=== PATIENT | female | born 1950 | race Caucasian/White ===

== ENCOUNTER 2018-12-08 15:55 | Outpatient (REF) | payer MEDICARE, BC, SELFPAY ==
[2018-12-08 21:43] LABS: ALT 35 U/L (12-78); AST 24 U/L (15-37); Calculated LDL 119; Cholesterol 250 mg/dL (50-200); HDL Cholesterol 111 mg/dL (40-60); Triglyceride 101 mg/dL (30-150); Vitamin B12 281 pg/mL (193-986)
== END 2018-12-08 16:15 ==
LOC: NCHCN 15:55
PROVIDERS: PCP Nurse Practitioner Family; Visit Provider Nurse Practitioner Family
DX: R53.83 Other fatigue (principal); E78.89 Other lipoprotein metabolism disorders
CPT/HCPCS: 80061; 83721; 82607; 84443; 84450; 84460

== ENCOUNTER 2018-12-15 01:17 | Outpatient (CLI) | payer MEDICARE, BC, SELFPAY ==
--- NOTE | 2018-12-15 09:16 | DI.MAMMO_ITS ---
SYMPTOM/DIAGNOSIS: SCREENING, Z12.31 BILATERAL SCREENING MAMMOGRAM: Mammograms were interpreted according to the usual protocol including computer analysis with CAD system, tomosynthesis and C view imaging. Comparison is made with exams from 2011 through 2017. The breasts are composed of heterogeneously dense fibroglandular tissue, breast density category C. No suspicious masses or suspicious microcalcifications are seen. There has been no significant change. IMPRESSION: Category 1, negative mammogram. Yearly screening mammography is recommended. Breast density category C. MQSA ASSESSMENT OF FINDINGS: Negative. Category 1. Patient will receive a letter notifying them of these results. Bi-RADS category C. The breasts are heterogeneously dense, which may obscure small masses.
== END 2018-12-15 01:37 ==
PROVIDERS: PCP Nurse Practitioner Family; Visit Provider Nurse Practitioner Family
DX: Z12.31 Encounter for screening mammogram for malignant neoplasm of breast (principal)
CPT/HCPCS: 77063; 77067

== ENCOUNTER 2019-02-06 01:38 | Outpatient (CLI) | payer MEDICARE, BC, SELFPAY ==
--- NOTE | 2019-02-06 12:50 | DI.DEXA_ITS ---
SYMPTOMS/DIAGNOSIS: OSTEOPENIA, M85.88 DEXA SCAN: DEXA scan was performed according to the usual protocol. The findings for left hip scanning are T score -2.6 with left femoral neck T score -2.7. Previous examination of August 2009 showed left hip T score -1.1. The findings for lumbar spine scanning are T score -2.2, previous examination of 2009 showed lumbar T score -1.2. Left forearm scanning shows T score -3.1, previous examination of August 2009 showed right forearm T score -1.4. CONCLUSION: Findings consistent with osteoporosis according to the WHO criteria. Please note that the lateral vertebral scanogram shows no evidence of a vertebral compression fracture.
== END 2019-02-06 01:58 ==
PROVIDERS: PCP Nurse Practitioner Family; Visit Provider Nurse Practitioner Family
DX: M81.8 Other osteoporosis without current pathological fracture (principal)
CPT/HCPCS: 77080

== ENCOUNTER 2019-10-18 19:33 | Outpatient (REF) | payer MEDICARE, BC, SELFPAY ==
[2019-10-18 19:58] LABS: Bilirubin Moderate (Negative); Blood Large (Negative); Clarity Cloudy (Clear); Glucose Negative (Negative); Ketones 15 mg/dL (Negative); Leukocyte Esterase Large (Negative); Nitrite Positive (Negative); Specific Gravity 1.015 (1.005-1.025); pH 5.5 (5-8)
[2019-10-18 20:12] LABS: Bacteria Many HPF (Negative); C & S Indicated? Yes; Casts Negative LPF (Negative); Crystals Negative HPF (Negative); Epithelial Cells Negative HPF (Negative); Mucus Negative (Negative); Other Cells Negative (Negative); RBC >50 HPF (0-2); WBC >50 HPF (0-5)
== END 2019-10-18 19:53 ==
LOC: NCHCN 19:33
PROVIDERS: PCP Nurse Practitioner Family; Visit Provider Nurse Practitioner Family
DX: R31.9 Hematuria, unspecified (principal)
CPT/HCPCS: 87077; 81003; 81015; 87086; 87186

== ENCOUNTER 2020-03-27 11:17 | Outpatient (REF) | payer MEDICARE, BC, SELFPAY ==
[2020-03-27 21:00] LABS: Bacteria Few HPF (Negative); C & S Indicated? Yes; Casts Negative LPF (Negative); Crystals Negative HPF (Negative); Epithelial Cells Few HPF (Negative); Mucus Negative (Negative); RBC 0-2 HPF (0-2)
[2020-03-27 21:15] LABS: Calcium 9.1 mg/dL (8.5-10.1); PHOSPHORUS 3.9 mg/dL (2.6-4.7); TSH (W/Ref FT4) 2.23 uIU/mL (0.36-3.74)
== END 2020-03-27 11:37 ==
LOC: NCHCN 11:17
PROVIDERS: PCP Nurse Practitioner Family; Visit Provider Nurse Practitioner Family
DX: R94.6 Abnormal results of thyroid function studies (principal); M81.0 Age-related osteoporosis without current pathological fracture; R31.9 Hematuria, unspecified
CPT/HCPCS: 82306; 81015; 82310; 84100; 84443; 87086

== ENCOUNTER 2020-04-09 01:38 | Outpatient (CLI) | payer MEDICARE, BC, SELFPAY ==
--- NOTE | 2020-04-09 09:20 | DI.US_ITS ---
APPROVED REPORT EXAM: Comprehensive 2D, Doppler, and color-flow Echocardiogram Patient Location: Out-Patient Financial Services Manager: Jazz Hernandez RDCS (AE) Indications: Murmur Other Information Study Quality: Adequate Conclusion Left Ventricle : The left ventricle is normal size. The left ventricular systolic function is normal. The left ventricular ejection fraction is within the normal range. There is normal left ventricular wall thickness. There is normal LV segmental wall motion. The left ventricular diastolic function is normal. LVEF is 55-60%. Right Ventricle : The right ventricle is normal size. The right ventricular systolic function is norm al. The RVSP is 19.1 mmHg. Atria : The left atrium size is normal. The right atrium size is normal. Valves: There are no hemodynamically significant valvular lesions. Great Vessels : The aortic root is normal in size. The ascending aorta is normal in size. Aortic arch is normal in caliber. IVC is normal in size and collapses >50% with inspiration. Please see remainder of study for further details. Wall motion Left Ventricle The left ventricle is normal size. The left ventricular systolic function is normal. The left ventric ular ejection fraction is within the normal range. There is normal left ventricular wall thickness. T here is normal LV segmental wall motion. The left ventricular diastolic function is normal. There is no ventricular septal defect visualized. LVEF is 55-60%. Right Ventricle The right ventricle is normal size. The right ventricular systolic function is normal. The RVSP is 19 .1 mmHg. Atria The left atrium size is normal. The right atrium size is normal. The interatrial septum is intact wit h no evidence for an atrial septal defect. Aortic Valve The aortic valve is normal in structure. Aortic valve is trileaflet. There is no aortic valvular sten osis. No aortic regurgitation is present. Mitral Valve The mitral valve is normal in structure. No evidence of mitral valve stenosis. Trace mitral regurgita tion. Tricuspid Valve The tricuspid valve is normal in structure. There is no tricuspid valve stenosis. Trace tricuspid reg urgitation. Pulmonic Valve The pulmonary valve is normal in structure. There is no pulmonic valvular stenosis. Trace pulmonic re gurgitation. Great Vessels The aortic root is normal in size. The ascending aorta is normal in size. Aortic arch is normal in ca liber. IVC is normal in size and collapses >50% with inspiration. Pericardium There is no pericardial effusion. 2D Dimensions IVSD d PLAX 0.73 cm F: 0.6-1.0 LV Vol A2C d MOD 48.2 mL LVPW d PLAX 0.76 cm F: 0.6 - 1.0 LV Vol A4C d MOD 60.9 mL LVID d PLAX 4.02 cm F: 3.8 - 5.2 LA vol/ BSA A2C s A-L 18.4 mL/m2 LVDs 2.65 cm F: 2.2 - 3.5 LA vol/ BSA A4C s A-L 19.9 mL/m2 Ao Root d 3.00 cm F: 2.7 - 3.3 LA Vol/ BSA Biplane s A-L 19.3 mL/m2 RA Area A4C 12.26 cm2 LA Area A4C s MOD 13.69 cm2 RA Vol/ BSA A4C s A-L 16.5 mL/m2 LA Area A2C s MOD 13.05 cm2 Ao Asc Diam d 2.85 cm F: 2.3 - 3.1 LV EF A4C MOD 56.7 % LV EF Teichholz 62.9 % LV EF A2C MOD 59.5 % LVEF (Baum's) 57.76 % F: 54 - 74 LV EF Biplane MOD 57.8 % LV Volume 44.67 mL F: 46 - 106 SV 32.04 mL LV Volume Index 27.40 mL/m2 F: 29 - 61 SV Index 19.56 mL/m2 LV Vol Biplane MOD 55.5 mL FS 33.55 % M-Mode TAPSE 3.22 cm (M/F) >1.7 LV Diastology MV E' medial 0.166 (>0.07 m/s) E/A Ratio 1.3 LV E/e MED 5.80 (<14) MV E Vmax 0.97 (0.4-1.3 m/s) MV E' lateral 0.153 (>0.1 m/s) MV A Vmax 0.75 (0.4-1.3 m/s) LV E/e LAT 6.30 (<14) MV E/A Ratio 1.23 MV E/E' medial 5.81 MV E/E' lateral 6.31 Aortic Valve LVOT Area 3.00 cm2 AoV Area Vmax 2.19 cm2 LVOT Vmax 1.14 m/s AoV Area/ BSA (Vmax) 1.34 cm2/m2 LVOT Mean Mitul. 0.77 m/s TORRIE Mean Mitul. 1.93 cm2 LVOT Peak Grad 5.2 mmHg TORRIE Mean Mitul. Index 1.18 cm2/m2 LVOT Mean Grad 2.7 mmHg LVOT VTI 0.262 m LVOT Diam s 1.95 cm AoV Vmax 1.55 m/s Velocity Ratio 0.73 AoV Mean Mitul. 1.19 m/s AoV Peak Grad 9.7 mmHg LVOT SV 78.70 mL AoV Mean Grad 6.3 mmHg AoV VTI 0.361 m AoV Area VTI 2.18 cm2 AoV Area/ BSA (VTI) 1.33 cm/m2 Mitral Valve MV DT 199 (160-240 msec) MV PHT 58 msec MV Area PHT 3.81 cm2 Pulmonary Valve PV Vmax 1.10 (0.5-1.5 m/s) RVOT Peak Gr. 2.25 mmHg PV Peak Grad 4.8 mmHg RVOT Mean Gr. 1.35 mmHg PV Mean Grad 2.6 mmHg RVOT VTI 0.188 m PV VTI 0.236 m RVOT Vmax 0.75 m/s Tricuspid Valve TR Peak Grad 16.0 mmHg TR Vmax 2.00 m/s RA Pressure 3.00 mmHg RVSP (TR) 19.1 mmHg
== END 2020-04-09 01:58 ==
PROVIDERS: PCP Nurse Practitioner Family; Visit Provider Nurse Practitioner Family
DX: R01.1 Cardiac murmur, unspecified (principal)
CPT/HCPCS: 93306

== ENCOUNTER 2021-03-31 16:46 | Outpatient (REF) | payer MEDICARE, BC, SELFPAY ==
[2021-03-31 14:28] LABS: HCT 36.9 % (36.0-46.0); HGB 12.1 g/dL (11.2-15.7); MCH 30.6 pg (27.0-33.0); MCHC 32.8 % (32.0-36.0); MCV 93.2 fL (80-95); MPV 10.4 fL (8.0-11.0); Platelet Count 275 10^3/uL (130-400); RBC 3.96 10^6/uL (3.93-5.22); RDW 12.4 % (11.7-14.6); RDW-SD 42.8 fL; WBC 4.33 10^3/uL (4.4-10.8)
[2021-03-31 14:50] LABS: Anion Gap 5.6 mmol/L (3-11); BUN 6 mg/dL (7-18); CO2 31.4 mmol/L (21.0-32.0); CREATININE 0.7 mg/dL (0.55-1.02); Calcium 9.5 mg/dL (8.5-10.1); Chloride 101 mmol/L (98-107); Glucose 76 mg/dL (74-106); Potassium 4.4 mmol/L (3.5-5.1); Sodium 138 mmol/L (136-145); TSH (W/Ref FT4) 2.82 uIU/mL (0.36-3.74)
== END 2021-03-31 16:47 | disposition home or self-care (01) ==
LOC: NCHCN 16:46
PROVIDERS: PCP Nurse Practitioner Family; Visit Provider Nurse Practitioner Family
DX: R94.6 Abnormal results of thyroid function studies (principal); Z00.00 Encounter for general adult medical examination without abnormal findings
CPT/HCPCS: 80048; 85027; 84443

== ENCOUNTER → 2021-04-30 11:28 | Outpatient (BNVA) | payer MEDICARE, BC, SELFPAY | PROVIDERS: PCP Nurse Practitioner Family; Referring Provider Nurse Practitioner Family; Visit Provider Physical Therapy Assistant | DX: K21.9 Gastro-esophageal reflux disease without esophagitis (principal); K22.70 Barrett's esophagus without dysplasia | CPT/HCPCS: 99203 ==

== ENCOUNTER 2021-05-01 03:21 | Outpatient (CLI) | payer MEDICARE, BC, SELFPAY ==
[2021-05-01 12:33] LABS: Source Nasal/Nares
[2021-05-01 20:16] LABS: COVID-19 PCR Negative (Negative)
== END 2021-05-01 03:22 | disposition home or self-care (01) ==
LOC: LBO 03:21
PROVIDERS: PCP Nurse Practitioner Family; Visit Provider Surgery
DX: Z20.822 Contact with and (suspected) exposure to COVID-19 (principal); Z01.818 Encounter for other preprocedural examination
CPT/HCPCS: 87635

== ENCOUNTER 2021-05-04 09:16 | Day surgery (SDC) | payer MEDICARE, BC, SELFPAY ==
--- NOTE | 2021-05-04 06:38 | ENDO_ITS ---
Date of service: 05/04/21 Time of Service: 10:30 Endoscopy Report DATE OF PROCEDURE: 05/04/21 PRE-OP DIAGNOSIS: Hx of Pizarro's, cough, GERD POST-OP DIAGNOSIS: same PROCEDURE: EGD with biopsies SURGEON: Cindy Mayo ANESTHESIA TYPE: General:No Airway (Monica Nayak CRNA) ESTIMATED BLOOD LOSS: 2 PATHOLOGY: other (Antrum bx, GE junction bx) COMPLICATIONS: None DISPOSITION: same day INDICATIONS: Provided both the patient and her information regarding the pathology from the EGD performed in 2011 which was remarkable for Barretts esophagus and (+) for H. Pylori. Patient was a poor historian and her expressed that he would like to ensure that he is included in any further communications secondary to misunderstandings/confusion and challenges with Ani relaying information. Discussed the options of restarting Protonix (which she was previously on) to help control her GERD symptoms, which would hopefully improve her cough sxs as it had in the past. Both Ani and her were in agreement to this. Patient has persistent cough, which is most likely related to her persistent reflux. -Discussed Upper endoscopy procedure and the need to be NPO after midnight the night prior. Discussed possible complications of the procedure to include bleeding, pain, perforation, missed small lesion/polyp/ulcers, sore throat, aspiration and adverse reaction to the medications or sedation. Questions were answered to patient?s satisfaction. No guarantees were implied or given. FINDINGS: mild gastritis and esophagitis PROCEDURE DESCRIPTION: After informed consent was obtained the patient was take to the procedure room and placed in a supine position. Monitors were applied and a time out was done. The patients name, date of , procedure type, allergies to medications and metal in their body was reviewed. A bite block was placed and the patient was sedated. Once sedated and comfortable the gastroscope was advanced through the oropharynx which was grossly normal into the esophagus. The proximal and mid- esophagus were normal. In the distal esophagus there was mild inflammation noted. The scope was advanced into the stomach and through the pylorus into the 3rd portion of the duodenum. The duodenum was noted to be normal. The scope was retracted back into the stomach. There was mild inflammation noted. Biopsies were done to rule out H. pylori. There were no ulcers. The scope was retroflexed. The cardia and fundus were noted to be normal. There was no hiatal hernia noted. The scope was retracted back into the esophagus and biopsies were done of the GE junction to rule out Pizarro's. The Z line was regular. The GE junction was at 35 cm. The scope was removed and the patient was woken up and taken back to [facility] in stable condition. Follow up: Will depend on final pathology results.
--- NOTE | 2021-05-04 06:39 | W.PM.DSUDISC ---
Discharge Plan Disposition Patient Disposition: HOME Condition: Good Discharge Details Reason For Visit: EGD Attending Provider: Cindy Mayo Primary Care Provider: Blanquita Pagan Home Meds and New Rx's Prescriptions: Continued pantoprazole 40 mg tablet,delayed release (DR/EC) 40 mg PO DAILY Qty: 60 RF: 2 levothyroxine 50 mcg capsule 50 mcg PO DAILY RF: 0 calcium carbonate 500 mg calcium (1,250 mg) tablet 500 mg PO BID RF: 0 alendronate 10 mg tablet 10 mg PO DAILY RF: 0 cholecalciferol (vitamin D3) 10 mcg (400 unit) capsule 20 mcg PO DAILY RF: 0 Discharge Instructions Instructions: Gastritis (DC) Additional Instructions: Findings: Inflammation of the stomach Follow up: I will send you a letter in the mail Please stay on Pantoprazole (protonix) indefinitely to control your reflux Please call if you develop: fevers >101.5 Nausea or Vomiting Abdominal pain that is not transient Rectal bleeding that is more then a tbsp A hard abdomen and inability to pass gas DAY SURGERY UNIT POST ENDOSCOPY INSTRUCTIONS Instructions for everyone who is given Anesthesia: For your safety, please do the following for the next 24 Hours: a. Do not drive or operate dangerous equipment b. Do not drink alcohol beverages or use any recreational drugs for the first 24 hours or while taking pain medications. The medications in your body may have a reaction that can be dangerous. c. Do not make any important decisions or sign any important papers 1. Generally there are no restrictions on your activity after a day or so has gone by, but you may feel a bit fatigued for a few days. 2. After you arrive home you may have a light meal and return to a normal diet as you can tolerate it without feeling sick to your stomach. 3. After surgery, you may feel pain or discomfort. This should be only transient, but if it persists please contact your doctor. 4. If there are any questions regarding the findings of your procedure, please feel free to contact your doctor. 6. If you are unable to contact your doctor with a problem, contact the hospital at [phone]. 7. Continue all your regular medications unless directed otherwise. I understand the above instructions and have no questions. Signature of Patient or Responsible Adult Escort Date/Time Name of Responsible Adult Escort Signature of Nurse Date/Time Activity:: Activity as Tolerated Diet:: As Tolerated Discharge Orders Discharge Orders: Discharge Order (Routine); Ordered 05/04/21 Ordered By: Cindy Mayo
[2021-05-04 09:29] VITALS: BP 145/81; PULSE 75; RESP 16; TEMP 36.3; O2SAT 100
[2021-05-04] MEDS: Lactated Ringers 1,000 ML 80 ML IV (09:51)
--- NOTE | 2021-05-04 10:08 | ANES.PREOP_ITS ---
General Info Date of Service Date Performed: 05/04/21 Height: 5 ft 6 in Weight: 54.6 kg Body Mass Index (BMI): 19.4 Surgical Procedure: Operation Date: 05/04/21 10:20 Proposed Procedures Side Surgeon p Gastroscopy Cindy Mayo MD Meds Allergies and Home Medications Allergies Allergy/AdvReac Type Severity Reaction Status Date / Time No Known Allergies Allergy Unverified 05/04/21 09:33 Home Medication Medication Instructions Recorded alendronate 10 mg tablet 10 mg PO DAILY 04/01/21 calcium carbonate 500 mg calcium 500 mg PO BID 04/01/21 (1,250 mg) tablet cholecalciferol (vitamin D3) 10 20 mcg PO DAILY cap 04/01/21 mcg (400 unit) capsule levothyroxine 50 mcg capsule 50 mcg PO DAILY 04/01/21 pantoprazole 40 mg tablet,delayed 40 mg PO DAILY #60 tab 04/30/21 release Current Visit Medications: Current Medications Generic Name Dose Route Start Last Admin Trade Name Freq PRN Reason Stop Dose Admin Hyoscyamine Sulfate 0.125 mg 05/04/21 06:39 Hyoscyamine 0.125 Mg Sl/Oral/Chew SL DIRECTED PRN Ringer's Solution 1,000 mls @ 80 mls/hr 05/04/21 06:00 05/04/21 09:51 IV 05/31/21 23:59 80 mls/hr INFUSION ANY Administration IV Miscellaneous Supplies 1 each 05/04/21 06:00 Iv Access IV 05/31/21 23:59 DIRECTED ANY Ondansetron HCl 4 mg 05/04/21 06:39 Ondansetron 4 Mg/2 Ml Vial IVP Q4H PRN PRN Nausea / Vomiting Sodium Chloride 0 ml 05/04/21 06:00 Normal Saline Flush 10 Ml Syr IV 05/31/21 23:59 PRN PRN Sodium Chloride 0 ml 05/04/21 06:00 Normal Saline 10 Ml Vial IJ 05/31/21 23:59 DIRECTED PRN Sterile Water 0 ml 05/04/21 06:00 Water,Injection,Sterile 10 Ml Vial IJ 05/31/21 23:59 DIRECTED PRN PFSH Active Problems Active Problems: Problem Status Onset Code Dysphagia R13.10 Heart murmur R01.1 GERD (gastroesophageal reflux disease) K21.9 Barretts esophagus K22.70 Medical History Medical History Barretts esophagus Elevated TSH Foreign body granuloma of soft tissue of foot GERD (gastroesophageal reflux disease) Heart murmur Pt. states she was told it was benign and not an issue Hematuria Memory loss Osteoporosis Polyneuropathy Toe anomaly Surgical History Surgical History History of tonsillectomy Tobacco Smoking/Tobacco Use Status: Never Alcohol Alcohol Intake: current Alcohol intake frequency: a few times a week Alcohol type: beer and hard liquor Substance Use Substance use type: does not use Vital Signs and Lab Results Vital Signs Most Recent Vital Signs in EMR: Most Recent Vital Signs Temp Pulse Resp BP Pulse Ox 36.3 C L 75 16 145/81 H 100 05/04/21 09:29 05/04/21 09:29 05/04/21 09:29 05/04/21 09:29 05/04/21 09:29 Lab Results Blood Type / Crossmatch: No Data to Display Complete Blood Count: No Data to Display Complete Metabolic Panel: No Data to Display Liver Function Panel: No Data to Display Coagulation Panel: No Data to Display Cardiac Panel: No Data to Display Arterial Blood Gas: No Data to Display Venous Blood Gas: No Data to Display Pancreas Panel: No Data to Display Thyroid Panel: No Data to Display Infectious Disease: Coronavirus (COVID-19)(PCR) Negative (Negative) 05/01/21 10:10 05/01/21 Coronavirus 2019 Source Nasal/Nares 05/01/21 10:10 05/01/21 Blood Cultures: No Data to Display Toxicology Panel: No Data to Display Imaging and Studies Imaging and Studies Echocardiogram Summary: Conclusion Left Ventricle : The left ventricle is normal size. The left ventricular systolic function is normal. The left ventricular ejection fraction is within the normal range. There is normal left ventricular wall thickness. There is normal LV segmental wall motion. The left ventricular diastolic function is normal. LVEF is 55-60%. Right Ventricle : The right ventricle is normal size. The right ventricular systolic function is normal. The RVSP is 19.1 mmHg. Atria : The left atrium size is normal. The right atrium size is normal. Valves: There are no hemodynamically significant valvular lesions. Great Vessels : The aortic root is normal in size. The ascending aorta is normal in size. Aortic arch is normal in caliber. IVC is normal in size and collapses >50% with inspiration.04/09/20 Anesthesia Assessment and Plan Anesthesia History Personal History: No History of Anesthesia Complications Family History: No Family History of Anesthesia Complications Exercise Tolerance Exercise Tolerance: Metabolic Equivalents>4 Pertinent Negatives Pertinent Negatives: No Symptoms of GERD (Controlled with med), No Major Cardi ovascular Symptoms or Complaints, No Major Pulmonary Symptoms or Complaints and No History of CVA/TIA Cardiac & Pulmonary Exam Cardiac Exam: Normal S1/S2 Heart Sounds Pulmonary Exam: Clear Bilateral Breath Sounds Implantable Cardiac Device Does patient have a Pacemaker or an ICD?: No Airway Exam Known Difficult Airway: No Mallampati Class: 2 Mouth Opening: Normal (> 3cm) Thyromental Distance: Greater than 3 cm Neck Range of Motion: Full ROM Neck Circumference: Normal Teeth Condition: Normal Dentition ASA Classification ASA Score: ASA 2 Emergency Case?: No NPO Status NPO Status: NPO Clears >2 hours, Solids >8 hours Anesthesia Plan Resuscitation Status: Full Code Anesthesia Technique: General Anesthesia Airway Planned: Natural Airway Monitors Used: Standard Monitors
[2021-05-04 10:13] VITALS: BMI 19.4
--- NOTE | 2021-05-04 10:20 | STOM_PTH ---
PATIENT: Ani Ridley LOC: [facility] U#:[id number] AGE/SX: 71/F ROOM: RE05/04/[address]: Cindy Mayo MD : 1950 BED: DIS: 05/04/2021 SPEC #: [id number] RECD: 05/04/21 12:33 STATUS: GARETH REQ #: [id number] LEXX: 05/04/21 10:[address]: Cindy Mayo DEPT: Surgical Specimen RECD BY: Theresa Robles ENTERED: 05/04/21 12:34 SP TYPE: STOMACH OTHR DR: Blanquita Pagan Tissues: 1 - STOMACH BIOPSY 2 - ESOPHAGUS BIOPSY Procedures: GROSS AND MICRO LEVEL 4 Comments: [id number]
[2021-05-04 10:40] VITALS: BP 117/67; PULSE 71; RESP 18; TEMP 36.5; O2SAT 96
[2021-05-04 10:58] VITALS: BP 129/79; PULSE 68; RESP 16; TEMP 36.1; O2SAT 100
--- NOTE | 2021-05-04 11:06 | W.ANESPOSTOP ---
Postoperative Evaluation Date, Time and Location Date Performed: 05/04/21 Time Performed: 10:58 Patient Location: Day Surgery Unit Vital Signs Most Recent Imported Vital Signs: Most Recent Vital Signs Temp Pulse Resp BP Pulse Ox 36.1 C L 68 16 129/79 100 05/04/21 10:58 05/04/21 10:58 05/04/21 10:58 05/04/21 10:58 05/04/21 10:58 Pain Score Most Recent Pain Score: Most Recent Pain Score Pain Level 0 05/04/21 10:58 Assessment Mental Status: Awake (Alert & Oriented to Patient Baseline) Airway and Respiratory Function: Patent airway with normal (patient baseline) respiratory exam Cardiovascular Function: Hemodynamically Stable Hydration Status: Adequately Hydrated Nausea & Vomiting: No Nausea or Vomiting Pain: Pt. Denies Any Pain Peripheral Nerve Block: Patient did not receive a nerve block
== END 2021-05-04 11:31 | disposition home or self-care (01) ==
LOC: SUR 09:16
PROVIDERS: PCP Nurse Practitioner Family; Visit Provider Surgery
PROC: 0DJ68ZZ Inspection of Stomach, Via Natural or Artificial Opening Endoscopic (ICD-10-PCS; CPT 43235; principal; 2021-05-04 10:15)
DX: K21.9 Gastro-esophageal reflux disease without esophagitis (principal); K22.70 Barrett's esophagus without dysplasia
CPT/HCPCS: 43239; 88305; J2001; J2704

== ENCOUNTER 2021-06-18 02:29 | Outpatient (CLI) | payer MEDICARE, BC, SELFPAY ==
--- NOTE | 2021-06-18 | DI.DEXA_ITS ---
Exam(s) XR DEXA BONE DENSITY W/WO ALIRIO EXAM: XR DEXA BONE DENSITY W/WO ALIRIO CLINICAL HISTORY: POST MENOPAUSAL STATE Z78.0 SCREENING FOR OSTEOPOROSIS TECHNIQUE: Overwatch C densitometer COMPARISON: 2009 and 2018 FINDINGS: Lateral view of the thoracic and lumbar spine shows no evidence of compression fractures. Bone mineral density measurements of the lumbar spine correspond to a total T-score of -2.0, in the osteopenic range. This represents a 3.4 percent increase from 2019 and 9.0 percent decrease compared with 2009. Bone mineral density measurements of the left hip correspond to a total T-score of -2.4. The femora l neck T-score is -3.0, in the osteoporotic range. 3.8 percent increase from 2019. 20.6 percent dec rease from 15/04.. The left forearm bone mineral density measurements correspond to a T-score of the distal 3rd of -3.0 , in the osteoporotic range. No significant change from 2019. 15.8 percent decrease compared with 010.. IMPRESSION: Osteoporosis of the left forearm and left hip. Osteopenia of the lumbar spine.
--- NOTE | 2021-06-18 13:15 | DI.MAMMO_ITS ---
Exam(s) MAMMO SCREENING EXAM: MAMMO SCREENING CLINICAL HISTORY: SCREENING MAMMOGRAM Z12.31 TECHNIQUE: Mammograms were interpreted according to the usual protocol including computer analysis w [place] CAD system, tomosynthesis and C-view imaging. COMPARISON: 2012 through 2018 FINDINGS: The breasts are composed of heterogeneously dense fibroglandular densities, Breast Density category C . No suspicious masses or suspicious microcalcifications are seen. Vascular calcifications are inciden tally noted. No skin thickening or abnormal axillary lymph nodes are seen. There has been no significant change from prior exams. IMPRESSION: BI-RADS Category 1, Negative mammogram. Yearly screening mammography is recommended. Breast Density Category C, heterogeneously Dense. The mammogram demonstrates the patient's breast tissue is dense. Dense breast tissue is very common a nd is not abnormal but dense breast tissue can make it harder to find cancer on a mammogram. Also, de nse breast tissue may increase breast cancer risk. This information about the result of the mammogram report was provided to the patient to raise their awareness. Use this report when you speak with the patient about their risks for breast cancer, which includes their family history. At that time, you may recommend additional screening tests (Ultrasound or MRI) as they might be useful based on their r isk. A negative radiographic report should not delay biopsy if a dominant or clinically suspicious mass is present. Up to ten percent of cancers are not identified on mammography. A negative report may reinforce clinical impression. Adenosis and dense breasts may obscure an underlying neoplasm. False positive reports average 6 to 10%.
== END 2021-06-18 02:49 ==
PROVIDERS: PCP Nurse Practitioner Family; Visit Provider Nurse Practitioner Family
DX: Z12.31 Encounter for screening mammogram for malignant neoplasm of breast (principal); M81.0 Age-related osteoporosis without current pathological fracture; M85.88 Other specified disorders of bone density and structure, other site; Z78.0 Asymptomatic menopausal state
CPT/HCPCS: 77063; 77067; 77080

== ENCOUNTER 2022-07-23 12:11 | Outpatient (REF) | payer MEDICARE, BC, SELFPAY ==
[2022-07-23 16:23] LABS: ALT 17 U/L (14-59); AST 23 U/L (15-37); Alkaline Phosphatase 84 U/L (46-116); Anion Gap 3.4 mmol/L (3-11); BUN 9 mg/dL (7-18); Bilirubin, Total 0.4 mg/dL (0.2-1.0); CO2 32.6 mmol/L (21.0-32.0); CREATININE 0.6 mg/dL (0.55-1.02); Calcium 9.8 mg/dL (8.5-10.1); Calculated LDL 151 mg/dL (<100); Chloride 99 mmol/L (98-107); Cholesterol 263 mg/dL (<200); Estimated GFR 94.72 (mL/min/1.73m2); Glucose 86 mg/dL (74-106); HDL Cholesterol 101 mg/dL (40-60); Potassium 5.4 mmol/L (3.5-5.1); Sodium 135 mmol/L (136-145); TSH 3.01 uIU/mL (0.36-3.74); Total Protein 7.1 g/dL (6.4-8.2); Triglyceride 56 mg/dL (<150)
[2022-07-23 16:37] LABS: Vitamin D 25 Total 40.5 ng/mL (30-100)
== END 2022-07-23 12:12 | disposition home or self-care (01) ==
LOC: NCHCN 12:11
PROVIDERS: PCP Nurse Practitioner Family; Visit Provider Family Medicine
DX: R41.3 Other amnesia (principal); G62.9 Polyneuropathy, unspecified; R94.6 Abnormal results of thyroid function studies; E78.5 Hyperlipidemia, unspecified; I10 Essential (primary) hypertension; M85.88 Other specified disorders of bone density and structure, other site
CPT/HCPCS: 80053; 80061; 82306; 84443

== ENCOUNTER 2022-07-27 15:24 | Outpatient (REF) | payer MEDICARE, BC, SELFPAY ==
[2022-07-27 15:41] LABS: Bilirubin Negative (Negative); Blood Trace-intact (Negative); Clarity Clear (Clear); Glucose Negative (Negative); Ketones Negative (Negative); Leukocyte Esterase Trace (Negative); Nitrite Negative (Negative); Specific Gravity <= 1.005 (1.005-1.025); Urobilinogen 0.2 EU/dL (Up TO 0.2); pH 5.5 (5-8)
== END 2022-07-27 15:25 | disposition home or self-care (01) ==
LOC: NCHCN 15:24
PROVIDERS: PCP Nurse Practitioner Family; Visit Provider Nurse Practitioner Family
DX: R31.9 Hematuria, unspecified (principal)
CPT/HCPCS: 81003; 81015; 87086

== ENCOUNTER 2022-07-29 01:57 | Outpatient (CLI) | payer MEDICARE, BC, SELFPAY ==
--- NOTE | 2022-07-29 | DI.MAMMO_ITS ---
Exam(s) MAMMO SCREENING EXAM: MAMMO SCREENING CLINICAL HISTORY: SCREENING MAMMO Z12.39 TECHNIQUE: Mammograms were interpreted according to the usual protocol including computer analysis w [employer] CAD system, tomosynthesis and C-view imaging. COMPARISON: 2012 through 2020 FINDINGS: The breasts are composed of heterogeneously dense fibroglandular densities, Breast Density category C . No suspicious masses or suspicious microcalcifications are seen. No skin thickening or abnormal axillary lymph nodes are seen. There has been no significant change from prior exams. IMPRESSION: BI-RADS Category 1, Negative mammogram. Yearly screening mammography is recommended. Breast Density Category C, heterogeneously Dense. The mammogram demonstrates the patient's breast tissue is dense. Dense breast tissue is very common a nd is not abnormal but dense breast tissue can make it harder to find cancer on a mammogram. Also, de nse breast tissue may increase breast cancer risk. This information about the result of the mammogram report was provided to the patient to raise their awareness. Use this report when you speak with the patient about their risks for breast cancer, which includes their family history. At that time, you may recommend additional screening tests (Ultrasound or MRI) as they might be useful based on their r isk. A negative radiographic report should not delay biopsy if a dominant or clinically suspicious mass is present. Up to ten percent of cancers are not identified on mammography. A negative report may reinforce clinical impression. Adenosis and dense breasts may obscure an underlying neoplasm. False positive reports average 6 to 10%.
== END 2022-07-29 02:17 ==
LOC: DI 01:58
PROVIDERS: PCP Nurse Practitioner Family; Visit Provider Nurse Practitioner Family
DX: Z12.31 Encounter for screening mammogram for malignant neoplasm of breast (principal); R92.8 Other abnormal and inconclusive findings on diagnostic imaging of breast
CPT/HCPCS: 77063; 77067

== ENCOUNTER 2022-09-15 01:28 | Outpatient (CLI) | payer MEDICARE, BC, SELFPAY ==
--- NOTE | 2022-09-15 10:15 | DI.US_ITS ---
APPROVED REPORT EXAM: Comprehensive 2D, Doppler, and color-flow Echocardiogram Patient Location: Out-Patient [facility] [place]: Jazz Hernandez RDCS (AE) Indications: Heart murmur Other Information Study Quality: Adequate Conclusion Normal left ventricular wall thickness and chamber size. Estimated ejection fraction is 60 to 65%. Wall motion is normal Normal right ventricular size and systolic function Both atria are normal in size Aortic valve is calcified without stenosis or regurgitation Mildly thickened mitral leaflets. Mild mitral annular calcification. Trace to mild mitral regurgita tion Normal tricuspid valve with trace to mild regurgitation. Estimated right ventricular systolic pressu re is 20 mmHg Wall motion Left Ventricle The left ventricle is normal size. The left ventricular systolic function is normal. The left ventric ular ejection fraction is within the normal range. There is normal left ventricular wall thickness. T here is normal LV segmental wall motion. There is no ventricular septal defect visualized. LVEF is 60 -65%. Right Ventricle The right ventricle is normal size. The right ventricular systolic function is normal. The RVSP is 20 .3_ mmHg. Atria The left atrium size is normal. The right atrium size is normal. The interatrial septum is intact wit h no evidence for an atrial septal defect. Aortic Valve Aortic valve is calcified. No hemodynamically significant valvular aortic stenosis. No aortic regurgi tation is present. Mitral Valve Mildly thickened mitral leaflets Mild mitral annular calcification No evidence of mitral valve stenos is. Trace to mild mitral regurgitation. Tricuspid Valve The tricuspid valve is normal in structure. There is no tricuspid valve stenosis. Trace to mild tricu spid regurgitation. Pulmonic Valve The pulmonary valve is normal in structure. There is no pulmonic valvular stenosis. There is no pulmo earle valvular regurgitation. Great Vessels The aortic root is normal in size. The ascending aorta is normal in size. Aortic arch is normal in ca liber. IVC is normal in size and collapses >50% with inspiration. Pericardium There is no pericardial effusion. 2D Dimensions IVSD d PLAX 0.67 cm F: 0.6-1.0 LV Vol A2C d MOD 71.4 mL LVPW d PLAX 0.68 cm F: 0.6 - 1.0 LV Vol A4C d MOD 60.1 mL LVID d PLAX 4.00 cm F: 3.8 - 5.2 LA vol/ BSA A2C s A-L 31.3 mL/m2 LVDs 2.75 cm F: 2.2 - 3.5 LA Area A2C s MOD 18.17 cm2 Ao Root d 3.07 cm F: 2.7 - 3.3 LV EF A4C MOD 60.3 % Ao Asc Diam d 2.76 cm F: 2.3 - 3.1 LV EF A2C MOD 65.5 % LV EF Teichholz 59.4 % LV EF Biplane MOD 63.2 % LVEF (Baum's) 63.16 % F: 54 - 74 SV 43.17 mL LV Volume 55.56 mL F: 46 - 106 SV Index 27.01 mL/m2 LV Volume Index 34.72 mL/m2 F: 29 - 61 LV Vol Biplane MOD 68.3 mL FS 31.10 % M-Mode TAPSE 3.03 cm (M/F) >1.7 LV Diastology MV E' medial 0.132 (>0.07 m/s) E/A Ratio 1.2 LV E/e MED 5.70 (<14) MV E Vmax 0.76 (0.4-1.3 m/s) MV E' lateral 0.095 (>0.1 m/s) MV A Vmax 0.65 (0.4-1.3 m/s) LV E/e LAT 8.00 (<14) MV E/A Ratio 1.09 MV E/E' medial 5.75 MV E/E' lateral 8.03 Aortic Valve LVOT Area 3.13 cm2 AoV Area Vmax 1.10 cm2 LVOT Vmax 0.85 m/s AoV Area/ BSA (Vmax) 0.69 cm2/m2 LVOT Mean Mitul. 0.59 m/s TORRIE Mean Mitul. 1.08 cm2 LVOT Peak Grad 2.9 mmHg TORRIE Mean Mitul. Index 0.68 cm2/m2 LVOT Mean Grad 1.6 mmHg LVOT VTI 0.212 m LVOT Diam s 1.95 cm AoV Vmax 2.43 m/s Velocity Ratio 0.35 AoV Mean Mitul. 1.70 m/s AoV Peak Grad 23.5 mmHg LVOT SV 66.35 mL AoV Mean Grad 13.1 mmHg AoV VTI 0.556 m AoV Area VTI 1.19 cm2 AoV Area/ BSA (VTI) 0.75 cm/m2 Mitral Valve MV DT 181 (160-240 msec) MV PHT 52 msec MV Area PHT 4.19 cm2 MV VTI 0.337 m MV Area VTI 1.97 (4.0-6.0 cm2) Pulmonary Valve PV Vmax 0.94 (0.5-1.5 m/s) RVOT Peak Gr. 1.48 mmHg PV Peak Grad 3.5 mmHg RVOT Mean Gr. 0.80 mmHg PV Mean Grad 2.0 mmHg RVOT VTI 0.135 m PV VTI 0.183 m RVOT Vmax 0.61 m/s Tricuspid Valve TR Peak Grad 17.3 mmHg TR Vmax 2.08 m/s RA Pressure 3.00 mmHg RVSP (TR) 20.3 mmHg
== END 2022-09-15 01:48 ==
LOC: DI 01:28
PROVIDERS: PCP Nurse Practitioner Family; Visit Provider Nurse Practitioner Family
DX: R01.1 Cardiac murmur, unspecified (principal)
CPT/HCPCS: 93306

== ENCOUNTER 2022-12-15 16:30 | Outpatient (REF) | payer MEDICARE, BC, SELFPAY ==
[2022-12-15 20:47] LABS: Abs Immature Grans 0.02 10^3/uL (0.0-0.06); Absolute Basophil Count 0.06 10^3/uL (0.0-0.2); Absolute Eosinophil Count 0.05 10^3/uL (0.0-0.7); Absolute Lymphocyte Count 0.49 10^3/uL (1.2-3.4); Absolute Monocyte Count 0.59 10^3/uL (0.1-0.8); Basophils % 0.9; Eosinophils % 0.8; HCT 32.9 % (36.0-46.0); HGB 10.9 g/dL (11.2-15.7); Immature Grans % 0.3; Lymphocytes % 7.5; MCH 28.9 pg (27.0-33.0); MCHC 33.1 % (32.0-36.0); MCV 87 fL (80-95); MPV 9.2 fL (8.0-11.0); Monocytes % 9.1; Neutrophils % 81.4; Platelet Count 380 10^3/uL (130-400); RBC 3.77 10^6/uL (3.93-5.22); RDW 13.5 % (11.7-14.6); RDW-SD 43.3 fL; WBC 6.51 10^3/uL (4.4-10.8)
[2022-12-15 20:49] LABS: ESR 26 mm/hr (0-30)
[2022-12-15 21:02] LABS: ALT 20 U/L (14-59); AST 33 U/L (15-37); Albumin 3.5 g/dL (3.4-5.0); Alkaline Phosphatase 83 U/L (46-116); Anion Gap 7.9 mmol/L (3-11); BUN 11 mg/dL (7-18); Bilirubin, Total 0.2 mg/dL (0.2-1.0); CO2 29.1 mmol/L (21.0-32.0); CREATININE 0.6 mg/dL (0.55-1.02); Calcium 9.3 mg/dL (8.5-10.1); Chloride 97 mmol/L (98-107); Estimated GFR 94.72 (mL/min/1.73m2); Glucose 82 mg/dL (74-106); Potassium 4.4 mmol/L (3.5-5.1); Sodium 134 mmol/L (136-145); Total Protein 7.2 g/dL (6.4-8.2)
== END 2022-12-15 16:31 | disposition home or self-care (01) ==
LOC: NCHCN 16:30
PROVIDERS: PCP Nurse Practitioner Family; Visit Provider Family Medicine
DX: R59.1 Generalized enlarged lymph nodes (principal)
CPT/HCPCS: 80053; 85652; 85025

== ENCOUNTER 2023-01-06 01:55 | Outpatient (CLI) | payer MEDICARE, BC, SELFPAY ==
[2023-01-06] MEDS: Barium Sulfate 2% W/V-Berry Smoothie 450 ML BTL PO ×2 (07:25)
[2023-01-06] MEDS: Normal Saline Flush 10 ML SYR IJ (09:15)
[2023-01-06] MEDS: Normal Saline - Diluent 50 ML VIAL IJ (09:16)
[2023-01-06] MEDS: Omnipaque 350 MG/ML 500 ML BTL-Imaging package 100 ML IJ (09:17)
--- NOTE | 2023-01-06 09:19 | DI.CT_ITS ---
Exam(s) CT CHEST/ABD/PEL W EXAM: CT CHEST/ABD/PEL W CLINICAL HISTORY: LYMPHADENOPATHY,R59.1. TECHNIQUE: Imaging Protocol: Axial computed tomography images with coronal and sagittal reformatted images were created and reviewed CONTRAST MATERIAL: Intravenous: Omnipaque 350 Contrast volume:100 ml Oral: Yes. Oral contrast was also administered for bowel opacification. COMPARISON: No exams were available for comparison FINDINGS: CHEST: LUNGS: There is a prominent medial left supraclavicular mass which abuts the lateral aspect of the le ft thyroid lobe and extends laterally for a distance of 4.5 cm. AP measurement of this solid mass is 3 cm and craniocaudal measurement of this neoplastic appearing mass is 4.4 cm. Immediately subjacen t to this mass is an isodense mass in the medial left lung apex adjacent to the T1 and T2 vertebral b odies which measures 6 cm AP by 1.8 cm wide by 4.5 cm craniocaudal measurement.. The mass in the lef t supraclavicular region elevates the ipsilateral sternocleidomastoid muscle and complete presses the left thyroid lobe but there does not appear to be tracheal deviation towards the opposite-right side nor encasement of the adjacent ipsilateral common carotid artery. The mass skirts but does not trul y encase the ipsilateral left subclavian artery.. There is abnormal sclerotic density in the left side of the adjacent T 2 vertebral body and left 2nd rib, suspicious for blastic metastatic disease contiguous to the above described soft tissue mass. T here is no height loss of this vertebra but the abnormal density does extend into the left pedicle of T2. Lower down in the left lung there is a nodular infiltrate in left lower lobe measuring approximately 10 x 9 mm. No other left lung nodules nor pleural effusions. There are no significant focal nodular findings in the opposite-right lung. However, there does appear to be some scarring or mild infiltr ate in the medial limb right lung base posterior basal segment. No findings in the trachea and rylee tem bronchi. No bronchiectasis. MEDIASTINUM: No hilar adenopathy. No subcarinal adenopathy. No adenopathy in the anterior mediastin al fat. No adenopathy in the aortopulmonic window. CARDIAC: Heart size is normal. There is no pericardial effusion.Caliber of the thoracic aorta is wit hin normal limits. OSSEOUS: As described above there is evidence of osseous blastic disease in the left side of T2 verte bral body and pedicle as well as in the left 2nd rib. Also within the left 3rd rib. Also within the lateral aspect of the left 7th rib. Also abnormal sclerotic density noted in the lateral aspect of the right 9th rib.. ABDOMEN: There is no ascites. LIVER: Subcapsular hypodensity anterior aspect of the right hepatic lobe noted which is probably a he mangioma. GALLBLADDER/BILIARY: No obvious gallbladder pathology. CBD is not dilated. PANCREAS: No evidence of pancreatic mass nor dilatation of the pancreatic duct. SPLEEN: Spleen is not enlarged. There are no intrasplenic lesions. Splenic and portal veins are miller nt. ADRENALS: There are no significant adrenal masses. KIDNEYS: There is a prominent cyst in the anterior cortex of the left kidney which measures 5 by 4.5 cm. There are few other smaller benign cortical cysts measuring less than 1 cm in the left kidney. The right renal pelvis is extrarenal. No solid masses in the right kidney. No calculi. No true hyd ronephrosis.. ABDOMINAL AORTA: Abdominal aorta is not enlarged. LYMPH NODES: There is abundant para-aortic adenopathy. This extends distal to the aortic bifurcation . The largest para-aortic lymph node is on the left side immediately subjacent to the left renal vei n and this measures 3 x 1.3 cm. This elevates the left renal vein (which is not thrombosed). ABDOMINAL WALL: No evidence of significant anterior abdominal wall nor inguinal hernia. GI: There is no evidence of bowel obstruction. PELVIS: LYMPH NODES: The para-aortic adenopathy does extend distal to the aortic bifurcation along common juve ac arteries, more so on the right side. There is also bilateral inguinal adenopathy. GI: No evidence of appendicitis.No evidence of sigmoid diverticulitis. URINARY BLADDER: No calculi nor masses evident REPRODUCTIVE: Uterus size is age-appropriate. There is a prominent cyst in the left adnexa measuring 6 by 5.5 by 6 cm, most problem. This appears unilocular with no obvious solid components nor obviou s septae day. No surrounding fluid. There are 3 smaller cysts evident in the opposite-right ovary, these measuring up to 1.7 x 1.6 cm. Subtle sclerotic density noted in left side of the pelvis. OSSEOUS: No significant osseous lesions. IMPRESSION: 1. Multilevel ominous findings including contiguous neoplastic appearing masses in the left subclavic ular region and left apical medial pleura, most probably of similar pathology. In addition, there is a 1 cm nodule in the left lower lobe, possibly metastatic. 2. In addition, there is prominent para-aortic adenopathy in the abdomen pelvis which extends distal to the aortic bifurcation. There is also significant bilateral inguinal adenopathy. 3. Sclerotic metastatic appearing bone disease is evident in left side of T2 vertebral body and left 2nd and 3rd ribs, this immediately adjacent to the above described masses. In addition, there is als o sclerotic density consistent with probable blastic metastatic disease in other ribs, including the left 7th rib and right 9th rib. 4. There are no mesenteric masses nor ascites. No splenomegaly. No bowel obstruction. No hydroneph rosis. 5. Large unilocular appearing cyst in the left adnexa which is probably ovarian and although this ap pears simple, it is abnormal in this age group. Smaller but also slightly prominent cysts are noted in the opposite-right ovary averaging 1.7 x 1.6 cm size. No obvious solid ovarian masses nor extraov manny adnexal masses and there is no free fluid in the pelvis. Most probable diagnosis here would be lymphoma, despite absence of splenomegaly, versus metastatic ly mphadenopathy. RADIATION DOSE DELIVERED: 1,003.93mGy.cm Total DLP DATA REPOSITORY: All CT scans at this facility are submitted to the National Radiology Data Registry (NRDR) Dose Index Registry (DIR) with the [employer] (A[employer]). RADIATION OPTIMIZATION: All CT scans at this facility use at least one of these dose optimization te chniques: automated exposure control; mA and/or kV adjustment per patient size (includes targeted exa ms where dose is matched to clinical indication); or iterative reconstruction.
== END 2023-01-06 02:15 ==
LOC: DI 01:55
PROVIDERS: PCP Nurse Practitioner Family; Visit Provider Family Medicine
DX: R59.1 Generalized enlarged lymph nodes (principal); R91.8 Other nonspecific abnormal finding of lung field; N83.292 Other ovarian cyst, left side; N83.291 Other ovarian cyst, right side; D48.0 Neoplasm of uncertain behavior of bone and articular cartilage; D38.2 Neoplasm of uncertain behavior of pleura
CPT/HCPCS: 74177; 71260

== ENCOUNTER 2023-01-07 15:35 | Outpatient (REF) | payer MEDICARE, BC, SELFPAY | END 2023-01-07 15:36 | disposition home or self-care (01) | LOC: NCHCN 15:35 | PROVIDERS: PCP Nurse Practitioner Family; Visit Provider Nurse Practitioner Family | DX: R31.9 Hematuria, unspecified (principal); D72.810 Lymphocytopenia | CPT/HCPCS: 87086 ==

== ENCOUNTER 2023-03-21 04:40 | Emergency (ER) | payer MEDICARE, BC, SELFPAY ==
[2023-03-21] VITALS (30 sets, daily range): BP systolic 112–177; BP diastolic 49–89; PULSE 76–97; RESP 9–28; TEMP 36.3; O2SAT 91–100
--- NOTE | 2023-03-21 04:53 | W.ED.GENAD ---
Discharge Plan Discharge Details Chief Complaint: GenMedical Clinical Impression: Bilateral foot pain Primary Care Provider: Blanquita Pagan ED Provider: Jimmie Dumont Home Meds and New Rx's Prescriptions: No Action levothyroxine 50 mcg capsule 50 mcg PO DAILY calcium carbonate 500 mg calcium (1,250 mg) tablet 500 mg PO BID alendronate 10 mg tablet 10 mg PO DAILY cholecalciferol (vitamin D3) 10 mcg (400 unit) capsule 20 mcg PO DAILY pantoprazole 40 mg tablet,delayed release (DR/EC) See Rx Instructions .ROUTE .COMPLEX Qty: 60 2RF Dose Instruction: TAKE ONE TABLET BY MOUTH EVERY DAY FOR GERD Rx Instructions: TAKE ONE TABLET BY MOUTH EVERY DAY FOR GERD glucosamine HCl PO Medical Decision Making This is a 72-year-old female with a past medical history of GERD, Pizarro's esophagus, lymphoma, iron deficiency anemia, who is currently receiving chemotherapy for her lymphoma at [facility], who presents today for evaluation of foot pain. is at bedside. He states that bone marrow biopsy was about a week and a half ago, last chemotherapy was also about a week and 1/2 to 2 weeks ago. Patient had been doing fine, however this morning she woke up and had been notably weak, and had pain in her feet bilaterally. No trauma. No injury. No history of pain like this before. She does have history of peripheral neuropathy, but states that it usually does not feel like this. She denies any chest pain, fever, chills, headache, abdominal pain, vomiting or diarrhea. She denies any proximal leg pain. Pain seems to be localized in the calves, ankles and feet. No other complaints at this time. No other modifying factors. Exam demonstrates well-appearing female, mild generalized weakness but no focal deficits. Generalized tenderness throughout the lower extremities from the calves down, but no physical exam findings that are atypical. She is afebrile, vital signs stable. Uncertain as to what is the cause of her current pain. Differential does include neuropathic pain, less likely blood clots. No evidence of trauma. No indication for x-ray based on exam. Will gently rehydrate, check electrolytes for abnormalities that could results in pain or spasms, treat the patient's pain with morphine and Tylenol, monitor closely and reassess. 6:21 AM Laboratory work-up is returned, patient does have an elevated white count at 39, however 5 days ago at [facility] she was 70, so this is a drowned downtrend. Hemoglobin stable. Left shift with absolute neutrophils of 37, 2 bands. D-dimer elevated at 1600. Electrolytes stable. I did contact [facility] and spoke with Dr. Chaudhry of oncology. She reviewed the patient's chemotherapy agents, and feels that a vaso-occlusive episode is very unlikely. We have rehydrated the patient with a liter of normal saline and currently she is getting 125 normal saline an hour. Pain is notably improved with fluids and morphine. We are still pending ultrasound which will be done later. Dr. Chaudhry has no other additional recommendations at this time. No other concerns based on labs. We will continue to monitor the patient. I will sign the patient out to my colleague for follow-up on ultrasound. HPI General Date/Time Provider Initiated Documentation: 03/21/23 04:42. HPI Narrative: This is a 72-year-old female with a past medical history of GERD, Pizarro's esophagus, lymphoma, iron deficiency anemia, who is currently receiving chemotherapy for her lymphoma at [facility], who presents today for evaluation of foot pain. is at bedside. He states that bone marrow biopsy was about a week and a half ago, last chemotherapy was also about a week and 1/2 to 2 weeks ago. Patient had been doing fine, however this morning she woke up and had been notably weak, and had pain in her feet bilaterally. No trauma. No injury. No history of pain like this before. She does have history of peripheral neuropathy, but states that it usually does not feel like this. She denies any chest pain, fever, chills, headache, abdominal pain, vomiting or diarrhea. She denies any proximal leg pain. Pain seems to be localized in the calves, ankles and feet. No other complaints at this time. No other modifying factors. Related Data Home Medications Medication Instructions Recorded Confirmed alendronate 10 mg tablet 10 mg PO DAILY 04/01/21 09/09/22 calcium carbonate 500 mg calcium 500 mg PO BID 04/01/21 09/09/22 (1,250 mg) tablet cholecalciferol (vitamin D3) 10 20 mcg PO DAILY 04/01/21 09/09/22 mcg (400 unit) capsule levothyroxine 50 mcg capsule 50 mcg PO DAILY 04/01/21 09/09/22 pantoprazole 40 mg tablet,delayed See Rx Instructions .Route 04/21/22 09/09/22 release .COMPLEX #60 tabs glucosamine HCl PO 07/30/22 09/09/22 Previous Rx's Medication Instructions Recorded pantoprazole 40 mg tablet,delayed See Rx Instructions .Route 04/21/22 release .COMPLEX #60 tabs Allergies Allergy/AdvReac Type Severity Reaction Status Date / Time No Known Allergies Allergy Unverified 09/09/22 13:13 General Stated Complaint: GenMedical GARETH: 2 Review of Systems All systems reviewed & are unremarkable except as noted in HPI and below PFSH All Active Problems (Updated 03/21/23 @ 06:23 by Jimmie Dumont DO) Bilateral foot pain (Acute) Sensorineural hearing loss (SNHL) of both ears (Acute) Impacted cerumen, right ear (Acute) Dysphagia (Acute ~04/2021) GERD (gastroesophageal reflux disease) (Acute ~04/2021) Barretts esophagus (Acute ~04/2021) Medical History Elevated TSH Foreign body granuloma of soft tissue of foot Hearing deficit Heart murmur Pt. states she was told it was benign and not an issue Hematuria Hyperlipidemia Hypertension Memory loss Osteoporosis Polyneuropathy Screening for breast cancer Toe anomaly Surgical History History of esophagogastroduodenoscopy (EGD) (~04/2021) 04/2021 - Barretts History of tonsillectomy Social History Smoking/Tobacco Use Status: Never Smoking risk assessment performed?: Yes Alcohol Intake: current Alcohol Intake frequency: a few times a week Alcohol type: beer and hard liquor Substance use type: does not use Do you feel safe at home: Yes Do you feel safe in your relationship?: Yes Exam Narrative Exam Narrative: 1.Const: Well-nourished, Well-developed, appearing stated age 2.Eyes: PERRL, no conjunctival injection, and symmetrical lids. 3.ENT: Atraumatic external nose and ears. Moist MM. Neck: Symmetric, trachea midline, No thyromegaly. 4.CVS: +S1/S2, No murmurs or gallops. Peripheral pulses 2+ and equal in all extremities. Brisk capillary refill in all extremities. 5.RESP: Unlabored respiratory effort. Clear to auscultation bilaterally. No wheezes rales or rhonchi 6.GI: Soft, Nontender/Nondistended, No hepatosplenomegaly. No guarding or rebound. 7.MSK: Normocephalic/Atraumatic, Extremities w/o deformity or ttp No cyanosis or clubbing, Normal movement of all extremities. Brisk capillary refill for all toes. Normal dorsalis pedis and posterior tibial pulse. Generalized tenderness for the toes feet ankles and calves. No redness, edema, warmth, or other abnormality otherwise. 8.Skin: Warm, Dry. No rashes or lesions. 9.Neuro: administrative resources associate II-XII grossly intact. Sensation grossly intact, no focal neurologic deficits. 10.Psych: (AAO) x3. Appropriate mood and affect Course Vital Signs Vital signs: Vital Signs Temperature 36.3 C L 03/21/23 04:45 Pulse 83 03/21/23 04:45 Respiratory Rate 28 H 03/21/23 04:45 Blood Pressure 112/89 03/21/23 04:45 Pulse Oximetry 95 03/21/23 04:45 Temperature 36.3 C L 03/21/23 04:45 Temperature Source Temporal Artery Scan 03/21/23 04:45 Pulse 83 03/21/23 04:45 Respiratory Rate 28 H 03/21/23 04:45 Respiratory Effort Normal 03/21/23 04:45 Blood Pressure 112/89 03/21/23 04:45 Blood Pressure Position Supine 03/21/23 04:45 Pulse Oximetry 95 03/21/23 04:45 Oxygen Delivery Method Room Air 03/21/23 04:45 Oxygen Flow Rate 0 03/21/23 04:45
[2023-03-21 05:15] LABS: ALT 19 U/L (14-59); AST 19 U/L (15-37); Albumin 3.3 g/dL (3.4-5.0); Alkaline Phosphatase 189 U/L (46-116); Anion Gap 11.4 mmol/L (3-11); BUN 12 mg/dL (7-18); Bilirubin, Total 0.4 mg/dL (0.2-1.0); CO2 28.6 mmol/L (21.0-32.0); CREATININE 0.7 mg/dL (0.55-1.02); Calcium 9.7 mg/dL (8.5-10.1); Chloride 92 mmol/L (98-107); Estimated GFR 91.26 (mL/min/1.73m2); Glucose 108 mg/dL (74-106); Potassium 3.6 mmol/L (3.5-5.1); Sodium 132 mmol/L (136-145)
[2023-03-21] MEDS: Normal Saline 500 ML IV ×2 (05:15→06:11)
[2023-03-21] MEDS: MORPHine 4 MG/ML SYR IVP ×2 (05:15→06:11)
[2023-03-21 05:21] LABS: Abs Immature Grans 1.61 10^3/uL (0.0-0.06); HCT 31.1 % (36.0-46.0); HGB 10.5 g/dL (11.2-15.7); MCH 27.3 pg (27.0-33.0); MCHC 33.8 % (32.0-36.0); MCV 81 fL (80-95); MPV 8.4 fL (8.0-11.0); Platelet Count 361 10^3/uL (130-400); RBC 3.84 10^6/uL (3.93-5.22); RDW 15.9 % (11.7-14.6); RDW-SD 44.8 fL
[2023-03-21 05:29] LABS: WBC 39.19 10^3/uL (4.4-10.8)
[2023-03-21 05:34] LABS: D-Dimer 1642 ng/mlFEU (<500)
[2023-03-21 05:52] LABS: Absolute Lymphocyte Count 0.39 10^3/uL (1.2-3.4); Absolute Monocyte Count 1.18 10^3/uL (0.1-0.8); Absolute Neutrophil Count 37.62 10^3/uL (1.2-6.7); Bands % 2
[2023-03-21 05:53] LABS: Diff Comment Manual Differential; RBC Morphology Normal
--- NOTE | 2023-03-21 06:02 | DI.US_ITS ---
Exam(s) US EXTREMITY VENOUS BI EXAM: US EXTREMITY VENOUS BI CLINICAL HISTORY: r/o dvt TECHNIQUE: Grayscale, color, and doppler imaging of the deep venous system of both lower extremities was performed. COMPARISON: None. FINDINGS: There is no evidence of intraluminal thrombus and there is normal compression and augmentation demons trated within the common femoral veins, femoral veins, and popliteal veins of both lower extremities. In the calves the interrogated veins also exhibit normal compression/ augmentation properties. The greater saphenous veins also appear patent as do the saphenofemoral junctions bilaterally.. Incidentally noted is a Sanderson cyst in the left popliteal fossa measuring 3 x 2 cm IMPRESSION: 1. No ultrasound evidence of DVT in either lower extremity. 2. Sanderson cyst noted in the left popliteal fossa measuring 3 x 2 cm. DATA REPOSITORY:
--- NOTE | 2023-03-21 06:36 | NUR.NOTE ---
Pt assisted to bedside commode (contact guard only). Tolerated well. Urine collected and sent to lab per MD order.
[2023-03-21] MEDS: Normal Saline 1,000 ML 150 ML IV (07:19)
--- NOTE | 2023-03-21 08:13 | ED.PROG_ITS ---
Date of service: 03/21/23 Time of Service: 08:13 Medical Decision Making I received signout on this 72-year-old female with a history of lymphoma on chemotherapy now with calf and foot pain. [facility] has been consulted. Patient had an elevated D-dimer and feels improved following fluids and morphine. She is pending a bilateral lower extremity duplex study. If her ultrasound is reassuring against DVT she is appropriate for discharge with outpatient follow- up. 8:44 AM Patient had no evidence of DVT on bilateral lower extremity duplex. She did have a left Sanderson's cyst about which I told her. I advised elevation and acetaminophen. I advised primary care follow-up. She had no pain out of proportion to suggest necrotizing soft tissue infection. No obvious lacerations nor ecchymoses and no recent trauma. I advised PCP follow-up to discuss the possibility of gabapentin. Sign Out Sign Out Data: Sign Out Comment: Foot pain. Follow-up on ultrasound. If ultrasound negative expected discharge Last updated by Jimmie Dumont DO at 03/21/23 07:35 Discharge Plan Disposition Patient Disposition: Home Discharge Details Clinical Impression: Bilateral foot pain, Synovial cyst of popliteal space [Sanderson], left knee Primary Care Provider: Blanquita Pagan ED Provider: Ishaan Chacko Home Meds and New Rx's Prescriptions: Continued levothyroxine 50 mcg capsule 50 mcg PO DAILY calcium carbonate 500 mg calcium (1,250 mg) tablet 500 mg PO BID alendronate 10 mg tablet 10 mg PO DAILY cholecalciferol (vitamin D3) 10 mcg (400 unit) capsule 20 mcg PO DAILY pantoprazole 40 mg tablet,delayed release (DR/EC) See Rx Instructions .ROUTE .COMPLEX Qty: 60 2RF Dose Instruction: TAKE ONE TABLET BY MOUTH EVERY DAY FOR GERD Rx Instructions: TAKE ONE TABLET BY MOUTH EVERY DAY FOR GERD glucosamine HCl PO Discharge Instructions Additional Instructions: You are seen in the emergency department for your foot pain. Your ultrasound sh owed no sign of any DVTs. Please return to emergency department if you develop any color changes in your foot or lose sensation in your foot.
== END 2023-03-21 09:33 | disposition home or self-care (01) ==
PROVIDERS: Student in an Organized Health Care Education/Training Program; Emergency Provider Emergency Medicine; PCP Nurse Practitioner Family
DX: M79.672 Pain in left foot; M79.671 Pain in right foot; C85.90 Non-Hodgkin lymphoma, unspecified, unspecified site; R79.89 Other specified abnormal findings of blood chemistry; M71.22 Synovial cyst of popliteal space [Baker], left knee
CPT/HCPCS: 36415; 80053; 96361; 96374; 96376; 99285; 85025; 85379; 93970; J2270

== ENCOUNTER 2023-04-07 00:58 | Outpatient (RCR) | payer MEDICARE, BC, SELFPAY ==
[2023-04-07] MEDS: Normal Saline Flush 10 ML SYR IVP (08:32)
[2023-04-07 08:33] LABS: Abs Immature Grans 0.01 10^3/uL (0.0-0.06); Absolute Basophil Count 0.16 10^3/uL (0.0-0.2); Absolute Eosinophil Count 0.12 10^3/uL (0.0-0.7); Absolute Lymphocyte Count 0.31 10^3/uL (1.2-3.4); Absolute Monocyte Count 0.65 10^3/uL (0.1-0.8); Absolute Neutrophil Count 4.01 10^3/uL (1.2-6.7); Eosinophils % 2.3; HCT 32.2 % (36.0-46.0); HGB 10.6 g/dL (11.2-15.7); Immature Grans % 0.2; Lymphocytes % 5.9; MCH 28.3 pg (27.0-33.0); MCHC 32.9 % (32.0-36.0); MCV 86 fL (80-95); MPV 9.2 fL (8.0-11.0); Monocytes % 12.4; Neutrophils % 76.2; Platelet Count 294 10^3/uL (130-400); RBC 3.75 10^6/uL (3.93-5.22); RDW 19.6 % (11.7-14.6); RDW-SD 60.4 fL; WBC 5.26 10^3/uL (4.4-10.8)
[2023-04-07 08:48] LABS: ALT 25 U/L (14-59); AST 19 U/L (15-37); Albumin 3.6 g/dL (3.4-5.0); Alkaline Phosphatase 84 U/L (46-116); Anion Gap 5.4 mmol/L (3-11); BUN 16 mg/dL (7-18); Bilirubin, Total 0.4 mg/dL (0.2-1.0); CO2 29.6 mmol/L (21.0-32.0); CREATININE 0.5 mg/dL (0.55-1.02); Calcium 9.4 mg/dL (8.5-10.1); Chloride 100 mmol/L (98-107); Estimated GFR 98.36 (mL/min/1.73m2); Glucose 98 mg/dL (74-106); LDH 176 U/L (81-234); Potassium 3.8 mmol/L (3.5-5.1); Sodium 135 mmol/L (136-145)
== END 2023-04-26 23:59 | disposition home or self-care (01) ==
LOC: INF 00:58
PROVIDERS: PCP Nurse Practitioner Family; Visit Provider Internal Medicine Hematology & Oncology
DX: C85.90 Non-Hodgkin lymphoma, unspecified, unspecified site (principal); Z45.2 Encounter for adjustment and management of vascular access device
CPT/HCPCS: 36591; 80053; 83615; 85025

== ENCOUNTER → 2023-04-29 00:29 | Outpatient (CLI) | payer MEDICARE, BC, SELFPAY ==
[2023-04-29] MEDS: Normal Saline - Diluent 50 ML VIAL IJ (10:04)
[2023-04-29] MEDS: Omnipaque 350 MG/ML 500 ML BTL-Imaging package 100 ML IJ (10:04)
[2023-04-29] MEDS: Barium Sulfate 2% W/V-Creamy Vanilla Smoothie 450 ML BTL 900 ML PO (10:15)
--- NOTE | 2023-04-29 10:30 | DI.CT_ITS ---
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 TECHNIQUE: Imaging Protocol: Axial computed tomography images with coronal and sagittal reformatted images were created and reviewed CONTRAST MATERIAL: Intravenous: Omnipaque 350 Contrast volume:100 ml Oral: yes COMPARISON: CT CT CHEST/ABD/PEL W from 01/06/2023 FINDINGS: CHEST: Tracheobronchial tree: Patent where visualized. Pulmonary parenchyma: No consolidation. Stable ground-glass nodule left lower lobe 9 millimeters. Min imal basilar scarring. Pleura: No effusion or pneumothorax. Lymph nodes: Significant improvement in left cervical adenopathy. The largest node a to left of the t hyroid measures 2.2 cm compared with 4.5 on the prior exam. The previously noted left paraspinal soft tissue density at the T level has nearly resolved. Aorta: Ascending aorta measures 3.4 cm. Descending aorta measures 2.1 cm. Pulmonary arteries: No evidence of emboli. Heart: Normal size. No pericardial effusion. Bones: Multiple areas of sclerosis noted in the upper thoracic vertebral bodies, and several bilater al ribs. There is now a severe compression fracture of T9 without significant retropulsion.. ABDOMEN and PELVIS: Liver: Normal density. No measurable mass. Gallbladder and biliary tract: No evidence of stones or wall thickening. No biliary dilatation. Pancreas: Normal density, no abnormal calcifications or inflammatory process. Spleen: Normal. Kidneys: Prominent right extra renal pelvis.. No radiodense stones or obstructive uropathy. No suspic ious masses seen. Left renal cyst. Adrenal glands: No masses seen. Aorta: Abdominal portion non-dilated. Mild atherosclerotic changes. Lymph nodes: Marked interval decrease in size of previously noted para-aortic adenopathy. The density is also decreased. The largest node measures roughly 19 x 17 millimeters to the left of the aorta be neath the level of the renal vein. Previously noted of bilateral pelvic adenopathy, greater on the ri ght has significantly decreased. The groin rim lymph nodes are now tiny. Soft tissues: Unremarkable. Bladder: Unremarkable. Bowel: No obstruction or bowel wall thickening. Peritoneal cavity: No ascites. No focal collection or mesenteric inflammatory response. Bones: Some abnormal mottled appearance to the left ilium and superior right iliac wing, not signific antly changed. Reproductive organs: Change an left ovarian cyst. Previously noted cystic areas in the right lower pe lvis are no longer present. IMPRESSION: Marked interval decrease in size of adenopathy in the left neck, neck chest abdomen and pelvis. Stable 6 cm cystic lesion of the left ovary. Other cystic areas in the right low pelvis are no longer seen. New severe compression fracture of T9. RADIATION DOSE DELIVERED: Total DLP DATA REPOSITORY: All CT scans at this facility are submitted to the National Radiology Data Registry (NRDR) Dose Index Registry (DIR) with the [employer] (ACR). RADIATION OPTIMIZATION: All CT scans at this facility use at least one of these dose optimization te chniques: automated exposure control; mA and/or kV adjustment per patient size (includes targeted exa ms where dose is matched to clinical indication); or iterative reconstruction.
== END ==
PROVIDERS: PCP Nurse Practitioner Family; Visit Provider Internal Medicine Hematology & Oncology
DX: C82.01 Follicular lymphoma grade I, lymph nodes of head, face, and neck (principal); N83.292 Other ovarian cyst, left side
CPT/HCPCS: 74177; 96523; 71260; J1642

== ENCOUNTER 2023-05-05 02:08 | Outpatient (RCR) | payer MEDICARE, BC, SELFPAY ==
[2023-04-29] MEDS: Heparin 500 UNITS/5 ML SYRINGE IV (07:45)
[2023-04-29] MEDS: Normal Saline Flush 10 ML SYR IVP (07:45)
[2023-05-05] MEDS: Normal Saline Flush 10 ML SYR IVP (08:43)
[2023-05-05 09:30] LABS: Calcium 9.5 mg/dL (8.5-10.1)
[2023-05-05 09:31] LABS: ALT 42 U/L (14-59); AST 28 U/L (15-37); Albumin 3.8 g/dL (3.4-5.0); Alkaline Phosphatase 74 U/L (46-116); Anion Gap 5.3 mmol/L (3-11); BUN 16 mg/dL (7-18); Bilirubin, Total 0.5 mg/dL (0.2-1.0); CO2 29.7 mmol/L (21.0-32.0); CREATININE 0.5 mg/dL (0.55-1.02); Chloride 102 mmol/L (98-107); Estimated GFR 98.36 (mL/min/1.73m2); Glucose 93 mg/dL (74-106); LDH 190 U/L (81-234); Potassium 4.2 mmol/L (3.5-5.1); Sodium 137 mmol/L (136-145)
[2023-05-05 10:33] LABS: HCT 33.6 % (36.0-46.0); HGB 11.2 g/dL (11.2-15.7); MCH 30.3 pg (27.0-33.0); MCHC 33.3 % (32.0-36.0); MCV 91 fL (80-95); MPV 9.9 fL (8.0-11.0); Platelet Count 356 10^3/uL (130-400); RDW 20.6 % (11.7-14.6); RDW-SD 68.5 fL; WBC 5.51 10^3/uL (4.4-10.8)
[2023-05-05 10:34] LABS: Abs Immature Grans 0.01 10^3/uL (0.0-0.06); Absolute Basophil Count 0.09 10^3/uL (0.0-0.2); Absolute Eosinophil Count 0.11 10^3/uL (0.0-0.7); Absolute Monocyte Count 0.66 10^3/uL (0.1-0.8); Absolute Neutrophil Count 4.34 10^3/uL (1.2-6.7); Anisocytosis 2+; Basophils % 1.6; Diff Comment RBC Morph Reviewed; Immature Grans % 0.2; Lymphocytes % 5.4; Neutrophils % 78.8
== END 2023-05-26 23:59 | disposition home or self-care (01) ==
LOC: INF 02:08
PROVIDERS: PCP Nurse Practitioner Family; Visit Provider Internal Medicine Hematology & Oncology
DX: C82.00 Follicular lymphoma grade I, unspecified site (principal); Z45.2 Encounter for adjustment and management of vascular access device
CPT/HCPCS: 36591; 80053; 96523; 83615; 85025; J1642

== ENCOUNTER 2023-06-02 03:11 | Outpatient (RCR) | payer MEDICARE, BC, SELFPAY ==
[2023-06-02] MEDS: Normal Saline Flush 10 ML SYR IVP (07:44)
[2023-06-02 08:03] LABS: Abs Immature Grans 0.01 10^3/uL (0.0-0.06); Absolute Basophil Count 0.06 10^3/uL (0.0-0.2); Absolute Eosinophil Count 0.17 10^3/uL (0.0-0.7); Absolute Lymphocyte Count 0.26 10^3/uL (1.2-3.4); Absolute Monocyte Count 0.65 10^3/uL (0.1-0.8); Absolute Neutrophil Count 4.97 10^3/uL (1.2-6.7); Eosinophils % 2.8; HCT 33.3 % (36.0-46.0); HGB 11.1 g/dL (11.2-15.7); Immature Grans % 0.2; Lymphocytes % 4.2; MCHC 33.3 % (32.0-36.0); MCV 93 fL (80-95); MPV 9.2 fL (8.0-11.0); Monocytes % 10.6; Neutrophils % 81.2; Platelet Count 258 10^3/uL (130-400); RBC 3.58 10^6/uL (3.93-5.22); RDW 17.6 % (11.7-14.6); RDW-SD 61.2 fL; WBC 6.12 10^3/uL (4.4-10.8)
[2023-06-02 08:19] LABS: ALT 37 U/L (14-59); AST 26 U/L (15-37); Albumin 3.6 g/dL (3.4-5.0); Alkaline Phosphatase 74 U/L (46-116); Anion Gap 6.1 mmol/L (3-11); BUN 14 mg/dL (7-18); Bilirubin, Total 0.3 mg/dL (0.2-1.0); CO2 29.9 mmol/L (21.0-32.0); CREATININE 0.6 mg/dL (0.55-1.02); Calcium 9.1 mg/dL (8.5-10.1); Chloride 104 mmol/L (98-107); Estimated GFR 94.13 (mL/min/1.73m2); Glucose 92 mg/dL (74-106); LDH 183 U/L (81-234); Potassium 3.8 mmol/L (3.5-5.1); Sodium 140 mmol/L (136-145); Total Protein 6.8 g/dL (6.4-8.2)
== END 2023-06-26 23:59 | disposition home or self-care (01) ==
LOC: INF 03:11
PROVIDERS: PCP Nurse Practitioner Family; Visit Provider Internal Medicine Hematology & Oncology
DX: C82.00 Follicular lymphoma grade I, unspecified site (principal); Z45.2 Encounter for adjustment and management of vascular access device
CPT/HCPCS: 36591; 80053; 83615; 85025

== ENCOUNTER 2023-06-30 02:56 | Outpatient (RCR) | payer MEDICARE, BC, SELFPAY ==
[2023-06-30] MEDS: Normal Saline Flush 10 ML SYR IVP (07:55)
[2023-06-30 07:59] LABS: Abs Immature Grans 0.02 10^3/uL (0.0-0.06); Absolute Basophil Count 0.08 10^3/uL (0.0-0.2); Absolute Eosinophil Count 0.08 10^3/uL (0.0-0.7); Absolute Monocyte Count 0.72 10^3/uL (0.1-0.8); Absolute Neutrophil Count 4.21 10^3/uL (1.2-6.7); Basophils % 1.5; Eosinophils % 1.5; HCT 32.8 % (36.0-46.0); HGB 11.1 g/dL (11.2-15.7); Immature Grans % 0.4; Lymphocytes % 3.8; MCH 32.3 pg (27.0-33.0); MCHC 33.8 % (32.0-36.0); MCV 95 fL (80-95); MPV 9.5 fL (8.0-11.0); Monocytes % 13.6; Neutrophils % 79.2; Platelet Count 286 10^3/uL (130-400); RBC 3.44 10^6/uL (3.93-5.22); RDW 14.4 % (11.7-14.6); RDW-SD 50.6 fL; WBC 5.31 10^3/uL (4.4-10.8)
[2023-06-30 08:29] LABS: ALT 32 U/L (14-59); AST 21 U/L (15-37); Albumin 3.7 g/dL (3.4-5.0); Alkaline Phosphatase 73 U/L (46-116); Anion Gap 13.8 mmol/L (3-11); BUN 13 mg/dL (7-18); Bilirubin, Total 0.4 mg/dL (0.2-1.0); CO2 28.2 mmol/L (21.0-32.0); CREATININE 0.7 mg/dL (0.55-1.02); Calcium 9.2 mg/dL (8.5-10.1); Chloride 101 mmol/L (98-107); Glucose 102 mg/dL (74-106); LDH 170 U/L (81-234); Potassium 3.8 mmol/L (3.5-5.1); Sodium 143 mmol/L (136-145); TSH 5.55 uIU/mL (0.36-3.74)
== END 2023-07-27 23:59 | disposition home or self-care (01) ==
LOC: INF 02:56
PROVIDERS: Nurse Practitioner Family; PCP Nurse Practitioner Family; Visit Provider Internal Medicine Hematology & Oncology
DX: E03.9 Hypothyroidism, unspecified (principal); C82.00 Follicular lymphoma grade I, unspecified site; C85.90 Non-Hodgkin lymphoma, unspecified, unspecified site
CPT/HCPCS: 36591; 80053; 83615; 84443; 85025

== ENCOUNTER 2023-08-25 04:52 | Outpatient (RCR) | payer MEDICARE, BC, SELFPAY ==
[2023-07-28] MEDS: Normal Saline Flush 10 ML SYR IVP (08:25)
[2023-07-28 08:32] LABS: Abs Immature Grans 0.01 10^3/uL (0.0-0.06); Absolute Basophil Count 0.08 10^3/uL (0.0-0.2); Absolute Lymphocyte Count 0.19 10^3/uL (1.2-3.4); Absolute Monocyte Count 0.66 10^3/uL (0.1-0.8); Absolute Neutrophil Count 3.43 10^3/uL (1.2-6.7); Basophils % 1.8; Eosinophils % 2.2; HCT 32.6 % (36.0-46.0); HGB 11.2 g/dL (11.2-15.7); Immature Grans % 0.2; Lymphocytes % 4.3; MCH 32.7 pg (27.0-33.0); MCHC 34.4 % (32.0-36.0); MCV 95 fL (80-95); MPV 9.8 fL (8.0-11.0); Monocytes % 14.8; Neutrophils % 76.7; Platelet Count 236 10^3/uL (130-400); RBC 3.43 10^6/uL (3.93-5.22); RDW 14.2 % (11.7-14.6); RDW-SD 49.2 fL; WBC 4.47 10^3/uL (4.4-10.8)
[2023-07-28 08:57] LABS: ALT 39 U/L (14-59); AST 28 U/L (15-37); Albumin 3.7 g/dL (3.4-5.0); Alkaline Phosphatase 64 U/L (46-116); Anion Gap 8.6 mmol/L (3-11); BUN 16 mg/dL (7-18); Bilirubin, Total 0.4 mg/dL (0.2-1.0); CO2 28.4 mmol/L (21.0-32.0); CREATININE 0.6 mg/dL (0.55-1.02); Calcium 9.2 mg/dL (8.5-10.1); Chloride 101 mmol/L (98-107); Estimated GFR 94.13 (mL/min/1.73m2); FREE T4 1.08 ng/dL (0.76-1.46); Glucose 108 mg/dL (74-106); LDH 172 U/L (81-234); Sodium 138 mmol/L (136-145); TSH 4.24 uIU/mL (0.36-3.74); Total Protein 6.6 g/dL (6.4-8.2)
[2023-08-25] MEDS: Normal Saline Flush 10 ML SYR IVP (09:05)
[2023-08-25 09:26] LABS: Abs Immature Grans 0.02 10^3/uL (0.0-0.06); Absolute Basophil Count 0.07 10^3/uL (0.0-0.2); Absolute Eosinophil Count 0.17 10^3/uL (0.0-0.7); Absolute Lymphocyte Count 0.21 10^3/uL (1.2-3.4); Absolute Monocyte Count 0.71 10^3/uL (0.1-0.8); Absolute Neutrophil Count 3.61 10^3/uL (1.2-6.7); Basophils % 1.5; Eosinophils % 3.5; HCT 32.6 % (36.0-46.0); HGB 11.2 g/dL (11.2-15.7); Immature Grans % 0.4; Lymphocytes % 4.4; MCH 32.7 pg (27.0-33.0); MCHC 34.4 % (32.0-36.0); MCV 95 fL (80-95); MPV 9.3 fL (8.0-11.0); Monocytes % 14.8; Neutrophils % 75.4; Platelet Count 230 10^3/uL (130-400); RBC 3.43 10^6/uL (3.93-5.22); RDW 14.6 % (11.7-14.6); RDW-SD 50.5 fL; WBC 4.79 10^3/uL (4.4-10.8)
[2023-08-25 09:52] LABS: ALT 37 U/L (14-59); AST 26 U/L (15-37); Albumin 3.7 g/dL (3.4-5.0); Alkaline Phosphatase 72 U/L (46-116); Anion Gap 7.6 mmol/L (3-11); BUN 16 mg/dL (7-18); Bilirubin, Total 0.5 mg/dL (0.2-1.0); CO2 28.4 mmol/L (21.0-32.0); CREATININE 0.6 mg/dL (0.55-1.02); Chloride 101 mmol/L (98-107); Estimated GFR 94.13 (mL/min/1.73m2); Glucose 66 mg/dL (74-106); LDH 180 U/L (81-234); Potassium 4.2 mmol/L (3.5-5.1); Sodium 137 mmol/L (136-145); Total Protein 6.7 g/dL (6.4-8.2)
== END 2023-08-25 23:59 | disposition home or self-care (01) ==
LOC: INF 04:52
PROVIDERS: PCP Nurse Practitioner Family; Visit Provider Internal Medicine Hematology & Oncology
DX: R94.6 Abnormal results of thyroid function studies (principal); C82.00 Follicular lymphoma grade I, unspecified site
CPT/HCPCS: 36591; 80053; 83615; 84439; 84443; 85025

== ENCOUNTER 2023-09-22 05:01 | Outpatient (RCR) | payer MEDICARE, BC, SELFPAY ==
[2023-09-22] MEDS: Normal Saline Flush 10 ML SYR IVP (08:15)
[2023-09-22 09:00] LABS: Abs Immature Grans 0.01 10^3/uL (0.0-0.06); Absolute Basophil Count 0.06 10^3/uL (0.0-0.2); Absolute Lymphocyte Count 0.21 10^3/uL (1.2-3.4); Absolute Monocyte Count 0.51 10^3/uL (0.1-0.8); Basophils % 1.5; Eosinophils % 2.5; HCT 33.2 % (36.0-46.0); HGB 11.6 g/dL (11.2-15.7); Immature Grans % 0.3; Lymphocytes % 5.3; MCH 33.5 pg (27.0-33.0); MCHC 34.9 % (32.0-36.0); MCV 96 fL (80-95); MPV 9.6 fL (8.0-11.0); Monocytes % 12.8; Neutrophils % 77.6; Platelet Count 234 10^3/uL (130-400); RBC 3.46 10^6/uL (3.93-5.22); RDW 14.1 % (11.7-14.6); RDW-SD 49.8 fL; WBC 3.99 10^3/uL (4.4-10.8)
[2023-09-22 09:12] LABS: ALT 41 U/L (14-59); AST 27 U/L (15-37); Albumin 3.9 g/dL (3.4-5.0); Alkaline Phosphatase 59 U/L (46-116); Anion Gap 8.2 mmol/L (3-11); BUN 16 mg/dL (7-18); Bilirubin, Total 0.4 mg/dL (0.2-1.0); CO2 29.8 mmol/L (21.0-32.0); CREATININE 0.6 mg/dL (0.55-1.02); Calcium 9.2 mg/dL (8.5-10.1); Chloride 101 mmol/L (98-107); Estimated GFR 94.13 (mL/min/1.73m2); Glucose 92 mg/dL (74-106); LDH 202 U/L (81-234); Potassium 4.1 mmol/L (3.5-5.1); Sodium 139 mmol/L (136-145); Total Protein 6.9 g/dL (6.4-8.2)
== END 2023-09-25 23:59 | disposition home or self-care (01) ==
LOC: INF 05:01
PROVIDERS: PCP Nurse Practitioner Family; Visit Provider Internal Medicine Hematology & Oncology
DX: C82.00 Follicular lymphoma grade I, unspecified site (principal); Z45.2 Encounter for adjustment and management of vascular access device
CPT/HCPCS: 36591; 80053; 83615; 85025

== ENCOUNTER 2023-11-17 04:58 | Outpatient (RCR) | payer MEDICARE, BC, SELFPAY ==
[2023-11-17] MEDS: Normal Saline Flush 10 ML SYR IVP (07:49)
[2023-11-17 08:35] LABS: Absolute Basophil Count 0.07 10^3/uL (0.0-0.2); Absolute Eosinophil Count 0.05 10^3/uL (0.0-0.7); Absolute Lymphocyte Count 0.28 10^3/uL (1.2-3.4); Absolute Monocyte Count 0.48 10^3/uL (0.1-0.8); Absolute Neutrophil Count 3.43 10^3/uL (1.2-6.7); Basophils % 1.6 %; Eosinophils % 1.2 %; HCT 33.3 % (36.0-46.0); HGB 11.7 g/dL (11.2-15.7); Lymphocytes % 6.5 %; MCH 33.1 pg (27.0-33.0); MCHC 35.1 % (32.0-36.0); MCV 94 fL (80-95); MPV 9.9 fL (8.0-11.0); Monocytes % 11.1 %; Neutrophils % 79.6 %; Platelet Count 207 10^3/uL (130-400); RBC 3.53 10^6/uL (3.93-5.22); RDW 13.3 % (11.7-14.6); RDW-SD 45.8 fL; WBC 4.31 10^3/uL (4.4-10.8)
[2023-11-17 08:50] LABS: ALT 45 U/L (14-59); AST 27 U/L (15-37); Alkaline Phosphatase 48 U/L (46-116); Anion Gap 6.6 mmol/L (3-11); BUN 16 mg/dL (7-18); Bilirubin, Total 0.5 mg/dL (0.2-1.0); CO2 30.4 mmol/L (21.0-32.0); CREATININE 0.8 mg/dL (0.55-1.02); Chloride 100 mmol/L (98-107); Estimated GFR 77.27 (mL/min/1.73m2); Glucose 106 mg/dL (74-106); LDH 185 U/L (81-234); Potassium 3.8 mmol/L (3.5-5.1); Sodium 137 mmol/L (136-145); Total Protein 6.8 g/dL (6.4-8.2)
== END 2023-11-25 23:59 | disposition home or self-care (01) ==
LOC: INF 04:58
PROVIDERS: PCP Nurse Practitioner Family; Visit Provider Internal Medicine Hematology & Oncology
DX: C82.00 Follicular lymphoma grade I, unspecified site (principal)
CPT/HCPCS: 36591; 80053; 83615; 85025

== ENCOUNTER 2024-01-12 08:03 | Outpatient (RCR) | payer MEDICARE, BC, SELFPAY ==
[2024-01-12] MEDS: Normal Saline Flush 10 ML SYR IVP (08:00)
[2024-01-12 08:21] LABS: Abs Immature Grans 0.01 10^3/uL (0.0-0.06); Absolute Basophil Count 0.02 10^3/uL (0.0-0.2); Absolute Eosinophil Count 0.05 10^3/uL (0.0-0.7); Absolute Lymphocyte Count 0.33 10^3/uL (1.2-3.4); Absolute Monocyte Count 0.49 10^3/uL (0.1-0.8); Absolute Neutrophil Count 2.06 10^3/uL (1.2-6.7); Basophils % 0.7 %; Eosinophils % 1.7 %; HCT 34.8 % (36.0-46.0); Immature Grans % 0.3 %; Lymphocytes % 11.1 %; MCH 32.3 pg (27.0-33.0); MCHC 34.5 % (32.0-36.0); MCV 94 fL (80-95); MPV 9.5 fL (8.0-11.0); Monocytes % 16.6 %; Neutrophils % 69.6 %; Platelet Count 212 10^3/uL (130-400); RBC 3.72 10^6/uL (3.93-5.22); RDW 13.1 % (11.7-14.6); RDW-SD 44.7 fL; WBC 2.96 10^3/uL (4.4-10.8)
[2024-01-12 08:36] LABS: ALT 37 U/L (14-59); AST 24 U/L (15-37); Albumin 3.8 g/dL (3.4-5.0); Alkaline Phosphatase 54 U/L (46-116); Anion Gap 5.4 mmol/L (3-11); BUN 13 mg/dL (7-18); Bilirubin, Total 0.53 mg/dL (0.2-1.0); CO2 29.6 mmol/L (21.0-32.0); CREATININE 0.6 mg/dL (0.55-1.02); Calcium 8.9 mg/dL (8.5-10.1); Chloride 101 mmol/L (98-107); Estimated GFR 94.13 (mL/min/1.73m2); Glucose 97 mg/dL (74-106); LDH 178 U/L (81-234); Potassium 4.2 mmol/L (3.5-5.1); Sodium 136 mmol/L (136-145); Total Protein 6.8 g/dL (6.4-8.2)
== END 2024-01-25 23:59 | disposition home or self-care (01) ==
LOC: INF 08:03
PROVIDERS: PCP Nurse Practitioner Family; Visit Provider Internal Medicine Hematology & Oncology
DX: C82.00 Follicular lymphoma grade I, unspecified site (principal); Z45.2 Encounter for adjustment and management of vascular access device
CPT/HCPCS: 36591; 80053; 83615; 85025

== ENCOUNTER 2024-03-08 03:23 | Outpatient (RCR) | payer MEDICARE, BC, SELFPAY ==
[2024-03-08] MEDS: Normal Saline Flush 10 ML SYR IVP (09:00)
[2024-03-08 09:39] LABS: BUN 14 mg/dL (7-18); Bilirubin, Total 0.42 mg/dL (0.2-1.0); CREATININE 0.6 mg/dL (0.55-1.02); Calcium 9.4 mg/dL (8.5-10.1); Estimated GFR 94.13 (mL/min/1.73m2); Glucose 77 mg/dL (74-106)
[2024-03-08 09:40] LABS: ALT 40 U/L (14-59); AST 28 U/L (15-37); Alkaline Phosphatase 51 U/L (46-116); Anion Gap 6.4 mmol/L (3-11); CO2 29.6 mmol/L (21.0-32.0); Chloride 99 mmol/L (98-107); LDH 187 U/L (81-234); Potassium 4.2 mmol/L (3.5-5.1); Sodium 135 mmol/L (136-145)
[2024-03-08 09:41] LABS: HCT 34.7 % (36.0-46.0); HGB 11.9 g/dL (11.2-15.7); MCV 96 fL (80-95); RBC 3.62 10^6/uL (3.93-5.22); WBC 5.33 10^3/uL (4.4-10.8)
[2024-03-08 09:42] LABS: Abs Immature Grans 0.01 10^3/uL (0.0-0.06); Absolute Basophil Count 0.07 10^3/uL (0.0-0.2); Absolute Eosinophil Count 0.13 10^3/uL (0.0-0.7); Absolute Lymphocyte Count 0.43 10^3/uL (1.2-3.4); Absolute Monocyte Count 0.64 10^3/uL (0.1-0.8); Absolute Neutrophil Count 4.05 10^3/uL (1.2-6.7); Basophils % 1.3 %; Eosinophils % 2.4 %; Immature Grans % 0.2 %; Lymphocytes % 8.1 %; MCH 32.9 pg (27.0-33.0); MCHC 34.3 % (32.0-36.0); Platelet Count 267 10^3/uL (130-400); RDW 13.7 % (11.7-14.6); RDW-SD 48.9 fL
== END 2024-03-26 23:59 | disposition home or self-care (01) ==
LOC: INF 03:23
PROVIDERS: PCP Nurse Practitioner Family; Visit Provider Internal Medicine Hematology & Oncology
DX: C82.00 Follicular lymphoma grade I, unspecified site (principal)
CPT/HCPCS: 36591; 80053; 83615; 85025

== ENCOUNTER 2024-05-02 08:07 | Outpatient (RCR) | payer MEDICARE, BC, SELFPAY ==
[2024-05-02] MEDS: Normal Saline Flush 10 ML SYR IVP (07:45)
--- OUTSIDE RECORDS SUMMARY | 2024-05-02 08:08 | XMS_ITS | Encounter Summary ---
Author Organization [facility] Address [address] [place] [address] Care Team Providers Care Fountain Jerk Name Role Phone Unavailable Primary Care Provider Unavailabl e Encounter Details Date Type Department Care Team (Late st Contact Info) Description 03/25/2004 Results Only [facility] Family Medicine - [address] [address] Ani Ruiz MD Social History Tobacco Use Types Packs/Day Years Used Date Smoking Tobacco: Never Assessed Sex and Gender Information Value Date Recorded Sex Assigned at Not on file Gender Identity Not on file Sexual Orientation Not on file documented as of this encounter Plan of Treatment Not on file documented as of this encounter Procedures Procedure Name Priority Date/Time Associated Diagnosis Comments CYTOPATHOLOGY Routine 03/25/2004 0:00 EDT documented in this encounter Results * CYTOPATHOLOGY (03/25/2004 0:00 EDT) Pathology Report: CYTOPATHOLOGY REPORT Reports generated via electronic interface contain original data; however they are lacking the format of the original report. Caution should be taken when reading/interpreti ng unformatted reports. Name: ? ANI RIDLEY ? Accession #: ? [id number] : ? 1950 (Age: 54) ??F ?Collect Date: ? 03/25/2004 Location: ? [facility] ? Receive Date: ? 03/27/2004 Provider: ?ANI RUIZ MD Copy to: ? Specimen/Source: ?ThinPrep Pap Test, Endocervix Last Menstrual Period: ? A few years ago Other: ? HPVA - HPV testing requested if ASC-US on the current ThinPrep Pap test. ? SPECIMEN ADEQUACY ? Satisfactory for Evaluation - transformation zone component absent GENERAL CATEGORIZATION ? Negative for Intraepithelial Lesion or Malignancy ? Document reviewed and electronically signed by: ? Lucretia Hernandez, CT(ASCP)(IAC) ? Report Date: ??04/01/2004 10:49 End of Report MELLISA LUNSFORD 03/25/2004 03/27/2004 Ani Ruiz MD PATHOLOGY ORDERABLES MELLISA LUNSFORD [address] [place] [address] documented in this encounter Visit Diagnoses Not on filedocumented in this encounter
--- OUTSIDE RECORDS SUMMARY | 2024-05-02 08:08 | XMS_ITS | Encounter Summary ---
Author Organization [facility] Address [address] [place] [address] Care Team Providers Care Coffee Shop Aide Name Role Phone Blanquita Pagan MILLA Primary Care Provider [phone] Encounter Details Date Type Department Care Team (Late st Contact Info) Description 05/04/2021 Lab Requisition [facility] Pathology & Laboratory Medicine - [address] [address] Darwin Mayo MD [address] [place] [address] [address] [place] [id number] Encounter for other general examination Social History Tobacco Use Types Packs/Day Years Used Date Smoking Tobacco: Never Assessed Sex and Gender Information Value Date Recorded Sex Assigned at Not on file Gender Identity Not on file Sexual Orientation Not on file documented as of this encounter Plan of Treatment Not on file documented as of this encounter Procedures Procedure Name Priority Date/Time Associated Diagnosis Comments SURGICAL PATHOLOGY Today 05/04/2021 10 :20 EST Encounter for other general examination documented in this encounter Results * SURGICAL PATHOLOGY (05/04/2021 10:20 EST) Note to Patient The following pathology results have been interpreted by your pathologist and may be available to you before your health provider has had the opportunity to review them. Please allow time for your provider to receive these results and explore management options, if applicable. 05/05/2021 18:20 EST [facility] Final Diagnosis A. STOMACH, ANTRUM, BIOPSY: - Oxyntic-type mucosa with no significant diagnostic abnormality. B. GASTROESOPHAGEAL JUNCTION, BIOPSY: - Focal intestinal metaplasia involving squamocolumnar mucosa. - Negative for dysplasia. 05/05/2021 18:20 [facility] Attestation By the signature below, the attending physician certifies that they have 1) personally conducted a gross and/or microscopic examination of the described specimen(s), and/or personally interpreted the results of laboratory testing of the described specimen(s), and 2) personally rendered or confirmed the above diagnosis. 05/05/2021 18:20 [facility] at 1820 Clinical History Pizarro's esophagus 05/05/2021 18:20 [facility] Gross Description A. Received in formalin labelled with proper patient identification (initials L, S) and antrum Bx are 2 fragments of de oliveira tissue; each measuring 0.3 x 0.2 x 0.2 cm. The specimens are submitted in A1. B. Received in formalin labelled with proper patient identification (initials L, S) and GE junction Bx are 2 fragments of de oliveira tissue measuring 0.2 cm and 0.3 cm in greatest dimension. The specimens are submitted in B1. URSULA JOHNSON(ASCP) 05/04/2021 15:58 05/05/2021 18:20 [facility] Performing Lab [facility] 18:20 [facility] Scanned Images 05/05/2021 18:20 [facility] Tissue ENTIRE ESOPHAGO-KALE BRUNILDA MUCOSAL JUNCTION / Unknown 05/04/2021 10:20 EST 05/04/2021 15:38 EST Tissue specimen (specimen) CARDIOESOPHAGEAL JUNCTION STRUCTURE / Unknown 05/04/2021 10:20 EST 05/04/2021 15:38 EST Darwin Mayo MD PATHOLOGY ORDERA GISELA [facility] [address] [place] [address] documented in this encounter Visit Diagnoses Diagnosis Encounter for other general examination documented in this encounter Care Teams Coffee Shop Aide Relationship Specialty Start Date End Date Blanquita Pagan FNP [address] [place] [id number] PCP - General 04/27/21 documented as of this encounter
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
--- OUTSIDE RECORDS SUMMARY | 2024-05-02 08:08 | XMS_ITS ---
Author Organization [facility] Address [facility] [place] [address] Care Team Providers Care Inset Cutter Name Role Phone EjAugiejose carlos BLEVINS Primary Care Provider [phone] Active Problems Problem Noted Date Diagnosed Date [...] 02/25/2023 Lytic bone lesions on xray 02/25/2023 Current Oncology Plans DH BCN AMB HEM LYMPHOMA (NHL) - riTUXimab (56 DAY MAINTENANCE)* Plan Start Date: 09/22/2023 Plan Provider:Pardeep George MD Linked Problems Lymphoma, unspecified body r egion, unspecified lymphoma typeLytic bone lesions on xray Treatment Medications Current Day (Day 1 , Cycle 5 - Planned for 05/02/2024) Next Day (Day 1, Cycle 6 - Planned for 06/27/2024) riTUXimab-pvvr (Ruxience)riTUXimab-pvvr (Ruxience) (2 mg/mL) in sodium chloride 0.9% infusion riTUXimab-pvvr (Ruxience) 600 mg in sodium chloride 0.9% 300 mL infusion riTUXimab-pvvr (Ruxience) 600 mg in sodium chloride 0.9% 300 mL infusion Mediport Administration (ALL SITES)* Plan Start Date:03/23/2023 Plan Provider:Miguel Daugherty MD Linked Problems Lymphoma, unspecified body r egion, unspecified lymphoma type Treatment Medications No medications scheduled. Other Current Plans Iron Sucrose (Venofer) Injection / Infusion (ALL SITES)* Plan Start Date: 03/11/2023 Plan Provider:Zandra Glasgow APRN Linked Problems Other iron deficiency anemia Treatment Medications No medications scheduled. Past Plans ADULT TREATMENT Plan Name Start Date Discontinue Date Treatment Medications Discontinue Reason Plan Provider Cycles DH BCN AMB HEM LYMPHOMA (NHL) - riTUXimab / BENDAMUSTINE 90 MG/M2 3 09/15/2023 bendamustine (Bendeka/Belrap zo) in sodium chloride 0.9% 50 mL infusionriTUXim ab-pvvr (Ruxience) (2 mg/mL) in sodium chloride 0.9% infusion Remission Miguel Daugherty MD 6 of 6 cycles started Radiation Treatments * No radiation treatments are documented for this patient in [facility]. Treatments may have been administered in another system.
--- OUTSIDE RECORDS SUMMARY | 2024-05-02 08:08 | XMS_ITS | Clinical Summary ---
Author Organization [facility] Address [address] [place] [address] Care Team Providers Care House Designer Name Role Phone Blanquita Pagan DYER HELPER Primary Care Provider [phone] Social History Tobacco Use Types Packs/Day Years Used Date Smoking Tobacco: Never Assessed Sex and Gender Information Value Date Recorded Sex Assigned at Not on file Gender Identity Not on file Sexual Orientation Not on file Plan of Treatment Health Maintenance Due Date Last Done Comments Hepatitis C Screen 1950 RSV Immunization ( o r 60+ Years) (1 - 1-dose 60+ series) 2009 Fall Risk Screening 2014 COVID-19 Vaccine ( season) 2023 Care Teams House Designer Relationship Specialty Start Date End Date Blanquita Pagan FNP [address] [facility] [address] [place] [phone] PCP - General 04/27/21
--- OUTSIDE RECORDS SUMMARY | 2024-05-02 08:08 | XMS_ITS | Encounter Summary ---
Author Organization [facility] Address [address] [place] [address] Care Team Providers Care Vehicle Service Agent Name Role Phone Ani Ruiz MD Primary Care Provider Unavailabl e Encounter Details Date Type Department Care Team (Late st Contact Info) Description 12/20/2011 Results Only [facility] Laboratory Services - [facility] ([facility] [place] [address] [place] [address] [phone] Miguel Hale MD [address] [place] [phone] Social History Tobacco Use Types Packs/Day Years Used Date Smoking Tobacco: Never Assessed Sex and Gender Information Value Date Recorded Sex Assigned at Not on file Gender Identity Not on file Sexual Orientation Not on file documented as of this encounter Plan of Treatment Not on file documented as of this encounter Procedures Procedure Name Priority Date/Time Associated Diagnosis Comments SURGICAL PATHOLOGY Routine 12/20/2011 0:00 EDT documented in this encounter Results * SURGICAL PATHOLOGY (12/20/2011 0:00 EDT) Pathology Report: SURGICAL PATHOLOGY REPORT Reports generated via electronic interface contain original data; however they are lacking the format of the original report. Caution should be taken when reading/interpreting unformatted reports. Name: ? ANI RIDLEY ? Accession #: ? [id number] ? : ? 1950 (Age: 61) ??F ? Collect Date: ? 12/20/2011 ? Location: ? [facility] ? Receive Date: ? 12/20/2011 ? Provider: MIGUEL HALE MD Copy to: ANI RUIZ MD ? Final Pathologic Diagnosis: A. ?Colon, cecum/ileocecal valve, biopsies: 1. ?Ileal-colonic mucosa with no specific pathologic features. B. ?Stomach, antrum, biopsies: ?? 1. ?Antral-type mucosa with chronic active gastritis, atrophy and superimposed reactive changes. ??See comment. 2. ? Helicobacter pylori-like micro-organisms identified on H&E-stained sections. C. ?Esophagus, 35 cm, biopsies: 1. ?Squamocolumnar junctional mucosa with chronic inflammation and goblet cell metaplasia (Pizarro's esophagus). 2. ? Gastric-type mucosa with chronic active inflammation. 3. ? Helicobacter pylori-like micro-organisms identified on H&E-stained sections. 4. ? Negative for dysplasia. Comment: ? Bicycle Taxi Driver sections of this case were reviewed at the intradepartmental consultation conference. ?? Document reviewed and electronically signed by: VARGAS COHEN MD Report ??Date: 12/27/2011 11:58 By the signature above, the attending physician certifies that he/she has personally conducted a gross and/or microscopic examination of the described specimens and rendered or confirmed the above diagnosis. Specimen(s) Received: A. ?Bx cecum, ? ileocecal valve B. ? Bx antrum C. ? Esophagus 35 cm Clinical History: ? GERD; colon CA screen Gross Description: ? Received in formalin labelled Ani Ridley and #1 bx cecum, ? ileocecal valve are two de oliveira-pink irregular soft tissue fragments measuring 0.4 x 0.3 x 0.2 cm and 0.4 x 0.2 x 0.1 cm. ??The specimens are entirely submitted as (A). Received in formalin labelled Ani Ridley and #2 bx antrum are two de oliveira-pink irregular soft tissue fragments measuring 0.3 x 0.3 x 0.2 cm and 0.4 x 0.4 x 0.3 cm. ??The specimens are entirely submitted as (B). Received in formalin labelled Ani Ridley and #3 esophagus 35 cm are four de oliveira-pink irregular soft tissue fragments ranging from 0.4 x 0.3 x 0.2 cm to 0.6 x 0.6 x 0.2 cm. ??The specimens are entirely submitted as (C1) and (C2). ??(Beena Bennett)/kobi End of Report MELLISA LUNSFORD 12/20/2011 12/20/2011 9:0 8 EDT Miguel Hale MD PATHOLOGY ORDERABLE S MELLISA LUNSFORD [address] [place] [address] documented in this encounter Visit Diagnoses Not on filedocumented in this encounter Care Teams Vehicle Service Agent Relationship Specialty Start Date End Date Ani Ruiz MD PCP - General 12/21/11 04/26/21 documented as of this encounter
--- OUTSIDE RECORDS SUMMARY | 2024-05-02 08:08 | XMS_ITS | Encounter Summary ---
Author Organization [facility] Address [address] [place] [address] Care Team Providers Care Grassroots Organizer Name Role Phone Unavailable Primary Care Provider Unavailabl e Encounter Details Date Type Department Care Team (Late st Contact Info) Description 03/13/2002 Results Only [facility] Family Medicine - [address] [address] Ani Ruiz MD Social History [...] Priority Date/Time Associated Diagnosis Comments CYTOPATHOLOGY Routine 03/13/2002 0:00 EDT documented in this encounter Results * CYTOPATHOLOGY (03/13/2002 0:00 EDT) Pathology Report: CYTOPATHOLOGY REPORT Reports generated via electronic interface contain original data; however they are lacking the format of the original report. Caution should be taken when reading/interpreti ng unformatted reports. Name: ? ANI RIDLEY ? Accession #: ? [id number] : ? 1950 (Age: 51) ??F ?Collect Date: ? 03/13/2002 Location: ? [facility] ? Receive Date: ? 03/16/2002 Provider: ?ANI RUIZ MD Copy to: ? Specimen/Source: ?ThinPrep Pap Test, Endocervix Last Menstrual Period: ? Hormonal/Contracep tive Status: ? Estrogen: Other: ? HPVL - HPV testing requested if LSIL/ASCUS/TONG on the current ThinPrep Pap test. ? SPECIMEN ADEQUACY ? Satisfactory for Evaluation - transformation zone component present GENERAL CATEGORIZATION ? Negative for Intraepithelial Lesion or Malignancy ? Document reviewed and electronically signed by: ? Sary Reid, CT(ASCP) ? Report Date: ??03/21/2002 09:36 End of Report MELLISA LUNSFORD 03/13/2002 03/16/2002 Ani Ruiz MD PATHOLOGY ORDERABLES MELLISA LUNSFORD [address] [place] [address] documented in this encounter Visit Diagnoses Not on filedocumented in this encounter
--- OUTSIDE RECORDS SUMMARY | 2024-05-02 08:08 | XMS_ITS | Encounter Summary ---
Author Organization [facility] Address [address] [place] [address] Care Team Providers Care Panama Hat Hydraulic Press Operator Name Role Phone Unavailable Primary Care Provider Unavailabl e Encounter Details Date Type Department Care Team (Late st Contact Info) Description 07/30/2009 Orders Only [facility] Medicine [address] [address] Ani Ruiz MD Social History [...] Priority Date/Time Associated Diagnosis Comments CYTOPATHOLOGY Routine 07/30/2009 0:00 EST documented in this encounter Results * CYTOPATHOLOGY (07/30/2009 0:00 EST) Pathology Report: CYTOPATHOLOGY REPORT ? Reports generated via electronic interface contain original data; ? however they are lacking the format of the original report. ? Caution should be taken when reading/interpreti ng unformatted reports. ? Name: ? ANI RIDLEY ? Accession #: ? [id number] ? : ? 1950 (Age: 59) ??F ?Collect Date: ? 07/30/2009 ? Location: ? [facility] ? Receive Date: ? 07/31/2009 ? Provider: ?ANI FINE MD ? Copy to: ? Specimen/Source: ?Pap Test, Endocervix, ThinPrep Imaging System with ? manual evaluation ? Last Menstrual Period: ? Other: ? HPVA - HPV testing requested if ASC-US on the current ThinPrep Pap test. ? SPECIMEN ADEQUACY ? Satisfactory for Evaluation ? - transformation zone component present ? GENERAL CATEGORIZATION ? Negative for Intraepithelial Lesion or Malignancy ? Document reviewed and electronically signed by: ? Otto Espinoza, CT(ASCP) ? Report Date: ??08/04/2009 09:33 ? End of Report ? MELLISA LUNSFORD 07/30/2009 07/31/2009 nAi Ruiz MD PATHOLOGY ORDERABLES Performing Organization Address City/State/[facility] Co de Phone Number MELLISA LUNSFORD [address] [place] [address] documented in this encounter Visit Diagnoses Not on filedocumented in this encounter
--- OUTSIDE RECORDS SUMMARY | 2024-05-02 08:08 | XMS_ITS | Encounter Summary ---
Author Organization [facility] Address [facility] [place] [address] Care Team Providers Care Prop Setter Name Role Phone Blanquita Pagan APRN Primary Care Provider [phone] Reason for Visit * Treatment/Therapy Plan Authorization (Routine) - Authorized Specialty Diagnoses / Procedures Referred By Contac t Referred To Contact Hematology and Oncology Diagnoses Lymphoma, unspecified body region, unspecified lymphoma type Lytic bone lesions on xray Procedures INFUSION Pardeep George MD [facility] DR HEMATOLOGY [place] [address] Pardeep George MD [facility] [address] [place] [address] Referral ID Status Reason Start Date Expiration Date V isits Requested Visits Authorized [id number] Authorized 07/28/2023 07/27/2024 1 101 Encounter Details Date Type Department Care Team (Late st Contact Info) Description 05/02/2024 9:00 AM EST Infusion Hematology Oncology at [address] [phone] Social History Tobacco Use Types Packs/Day Years Used Date Smoking Tobacco: Never Smokeless Tobacco: Never Alcohol Use Standard Drinks/Week Comments Never 0 [...] place to sleep or slept in a assisted (including now)? No 02/16/2023 IPV Inpatient Questions [...] as of this encounter Plan of Treatment Upcoming Encounters Date Type Department Care Team (Late st Contact Info) Description 05/02/2024 8:30 AM EST Office Visit Hematology/Oncology at [address] [phone] Pardeep George MD [facility] [address] [place] [address] Kelli Zapata APRN [address] [place] [address] DR MEDICAL ONCOLOGY [place], [place] [id number] 01/31/2025 8:30 AM EDT Office Visit Psychiatry and [place] [address] Radha Negrete PhD [facility] [place] [address] documented as of this encounter Visit Diagnoses Not on filedocumented in this encounter Care Teams Prop Setter Relationship Specialty Start Date End Date Blanquita Pagan APRN [address] [place] [address] PCP - General Family Medicine 01/07/23 documented as of this encounter
--- OUTSIDE RECORDS SUMMARY | 2024-05-02 08:08 | XMS_ITS | Encounter Summary ---
Author Organization [facility] Address [address] [place] [address] Care Team Providers Care Hourly Associate Name Role Phone Ani Ruiz MD Primary Care Provider Unavailabl e Encounter Details Date Type Department Care Team (Late st Contact Info) Description 01/02/2013 Results Only [facility] Laboratory Services - [facility] [place] [address] [place] [address] Ani Ruiz MD Social History Tobacco [...] Procedure Name Priority Date/Time Associated Diagnosis Comments PAP TEST- RESULT ONLY Routine 01/02/2013 0:00 EDT documented in this encounter Results * PAP TEST- RESULT ONLY (01/02/2013 0:00 EDT) Pathology Report: CYTOPATHOLOGY REPORT Reports generated via electronic interface contain original data; however they are lacking the format of the original report. Caution should be taken when reading/interpreti ng unformatted reports. Name: ? BRITTAANI James ? Accession #: ? [id number] ? : ? 1950 (Age: 62) ??F ?Collect Date: ? 01/02/2013 ? Location: ? [facility] ? Receive Date: ? 01/03/2013 ? Provider: ANI RUIZ MD Copy to: ? Final Report SPECIMEN ADEQUACY ? Satisfactory for Evaluation - assessment of transformation zone component not applicable ( e.g. atrophy, vaginal sample, hysterectomy) GENERAL CATEGORIZATION ? Negative for Intraepithelial Lesion or Malignancy ?? Last Menstrual Period: HENRIQUE Specimen/Source: ??Pap Test, Cervix, ThinPrep Imaging System with manual evaluation Document reviewed and electronically signed by: ? SHUBHAM Grande(ASCP) ? Report ??Date: 01/08/2013 12:26 HPV with Pap Test ? Date Ordered: ? 01/08/2013 ? Status: ?? Signed Out ?Date Complete: ? 01/10/2013 ? By: ??System Interface ? Date Reported: ? 01/10/2013 ? Interpretation RESULT: Negative for HPV. No E6 or E7 mRNA is detected from HPV types 16,18,31,33,35, 39,45,51,52,56,58, 59,66, and 68 by campaign consultant mediated amplification. Comments Document reviewed and electronically signed by: ? System Interface ? Report date: 01/10/2013 By the signature above, the attending physician certifies that he/she has personally conducted a gross and/or microscopic examination of the described specimens and rendered or confirmed the above diagnosis. End of Report MELLISA LUNSFORD 01/02/2013 01/03/2013 Ani Ruiz MD PATHOLOGY ORDERABLES Performing Organization Address City/State/[facility] Co de Phone Number [facility] [address] [place] [address] documented in this encounter Visit Diagnoses Not on filedocumented in this encounter Care Teams Hourly Associate Relationship Specialty Start Date End Date Ani Ruiz MD PCP - General 12/21/11 04/26/21 documented as of this encounter
--- OUTSIDE RECORDS SUMMARY | 2024-05-02 08:08 | XMS_ITS | Referral Summary ---
Author Organization [facility] Address [address] [place] [address] Care Team Providers Care Butt Presser Name Role Phone Blanquita Pagan TERMITE TREATER Primary Care Provider [phone] Social History Tobacco Use Types Packs/Day Years Used Date Smoking Tobacco: Never Assessed Sex and Gender Information Value Date Recorded Sex Assigned at Not on file Gender Identity Not on file Sexual Orientation Not on file Plan of Treatment Not on file Care Teams Butt Presser Relationship Specialty Start Date End Date Blanquita Pagan FNP [address] [facility] [address] [place] [phone] PCP - General 04/27/21
--- OUTSIDE RECORDS SUMMARY | 2024-05-02 08:09 | XMS_ITS | Encounter Summary ---
Author Organization [facility] Address [facility] [place] [address] Care Team Providers Care Rod Tape Operator Name Role Phone Blanquita Pagan APRN Primary Care Provider [phone] Encounter Details Date Type Department Care Team (Latest Contact Info) Description 03/08/2024 Travel Social History Tobacco Use Types Packs/Day Years [...] place to sleep or slept in a fpc (including now)? No 02/16/2023 IPV Inpatient Questions [...] 8:30 AM EST Office Visit Hematology/Oncology at [address] [phone] Pardeep George MD [facility] DR HEMATOLOGY [place] [address] Kelli Zapata APRN [address] [place] [address] [place] [address] 05/02/2024 9:00 AM EST Infusion Hematology Oncology at [address] [phone] 01/31/2025 8:30 AM EDT Office Visit Psychiatry [place] [address] Radha Negrete, PhD [facility] DR [place] [address] documented as of this encounter Visit Diagnoses Not on filedocumented in this encounter Care Teams Rod Tape Operator Relationship Specialty Start Date End Date Blanquita Pagan APRN [address] [place] [address] PCP - General Family Medicine 01/07/23 documented as of this encounter
--- OUTSIDE RECORDS SUMMARY | 2024-05-02 08:09 | XMS_ITS | Encounter Summary ---
[facility] Address [facility] [place] [address] Care Team Providers Care K9 Handler Name Role Phone Blanquita Pagan APRN Primary Care Provider [phone] Reason for Visit * Reason Comments Follow-up Encounter Details Date Type Department Care Team (Late st Contact Info) Description 08/17/2023 4:00 PM EST Office Visit Hematology [place] [address] Miguel Daugherty MD [facility] [address] HEMATOLOGY [place] [address] Zandra Glasgow APRN [facility] [address] HEMATOLOGY [place] [address] Lymphoma, unspecified body region, unspecified lymphoma type; Lytic bone lesions on xray; Follicular lymphoma, unspecified follicular lymphoma type, unspecified body region Social History Tobacco Use Types Packs/Day Years Used Date Smoking Tobacco: Never Smokeless Tobacco: Never Alcohol Use Standard Drinks/Week Comments Never 0 (1 standard drink = 0.6 oz pur e alcohol) Overall Financial Resource Strain (CARDIA) Lorie r Date Recorded How hard is it for you to pa y for the very basics like food, housing, medical care, and heating? Not hard at all 02/16/2023 Hunger Vital Sign Answer Date Recorded Within the past 12 months, y ou worried that your food would run out before you got the money to buy more. Never true 02/17/20 23 Ran Out of Food in the Last [...] place to sleep or slept in a alf (including now)? No 02/16/2023 DH IPV Inpatient Questions Answer Date Recorded Prevent [...] on file documented as of this encounter Last Filed Vital Signs Vital Sign Reading Time Taken Comments Blood Pressure 92/57 08/17/2023 3:49 PM EST Pulse 85 08/17/2023 3:49 PM EST Temperature 36.4 ??C (97.5 ??F) 08/17/2023 3:49 PM ES T Respiratory Rate 18 08/17/2023 3:49 PM EST Oxygen Saturation 100% 08/17/2023 3:49 PM EST Inhaled Oxygen Concentration - - Weight 48.3 kg (106 lb 7.7 oz) 08/17/2023 3:49 P M EST Height 167.2 cm (5' 5.83) 08/17/2023 3:49 PM ES T Body Mass Index 17.28 08/17/2023 3:49 PM EST documented in this encounter Progress Notes * Miguel Daugherty MD - 08/17/2023 4:00 PM EST HEMATOLOGY CLINIC [facility] [phone] I had the pleasure of seeing and evaluating Ani at the request of MILLA Hernandez. Ani was diagnosed with a low-grade lymphoma and is on chemo. She is here to discuss her response to rx Patient ID: Ani Ridley is a 73 y.o. female. December 2022: The patient presented with progressive left supraclavicular adenopathy. In December 2022, CAT scans of her chest abdomen and pelvis were performed. This demonstrated a large 3cm x 4.4 cm lymph node in the left supraclavicular area. In addition, she had a 4.5 x 6 cm mass adjacent to the T1 and T2 and a 1 cm x 0.9 cm nodule on the left in her abdomen and pelvis, she had diffuse adenopathy. The largest group of nodes was adjacent to the left kidney which demonstrated a dara mass of 3 x 1.3 cm. The nodes extended into the inguinal area. She also had cystic lesions in theadnexa. The left adnexa demonstrated a cyst that measured 5.5 x 6 cm and there is 3 small cyst on the right with the largest being 1.7 x 1.6 cm. Finally, there were blastic lesions noted at T2, as well as on the left second, third, and seventh rib. On January 25, 2023, the patient underwent CT-guided biopsy of the left supraclavicular node. The pathology demonstrated low-grade B-cell lymphoma with a Ki-67 of 20 to 30%. Interestingly, the patient had 2 B-cell populations. The first B-cell population was CD10 positive with dim CD19. The second population was CD5 positive, CD10 positive, CD20 positive. Both populations were negative for cyclin D1 and SOX11. Populations were positive for BCL2 and BCL6. Flow cytometry demonstrated atypical kapparestricted B cells. It was felt that the histology, as well as molecular findings are most consistent with a low-grade B- cell lymphoma. The hematopathologist felt that the histology, as well as flow cytometry and molecular markers weremost consistent with a low-grade B-cell lymphoma 03/10/23: started C#1 rit/Sumaya q 4 weeks Apr 2023: f/u CT scan done locally - marked improvement in adenopathy CT scan from 04/29/2023. interval decrease in size of adenopathy in the neck chest abdomen and pelvis 2. Stable 6 cm cyst in the left ovary 3. Severe compression fracture T9 Jul 2023 Bendamustine and Rituxan - completed 6 cycles PET done at [facility] and reading still pending HPI Ani is a 73-year-old female that is being followed in [facility]. She has been diagnosed with follicular lymphoma. She was worked up in the [facility].by me and started on Bendamustine and Rituxan in [facility]. She has now completed 6 cycles and has done well w/o major side effects She tolerated treatment quite well. No new pains. Still with fatigue after the treatment but no infectious sings/sxs. Patient Active Problem List Diagnosis Code Lymphoma C85.90 Lytic bone lesions on xray M89.9 Anemia, iron deficiency D50.9 Follicular lymphoma C82.90 Current Outpatient Medications: Psyllium Seed-Sucrose (0) Powder, Take 1 Dose by mouth daily., Disp: , Rfl: senna (Senokot) 8.6 mg tablet, Take 1 tablet by mouth daily., Disp: , Rfl: polyethylene glycoL (Miralax) 17 gram oral powder packet, Take 17 g by mouth daily., Disp: , Rfl: cyanocobalamin, Vitamin B-12, (Vitamin B-12) 100 mcg tablet, Take 100 mcg by mouth daily., Disp: , Rfl: multivitamin (THERAGRAN) Tablet, Take 1 tablet by mouth daily., Disp: , Rfl: prochlorperazine (Compazine) 10 mg tablet, Take 1 tablet by mouth every 6 hours as needed for Nausea. (Patient not taking: Reported on 04/07/2023), Disp: 15 tablet, Rfl: 3 alendronate (Fosamax) 10 mg tablet, Take 10 mg by mouth daily., Disp: , Rfl: levothyroxine (Synthroid) 50 mcg tablet, Take 50 mcg by mouth daily., Disp: , Rfl: pantoprazole EC (Protonix) [address] tablet, Take 40 mg by mouth daily., Disp: , Rfl: No Known Allergies Social History Socioeconomic History Marital status: Spouse name: Not on file Number of children: Not on file Years of education: Not on file Highest education level: Not on file Occupational History Not on file Tobacco Use Smoking status: Never Smokeless tobacco: Never Vaping Use Vaping Use: Never used Substance and Sexual Activity Alcohol use: Never Drug use: Never Sexual activity: Not on file Other Topics Concern Not on file Social History Narrative Not on file Social Determinants of Health Financial Resource Strain: Low Risk (02/16/2023) Overall Financial Resource Strain (CARDIA) Difficulty of Paying Living Expenses: Not hard at all Food Insecurity: Unknown (02/16/2023) Hunger Vital Sign Worried About Running Out of Food in the Last Year: Never true Ran Out of Food in the Last Year: Not on file Transportation Needs: No Transportation Needs (02/16/2023) PRAPARE - Transportation Lack of Transportation (Medical): No Lack of Transportation (Non-Medical): No Physical Activity: Not on file Intimate Partner Violence: Unknown (08/02/2023) DH IPV Inpatient Questions Prevent Contact with Others: Not on file Feels Threatened by Someone: Not on file Feels Unsafe at Home: Not on file Physical Signs of Abuse Present: no Housing Stability: Unknown (02/16/2023) Housing Stability Vital Sign Unable to Pay for Housing in the Last Year: No Number of Places Lived in the Last Year: Not on file Unstable Housing in the Last Year: No Review of Systems Constitutional: Positive for fatigue. Negative for fever and unexpected weight change. HENT: Negative for nosebleeds. Respiratory: Negative for cough and shortness of breath. Cardiovascular: Negative for chest pain and palpitations. Gastrointestinal: Negative for abdominal pain and diarrhea. Musculoskeletal: Negative for back pain. Skin: Negative for rash. Neurological: Negative for speech difficulty. Hematological: Negative for adenopathy. Does not bruise/bleed easily. All other systems reviewed and are negative. Blood pressure 92/57, pulse 85, temperature 36.4 ??C (97.5 ??F), temperature source Temporal, resp.rate 18, height 167.2 cm (5' 5.83), weight 48.3 kg (106 lb 7.7 oz), SpO2 100%. GENERAL: Patient appears well and is in no acute distress. HEENT: NCAT . EOMI, PERRLA; anicteric, No conjunctival injection Sinuses non- tender. Oral pharynx is clear without erythema or exudate. NECK: Supple and without adenopathy or thyroid enlargement. CARDIAC: Regular rate and rhythm without S3, S4 or murmurs. LUNGS: Clear to auscultation bilaterally. No rales, rhonchi or wheezing. ABDOMEN: Soft, non-tender, non-distended, and without hepatosplenomegaly. Bowel sounds are normoactive. EXTREMITIES: No edema, cyanosis or clubbing. SKIN: No rashes or lesions. No bruises or petechiae. LYMPHADENOPATHY: No abnormal lymphadenopathy. MUSCULOSKELETAL: No pain on palpation of sternum, ribs or vertebral bodies. NEUROLOGICAL: Alert and oriented to person, place and time. Reflexes dec bu equal bilat; normal gait. No UMN findings Recent Results (from the past 72 hour(s)) Lactate Dehydrogenase Result Value Ref Range LDH 174 110 - 220 unit/L Comprehensive metabolic panel (non-fasting) Result Value Ref Range Glucose Lvl 84 65 - 199 mg/dL BUN 12 8 - 18 mg/dL Creatinine 0.57 (L) 0.70 - 1.20 mg/dL Sodium 136 135 - 145 mmol/L Potassium 4.1 3.5 - 5.0 mmol/L Chloride 98 98 - 107 mmol/L CO2 30 22 - 31 mmol/L Anion Gap 8 5 - 15 mmol/L Calcium 9.6 8.5 - 10.5 mg/dL Total Protein 6.7 6.1 - 8.0 g/dL Albumin 4.6 3.2 - 5.2 g/dL AST 28 0 - 30 unit/L ALT 26 0 - 30 unit/L Alk Phos 91 35 - 105 unit/L Total Bilirubin 0.3 0.2 - 1.3 mg/dL Estimated GFR 95 >=60 mL/min/1.73 m?? Hemogram Result Value Ref Range WBC 5.5 4.0 - 9.5 x10(3)/mcL RBC 3.49 (L) 4.00 - 5.21 x10(6)/mcL Hemoglobin 11.2 (L) 11.7 - 15.5 g/dL Hematocrit 32.9 (L) 35.7 - 45.8 % MCV 94.3 82.6 - 94.4 fL MCH 32.1 (H) 27.1 - 32.0 pg MCHC 34.0 31.7 - 35.0 g/dL Platelets 243 145 - 357 x10(3)/mcL RDWSD 50.7 (H) 37.0 - 46.0 fL RDWCV 14.6 (H) 11.5 - 14.1 % MPV 9.6 7.6 - 12.9 fL nRBC % Auto 0.0 % nRBC Abs Auto 0.000 0.000 - 0.000 x10(3)/mcL Differential, Automated Result Value Ref Range Neutrophils % 80.1 % Neutr Abs (ANC) 4.43 1.70 - 6.10 x10(3)/mcL Lymphocytes % 3.6 % Lymphocytes Abs 0.2 (L) 0.9 - 3.2 x10(3)/mcL Monocytes % 13.9 % Monocyte Abs 0.8 0.3 - 0.9 x10(3)/mcL Eosinophils % 0.9 % Eosinophils Abs 0.0 0.0 - 0.4 x10(3)/mcL Basophils % 1.3 % Basophils Abs 0.1 0.0 - 0.1 x10(3)/mcL Immature Gran % 0.20 % Celia Gran Abs 0.01 0.00 - 0.04 x10(3)/mcL POCT Glucose Result Value Ref Range POC Glucose 82 65 - 199 mg/dL Assessment and plan # diagnosis of follicular NHL- Her FLIPI score is 4 or 5 out of 5 due to stage III disease, age 72,hemoglobin 11 of 10.5 g/dL, increased LDH, and questionable extranodal involvement. 73-year-old female diagnosed with advanced stage low-grade follicular lymphoma. She rec'd Bendamustine and Rituxan and has now completed 6 cycles and she has tolerated therapy well. Recent CT scan (in Apr 2023) shows significant improvement in her disease and most particularly theparaspinal mass. She does not seem to have any symptoms from the T9 compression fracture and I do not think that is related to the lymphoma. She does have underlying osteoporosis and is on alendronate and I suspect that this was source of her compression fracture. A few unique qualities or characteristics of her lymphoma need to be addressed. In particular, she has a 4.5 x 6 cm mass adjacent to T1-T2. I presented the pt at [facility] at time of diagnosis- it was recommended to start chemo. F/u CT scan of this area in Apr 2023 showed marked improvement, so XRT not likely needed, but await reading of PET done this week. She also had blastic lesions in 3-4 ribs but was asymptomatic. It was recommended to monitor these at this time(some lesions were old anddue to past trauma). Immediate plans and recommendations Await reading of PET done this week at [facility] - still not read as of today. IF PET looks good, pursueRituxan maintenace locally and no role for XRT to paraspinal mass. We reviewed/discussed Rituxan maintenance therapy in detail, including risks, benefits, side effects etc. This will be administered in [facility] 3.Monitor old T9 comp fx - this was found during her initial w/u on PET. She is asx. 4. Pt/ concerned about the 9 mm LLL lesion - not PET avid - I reviewed this with them and also mentioned this can be followed on future scans/PETs I will send my note to Dr George and the [facility] Parts of today's note were completed using voice activation software Miguel Daugherty MD dough mixing machine operator Director - Blood and Marrow Transplant Program ------ Addendum August 23, 2023 The PET scan results just returned. I called the patient this afternoon and reviewed them with her.The results of below. I will forward this to Dr. George as well as Magdalena Ashraf APRN so they can follow-up in the future some of these other areas. But the good news is, there is no evidence of active lymphoma. IMPRESSION 1. No residual active lymphoma (Deauville score 2). 2. Residual 2 cm cystic-appearing left supraclavicular adenopathy, with mild peripheral FDG avidity which is favored to represent posttreatment inflammation. Attention on follow-up. 3. Residual adenopathy in the abdominal retroperitoneum has no significant activity above reference blood pool background. 4. Unchanged 6.5 cm non-FDG avid fluid attenuating left adnexal cyst, unchanged compared to CT 01/06/2023. Recommend pelvic ultrasound for further characterization. 5. Non-FDG avid severe T9 vertebral body compression fracture, increased in height loss compared to prior PET/CT. 6. Mild diffusely increased marrow activity in the axial and proximal appendicular skeleton, consistent with reactive marrow. 7. Unchanged non-FDG avid 10 mm groundglass opacity in the left lower lobe. Continued attention on follow-up recommended. Miguel Daugherty MD documented in this encounter Plan of Treatment Upcoming Encounters Date Type Department Care Team (Late st Contact Info) Description 05/02/2024 8:30 AM EST Office Visit Hematology/Oncology at [address] [phone] Pardeep George MD [facility] DR HEMATOLOGY [place] [address] Kelli Zapata, FELICITY [address] [place] [address] DR MEDICAL ONCOLOGY [place], [place] [id number] 05/02/2024 9:00 AM EST Infusion Hematology Oncology at [address] [phone] 01/31/2025 8:30 AM EDT Office Visit Psychiatry [place] [phone] Radha Negrete, PhD [facility] [place] [address] documented as of this encounter Results * Lactate Dehydrogenase (08/17/2023 1:03 PM EST) Pathologist [facility] Lactate Dehydrogenase 174 110 - 220 unit/L [facility] Blood 08/17/2023 1:03 PM EST 08/17/2023 1:28 PM EST Narrative Resulting Agency Comment Spec In Lab Miguel Daugherty MD CHEMISTRY ORDERABLES [facility] [place] [place] [address] * (ABNORMAL) Comprehensive metabolic panel (non-fasting) (08/17/2023 1:03 PM EST) Pathologist [facility] Glucose 84 65 - 199 mg/dL [facility] Comment:Diabetes: >=200 mg/d L plus symptoms Blood Urea Nitrogen 12 8 - 18 mg/dL [facility] Creatinine 0.57(L) 0.70 - 1.20 mg/dL [facility] Sodium 136 135 - 145 mmol/L [facility] Potassium 4.1 3.5 - 5.0 mmol/L [facility] Comment: Please note: ??Patients with WBC >100,000 may have falsely elevated Potassium levels. ??For accurate Potassium quantification in these patients send serum separator tube (gold top) for subsequent determinations. ??Contact the Clinical Chemistry Laboratory if there are any questions. Chloride 98 98 - 107 mmol/L [facility] Carbon Dioxide 30 22 - 31 mmol/L [facility] Anion Gap 8 5 - 15 mmol/L [facility] Calcium 9.6 8.5 - 10.5 mg/dL [facility] Protein, Total 6.7 6.1 - 8.0 g/dL [facility] Albumin 4.6 3.2 - 5.2 g/dL [facility] Aspartate Aminotransferase 28 0 - 30 unit/L [facility] Alanine Aminotransferase 26 0 - 30 unit/L [facility] Alkaline Phosphatase 91 35 - 105 unit/L [facility] Bilirubin, Total 0.3 0.2 - 1.3 mg/dL [facility] Est Glomerular Filtration Rate 95 >=60 mL/min/1. 73 m?? [facility] Comment: This patient's estimated GFR was calculated using the 2020 CKD-EPI equation. The estimated GFR can vary from the measured GFR by up to 30% in the absence of rapidly changing kidney function. Assessment of the estimated GFR is not appropriate when creatinine concentrations are rapidly changing. For clinical situations in which a more precise estimate of GFR is necessary, consider alternative methods of GFR estimation such as a 24-hour urine creatinine clearance. Assignment of CKD stage 1-5 for patients with an eGFR near the transition point between stages may be based on clinical assessment of muscle mass and symptoms in addition to eGFR. Blood 08/17/2023 1:03 PM EST 08/17/2023 1:28 PM EST Narrative Resulting Agency Comment Spec In Lab Miguel Daugherty MD CHEMISTRY ORDERABLES [facility] [place] [place] [address] documented in this encounter Visit Diagnoses Diagnosis Lymphoma, unspecified body region, unspecified lymphoma type Lytic bone lesions on xray Disorder of bone and cartilage, unspecified Follicular lymphoma, unspecified follicular lymphoma type, unspecified body region documented in this encounter Care Teams K9 Handler Relationship Specialty Start Date End Date Blanquita Pagan APRN [address] [place] [address] PCP - General Family Medicine 01/07/23 documented as of this encounter
--- OUTSIDE RECORDS SUMMARY | 2024-05-02 08:09 | XMS_ITS | Encounter Summary ---
Author Organization [facility] Address [facility] [place] [address] Care Team Providers Care Food Service Utility Worker Name Role Phone Blanquita Pagan APRN Primary Care Provider [phone] Reason for Visit * Diagnostic Test (Routine) - Closed Specialty Diagnoses / Procedures Referred By Contac t Referred To Contact Radiology Diagnoses Lymphoma, unspecified body region, unspecified lymphoma type Procedures NM PET CT Skull Base to Mid-thigh Magdalena Ashraf MARINE EQUIPMENT DESIGN ENGINEER [facility] HEMATOLOGY [place] [address] [place] [address] Referral ID Status Reason Start Date Expiration Date V isits Requested Visits Authorized [id number] Closed Specialty Service Requested 06/30/2023 12/28/2024 1 1 Encounter Details Date Type Department Care Team (Latest Contact Info) Description 08/17/2023 1:08 PM EST - 08/17/2023 11:59 PM [facility] Hospital En[place] [address] Magdalena Ashraf [facility] HEMATOLOGY [place] [address] Discharge Disposition: Home Social History Tobacco Use Types Packs/Day Years [...] place to sleep or slept in a long-term (including now)? No 02/16/2023 DH IPV Inpatient [...] on file documented as of this encounter Medications at Time of Discharge Medication Sig Dispensed Refills Start Date End Date cyanocobalamin, Vitamin B-12, (Vitamin B-12) 100 mcg tablet Take 100 mcg by mouth daily. multivitamin (THERAGRAN) Tablet Take 1 tablet by mouth daily. alendronate (Fosamax) 10 mg tablet Take 10 mg by mouth daily. 10/16/2022 levothyroxine (Synthroid) 50 mcg tablet Take 50 mcg by mouth daily. 11/16/2022 pantoprazole EC (Protonix) [address] tablet Take 40 mg by mouth daily. 10/16/2022 Psyllium Seed-Sucrose (0) Powder Take 1 Dose by mouth daily. senna (Senokot) 8.6 mg tablet Take 1 tablet by mouth daily. polyethylene glycoL (Miralax) 17 gram oral powder packet Take 17 g by mouth daily. prochlorperazine (Compazine) 10 mg tablet Take 1 tablet by mouth every 6 hours as needed for Nausea. 15 tablet 3 03/09/2023 documented as of this encounter Plan of Treatment Upcoming Encounters Date Type Department Care Team (Late st Contact Info) Description 05/02/2024 8:30 AM EST Office Visit Hematology/Oncology at [address] [phone] [facility] DR HEMATOLOGY [place] [address] Kelli Zapata APRN [address] [address] DR MEDICAL ONCOLOGY [place], [place] [id number] 05/02/2024 9:00 AM EST Infusion Hematology Oncology at [address] [phone] 01/31/2025 8:30 AM EDT Office Visit Psychiatry [place] [address] Radha Negrete, PhD [facility] [place] [address] documented as of this encounter Procedures Procedure Name Priority Date/Time Associated Diagnosis Comments NM PET CT SKULL BASE TO MID-THIGH ([facility]) Routine 08/17/2023 2:40 PM EST Lymphoma, unspecified body region, unspecified lymphoma type POCT GLUCOSE Routine 08/17/2023 1:24 PM EST documented in this encounter Results * POCT Glucose (08/17/2023 1:24 PM EST) Glucose, POC 82 65 - 199 mg/dL [facility] Comment: Supplemental ranges: <140 mg/dL before meals <180 mg/dL all other times of the day Blood 08/17/2023 1:24 PM EST 08/17/2023 1:24 PM EST Magdalena Ashraf MARINE EQUIPMENT DESIGN ENGINEER POINT OF CARE TEST O RDERABLES Performing Organization Address City/State/[facility] Co de Phone Number [facility] [place] [address] documented in this encounter Visit Diagnoses Not on filedocumented in this encounter Care Teams Food Service Utility Worker Relationship Specialty Start Date End Date Blanquita Pagan APRN [address] [place] [address] PCP - General Family Medicine 01/07/23 documented as of this encounter
--- OUTSIDE RECORDS SUMMARY | 2024-05-02 08:09 | XMS_ITS | Encounter Summary ---
Author Organization [facility] Address [facility] [place] [address] Care Team Providers Care Processing Clerk Name Role Phone Blanquita Pagan APRN Primary Care Provider [phone] Reason for Visit * Reason Comments IV Access * Treatment/Therapy Plan Authorization (Routine) - Authorized Specialty Diagnoses / Procedures Referred By Contac t Referred To Contact Hematology and Oncology Diagnoses Lymphoma, unspecified body region, unspecified lymphoma type Lytic bone lesions on xray Procedures INFUSION Pardeep George MD [facility] [address] [place] [address] Pardeep George MD [facility] [address] [place] [address] Referral ID Status Reason Start Date Expiration Date V isits Requested Visits Authorized [id number] Authorized 07/28/2023 07/27/2024 1 101 Encounter Details Date Type Department Care Team (Late st Contact Info) Description 02/09/2024 1:00 PM EDT Infusion Hematology Oncology at [address] [phone] Lymphoma, unspecified body region, unspecified lymphoma type Social History Tobacco Use Types Packs/Day Years [...] in a usp (including now)? No 02/16/2023 DH IPV Inpatient [...] Sign Reading Time Taken Comments Blood Pressure 100/46 02/09/2024 1:23 PM EDT Pulse 74 02/09/2024 1:23 PM EDT Temperature 36.2 ??C (97.2 ??F) 02/09/2024 1:23 PM ED T Respiratory Rate 18 02/09/2024 1:23 PM EDT Oxygen Saturation 100% 02/09/2024 1:23 PM EDT Inhaled Oxygen Concentration - - Weight 51.7 kg (114 lb) 02/09/2024 1:23 PM EDT Height 167.2 cm (5' 5.83) 02/09/2024 1:23 PM ED T Body Mass Index 18.5 02/09/2024 1:23 PM EDT documented in this encounter Progress Notes * Colgrove, Loni D, RN - 02/09/2024 1:00 PM EDT INFUSION THERAPY ADMINISTRATION NOTES DIAGNOSIS: 1. Lymphoma, unspecified body region, unspecified lymphoma type sodium chloride 0.9 % (flush) (BD PosiFlush Normal Saline 0.9) flush 10-20 mL REASON FOR VISIT: MEDIPORT FLUSH ONLY IV ACCESS: Mediport GAUGE: 19G BLOOD RETURN: yes ANY S/S OF INFECTION/EXTRAVASATIONS: no signs of IV complications observed IV FLUSHED WITH: 20cc NS IV DISCONTINUED: yes ASSESSMENT: Patient tolerated treatment well. PLAN: Return to clinic per routine. documented in this encounter Plan of Treatment Upcoming Encounters Date Type Department Care Team (Late st Contact Info) Description 05/02/2024 8:30 AM EST Office Visit Hematology/Oncology at [address] [phone] Pardeep George MD [facility] DR [place] [address] Kelli Zapata APRN [address] [place] [address] [place] [address] 05/02/2024 9:00 AM EST Infusion Hematology Oncology at [address] [phone] 01/31/2025 8:30 AM EDT Office Visit Psychiatry [place] [address] Radha Negrete, PhD [facility] [place] [address] documented as of this encounter Visit Diagnoses Diagnosis Lymphoma, unspecified body region, unspecified lymphoma type documented in this encounter Administered Medications Inactive Administered Medications - up to 3 most recent administrations Medication Order MAR Action Action Date Dose Rate Site sodium chloride 0.9 % (flush) (BD PosiFlush Normal Saline 0.9) flush 10-20 mL 10-20 mL, Intravenous, EVERY 1 MIN PRN, Starting on Alyce 02/09/24 at 1324, Until Alyce 02/09/24 at 1550, Veterans' Coordinator, Routine Given 02/09/2024 1:30 PM EDT 20 mLs documented in this encounter Care Teams Processing Clerk Relationship Specialty Start Date End Date Blanquita Pagan APRN [address] [place] [address] PCP - General Family Medicine 01/07/23 documented as of this encounter
--- OUTSIDE RECORDS SUMMARY | 2024-05-02 08:09 | XMS_ITS | Encounter Summary ---
Author Organization [facility] Address [facility] [place] [address] Care Team Providers Care Weasand Trimmer Name Role Phone Blanquita Pagan APRN Primary Care Provider [phone] Encounter Details Date Type Department Care Team (Latest Contact Info) Description 01/12/2024 Travel Social History Tobacco Use Types Packs/Day [...] place to sleep or slept in a long term (including now)? No 02/16/2023 IPV Inpatient Questions [...] 8:30 AM EST Office Visit Hematology/Oncology at [address] [phone] Pardeep George MD [facility] DR HEMATOLOGY [place] [address] Kelli Zapata APRN [address] [place] [address] [place] [address] 05/02/2024 9:00 AM EST Infusion Hematology Oncology at [address] [phone] 01/31/2025 8:30 AM EDT Office Visit Psychiatry [place] [address] Radha Negrete, PhD [facility] [place] [address] documented as of this encounter Visit Diagnoses Not on filedocumented in this encounter Care Teams Weasand Trimmer Relationship Specialty Start Date End Date Blanquita Pagan APRN [address] [place] [address] PCP - General Family Medicine 01/07/23 documented as of this encounter
--- OUTSIDE RECORDS SUMMARY | 2024-05-02 08:09 | XMS_ITS | Encounter Summary ---
Author Organization [facility]1983 Address [facility] [place] [address] Care Team Providers Care Global Coordinator Name Role Phone Blanquita Pagan APRN Primary Care Provider Encounter Details Date Type Department Care Team (Latest Contact Info) Description 11/17/2023 Travel Social History Tobacco Use Types Packs/Day [...] place to sleep or slept in a prison (including now)? No 02/16/2023 IPV Inpatient Questions [...] 8:30 AM EST Office Visit Hematology/Oncology at [address] [phone] Pardeep George MD [facility] [address] [place] [address] Kelli Zapata APRN [address] [place] [address] [place] [address] 05/02/2024 9:00 AM EST Infusion Hematology Oncology at [address] [phone] 01/31/2025 8:30 AM EDT Office Visit Psychiatry [place] [address] Radha Negrete, PhD [facility] [place] [address] documented as of this encounter Visit Diagnoses Not on filedocumented in this encounter Care Teams Global Coordinator Relationship Specialty Start Date End Date Blanquita Pagan APRN [address] [place] [address] PCP - General Family Medicine 01/07/23 documented as of this encounter
--- OUTSIDE RECORDS SUMMARY | 2024-05-02 08:09 | XMS_ITS | Encounter Summary ---
Author Organization [facility] Address [facility] [place] [address] Care Team Providers Care Digital Marketing Intern Name Role Phone Blanquita Pagan APRN Primary Care Provider [phone] Reason for Visit * Reason Comments IV Access Port flush Encounter Details Date Type Department Care Team (Late st Contact Info) Description 10/20/2023 11:00 AM EDT Infusion Hematology Oncology at [address] [phone] Lymphoma, unspecified body region, unspecified lymphoma type [...] place to sleep or slept in a custodial (including now)? No 02/16/2023 DH IPV Inpatient [...] Sign Reading Time Taken Comments Blood Pressure 145/77 10/20/2023 11:11 AM EDT Pulse 73 10/20/2023 11:11 AM EDT Temperature 36.1 ??C (96.9 ??F) 10/20/2023 11:11 AM E DT Respiratory Rate 18 10/20/2023 11:11 AM EDT Oxygen Saturation 100% 10/20/2023 11:11 AM EDT Inhaled Oxygen Concentration - - Weight 51.5 kg (113 lb 9.6 oz) 10/20/2023 11:11 AM EDT Height 167.2 cm (5' 5.83) 10/20/2023 11:11 AM E DT Body Mass Index 18.43 10/20/2023 11:11 AM EDT documented in this encounter Progress Notes * Sommer Kidd RN - 10/20/2023 11:00 AM EDT INFUSION THERAPY ADMINISTRATION NOTES DIAGNOSIS: 1. [...] 8:30 AM EST Office Visit Hematology/Oncology at [address] [phone] Pardeep George MD [facility] DR [place] [address] Kelli Zapata WEB MARKETING INTERN [address] [place] [address] DR MEDICAL ONCOLOGY [place], [place] [address] 05/02/2024 9:00 AM EST Infusion Hematology Oncology at [address] [phone] 01/31/2025 8:30 AM EDT Office Visit Psychiatry [place] [address] Radha Negrete, PhD [facility] [place] [address] documented as of this encounter Visit Diagnoses Diagnosis Lymphoma, unspecified body region, unspecified lymphoma type documented in this encounter Administered Medications Inactive Administered Medications - up to 3 most recent administrations Medication Order MAR Action Action Date Dose Rate Site sodium chloride 0.9 % (flush) (BD PosiFlush Normal Saline 0.9) flush 10-20 mL 10-20 mL, Intravenous, EVERY 1 MIN PRN, Starting on Alyce 10/20/23 at 1119, Until Alyce 10/20/23 at 1334, Costume Mistress, Routine Given 10/20/2023 11:31 AM EDT 20 mLs documented in this encounter Care Teams Digital Marketing Intern Relationship Specialty Start Date End Date Blanquita Pagan APRN [address] [place] [address] PCP - General Family Medicine 01/07/23 documented as of this encounter
--- OUTSIDE RECORDS SUMMARY | 2024-05-02 08:09 | XMS_ITS | Encounter Summary ---
Author Organization [facility] Address [facility] [place] [address] Care Team Providers Care Reserves Clerk Name Role Phone Blanquita Pagan APRN Primary Care Provider [phone] Encounter Details Date Type Department Care Team (Latest Contact Info) Description 08/17/2023 Travel Social History Tobacco Use Types Packs/Day [...] in a alf (including now)? No 02/16/2023 IPV Inpatient Questions [...] 8:30 AM EST Office Visit Hematology/Oncology at [address] [phone] Pardeep George MD [facility] DR [place] [address] Kelli Zapata APRN [address] [place] [address] [place] [address] 05/02/2024 9:00 AM EST Infusion Hematology Oncology at [address] [phone] 01/31/2025 8:30 AM EDT Office Visit Psychiatry [place] [address] Radha Negrete, PhD [facility] [place] [address] documented as of this encounter Visit Diagnoses Not on filedocumented in this encounter Care Teams Reserves Clerk Relationship Specialty Start Date End Date Blanquita Pagan APRN [address] [place] [address] PCP - General Family Medicine 01/07/23 documented as of this encounter
--- OUTSIDE RECORDS SUMMARY | 2024-05-02 08:09 | XMS_ITS | Encounter Summary ---
Author Organization [facility] Address [facility] [place] [address] Care Team Providers Care Marine Equipment Research Engineer Name Role Phone Blanquita Pagan APRN Primary Care Provider [phone] Encounter Details Date Type Department Care Team (Latest Contact Info) Description 12/15/2023 Travel Social History Tobacco Use Types Packs/Day [...] place to sleep or slept in a mcc (including now)? No 02/16/2023 IPV Inpatient Questions [...] 8:30 AM EST Office Visit Hematology/Oncology at [address] [phone] Pardeep George MD [facility] DR HEMATOLOGY [place] [address] Kelli Zapata APRN [address] [place] [address] [place] [address] 05/02/2024 9:00 AM EST Infusion Hematology Oncology at [address] [phone] 01/31/2025 8:30 AM EDT Office Visit Psychiatry [place] [address] Radha Negrete, PhD [facility] [place] [address] documented as of this encounter Visit Diagnoses Not on filedocumented in this encounter Care Teams Marine Equipment Research Engineer Relationship Specialty Start Date End Date Blanquita Pagan APRN [address] [place] [address] PCP - General Family Medicine 01/07/23 documented as of this encounter
--- OUTSIDE RECORDS SUMMARY | 2024-05-02 08:09 | XMS_ITS | Encounter Summary ---
Author Organization [facility] Address [facility] [place] [address] Care Team Providers Care Energy Derivatives Trader Name Role Phone Blanquita Pagan APRN Primary Care Provider [phone] Encounter Details Date Type Department Care Team (Latest Contact Info) Description 10/20/2023 Travel Social History Tobacco Use Types Packs/Day [...] in a custodial (including now)? No 02/16/2023 IPV Inpatient Questions [...] 8:30 AM EST Office Visit Hematology/Oncology at [address] [phone] Pardeep George MD [facility] DR [place] [address] Kelli Zapata APRN [address] [place] [address] [place] [address] 05/02/2024 9:00 AM EST Infusion Hematology Oncology at [address] [phone] 01/31/2025 8:30 AM EDT Office Visit Psychiatry [place] [address] Radha Negrete, PhD [facility] [place] [address] documented as of this encounter Visit Diagnoses Not on filedocumented in this encounter Care Teams Energy Derivatives Trader Relationship Specialty Start Date End Date Blanquita Pagan APRN [address] [place] [address] PCP - General Family Medicine 01/07/23 documented as of this encounter
--- OUTSIDE RECORDS SUMMARY | 2024-05-02 08:09 | XMS_ITS | Encounter Summary ---
Author Organization [facility] Address [facility] [place] [id number] Care Team Providers Care Anthropology Professor Name Role Phone Blanquita Pagan APRN Primary Care Provider [phone] Reason for Referral * Consultation (Routine) - Authorized Specialty Diagnoses / Procedures Referred By Contguerita t Referred To Contact Neurology Diagnoses Follicular lymphoma, unspecified follicular lymphoma type, unspecified body region Pardeep George MD [facility] DR [place] [address] [facility] [address] [place] [phone] Referral ID Status Reason Start Date Expiration Date Visits Requested Visits Authorized [id number] Authorized Consult, Test & Treat 03/08/2024 03/08/2025 1 1 Encounter Details Date Type Department Care Team (Late st Contact Info) Description 03/08/2024 9:00 AM EDT Office Visit Hematology/Oncology at [address] [phone] Pardeep George MD [facility] DR [place] [address] Kelli Zapata APRN [address] [place] [address] DR MEDICAL ONCOLOGY [place], [place] [address] Follicular lymphoma, unspecified follicular lymphoma type, unspecified [...] in a fpc (including now)? No 02/16/2023 DH IPV Inpatient [...] Sign Reading Time Taken Comments Blood Pressure 128/57 03/08/2024 9:13 AM EDT Pulse 74 03/08/2024 9:13 AM EDT Temperature 36.4 ??C (97.6 ??F) 03/08/2024 9:13 AM ED T Respiratory Rate 16 03/08/2024 9:13 AM EDT Oxygen Saturation 100% 03/08/2024 9:13 AM EDT Inhaled Oxygen Concentration - - Weight 51 kg (112 lb 6.4 oz) 03/08/2024 9:13 AM EDT Height 167.2 cm (5' 5.83) 03/08/2024 9:13 AM ED T Body Mass Index 18.24 03/08/2024 9:13 AM EDT documented in this encounter Progress Notes * Pardeep George MD - 03/08/2024 9:00 AM EDT Subjective Patient ID: Ani Ridley is a 73 y.o. female. HPI The patient is a 73-year-old female seen in the [facility]. She has been diagnosed withfollicular lymphoma. She was worked up in the [place] clinic by Dr. Daugherty and started on Bendamustine and Rituxan. She completed 6 cycles 08/20. She did have her end of treatment PET scan which showed no active lymphoma. We started with Rituxan maintenance 09/22/23 and she is here for her 3rd dose. She is hear today with her . She did have her neuropsychiatric testing. Was also recommendedto be evaluated by neurology but has not seen them yet. They requested a referral. Otherwise she has been well. No further weight loss. No fevers. No lumps or bumps No real side effects from the rituximab. Patient Active Problem List Diagnosis Code Lymphoma C85.90 Lytic bone lesions on xray M89.9 Anemia, iron deficiency D50.9 Follicular lymphoma C82.90 Current Outpatient Medications: loratadine (Claritin) 10 mg Tablet, Take 10 mg by mouth daily., Disp: , Rfl: cyanocobalamin, Vitamin B-12, (Vitamin B-12) 100 mcg tablet, Take 100 mcg by mouth daily., Disp: , Rfl: multivitamin (THERAGRAN) Tablet, Take 1 tablet by mouth daily., Disp: , Rfl: alendronate (Fosamax) 10 mg tablet, Take 10 mg by mouth daily., Disp: , Rfl: levothyroxine (Synthroid) 50 mcg tablet, Take 50 mcg by mouth daily., Disp: , Rfl: pantoprazole EC (Protonix) [address] tablet, Take 40 mg by mouth daily., Disp: , Rfl: Iron 18 mg Tablet, Take 1 tablet by mouth daily., Disp: , Rfl: Psyllium Seed-Sucrose (0) Powder, Take 1 Dose by mouth daily., Disp: , Rfl: senna (Senokot) 8.6 mg tablet, Take 1 tablet by mouth daily., Disp: , Rfl: polyethylene glycoL (Miralax) 17 gram oral powder packet, Take 17 g by mouth daily., Disp: , Rfl: prochlorperazine (Compazine) 10 mg tablet, Take 1 tablet by mouth every 6 hours as needed for Nausea. (Patient not taking: Reported on 04/07/2023), Disp: 15 tablet, Rfl: 3 No Known Allergies Social History Socioeconomic History Marital status: Spouse name: Not on file Number of children: Not on file Years of education: Not on file Highest education level: Not on file Occupational History Not on file Tobacco Use Smoking status: Never Smokeless tobacco: Never Vaping Use Vaping status: Never Used Substance and Sexual Activity Alcohol use: Never [...] Not on file Intimate Partner Violence: Unknown (03/16/2023) IPV Inpatient Questions Prevent Contact with Others: [...] Systems Constitutional: Positive for fatigue. Negative for appetite change, chills, fever and unexpected weight change. HENT: Negative for nosebleeds. Respiratory: Negative for cough and shortness of breath. Cardiovascular: Negative for chest pain and palpitations. Gastrointestinal: Negative for abdominal pain and diarrhea. Musculoskeletal: Negative for back pain. Skin: Negative for rash. Neurological: Negative for speech difficulty. Hematological: Negative for adenopathy. Does not bruise/bleed easily. Psychiatric/Behavioral: Concerns about memory/cognitive decline All other systems reviewed and are negative. Objective BP 128/57 (Patient Position: Sitting) Pulse 74 Temp 36.4 ??C (97.6 ??F) (Temporal) Resp 16 Ht 167.2 cm (5' 5.83) Wt 51 kg (112 lb 6.4 oz) SpO2 100% BMI 18.24 kg/m?? Physical Exam Constitutional: General: She is not in acute distress. HENT: Mouth/Throat: Mouth: Mucous membranes are moist. Eyes: General: No scleral icterus. Cardiovascular: Rate and Rhythm: Normal rate. Heart sounds: Murmur (known murmur) heard. Pulmonary: Effort: Pulmonary effort is normal. Breath sounds: Normal breath sounds. No wheezing. Abdominal: General: Abdomen is flat. Palpations: Abdomen is soft. Musculoskeletal: Cervical back: Neck supple. Right lower leg: No edema. Left lower leg: No edema. Lymphadenopathy: Cervical: No cervical adenopathy. Skin: Findings: No rash. Neurological: Mental Status: She is alert and oriented to person, place, and time. Psychiatric: Mood and Affect: Mood normal. Behavior: Behavior normal. Thought Content: Thought content normal. Recent Results (from the past 24 hour(s)) External Hematology Lab Results Result Value Ref Range WBC - External 5.33 RBC - External 3.62 Hemoglobin - External 11.9 Hematocrit - External 34.7 Platelets - External 267 Neutr ABS (ANC) - External 4.05 External Chemistry Lab Results Result Value Ref Range Glucose Lvl - External 77 Blood Urea Nitrogen - External 14 Creatinine - External 0.63 Sodium - External 135 (L) Potassium - External 4.21 Calcium - External 9.4 Protein, Total - External 7.0 Albumin - External 4.0 AST (SGOT) - External 28 ALT (SGPT) - External 40.3 Alk Phos - External 51 Total Bilirubin - External 0.42 LDH - External 187 Assessment and Plan 73-year-old female diagnosed with advanced stage low-grade follicular lymphoma. She had chemotherapy with Bendamustine and Rituxan and completed 6 cycles. PET scan at completion of therapy showed no residual active lymphoma. Now she is on Rituxan maintenance. Tolerating this well. Unlikely this is making her cognitive changes worse. Plan: - continue rituxan 1 dose every 2months for 2yrs as long as she continues to tolerate therapy well. - port flush in 4 weeks - cbc and cmp every 8 weeks - refer to neurology Call with concerns in the interim documented in this encounter Plan of Treatment Upcoming Encounters Date Type Department Care Team (Late st Contact Info) Description 05/02/2024 8:30 AM EST Office Visit Hematology/Oncology at [address] [phone] Pardeep George MD [facility] DR [place] [address] Kelli Zapata APRN [address] [place] [address] [place] [address] 05/02/2024 9:00 AM EST Infusion Hematology Oncology at [address] [phone] 01/31/2025 8:30 AM EDT Office Visit Psychiatry [place] [address] Radha Negrete, PhD [facility] [place] [address] Scheduled Orders Name Type Priority Associated Diagnoses Orde r Schedule CBC (with Diff) Lab STAT Follicular lymphoma, unspecified follicular lymphoma type, unspecified body region Expected: 05/08/2024, Expires: 11/07/2024 Comprehensive metabolic panel Non-fasting Lab STAT Follicular lymphoma, unspecified follicular lymphoma type, unspecified body region Expected: 05/08/2024, Expires: 11/07/2024 Lactate Dehydrogenase Lab STAT Follicular lymphoma, unspecified follicular lymphoma type, unspecified body region Expected: 05/08/2024, Expires: 11/07/2024 Scheduled Referrals Name Type Priority Associated Diagnoses Orde r Schedule Referral to Neurology Outpatient Referral Routine Follicular lymphoma, unspecified follicular lymphoma type, unspecified body region Ordered: 03/08/2024 documented as of this encounter Procedures Procedure Name Priority Date/Time Associated Diagnosis Comments EXTERNAL HEMATOLOGY LAB RESULTS Routine 03/08/2024 EXTERNAL CHEMISTRY LAB RESULTS Routine 03/08/2024 documented in this encounter Results * (ABNORMAL) External Chemistry Lab Results (03/08/2024) [...] - External 187 03/08/2024 Historical Provider MD ABDON DENTON * External Hematology Lab Results (03/08/2024) WBC - External 5.33 RBC - External 3.62 Hemoglobin - External 11.9 Hematocrit - External 34.7 Platelets - External 267 Neutr ABS (ANC) - External 4.05 03/08/2024 Historical Provider MD [facility] KRISS DENTON documented in this encounter Visit Diagnoses Diagnosis Follicular lymphoma, unspecified follicular lymphoma type, unspecified body region documented in this encounter Care Teams Anthropology Professor Relationship Specialty Start Date End Date Blanquita Pagan APRN [address] [place] [address] PCP - General Family Medicine 01/07/23 documented as of this encounter
--- OUTSIDE RECORDS SUMMARY | 2024-05-02 08:09 | XMS_ITS | Encounter Summary ---
Author Organization [facility] Address [facility] [place] [address] Care Team Providers Care Anaesthetic Technician Name Role Phone Blanquita Pagan APRN Primary Care Provider [phone] Reason for Visit * Treatment/Therapy Plan Authorization (Routine) - Closed Specialty Diagnoses / Procedures Referred By Contac t Referred To Contact Hematology and Oncology Diagnoses Lymphoma, unspecified body region, unspecified lymphoma type Lytic bone lesions on xray Procedures TC RITUXIMAB-PVVR, BIOSIMILAR, (RUXIENCE), 10 MG, INJ [id number] RUXIENCE Miguel Daugherty MD [facility] DR HEMATOLOGY [place] [address] Miguel Daugherty MD [facility] DR HEMATOLOGY [place] [address] Referral ID Status Reason Start Date Expiration Date Visits Re quested Visits Authorized [id number] Closed 02/25/2023 02/25/2024 1 106 Encounter Details Date Type Department Care Team (Late st Contact Info) Description 07/29/2023 9:00 AM EST Infusion Hematology Oncology at [address] [phone] Lymphoma, unspecified body region, unspecified lymphoma type; Lytic bone lesions on xray Social History Tobacco Use Types Packs/Day Years Used Date Smoking Tobacco: Never Smokeless Tobacco: Never Alcohol Use Standard Drinks/Week Comments Never 0 (1 standard drink = 0.6 oz pur e alcohol) Overall Financial Resource Strain (CARDIA) Anna r Date Recorded How hard is it [...] place to sleep or slept in a detention (including now)? No 02/16/2023 DH IPV Inpatient [...] Sign Reading Time Taken Comments Blood Pressure 132/70 07/29/2023 9:05 AM EST Pulse 74 07/29/2023 9:05 AM EST Temperature 36.1 ??C (96.9 ??F) 07/29/2023 9:05 AM ES T Respiratory Rate 16 07/29/2023 9:05 AM EST Oxygen Saturation 98% 07/29/2023 9:05 AM EST Inhaled Oxygen Concentration - - Weight 50.3 kg (111 lb) 07/29/2023 9:05 AM EST Height 167.3 cm (5' 5.87) 07/29/2023 9:05 AM ES T Body Mass Index 17.99 07/29/2023 9:05 AM EST documented in this encounter Progress Notes * Sommer Kidd RN - 07/29/2023 9:00 AM EST INFUSION THERAPY ADMINISTRATION NOTES DIAGNOSIS: follicular lymphoma PROTOCOL:na CYCLE #: 6 day 2 REASON FOR VISIT: bendamustine + Onpro SUBJECTIVE Ani Ridley offers no complaints. OBJECTIVE LAB DATA: Labs reviewed and found adequate for treatment. Pre administration: Chemotherapy orders independently verified for drug name, route, and dosage per patient's height, weight and BSA by Sommer Kidd RN and staff pharmacists REACTIONS (DESCRIPTION, TIME, INTERVENTION AND EFFECTIVENESS) none ASSESSMENT Ani Ridley was awake, alert and he tolerated treatment well. PLAN Return to clinic per plan. documented in this encounter Plan of Treatment Upcoming Encounters Date Type Department Care Team (Late st Contact Info) Description 05/02/2024 8:30 AM EST Office Visit Hematology/Oncology at [address] [phone] Pardeep George MD [facility] DR HEMATOLOGY [place] [address] Kelli Zapata APRN [address] [place] [address] [place] [address] 05/02/2024 9:00 AM EST Infusion Hematology Oncology at [address] [phone] 01/31/2025 8:30 AM EDT Office Visit Psychiatry [place] [address] Radha Negrete, PhD [facility] [place] [address] documented as of this encounter Visit Diagnoses Diagnosis Lymphoma, unspecified body region, unspecified lymphoma type Lytic bone lesions on xray Disorder of bone and cartilage, unspecified documented in this encounter Administered Medications Inactive Administered Medications - up to 3 most recent administrations Medication Order MAR Action Action Date Dose Rate Site bendamustine (Bendeka/Belrapzo) 142 mg in sodium chloride 0.9% 55.68 mL infusion 142 mg (rounded from 142.2 mg = 90 mg/m2/dose ? 1.58 m2 Treatment Plan BSA from Recorded weight), Intravenous, ONCE, 1 dose, On Tue07/29/23 at 1000, Administer over 10 Minutes, The resulting final concentration of bendamustine in the infusion bag should be between 1.85 - 5.6 mg/mL. Warning Vesicant/Irritant Medication New Bag 07/29/2023 9:21 AM EST 142 mg 334.1 mL/hr pegfilgrastim (Neulasta Onpro) (6 mg/0.6 mL) injection kit 6 mg 6 mg, Subcutaneous, ONCE, 1 dose, On Tue07/29/23 at 0900, Allow the prefilled syringe co-packaged with the on-body injector to reach room temperature at least 30 minutes prior to administration., Routine, This agent is restricted to outpatient use. Is this drug being given as an outpatient? Yes Given 07/29/2023 9:31 AM EST 6 mg Right Arm sodium chloride 0.9% infusion 125 mL/hr, Intravenous, CONTINUOUS, Starting on Tue07/29/23 at 0900, Until Tue07/29/23 at 1611, Pls run IV fluids during chemo for maximum volume of 750-1000cc. New Bag 07/29/2023 9:18 AM EST 125 mL/hr 125 mL/hr documented in this encounter Care Teams Anaesthetic Technician Relationship Specialty Start Date End Date Blanquita Pagan APRN [address] [place] [address] PCP - General Family Medicine 01/07/23 documented as of this encounter
--- OUTSIDE RECORDS SUMMARY | 2024-05-02 08:09 | XMS_ITS | Encounter Summary ---
Author Organization [facility] Address [facility] [place] [address] Care Team Providers Care Grey Inspector Name Role Phone Blanquita Pagan APRN Primary Care Provider [phone] Reason for Visit * Reason Comments Chemotherapy * Treatment/Therapy Plan Authorization (Routine) - Authorized Specialty Diagnoses / Procedures Referred By Contac t Referred To Contact Hematology and Oncology Diagnoses Lymphoma, unspecified body region, unspecified lymphoma type Lytic bone lesions on xray Procedures INFUSION Pardeep George MD [facility] [address] [place] [address] Pardeep George MD [facility] [place] [address] Referral ID Status Reason Start Date Expiration Date V isits Requested Visits Authorized [id number] Authorized 07/28/2023 07/27/2024 1 101 Encounter Details Date Type Department Care Team (Late st Contact Info) Description 11/17/2023 9:00 AM EDT Infusion Hematology Oncology at [address] [phone] Lymphoma, unspecified body region, unspecified lymphoma type; [...] place to sleep or slept in a correction (including now)? No 02/16/2023 DH IPV Inpatient [...] on file documented as of this encounter Progress Notes * Chriss Nobles, RN - 11/17/2023 9:00 AM EDT INFUSION THERAPY ADMINISTRATION NOTES DIAGNOSIS: Follicular Lymphoma CYCLE #:2 Day 1 REASON FOR VISIT: Maintenance Rituxan, Rapid SUBJECTIVE Ani offers no complaints. She was seen in clinic by Dr. George prior to infusion. She does not take the dexamethasone as premed. OBJECTIVE IV ACCESS: Mediport Pre administration: Chemotherapy orders independently verified for drug name, route, and dosage per patient's height, weight and BSA by CHRISS NOBLES, RN & [facility] onsite. REACTIONS (DESCRIPTION, TIME, INTERVENTION AND EFFECTIVENESS) none ASSESSMENT Ani was awake, alert and tolerated treatment well. PLAN Return to clinic per routine. documented in this encounter Plan of Treatment Upcoming Encounters Date Type Department Care Team (Late st Contact Info) Description 05/02/2024 8:30 AM EST Office Visit Hematology/Oncology at [address] [phone] Pardeep George MD [facility] [place] [address] Kelli Zapata APRN [address] [place] [address] DR MEDICAL ONCOLOGY [place], [place] [id number] 05/02/2024 9:00 AM EST Infusion Hematology Oncology at [address] [phone] 01/31/2025 8:30 AM EDT Office Visit Psychiatry [place] [address] Radha Negrete, PhD [facility] [place] [address] documented as of this encounter Visit Diagnoses Diagnosis Lymphoma, unspecified body region, unspecified lymphoma type Lytic bone lesions on xray Disorder of bone and cartilage, unspecified documented in this encounter Administered Medications Inactive Administered Medications - up to 3 most recent administrations Medication Order MAR Action Action Date Dose Rate Site acetaminophen (Tylenol) tablet 650 mg 650 mg, Oral, ONCE, 1 dose, On Alyce 11/17/23 at 0930, Administer prior to riTUXimab., Routine Given 11/17/2023 9:18 AM EDT 650 mg diphenhydrAMINE (Benadryl) capsule 50 mg 50 mg, Oral, ONCE, 1 dose, On Alyce 11/17/23 at 0930, Administer prior to riTUXimab, Routine Given 11/17/2023 9:18 AM EDT 50 mg riTUXimab-pvvr (Ruxience) 600 mg in sodium chloride 0.9% 300 mL infusion 600 mg (rounded from 566.25 mg = 375 mg/m2/dose ? 1.51 m2 Treatment Plan BSA from Recorded weight), Intravenous, ONCE, 1 dose, On Alyce 11/17/23 at 1030, Administer Per Protocol, Is this product being used for treatment of malignant indication? Yes, Patient is a candidate for rapid infusion riTUXimab? Yes New Bag 11/17/2023 10:00 AM EDT 600 mg sodium chloride 0.9 % (flush) (BD PosiFlush Normal Saline 0.9) flush 5-20 mL 5-20 mL, Intravenous, EVERY 1 MIN PRN, Starting on Alyce 11/17/23 at 0911, Until Alyce 11/17/23 at 1830, Line Care, Flush pertains to all indwelling lines. Flush per protocol found in the job aid using the link provided on this medication record. Refer to Intravenous (IV) Job Aid: Adult Flushing & Catheter Care (5304) job aid for additional information regarding guidelines and administration., Routine Given 11/17/2023 11:35 AM EDT 20 mLs documented in this encounter Care Teams Grey Inspector Relationship Specialty Start Date End Date Blanquita Pagan APRN [address] [place] [address] PCP - General Family Medicine 01/07/23 documented as of this encounter
--- OUTSIDE RECORDS SUMMARY | 2024-05-02 08:09 | XMS_ITS | Encounter Summary ---
Author Organization [facility] Address [facility] [place] [address] Care Team Providers Care Polo Coach Name Role Phone Blanquita Pagan APRN Primary Care Provider [phone] Encounter Details Date Type Department Care Team (Latest Contact Info) Description 01/31/2024 Travel Social History Tobacco Use Types Packs/Day [...] 8:30 AM EST Office Visit Hematology/Oncology at [address] [phone] Pardeep George MD [facility] [place] [address] Kelli Zapata APRN [address] [place] [address] [place] [address] 05/02/2024 9:00 AM EST Infusion Hematology Oncology at [address] [phone] 01/31/2025 8:30 AM EDT Office Visit Psychiatry [place] [address] Radha Negrete, PhD [facility] [place] [place] [address] documented as of this encounter Visit Diagnoses Not on filedocumented in this encounter Care Teams Polo Coach Relationship Specialty Start Date End Date Blanquita Pagan APRN [address] [place] [address] PCP - General Family Medicine 01/07/23 documented as of this encounter
--- OUTSIDE RECORDS SUMMARY | 2024-05-02 08:09 | XMS_ITS | Encounter Summary ---
Author Organization [facility] Address [facility] [place] [address] Care Team Providers Care Sizer Machine Name Role Phone Blanquita Pagan APRN Primary Care Provider [phone] Encounter Details Date Type Department Care Team (Late st Contact Info) Description 11/17/2023 8:30 AM EDT Office Visit Hematology/Oncology at [address] [phone] Pardeep George MD [facility] DR [place] [address] Kelli Zapata APRN [address] [place] [address] DR MEDICAL ONCOLOGY [place], [place] [id number] Lymphoma, unspecified body region, unspecified lymphoma type; [...] place to sleep or slept in a snf (including now)? No 02/16/2023 DH IPV Inpatient [...] Sign Reading Time Taken Comments Blood Pressure 139/65 11/17/2023 8:28 AM EDT Pulse 77 11/17/2023 8:28 AM EDT Temperature 36.1 ??C (96.9 ??F) 11/17/2023 8:28 AM ED T Respiratory Rate 18 11/17/2023 8:28 AM EDT Oxygen Saturation 100% 11/17/2023 8:28 AM EDT Inhaled Oxygen Concentration - - Weight 50.1 kg (110 lb 6.4 oz) 11/17/2023 8:28 A M EDT Height 167.2 cm (5' 5.83) 11/17/2023 8:28 AM ED T Body Mass Index 17.91 11/17/2023 8:28 AM EDT documented in this encounter Progress Notes * Pardeep George MD - 11/17/2023 8:30 AM EDT Subjective Patient ID: Ani Ridley is a 73 y.o. female. HPI The patient is a 73-year-old female that I am seeing in the [facility]. She has been diagnosed with follicular lymphoma. She was worked up in the [place] clinic by Dr. Daugherty and started on Bendamustine and Rituxan. She completed 6 cycles 08/20. She did have her end of treatment PET scanwhich showed no active lymphoma. We started with Rituxan maintenance 09/22/23 and she is here for her 2nd dose. Had dental and eye infection. Needs a dental extraction. Some weight loss. She cut back on dessertswith cholesterol and trying to lower BP. She has not had any lumps or bumps. No fevers chills or sweats. Her memory continues to be poor. She is going to go for neuropsychiatric testing at [facility] referred by her PCP. We did discuss chemo brain. Usually we see back if better once the chemotherapy has stopped. Rituxan which she is getting as ongoing treatment is immunotherapy and less likely to contribute to any chemotherapy impact on her cognitive functioning. Patient Active Problem List Diagnosis Code Lymphoma C85.90 Lytic bone lesions on xray M89.9 Anemia, iron deficiency D50.9 Follicular lymphoma C82.90 Current Outpatient Medications: Iron 18 mg Tablet, Take 1 tablet by mouth daily., Disp: , Rfl: Psyllium Seed-Sucrose (0) Powder, Take 1 Dose by mouth daily., Disp: , Rfl: senna (Senokot) 8.6 mg tablet, Take 1 tablet by mouth daily., Disp: , Rfl: cyanocobalamin, [...] mg by mouth daily., Disp: , Rfl: polyethylene [...] systems reviewed and are negative. Objective BP 139/65 (Patient Position: Sitting) Pulse 77 Temp 36.1 ??C (96.9 ??F) (Temporal) Resp 18 Ht 167.2 cm (5' 5.83) Wt 50.1 kg (110 lb 6.4 oz) SpO2 100% BMI 17.91 kg/m?? Physical Exam Constitutional: General: She is not in acute distress. HENT: Mouth/Throat: Mouth: Mucous membranes are moist. Eyes: General: No scleral icterus. Cardiovascular: Rate and Rhythm: Normal rate. Pulmonary: Effort: Pulmonary effort is normal. Lymphadenopathy: Cervical: No cervical adenopathy. Skin: Findings: No rash. Neurological: Mental Status: She is alert and oriented to person, place, and time. Recent Results (from the past 24 hour(s)) CBC (with Diff) Result Value Ref Range WBC 4.31 (L) RBC 3.53 (L) Hemoglobin 11.7 Hematocrit 33.3 (L) Platelets 207 Neutr Abs (ANC) 3.43 Comprehensive metabolic panel (non-fasting) Result Value Ref Range Glucose Lvl 106 BUN 16 Creatinine 0.8 Sodium 137 Potassium 3.8 Calcium 9.0 Total Protein 6.8 Albumin 4.0 Total Bilirubin 0.5 Alk Phos 48 AST 27 ALT 45 LDH 185 Assessment and Plan 73-year-old female diagnosed with advanced stage low-grade follicular lymphoma. She had chemotherapy with Bendamustine and Rituxan and has completed 6 cycles. PET scan at completion of therapy showedno residual active lymphoma. Now here for ongoing Rituxan maintenance. Will plan for 1 dose every 2 months for 2 years as long as she is tolerating therapy well. Return in 2 months for labs visit and next infusion. She will get her port flushed in 1 month. We did talk about her cognitive impairment. I think neurologic evaluation is appropriate. I do not think the ongoing Rituxan maintenance is likely to make a lot worse and think it is likely there is another component contributing to her cognitive decline. documented in this encounter Plan of Treatment Upcoming Encounters Date Type Department Care Team (Late st Contact Info) Description 05/02/2024 8:30 AM EST Office Visit Hematology/Oncology at [address] [phone] Pardeep George MD [facility] DR [place] [address] JodiKelli montaño APRN [address] [place] [address] [place] [address] 05/02/2024 9:00 AM EST Infusion Hematology Oncology at [address] [phone] 01/31/2025 8:30 AM EDT Office Visit Psychiatry [place] [phone] Radha Negrete, PhD [facility] [place] [address] documented as of this encounter Procedures Procedure Name Priority Date/Time Associated Diagnosis Comments CBC (WITH DIFF) Routine 11/17/2023 COMPREHENSIVE METABOLIC PANEL Routine 11/17/2023 documented in this encounter Results * Comprehensive metabolic panel (non-fasting) (11/17/2023) Pathologist [facility] Glucose 106 Blood Urea Nitrogen 16 Creatinine 0.8 Sodium 137 Potassium 3.8 Calcium 9.0 Protein, Total 6.8 Albumin 4.0 Bilirubin, Total 0.5 Alkaline Phosphatase 48 Aspartate Aminotransferase 27 Alanine Aminotransferase 45 Lactate Dehydrogenase 185 Blood 11/17/2023 Historical Provider CHEMISTRY ORDERAB LES * (ABNORMAL) CBC (with Diff) (11/17/2023) White Blood Cell 4.31(L) Red Blood Cell 3.53(L) Hemoglobin 11.7 Hematocrit 33.3(L) Platelet 207 Neutrophil Absolute (ANC) - Automated 3.43 Blood 11/17/2023 Historical Provider HEMATOLOGY ORDERA BLES documented in this encounter Visit Diagnoses Diagnosis Lymphoma, unspecified body region, unspecified lymphoma type Follicular lymphoma, unspecified follicular lymphoma type, unspecified body region documented in this encounter Care Teams Sizer Machine Relationship Specialty Start Date End Date Blanquita Pagan APRN [address] [place] [address] PCP - General Family Medicine 01/07/23 documented as of this encounter
--- OUTSIDE RECORDS SUMMARY | 2024-05-02 08:09 | XMS_ITS | Encounter Summary ---
Author Organization [facility] Address [facility] [place] [address] Care Team Providers Care Administrative Support Technician Name Role Phone Balnquita Pagan APRN Primary Care Provider [phone] Reason for Visit * Reason Comments Chemotherapy Cycle 1 Day 1 Mainte nance Rituxan * Treatment/Therapy Plan Authorization (Routine) - Authorized Specialty Diagnoses / Procedures Referred By Contguerita t Referred To Contact Hematology and Oncology Diagnoses Lymphoma, unspecified body region, unspecified lymphoma type Lytic bone lesions on xray Procedures INFUSION Pardeep George MD [facility] DR HEMATOLOGY [place] [address] Pardeep George MD [facility] DR HEMATOLOGY [place] [address] Referral ID Status Reason Start Date Expiration Date V isits Requested Visits Authorized [id number] Authorized 07/28/2023 07/27/2024 1 101 Encounter Details Date Type Department Care Team (Late st Contact Info) Description 09/22/2023 9:30 AM EDT Infusion Hematology Oncology at [address] [phone] Lymphoma, unspecified body region, unspecified [...] place to sleep or slept in a halfway (including now)? No 02/16/2023 DH IPV Inpatient [...] as of this encounter Progress Notes * Pennie Jules RN - 09/22/2023 9:30 AM EDT Images from the original note were not included. INFUSION THERAPY ADMINISTRATION NOTES DIAGNOSIS: Follicular Lymphoma CYCLE #:1 Day 1 REASON FOR VISIT: Maintenance Rituxan, Rapid SUBJECTIVE Ani offers no complaints. She was seen in clinic by Dr. George prior to infusion. She does not take the dexamethasone as premed. OBJECTIVE LAB DATA: IV ACCESS: Mediport Pre administration: Chemotherapy orders independently verified for drug name, route, and dosage per patient's height, weight and BSA by Pennie Jules RN & [facility] onsite. REACTIONS (DESCRIPTION, TIME, INTERVENTION AND EFFECTIVENESS) none ASSESSMENT Ani was awake, alert and tolerated treatment well. PLAN Return to clinic per routine. documented in this encounter Plan of Treatment Upcoming Encounters Date Type Department Care Team (Late st Contact Info) Description 05/02/2024 8:30 AM EST Office Visit Hematology/Oncology at [address] [phone] Pardeep George MD [facility] DR H[place]AT[place] [address] Kelli Zapata APRN [address] [place] [address] DR MEDICAL ONCOLOGY [place], [place] [address] 05/02/2024 9:00 AM EST Infusion Hematology Oncology at [address] [phone] 01/31/2025 8:30 AM EDT Office Visit Psychiatry and Behavioral [place] [phone] Radha Negrete, PhD [facility] [place] [address] documented as of this encounter Visit Diagnoses [...] mg, Oral, ONCE, 1 dose, On Alyce 09/22/23 at 1000, Administer prior to riTUXimab., Routine Given 09/22/2023 9:46 AM EDT 650 mg diphenhydrAMINE (Benadryl) capsule 50 mg 50 mg, Oral, ONCE, 1 dose, On Alyce 09/22/23 at 1000, Administer prior to riTUXimab, Routine Given 09/22/2023 9:46 AM EDT 50 mg riTUXimab-pvvr (Ruxience) 600 mg in sodium chloride 0.9% 300 mL infusion 600 mg (rounded from 566.25 mg = 375 mg/m2/dose ? 1.51 m2 Treatment Plan BSA from Recorded weight), Intravenous, ONCE, 1 dose, On Alyce 09/22/23 at 1100, Administer Per Protocol, Is this product being used for treatment of malignant indication? Yes, Patient is a candidate for rapid infusion riTUXimab? Yes New Bag 09/22/2023 10:17 AM EDT 600 mg sodium chloride 0.9 % (flush) (BD PosiFlush Normal Saline 0.9) flush 5-20 mL 5-20 mL, Intravenous, EVERY 1 MIN PRN, Starting on Alyce 09/22/23 at 0936, Until Alyce 09/22/23 at 1357, Line Care, Flush pertains to all indwelling lines. Flush per protocol found in the job aid using the link provided on this medication record. Refer to Intravenous (IV) Job Aid: Adult Flushing & Catheter Care (2877) job aid for additional information regarding guidelines and administration., Routine Given 09/22/2023 11:52 AM EDT 20 mLs documented in this encounter Care Teams Administrative Support Technician Relationship Specialty Start Date End Date Blanquita Pagan APRN [address] [place] [address] PCP - General Family Medicine 01/07/23 documented as of this encounter
--- OUTSIDE RECORDS SUMMARY | 2024-05-02 08:09 | XMS_ITS | Encounter Summary ---
Author Organization [facility] Address [facility] [place] [address] Care Team Providers Care Data Governance Consultant Name Role Phone Blanquita Pagan APRN Primary Care Provider [phone] Encounter Details Date Type Department Care Team (Late st Contact Info) Description 09/22/2023 9:00 AM EDT Office Visit Hematology/Oncology at [address] [phone] Pardeep George MD [facility] DR HEMATOLOGY [place] [address] Kelli Zapata APRN [address] [place] [address] DR MEDICAL ONCOLOGY [place], [place] [id number] Lymphoma, unspecified body region, unspecified lymphoma type; [...] place to sleep or slept in a longterm (including now)? No 02/16/2023 DH IPV Inpatient [...] Sign Reading Time Taken Comments Blood Pressure 139/71 09/22/2023 8:59 AM EDT Pulse 66 09/22/2023 8:59 AM EDT Temperature 36.2 ??C (97.1 ??F) 09/22/2023 8:59 AM ED T Respiratory Rate 18 09/22/2023 8:59 AM EDT Oxygen Saturation 100% 09/22/2023 8:59 AM EDT Inhaled Oxygen Concentration - - Weight 50.8 kg (112 lb) 09/22/2023 8:59 AM EDT Height 167.2 cm (5' 5.83) 09/22/2023 8:59 AM ED T Body Mass Index 18.17 09/22/2023 8:59 AM EDT documented in this encounter Progress Notes * Pardeep George MD - 09/22/2023 9:00 AM EDT Subjective Patient ID: Ani Ridley is a 73 y.o. female. HPI The patient is a 73-year-old female that I am seeing in the [facility]. She has been diagnosed with follicular lymphoma. She was worked up in the [facility] by Dr. Daugherty and started on Bendamustine and Rituxan. She completed 6 cycles She did have her end of treatment PET scan which showed no active lymphoma. She met with Dr. Bliss recommended proceeding with Rituxan maintenance and she is here for her first dose. She tells me she feels a little bit better. Energy has improved. She feels like her thinking is less dulled. She does not have any back pain except sometimes if she is more active she gets back fatigue. Patient Active Problem List Diagnosis Code Lymphoma [...] mg by mouth daily., Disp: , Rfl: Psyllium [...] 04/07/2023), Disp: 15 tablet, Rfl: 3 No current facility-administered medications for this visit. Facility-Administered Medications Ordered in Other Visits: dexAMETHasone (Decadron) tablet 10 mg, 10 mg, Oral, Once, Pardeep George MD sodium chloride 0.9 % (flush) (BD PosiFlush Normal Saline 0.9) flush 5-20 mL, 5- 20 mL, Intravenous,Q1 Min PRNDoris Marc, MD No Known Allergies Social History Socioeconomic History [...] systems reviewed and are negative. Objective BP 139/71 (Patient Position: Sitting) Pulse 66 Temp 36.2 ??C (97.1 ??F) (Temporal) Resp 18 Ht 167.2 cm (5' 5.83) Wt 50.8 kg (112 lb) SpO2 100% BMI 18.17 kg/m?? Physical Exam Constitutional: General: She is not in acute distress. HENT: Mouth/Throat: Mouth: Mucous membranes are moist. Eyes: General: No scleral icterus. Cardiovascular: Rate and Rhythm: Normal rate. Pulmonary: Effort: Pulmonary effort is normal. Lymphadenopathy: Cervical: No cervical adenopathy. Skin: Findings: No rash. Neurological: Mental Status: She is alert and oriented to person, place, and time. Recent Results (from the past 72 hour(s)) CBC (with Diff) Result Value Ref Range WBC 3.99 (L) RBC 3.46 (L) Hemoglobin 11.6 Hematocrit 33.2 Platelets 234 Neutr Abs (ANC) 3.10 Comprehensive metabolic panel (non-fasting) Result Value Ref Range BUN 16 Creatinine 0.6 Sodium 139 Potassium 4.1 Calcium 9.2 Total Protein 6.9 Albumin 3.9 Total Bilirubin 0.4 Alk Phos 59 AST 27 ALT 41 LDH 202 Assessment and Plan 73-year-old female diagnosed with advanced stage low-grade follicular lymphoma. She has initiated chemotherapy with Bendamustine and Rituxan and has now completed 6 cycles PET scan at completion of therapy showed no residual active lymphoma. Now here for initiating Rituxan maintenance. I reviewed with the patient and her the rationale for Rituxan maintenance which is to expand her remission but no clinical impact on overall survival. Will plan for 1 dose every 2 months for 2 years as long as she is tolerating therapy well. First dose today. Return in 2 months for labs visit and next infusion. She will get her port flushed in 1 month. documented in this encounter Plan of Treatment Upcoming Encounters Date Type Department Care Team (Late st Contact Info) Description 05/02/2024 8:30 AM EST Office Visit Hematology/Oncology at [address] [phone] Pardeep George MD [facility] DR HEMATOLOGY [place] [address] Kelli Zapata APRN [address] [place] [address] [place] [address] 05/02/2024 9:00 AM EST Infusion Hematology Oncology at [address] [phone] 01/31/2025 8:30 AM EDT Office Visit Psychiatry and [place] [address] Radha Negrete, PhD [facility] [place] [address] documented as of this encounter Procedures Procedure Name Priority Date/Time Associated Diagnosis Comments CBC (WITH DIFF) Routine 09/22/2023 COMPREHENSIVE METABOLIC PANEL Routine 09/22/2023 documented in this encounter Results * Comprehensive metabolic panel (non-fasting) (09/22/2023) Pathologist [facility] Blood Urea Nitrogen 16 Creatinine 0.6 Sodium 139 Potassium 4.1 Calcium 9.2 Protein, Total 6.9 Albumin 3.9 Bilirubin, Total 0.4 Alkaline Phosphatase 59 Aspartate Aminotransferase 27 Alanine Aminotransferase 41 Lactate Dehydrogenase 202 Blood 09/22/2023 Historical Provider CHEMISTRY ORDERAB LES * (ABNORMAL) CBC (with Diff) (09/22/2023) Pathologist [facility] White Blood Cell 3.99(L) Red Blood Cell 3.46(L) Hemoglobin 11.6 Hematocrit 33.2 Platelet 234 Neutrophil Absolute (ANC) - Automated 3.10 Blood 09/22/2023 Historical Provider HEMATOLOGY ORDERA BLES documented in this encounter Visit Diagnoses Diagnosis Lymphoma, unspecified body region, unspecified lymphoma type Lytic bone lesions on xray Disorder of bone and cartilage, unspecified Follicular lymphoma, unspecified follicular lymphoma type, unspecified body region documented in this encounter Care Teams Data Governance Consultant Relationship Specialty Start Date End Date Blanquita Pagan APRN [address] [place] [address] PCP - General Family Medicine 01/07/23 documented as of this encounter
--- OUTSIDE RECORDS SUMMARY | 2024-05-02 08:09 | XMS_ITS | Encounter Summary ---
Author Organization [facility] [place] [address] Care Team Providers Care Child Support Case Officer Name Role Phone Blanquita Pagan APRN Primary Care Provider [phone] Reason for Referral * Speech Therapy (Routine) - Authorized Specialty Diagnoses / Procedures Referred By Efrain phillip Referred To Contact Speech Therapy Diagnoses Lymphoma, unspecified body region, unspecified lymphoma type Follicular lymphoma, unspecified follicular lymphoma type, unspecified body region Memory deficit Zandra Glasgow APRN [facility] [address] [place] [address] Referral ID Status Reason Start Date Expiration Date Visits Requested Visits Authorized [id number] Authorized Evaluate and Treat 02/16/2024 08/14/2024 12 12 Encounter Details Date Type Department Care Team (Late st Contact Info) Description 02/16/2024 Orders Only Hematology [place] [address] Zandra Glasgow APRN [facility] [place] [address] Lymphoma, unspecified body region, unspecified lymphoma type; Follicular lymphoma, unspecified follicular lymphoma type, unspecified body region; Memory deficit Social History Tobacco Use Types Packs/Day Years [...] place to sleep or slept in a half-way (including now)? No 02/16/2023 DH IPV Inpatient [...] 8:30 AM EST Office Visit Hematology/Oncology at [address] [phone] Pardeep George MD [facility] DR [place] [address] Kelli Zapata APRN [address] [place] [address] [place] [address] 05/02/2024 9:00 AM EST Infusion Hematology Oncology at [address] [phone] 01/31/2025 8:30 AM EDT Office Visit Psychiatry and [place] [address] Radha Negrete, PhD [facility] [place] [address] Scheduled Referrals Name Type Priority Associated Diagnoses Orde r Schedule Referral to Speech Therapy Outpatient Referral Routine Lymphoma, unspecified body region, unspecified lymphoma type Follicular lymphoma, unspecified follicular lymphoma type, unspecified body region Memory deficit Ordered: 02/16/2024 documented as of this encounter Visit Diagnoses Diagnosis Lymphoma, unspecified body region, unspecified lymphoma type Follicular lymphoma, unspecified follicular lymphoma type, unspecified body region Memory deficit Memory loss documented in this encounter Care Teams Child Support Case Officer Relationship Specialty Start Date End Date Blanquita Pagan APRN [address] [place] [address] PCP - General Family Medicine 01/07/23 documented as of this encounter
--- OUTSIDE RECORDS SUMMARY | 2024-05-02 08:09 | XMS_ITS | Encounter Summary ---
Author Organization [facility] Address [facility] [place] [address] Care Team Providers Care Bioinformatics Computer Scientist Name Role Phone Blanquita Pagan APRN Primary Care Provider [phone] Encounter Details Date Type Department Care Team (Latest Contact Info) Description 02/09/2024 Travel Social History Tobacco Use Types Packs/Day [...] in a detention (including now)? No 02/16/2023 IPV Inpatient Questions [...] 8:30 AM EST Office Visit Hematology/Oncology at [address] [phone] Pardeep George MD [facility] DR [place] [address] Kelli Zapata APRN [address] [place] [address] [place] [address] 05/02/2024 9:00 AM EST Infusion Hematology Oncology at [address] [phone] 01/31/2025 8:30 AM EDT Office Visit Psychiatry and [place] [address] Radha Negrete, PhD [facility] [place] [address] documented as of this encounter Visit Diagnoses Not on filedocumented in this encounter Care Teams Bioinformatics Computer Scientist Relationship Specialty Start Date End Date Blanquita Pagan APRN [address] [place] [address] PCP - General Family Medicine 01/07/23 documented as of this encounter
--- OUTSIDE RECORDS SUMMARY | 2024-05-02 08:09 | XMS_ITS | Encounter Summary ---
Author Organization [facility] Address [facility] [place] [address] Care Team Providers Care Flight Line Service Attendant Name Role Phone Blanquita Pagan APRN Primary Care Provider [phone] Reason for Visit * Reason Onset Date Comments Questions 09/06/2023 Encounter Details Date Type Department Care Team (Late st Contact Info) Description 09/06/2023 Telephone Hematology/Oncology at [address] [phone] Katarina Anna RN Questions Social History Tobacco Use Types Packs/Day Years [...] place to sleep or slept in a care home (including now)? No 02/16/2023 DH IPV Inpatient [...] on file documented as of this encounter Miscellaneous Notes * Telephone Encounter - Katarina Anna RN - 09/06/2023 11:41 AM EDT Called and spoke with Ani Ridley regarding her questions. She reports she saw an eye doctor last week and was found to have left eye infection though could not say if it was conjunctivitis or not. She was prescribed neomycin eye gtts for 1 week and started last Tuesday. Her symptoms are much improved. According to [employer] no interaction listed between neomycin and Rituxan or Bendamustine. She will finish eye gtts and has FUV with us scheduled 09/21. She will call sooner if any further questions or concerns arise. She was thankful for the follow up. ----- Message from Adriana Decker sent at 09/06/2023 10:37 AM EDT ----- Ani has an eye infection and she is now on an antibiotic. Ophthalmic suspension -neomyicn p...something or other. She wants to know if it will have an contraindications with her chemo treatment. [phone] documented in this encounter Plan of Treatment Upcoming Encounters Date Type Department Care Team (Late st Contact Info) Description 05/02/2024 8:30 AM EST Office Visit Hematology/Oncology at [address] [phone] Pardeep George MD [facility] DR [place] [address] Kelli Zapata APRN [address] [place] [address] DR MEDICAL ONCOLOGY [place], [place] [id number] 05/02/2024 9:00 AM EST Infusion Hematology Oncology at [address] [phone] 01/31/2025 8:30 AM EDT Office Visit Psychiatry [place] [address] Radha Negrete, PhD [facility] [place] [address] documented as of this encounter Visit Diagnoses Not on filedocumented in this encounter Care Teams Flight Line Service Attendant Relationship Specialty Start Date End Date Blanquita Pagan APRN [address] [place] [address] PCP - General Family Medicine 01/07/23 documented as of this encounter
--- OUTSIDE RECORDS SUMMARY | 2024-05-02 08:09 | XMS_ITS | Encounter Summary ---
Author Organization [facility] Address [facility] [place] [address] Care Team Providers Care Superintendent Schools Name Role Phone Blanquita Pagan APRN Primary Care Provider [phone] Encounter Details Date Type Department Care Team (Latest Contact Info) Description 04/05/2024 Travel Social History Tobacco Use Types Packs/Day [...] place to sleep or slept in a [place] [facility] [place] (including now)? No 02/16/2023 IPV Inpatient Questions [...] 8:30 AM EST Office Visit Hematology/Oncology at [address] [phone] Pardeep George MD [facility] DR HEMATOLOGY [place] [address] Kelli Zapata APRN [address] [place] [address] [place] [address] 05/02/2024 9:00 AM EST Infusion Hematology Oncology at [address] [phone] 01/31/2025 8:30 AM EDT Office Visit Psychiatry [place] [address] Radha Negrete, PhD [facility] [place] [address] documented as of this encounter Visit Diagnoses Not on filedocumented in this encounter Care Teams Superintendent Schools Relationship Specialty Start Date End Date Blanquita Pagan APRN [address] [place] [address] PCP - General Family Medicine 01/07/23 documented as of this encounter
--- OUTSIDE RECORDS SUMMARY | 2024-05-02 08:09 | XMS_ITS | Encounter Summary ---
Author Organization [facility] [place] [address] Care Team Providers Care Batch Maker Name Role Phone Blanquita Pagan APRN Primary Care Provider Encounter Details Date Type Department Care Team (Late st Contact Info) Description 08/17/2023 12:50 PM EST Laboratory Appointment Lab 3L [place] [phone] Social History Tobacco Use Types Packs/Day Years [...] place to sleep or slept in a penitentiary (including now)? No 02/16/2023 IPV Inpatient Questions [...] 8:30 AM EST Office Visit Hematology/Oncology at [address] [phone] Pardeep George MD [facility] DR HEMATOLOGY [place] [address] Kelli Zapata APRN [address] [place] [address] DR MEDICAL ONCOLOGY [place], [place] [id number] 05/02/2024 9:00 AM EST Infusion Hematology Oncology at [address] [phone] 01/31/2025 8:30 AM EDT Office Visit Psychiatry [place] [address] Radha Negrete, PhD [facility] [place] [address] documented as of this encounter Visit Diagnoses Not on filedocumented in this encounter Care Teams Batch Maker Relationship Specialty Start Date End Date Blanquita Pagan APRN [address] [place] [address] PCP - General Family Medicine 01/07/23 documented as of this encounter
--- OUTSIDE RECORDS SUMMARY | 2024-05-02 08:09 | XMS_ITS | Encounter Summary ---
Author Organization [facility] Address [facility] [place] [address] Care Team Providers Care Help Desk Support Name Role Phone Blanquita Pagan APRN Primary Care Provider Encounter Details Date Type Department Care Team (Late st Contact Info) Description 09/15/2023 Orders Only Hematology [place] [phone] Pardeep George MD [facility] [place] [address] Social History Tobacco Use Types Packs/Day Years [...] a care home (including now)? No 02/16/2023 IPV Inpatient Questions [...] 8:30 AM EST Office Visit Hematology/Oncology at [address] [phone] Pardeep George MD [facility] [place] [address] Kelli Zapata APRN [address] [place] [address] MEDICAL ONCOLOGY [place], [place] [id number] 05/02/2024 9:00 AM EST Infusion Hematology Oncology at [address] [phone] 01/31/2025 8:30 AM EDT Office Visit Psychiatry and [place] [address] Radha Negrete, PhD [facility] [place] [address] documented as of this encounter Visit Diagnoses Not on filedocumented in this encounter Care Teams Help Desk Support Relationship Specialty Start Date End Date Blanqutia Pagan APRN [address] [place] [address] PCP - General Family Medicine 01/07/23 documented as of this encounter
--- OUTSIDE RECORDS SUMMARY | 2024-05-02 08:09 | XMS_ITS | Encounter Summary ---
Author Organization [facility] Address [facility] [place] [address] Care Team Providers Care Insulation Supervisor Name Role Phone Blanquita Pagan APRN Primary Care Provider [phone] Reason for Visit * Reason Comments Chemotherapy * Treatment/Therapy Plan Authorization (Routine) - Authorized Specialty Diagnoses / Procedures Referred By Contac t Referred To Contact Hematology and Oncology Diagnoses Lymphoma, unspecified body region, unspecified lymphoma type Lytic bone lesions on xray Procedures INFUSION Pardeep George MD [facility] [place] [address] Pardeep George MD [facility] DR HEMATOLOGY [place] [address] Referral ID Status Reason Start Date Expiration Date V isits Requested Visits Authorized [id number] Authorized 07/28/2023 07/27/2024 1 101 Encounter Details Date Type Department Care Team (Late st Contact Info) Description 01/12/2024 9:30 AM EDT Infusion Hematology Oncology at [address] [phone] Lymphoma, unspecified body region, unspecified lymphoma type; [...] place to sleep or slept in a intermediate (including now)? No 02/16/2023 DH IPV Inpatient [...] as of this encounter Progress Notes * Sommer Kidd RN - 01/12/2024 9:30 AM EDT INFUSION THERAPY ADMINISTRATION NOTES DIAGNOSIS: Follicular Lymphoma CYCLE #:3 Day 1 REASON FOR VISIT: Maintenance Rituxan, Rapid SUBJECTIVE Ani offers no complaints. She was seen in clinic by Jamison Zapata APRN prior to infusion. She does not take the dexamethasone as premed. OBJECTIVE IV ACCESS: Mediport Pre administration: Chemotherapy orders independently verified for drug name, route, and dosage per patient's height, weight and BSA by Sommer Kidd, RN & [facility] onsite. REACTIONS (DESCRIPTION, TIME, INTERVENTION AND EFFECTIVENESS) none ASSESSMENT Ani was awake, alert and tolerated treatment well. PLAN Return to clinic per routine. documented in this encounter Plan of Treatment Upcoming Encounters Date Type Department Care Team (Late st Contact Info) Description 05/02/2024 8:30 AM EST Office Visit Hematology/Oncology at [address] [phone] Pardeep George MD [facility] DR HEMATOLOGY [place] [address] Kelli Zapata APRN [address] [place] [address] DR MEDICAL ONCOLOGY [place], [place] [id number] 05/02/2024 9:00 AM EST Infusion Hematology Oncology at [address] [phone] 01/31/2025 8:30 AM EDT Office Visit Psychiatry [place] [address] Radha Negrete, PhD [facility] [place] [address] documented as of this encounter Visit Diagnoses [...] mg, Oral, ONCE, 1 dose, On Alyce 01/12/24 at 1015, Administer prior to riTUXimab., Routine Given 01/12/2024 10:00 AM EDT 650 mg diphenhydrAMINE (Benadryl) (50 mg/mL) injection 25 mg 25 mg, Intravenous, ONCE, 1 dose, On Alyce 01/12/24 at 1015, Administer prior to riTUXimab, Routine Given 01/12/2024 10:05 AM EDT 25 mg riTUXimab-pvvr (Ruxience) 600 mg in sodium chloride 0.9% 300 mL infusion 600 mg (rounded from 566.25 mg = 375 mg/m2/dose ? 1.51 m2 Treatment Plan BSA from Recorded weight), Intravenous, ONCE, 1 dose, On Alyce 01/12/24 at 1115, Administer Per Protocol, Is this product being used for treatment of malignant indication? Yes, Patient is a candidate for rapid infusion riTUXimab? Yes New Bag 01/12/2024 10:51 AM EDT 600 mg sodium chloride 0.9 % (flush) (BD PosiFlush Normal Saline 0.9) flush 5-20 mL 5-20 mL, Intravenous, EVERY 1 MIN PRN, Starting on Alyce 01/12/24 at 0949, Until Alyce 01/12/24 at 1603, Line Care, Flush pertains to all indwelling lines. Flush per protocol found in the job aid using the link provided on this medication record. Refer to Intravenous (IV) Job Aid: Adult Flushing & Catheter Care (8996) job aid for additional information regarding guidelines and administration., Routine Given 01/12/2024 12:28 PM EDT 20 mLs documented in this encounter Care Teams Insulation Supervisor Relationship Specialty Start Date End Date Blanquita Pagan APRN [address] [place] [address] PCP - General Family Medicine 01/07/23 documented as of this encounter
--- OUTSIDE RECORDS SUMMARY | 2024-05-02 08:09 | XMS_ITS | Encounter Summary ---
Author Organization [facility] Address [facility] [place] [address] Care Team Providers Care Olap Developer Name Role Phone Blanquita Pagan APRN Primary Care Provider [phone] Encounter Details Date Type Department Care Team (Late st Contact Info) Description 01/12/2024 9:00 AM EDT Office Visit Hematology/Oncology at [address] [phone] Kelli Zapata APRN [address] [place] [address] MEDICAL ONCOLOGY [place], [place] [id number] Follicular lymphoma, unspecified follicular lymphoma type, unspecified [...] place to sleep or slept in a fdc (including now)? No 02/16/2023 DH IPV Inpatient [...] Reading Time Taken Comments Blood Pressure 139/71 01/12/2024 8:59 AM EDT Pulse 68 01/12/2024 8:59 AM EDT Temperature 36.1 ??C (97 ??F) 01/12/2024 8:59 AM EDT Respiratory Rate 16 01/12/2024 8:59 AM EDT Oxygen Saturation 100% 01/12/2024 8:59 AM EDT Inhaled Oxygen Concentration - - Weight 50.6 kg (111 lb 9.6 oz) 01/12/2024 8:59 A M EDT Height 167.2 cm (5' 5.83) 01/12/2024 8:59 AM ED T Body Mass Index 18.11 01/12/2024 8:59 AM EDT documented in this encounter Progress Notes * Kelli Zapata APRN - 01/12/2024 9:00 AM EDT Subjective Patient ID: Ani Ridley is a 73 y.o. female. HPI The patient is a 73-year-old female seen in the [facility]. She has been diagnosed withfollicular lymphoma. She was worked up in the [facility] by Dr. Daugherty and started on Bendamustine and Rituxan. She completed 6 cycles 08/20. She did have her end of treatment PET scan which showed no active lymphoma. We started with Rituxan maintenance 09/22/23 and she is here for her 3rd dose. She is hear today with her . Their main concern continues to be with her memory. She has been referred for neuropsychiatric testing by her PCP but they are net yet scheduled for an evaluation.She reports she feels the congnitive issues come and go and are worse with increased stressors. Shehas had a lot of stressors in her life recently. Otherwise she has been well. No further weight loss. Working on improved diet to manage blood pressure. No fevers. No lumps or bumps No [...] mg by mouth daily., Disp: , Rfl: prochlorperazine (Compazine) 10 mg tablet, Take 1 tablet by mouth every 6 hours as needed for Nausea. (Patient not taking: Reported on 04/07/2023), Disp: 15 tablet, Rfl: 3 No current facility-administered medications for this visit. Facility-Administered Medications Ordered in Other Visits: [id number] (Ruxience) 600 mg in sodium chloride 0.9% 300 mL infusion, 375 mg/m2/dose (TreatmentPlan Recorded), Intravenous, Once, Pardeep George MD sodium chloride 0.9 % (flush) (BD PosiFlush Normal Saline 0.9) flush 5-20 mL, 5- 20 mL, Intravenous,Q1 Min PRN, Pardeep George MD No Known Allergies Social History Socioeconomic [...] Objective BP 139/71 (Patient Position: Sitting) Pulse 68 Temp 36.1 ??C (97 ??F) (Temporal) Resp 16 Ht167.2 cm (5' 5.83) Wt 50.6 kg (111 lb 9.6 oz) SpO2 100% BMI 18.11 kg/m?? Physical Exam Constitutional: General: She is [...] (with Diff) Result Value Ref Range WBC 2.96 (L) RBC 3.72 (L) Hemoglobin 12.0 Hematocrit 34.8 (L) Platelets 212 Neutr Abs (ANC) 2.06 Comprehensive metabolic panel (non-fasting) Result Value Ref Range Glucose Lvl 97 BUN 13 Creatinine 0.6 Sodium 136 Potassium 4.2 Calcium 8.9 Total Protein 6.8 Albumin 3.8 Total Bilirubin 0.53 Alk Phos 54 AST 24 ALT 37 LDH 178 Assessment and Plan 73-year-old female diagnosed with advanced stage low-grade follicular lymphoma. She had chemotherapy with Bendamustine and Rituxan and has completed 6 cycles. PET scan at completion of therapy showedno residual active lymphoma. Now she is on Rituxan maintenance. Tolerating this well. Unlikely this is making her cognitive changes worse. Plan: - continue with 1 dose every 2months for 2yrs as long as she continues to tolerate therapy well. - port flush in 4 weeks - cbc and cmp every 8 weeks - call neuropsychiatric office to schedule appointment Call with concerns in the interim documented in this encounter Plan of Treatment Upcoming Encounters Date Type Department Care Team (Late st Contact Info) Description 05/02/2024 8:30 AM EST Office Visit Hematology/Oncology at [address] [phone] Pardeep George MD [facility] HEMATOLOGY [place] [address] Kelli Zapata, FELICITY [address] [place] [address] DR MEDICAL ONCOLOGY [place], [place] [id number] 05/02/2024 9:00 AM EST Infusion Hematology Oncology at [address] [phone] 01/31/2025 8:30 AM EDT Office Visit Psychiatry [place] [phone] Radha Negrete, PhD [facility] [place] [address] documented as of this encounter Procedures Procedure Name Priority Date/Time Associated Diagnosis Comments CBC (WITH DIFF) Routine 01/12/2024 COMPREHENSIVE METABOLIC PANEL Routine 01/12/2024 documented in this encounter Results * Comprehensive metabolic panel (non-fasting) (01/12/2024) Pathologist [facility] [place] Glucose 97 Blood Urea Nitrogen 13 Creatinine 0.6 Sodium 136 Potassium 4.2 Calcium 8.9 Protein, Total 6.8 Albumin 3.8 Bilirubin, Total 0.53 Alkaline Phosphatase 54 Aspartate Aminotransferase 24 Alanine Aminotransferase 37 Lactate Dehydrogenase 178 Blood 01/12/2024 Historical Provider CHEMISTRY ORDERAB LES * (ABNORMAL) CBC (with Diff) (01/12/2024) Pathologist [facility] [place] White Blood Cell 2.96(L) Red Blood Cell 3.72(L) Hemoglobin 12.0 Hematocrit 34.8(L) Platelet 212 Neutrophil Absolute (ANC) - Automated 2.06 Blood 01/12/2024 Historical Provider MD HEMATOLOGY ORDERA BLES documented in this encounter Visit Diagnoses Diagnosis Follicular lymphoma, unspecified follicular lymphoma type, unspecified body region documented in this encounter Care Teams Olap Developer Relationship Specialty Start Date End Date Blanquita Pagan APRN [address] [place] [address] PCP - General Family Medicine 01/07/23 documented as of this encounter
--- OUTSIDE RECORDS SUMMARY | 2024-05-02 08:09 | XMS_ITS | Encounter Summary ---
Author Organization [facility] Address [facility] [place] [address] Care Team Providers Care Surface To Air Weapons Officer Name Role Phone Blanquita Pagan APRN Primary Care Provider [phone] Encounter Details Date Type Department Care Team (Latest Contact Info) Description 08/17/2023 12:41 PM EST - 08/17/2023 1:06 PM EST Hospital Encounter [place]ology [place] [phone] Lymphoma, unspecified body region, unspecified lymphoma type; Lytic bone lesions on xray; Follicular lymphoma, unspecified follicular lymphoma type, unspecified body region Discharge Disposition: Home Social History Tobacco Use [...] place to sleep or slept in a senior care (including now)? No 02/16/2023 DH IPV Inpatient [...] 8:30 AM EST Office Visit Hematology/Oncology at [address] [phone] Pardeep George MD [facility] DR [place] [address] Kelli Zapata APRN [address] [place] [address] DR MEDICAL ONCOLOGY [place], [place] [address] 05/02/2024 9:00 AM EST Infusion Hematology Oncology at [address] [phone] 01/31/2025 8:30 AM EDT Office Visit Psychiatry [place] [phone] Radha Negrete, PhD [facility] [place] [address] documented as of this encounter Procedures Procedure Name Priority Date/Time Associated Diagnosis Comments HEMOGRAM STAT 08/17/2023 1:03 PM EST Lymphoma, unspecified body region, unspecified lymphoma type Lytic bone lesions on xray Follicular lymphoma, unspecified follicular lymphoma type, unspecified body region DIFFERENTIAL, AUTOMATED STAT 08/17/2023 1:03 PM EST Lymphoma, unspecified body region, unspecified lymphoma type Lytic bone lesions on xray Follicular lymphoma, unspecified follicular lymphoma type, unspecified body region CBC (WITH DIFF) STAT 08/17/2023 1:03 PM EST Lymphoma, unspecified body region, unspecified lymphoma type Lytic bone lesions on xray Follicular lymphoma, unspecified follicular lymphoma type, unspecified body region LACTATE DEHYDROGENASE STAT 08/17/2023 1:03 PM EST Lymphoma, unspecified body region, unspecified lymphoma type Lytic bone lesions on xray Follicular lymphoma, unspecified follicular lymphoma type, unspecified body region COMPREHENSIVE METABOLIC PANEL STAT 08/17/2023 1:03 PM EST Lymphoma, unspecified body region, unspecified lymphoma type Lytic bone lesions on xray Follicular lymphoma, unspecified follicular lymphoma type, unspecified body region documented in this encounter Results * (ABNORMAL) Differential, Automated (08/17/2023 1:03 PM EST) Neutrophil % 80.1 % [facility] Neutrophil Absolute 4.43 1.70 - 6.10 x10(3)/[facility] Lymph % 3.6 % [facility] Lymphocytes Abs 0.2(L) 0.9 - 3.2 x10(3)/[facility] Monocyte % 13.9 % [facility] Monocyte Abs 0.8 0.3 - 0.9 x10(3)/[facility] Eos % 0.9 % [facility] Eosinophils Abs 0.0 0.0 - 0.4 x10(3)/[facility] Basophil % 1.3 % [facility] Baso Absolute 0.1 0.0 - 0.1 x10(3)/[facility] Immature Gran % 0.20 % [facility] Comment: Immature granulocytes(IG's)percentage and absolute count will include metamyelocytes, myelocytes, and promyelocytes. Blood smears from CBCs yielding IG's will be scanned manually for concordance. If this scan disagrees with the automated IG or if promyelocytes are noted, a manual differential will be performed. Immature Gran Absolute 0.01 0.00 - 0.04 x10(3)/[facility] Blood 08/17/2023 1:03 PM EST 08/17/2023 1:28 PM EST Narrative Resulting Agency Comment Spec In Lab Miguel Daugherty MD HEMATOLOGY ORDERABLE S [facility] [place] [address] * (ABNORMAL) Hemogram (08/17/2023 1:03 PM EST) White Blood Cell 5.5 4.0 - 9.5 x10(3)/[facility] Red Blood Cell 3.49(L) 4.00 - 5.21 x10(6)/[facility] Hemoglobin 11.2(L) 11.7 - 15.5 g/dL [facility] Hematocrit 32.9(L) 35.7 - 45.8 % [facility] Mean Cell Volume 94.3 82.6 - 94.4 fL [facility] Mean Cell Hemoglobin 32.1(H) 27.1 - 32.0 pg [facility] Mean Cell Hemoglobin Concentration 34.0 31.7 - 35.0 g/dL [facility] Platelet 243 145 - 357 x10(3)/mc L [facility] RDW Standard Deviation 50.7(H) 37.0 - 46.0 fL [facility] RDW coefficient of variation 14.6(H) 11.5 - 14.1 % [facility] Mean Platelet Volume 9.6 7.6 - 12.9 fL [facility] NRBC% auto 0.0 % [facility] NRBC Absolute 0.000 0.000 - 0.000 x10(3)/mc L [facility] Blood 08/17/2023 1:03 PM EST 08/17/2023 1:28 PM EST Narrative Resulting Agency Comment Spec In Lab Miguel Daugherty MD HEMATOLOGY ORDERABLE S [facility] [place] [address] * (ABNORMAL) Comprehensive metabolic panel (non-fasting) (08/17/2023 1:03 PM EST) Glucose 84 65 - 199 mg/dL [facility] Comment:Diabetes: >=200 mg/d L plus symptoms Blood Urea Nitrogen 12 8 - 18 mg/dL [facility] Creatinine 0.57(L) 0.70 - 1.20 mg/dL [facility] Sodium 136 135 - 145 mmol/L [facility] Potassium 4.1 3.5 - 5.0 mmol/L [facility] Comment: Please note: ??Patients with WBC >100,000 may have falsely elevated Potassium levels. ??For accurate Potassium quantification in these patients send serum separator tube (gold top) for subsequent determinations. ??Contact the Clinical Chemistry Laboratory if there are any questions. Chloride 98 98 - 107 mmol/L [facility] Carbon Dioxide 30 22 - 31 mmol/L [facility] Anion Gap 8 5 - 15 mmol/L [facility] Calcium 9.6 8.5 - 10.5 mg/dL [facility] Protein, Total 6.7 6.1 - 8.0 g/dL [facility] Albumin 4.6 3.2 - 5.2 g/dL [facility] Aspartate Aminotransferase 28 0 - 30 unit/L [facility] Alanine Aminotransferase 26 0 - 30 unit/L [facility] Alkaline Phosphatase 91 35 - 105 unit/L [facility] Bilirubin, Total 0.3 0.2 - 1.3 mg/dL [facility] Est Glomerular Filtration Rate 95 >=60 mL/min/1. 73 m?? [facility] Comment: This patient's estimated GFR was [...] In Lab Miguel Daugherty MD CHEMISTRY ORDERABLES Performing Organization Address [facility] Co de Phone Number [facility] [place] [address] * Lactate Dehydrogenase (08/17/2023 1:03 PM EST) Lactate Dehydrogenase 174 110 - 220 unit/L [facility] Blood 08/17/2023 1:03 PM EST 08/17/2023 1:28 PM EST Narrative Resulting Agency Comment Spec In Lab Miguel Daugherty MD CHEMISTRY ORDERABLES Performing Organization Address [facility]/ZIP Co de Phone Number [facility] [place] [address] documented in this encounter Visit Diagnoses Diagnosis Lymphoma, unspecified body region, unspecified lymphoma type Lytic bone lesions on xray Disorder of bone and cartilage, unspecified Follicular lymphoma, unspecified follicular lymphoma type, unspecified body region documented in this encounter Care Teams Surface To Air Weapons Officer Relationship Specialty Start Date End Date Blanquita Pagan APRN [address] [place] [address] PCP - General Family Medicine 01/07/23 documented as of this encounter
--- OUTSIDE RECORDS SUMMARY | 2024-05-02 08:09 | XMS_ITS | Encounter Summary ---
Author Organization [facility] Address [facility] [place] [address] Care Team Providers Care Rubber Goods Tester Water Name Role Phone Blanquita Pagan APRN Primary Care Provider [phone] Reason for Visit * Psychiatric (Routine) - Authorized Specialty Diagnoses / Procedures Referred By Contac t Referred To Contact Psychiatry Diagnoses Unspecified mental disorder due to known physiological condition Cognitive deficits Procedures PRO NEUROBEHAVIORAL STATUS EXAM PHYS/QHP 1ST HR PRO NEUROPSYCHOLOGICAL TEST EVAL PHYS/QHP 1ST HOUR PRO NEUROPSYCHOLOGICAL TEST EVAL PHYS/QHP EA ADDL HR TC PSYCL/NRPSYCL 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 2+ TEST 1ST 30 MIN TC PSYCL/NRPSYCL BIOMETRICS TECHNICIAN 2+ TEST EA ADDL 30 MIN PRO PSYCL/NRPSYCL TEST PHYS/QHP 2+ TEST EA ADDL 30 MIN Blanquita Pagan APRN [address] [place] [address] Radha Negrete, PhD [facility] [place] [address] Referral ID Status Reason Start Date Expiration Date Visits Requested Visits Authorized [id number] Authorized Consult, Test & Treat PCP Updated and/or Approved 11/11/2023 11/09/2024 6 11 Encounter Details Date Type Department Care Team (Late st Contact Info) Description 01/31/2024 8:30 AM EDT Office Visit Psychiatry [place] [address] Radha Negrete, PhD [facility] [address] Memory deficits; Lymphoma, unspecified body region, unspecified [...] as of this encounter Progress Notes * Radha Negrete, PhD - 01/31/2024 8:30 AM EDT [facility] NEUROCOGNITIVE EVALUATION Patient Name: Ani Ridley Date of Evaluation: 01/31/2024 Age: 73 years Date of : 1950 Referred by: FELICITY Hernandez. Zandra Daugherty MD BACKGROUND AND REASON FOR REFERRAL: Ms. Ridley was referred for neuropsychological evaluation in view of her history of subjective cognitive changes following chemotherapy. Background information was obtained from an interview with the patient and her , Mr. Enrique Ridley, and from a review of medical records. History of the Presenting Problem: Ms. Ridley has a history of non-Hodgkin's lymphoma for which she has completed six courses of Bendamustine and Rituxan (completed 07/2023). PET scan at the end of treatment showed no active lymphoma. She is now on Rituxan maintenance therapy (since 08/2023). Per the medical record, she has subjective short-term memory concerns, with attendant anxiety, that started during chemotherapy. She had iron-deficiency anemia, which has been improving though not to baseline as of yet. Other work-up to date includes lab testing for TSH, which was within normal limits. Notes indicate her memory issues are worsened by stress and she has had numerous stressors in her life recently. She also has fatigue. On interview today, Ms. Ridley reports she first noticed cognitive changes around the time of her cancer diagnosis and treatment. Her has noticed cognitive issues over the past year or so. Both feel her cognition has improved over time, though not to baseline and there have been times when she has episodes of cognitive difficulty (e.g., recently around a medication management issue). She notes still struggling to recall people's names. She feels less like reading and writing than she didin the past, but can do both. She has not noticed any spatial difficulties. She continues to drive (shorter distances) and has had no close calls or accidents. She continues to cook, though perhaps in a more limited way. There was a time over the past year when she would forget she had defrosted something for dinner and make a different meal, but this has improved. Medical History: Other medical history includes Pizarro's esophagus, gastroesophageal reflux, hyperlipidemia (currently managed with diet), essential hypertension (not on medication per patient preference), heart murmur, bilateral sensorineural hearing loss, and bilateral neuropathy in her feet. Surgical history includes tonsillectomy, 2 C-sections, and recent dental surgery. She has one head impact due to a fall off a horse in her youth, but reports no lasting cognitive issues. She has no other history of neurological injury or disorder, and no history of substance dependence or psychiatric disorder. She had a period of time in her earlier years when she feels she was drinking too much wine, but that has not been an issue recently, and for the past 1-2 years she has not used alcohol at all. She has never used tobacco products. Developmental, Educational, and Social History: Her and early development were within normal limits. She was a very good (A+) student and did not have attention, learning, or other cognitive orbehavioral issues in childhood. She completed a Bachelor's degree and additional post-graduate coursework, with a focus on [place] and Speech. 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 She is now retired. Family Medical History: Other family history includes hypertension (mother); lymphoma (father); andscleroderma (sister). There is a history of late-onset Alzheimer's disease in her mother. There is no other family history of dementia, cognitive disorder, or neurological disorder. Medications: iron supplement, psyllium seed-sucrose powder; Vitamin B-12; multivitamin; alendronate(Fosamax); levothyroxine (Synthroid); pantoprazole EC (Protonix); rituximab. Prior Neurocognitive Testing: None. BEHAVIORAL OBSERVATIONS: Ms. Ridley was alert and fully oriented to person, place, and situation. She was fully oriented to the year, but was less certain of the date, noting that she always looks at her watch for the date. She correctly estimated the day of the week and the month but incorrectly guessed that it was the 3rd of the month. Ms. Ridley had no difficulty understanding conversation or interview questions. Spontaneous speech was generally fluent, prosodic, and free of paraphasic errors.Thought processes were logical and goal- directed. Ms. Ridley was able to see and hear the test stimuli and understood the test instructions. Mood, affect, and comportment were appropriate to context. S he reported testing-related anxiety and concern about her performance, commenting several times that she was finding many of the tests to be ???very hard?? . Despite these challenges, she engaged well in the testing process and put forth good effort (though at times she may have given up quickly due to low confidence or concern about making incorrect answers when she was uncertain, e.g., on the HVLT-R). Overall, the obtained test results are considered a valid indication of Ms. Ridley's current level of cognitive functioning. PROCEDURES ADMINISTERED: Clinical Interview Orientation Digit Span Forward and Backward (WAIS-IV) Symbol-Digit Modalities Test (SDMT) Reitan Chireno Making Test Neurobehavioral Cognitive Status Examination (NCSE) - Judgment Test of Practical Judgment-9 Item Similarities (WAIS-IV) Parra Verbal Learning Test - Revised (HVLT-R) Nadia Memory Scale-IV (WMS-IV) Logical Memory Brief Visuospatial Memory Test - Revised (BVMT-R) Comprehension of Complex Ideational Material ([place]ona Diagnostic Aphasia Examination (BDAE)) Vocabulary (WAIS-IV) Jemma-Harrison Executive Function System (DK) Verbal Fluency Neurobehavioral Assessment Battery - Naming Repetition (BDAE) Sentence (Reading) Comprehension (WRAT-5) Reading Sample (BDAE) Test of Premorbid Function Narrative Writing Sample Written Math Sample IdentiFi Visual Recognition Visual Puzzles (WAIS-IV) Drawings to Command and Copy Clock Drawing Test Grooved Pegboard Test Thumb-Finger Sequencing Test Praxis Test Louie Depression Inventory-II (BDI-II) State-Trait Anxiety Inventory-II Insomnia Index Fatigue Severity Scale All tests were administered by a evp global product leadership. TEST RESULTS: Note: Descriptors are based on age-appropriate healthy adult normative data. The term ???within normal limits?? (WNL) is used when a more specific descriptor is not applicable. Descriptor Standard Score Scaled z Percentile Very Superior >= 130 > 16 >= 2 >= 98 Superior 120-129 14-15 1.3 to 1.9 91-97 High Average 110-119 12-13 0.7 to 1.2 75-90 Average 90-109 8-11 -0.6 to +0.6 25-74 Low Average 80-89 6-7 -0.7 to -1.3 9-24 Borderline 70-79 4-5 -1.4 to -2.0 2-8 Extremely Low < 70 < 4 < -2 < 2 Measure Score Descriptor 01/31/2024 IPT Attention and Executive Functioning Digit Span Forward () 8 Average Digit Span Backward () 9 Average SDMT - Written (RS, z) 37, -0.6 Average SDMT - Oral (RS, z) 35, -1.3 Low Average Reitan Chireno-Making A (Seconds, z) 30?? , 0.8 High Average Reitan Chireno-Making B (Seconds, z) 105?? , 0.1 Average NCSE Judgment (RS) 5/6 WNL Test of Practical Judgment - 9 (RS, LA) 22, 88 High Average WAIS-IV Similarities () 13 High Average Learning and Memory HVLT-R Form 1 Learning Trials (RS) 4, 6, 8 Total Learning (RS, z) 18/36, -1.0 Low Average Delayed Recall (RS, z) 4/12, -1.6 Borderline Recognition (TH, FP, z) 12, 4, -1.3 Low Average Logical Memory Immediate () 6 Low Average Delayed Recall () 3 Extremely Low Recognition (RS, CP) , >75 High Average+ BVMT-R Form 1 Learning Trials (RS) 2, 4, 4 Total Learning (RS, z) 10, -1.8 Borderline Delayed Recall (RS, z) 1/, -2.7 Extremely Low Recognition (TH, FP, LA) 5, 0, >16 WNL Language Skills BDAE Speech Comprehension (RS) 04/05 WNL Vocabulary () 11 Average DK Verbal Fluency Form A Letter () 13 High Average Category () 6 Low Average NAB Naming Test (RS, T) WNL Repetition (RS) 5/7 See Text BDAE Reading Aloud (RS) 04/05 WNL Reading Comprehension (RS) 3/5 See Text Narrative Writing Sample (Errors) 1 WNL Written Math Sample (RS) 03/06 WNL Test of Premorbid Function () 113 High Average Spatial Skills IdentiFi Visual Recognition (RS, T) , 53 Average Visual Puzzles () 7 Low Average Drawings Norms O Drawing Cube (RS, z) 2, -0.3 WNL Drawings to Copy - Cross (RS, z) 1, 0.8 WNL Cube (RS, z) 2, -0.3 WNL Hexagons (RS, z) 2, -0.5 WNL Clock Drawing to Command (RS) 9/10 WNL Fine Motor Skills Grooved Pegboard - Dominant (RS, T*) 112?? , 34 Borderline Grooved Pegboard - Nondom. (RS, T) 148?? , 32 Borderline TFST Norms O TFST - Dominant (RS, z) 8, -0.1 WNL TFST - Nondominant (RS, z) 7, -0.6 WNL Praxis - Dominant (RS) 5/5 WNL Praxis - Nondominant (RS) 5/5 WNL Questionnaires BDI-II (RS) 10 WNL STAI - State (RS, z) 40 WNL Trait (RS, z) 38 WNL Insomnia Index (RS) 11 Subthreshold Fatigue Severity Scale (RS, z) 4.2 Elevated WNL = within normal limits; RS = raw score; = age scaled score; T = T-score; TH = total hits; FP= false positives; LA = percentile rank; CP = cumulative percentage; IPT = in-person testing; TELE = telehealth * [facility] norms Norms for Mean Age ~65 years STAI - Older Norms REVIEW OF TEST RESULTS: Attention and Executive Functions: Basic auditory span of attention was average. Auditory verbal working memory was also average. Speed of processing was within normal limits, ranging from low average to high average across tests. Cognitive flexibility was average. Practical reasoning was high average. Abstract verbal reasoning was high average. Overall, attention and executive abilities were with in normal limits, with notable strengths in reasoning skills. Learning and Memory: Learning of a word list was in the low average range. Delayed recall of the list was borderline and recognition was low average. Recall of stories was low average on immediate testing and extremely low after a delay, with high average+ recognition. Learning of a set of geometric designs was borderline. Delayed recall of the designs was extremely low and recognition was withinnormal limits. This pattern of findings suggests mild difficulties with encoding new information and more pronounced difficulties with retrieval. She did not show rapid forgetting, i.e., she was ableto retain information in memory once encoded, and cues generally aided retrieval. Language: Speech comprehension was intact for basic yes/no questions and for more complex and nuanced information. Vocabulary knowledge was average. Rate of word retrieval was somewhat variable, being low average for category cues and high average for letter cues. Confrontation naming was 100% accurate. Despite a small number of errors, repetition was grossly within normal limits overall. Readingvocabulary was high average. She did make two errors on a reading comprehension screen, which may have been secondary to difficulty recalling the information as opposed to a reading comprehension issue per se. Brief screens of reading fluency, narrative writing, and written math were within normal limits. Spatial Skills: Visuoperceptual integration was average. Ability to mentally arrange pieces to match a geometric design was low average. Drawings to command and copy were within normal limits, with scores in the average to high average range. Overall, spatial skills were within normal limits. Estimated Baseline Intellectual Ability: Based on demographic factors and performance on ???hold?? tests, baseline intellectual ability was estimated to be in approximately the average to high average range. Fine Motor: Peg-placing was in the borderline range bilaterally, with no undue discrepancy in performance between the two hands. Thumb-finger sequencing was within normal limits bilaterally. Praxis was within normal limits bilaterally. Overall, there were no lateralizing findings on fine motor testing. Questionnaires: On a depression and anxiety screening questionnaires, she did not endorse a significant level of symptoms. She denied suicidal ideation, intent, and plan. She endorsed a subthreshold level of insomnia symptoms including difficulty maintaining sleep at night, as well as daytime fatigue. Comparison to Prior Testing: No prior. FORMULATION AND RECOMMENDATIONS: On current testing, Ms. Ridley showed intact cognition in most areas. She did show a mild weakness in encoding of new information in memory, and a more pronounced memory retrieval difficulty. That said, she did not show rapid forgetting, i.e., once she had encoded information in memory she was able to retain it and cues generally aided retrieval. Her cognition was otherwise within normal limits for age. Strengths were noted in several areas including practical reasoning, abstract reasoning, and reading vocabulary. She did not endorse mood symptoms, but did report insomnia and fatigue symptoms. In summary, current testing was notable for difficulties with memory encoding and retrieval as wellas fatigue and insomnia symptoms. Based on the provided history, Ms. Ridley's cognitive difficultiesstarted following the diagnosis of lymphoma and have for the most part been improving over time. This suggests a role of her lymphoma and/or associated treatment in the etiology of her cognitive concerns, and her fatigue and sleep issues may be exacerbating her level of cognitive difficulty. That said, a progressive cognitive disorder cannot be ruled out on the basis of a single neurocognitive evaluation and further evaluation and monitoring are therefore suggested, as outlined below. (1) I have reviewed these findings and recommendations with Ms. Ridley and her . They demonstrated a good understanding of the information. (2) At the discretion of her medical providers, she may benefit from further lab testing to assess for treatable etiologies of cognitive decline. If not recently done, brain imaging may also be helpful with special attention to medial temporal, diencephalic, and frontal regions given her memory difficulties. I will coordinate with her treatment team about these suggestions. (3) I discussed the nature and benefits of cognitive rehabilitation with Ms. Ridley and her ,and she would like to proceed with this. I will coordinate with her treatment team about a referralfor cognitive rehabilitation at [facility], which is closest to home for them. (4) Based on her cognitive profile, strategies that may be helpful include: Set aside quiet, uninterrupted time for cognitive tasks and conversations. Focus on one task or topic at a time. Review new information more than once (repetition). Put new information in your own words (paraphrasing). When receiving new information, provide a brief summary back to the speaker and request verification (active listening). Form a mental image (visualization). Put important information in writing so you have something to refer back to and review. Working with a cognitive rehabilitation services director will provide helpful guidance in selecting and implementing cognitive strategies. (5) Fatigue management strategies that may be helpful include: Take frequent, regular rest breaks throughout the day, before you are tired. Break larger tasks into smaller steps and take breaks between each step. Make a list of fatiguing activities and set a time limit on these activities. Scheduling demanding tasks for times of day when you are most likely to be well rested. Alternate easy and difficult tasks. (6) To help with sleep, one or more the following behavioral strategies may be helpful: Review your sleeping environment to ensure it is comfortable, quiet, and a good temperature. Develop the habit of going to bed and waking at about the same times each day. Develop relaxing nighttime rituals that you start a significant time in advance of your bedtime. If you waken during the night, use relaxation strategies to help you resume sleeping. Avoid clock-watching. Avoid naps in order to help consolidate sleep at night. If not already done, avoid caffeine later in the day and continue to avoid alcohol. (7) Ms. Ridley would benefit from continued neurocognitive re-evaluation in one year to assess her cognitive trajectory and provide updated recommendations. She is in agreement with this plan, and I will coordinate with our schedulers to create a follow-up appointment. They are aware they are welcome to contact me in the interim if I can be of assistance. Thank you for referring Ms. Ridley for neuropsychological evaluation. Please do not hesitate to contact me if I can be of further assistance (Neuropsychology or via eD or [facility]). Radha Negrete, PhD Clinical Neuropsychologist 67097: 0:36 (1 unit) 85716: 1:00 (1 unit) 10784: 2:55 (3 units) 19254: 0:30 (1 unit) 41589: 4:52 (10 units) documented in this encounter Plan of Treatment Upcoming Encounters Date Type Department Care Team (Late st Contact Info) Description 05/02/2024 8:30 AM EST Office Visit Hematology/Oncology at [address] [phone] Pardeep George MD [facility] HEMATOLOGY [place] [address] Kelli Zapata APRN [address] [place] [address] [place] [address] 05/02/2024 9:00 AM EST Infusion Hematology Oncology at [address] [phone] 01/31/2025 8:30 AM EDT Office Visit Psychiatry [place] [address] Radha Negrete, PhD [facility] [place] [address] Scheduled Referrals Name Type Priority Associated Diagnoses Orde r Schedule Referral to Adult Psychiatry Outpatient Referral Routine Unspecified mental disorder due to known physiological condition Ordered: 11/22/2023 documented as of this encounter Visit Diagnoses Diagnosis Memory deficits Memory loss Lymphoma, unspecified body region, unspecified lymphoma type documented in this encounter Care Teams Rubber Goods Tester Water Relationship Specialty Start Date End Date Blanquita Pagan APRN [address] [place] [address] PCP - General Family Medicine 01/07/23 documented as of this encounter
--- OUTSIDE RECORDS SUMMARY | 2024-05-02 08:09 | XMS_ITS | Encounter Summary ---
Author Organization [facility] Address [facility] [place] [address] Care Team Providers Care Long Line Teamster Name Role Phone Blanquita Pagan APRN Primary Care Provider [phone] Reason for Visit * Reason Comments IV Access Port flush Encounter Details Date Type Department Care Team (Late st Contact Info) Description 12/15/2023 11:30 AM EDT Infusion Hematology Oncology at [address] [phone] Lymphoma, unspecified body region, unspecified [...] Sign Reading Time Taken Comments Blood Pressure 161/80 12/15/2023 11:38 AM EDT Pulse 70 12/15/2023 11:38 AM EDT Temperature 36 ??C (96.8 ??F) 12/15/2023 11:38 AM EDT Respiratory Rate 16 12/15/2023 11:38 AM EDT Oxygen Saturation 100% 12/15/2023 11:38 AM EDT Inhaled Oxygen Concentration - - Weight 51.3 kg (113 lb 3.2 oz) 12/15/2023 11:38 AM EDT Height 167.2 cm (5' 5.83) 12/15/2023 11:38 AM E DT Body Mass Index 18.37 12/15/2023 11:38 AM EDT documented in this encounter Progress Notes * Sommer Kidd RN - 12/15/2023 11:30 AM EDT INFUSION THERAPY ADMINISTRATION NOTES DIAGNOSIS: [...] 8:30 AM EST Office Visit Hematology/Oncology at [address] [phone] Pardeep George MD [facility] DR HEMATOLOGY [place] [address] Kelli Zapata CAP COVERER [address] [place] [address] DR MEDICAL ONCOLOGY [place], [place] [id number] 05/02/2024 9:00 AM EST Infusion Hematology Oncology at [address] [phone] 01/31/2025 8:30 AM EDT Office Visit Psychiatry [place] [address] Radha Negrete, PhD [facility] [place] [address] documented as of this encounter Visit Diagnoses Diagnosis Lymphoma, unspecified body region, unspecified lymphoma type documented in this encounter Administered Medications Inactive Administered Medications - up to 3 most recent administrations Medication Order MAR Action Action Date Dose Rate Site sodium chloride 0.9 % (flush) (BD PosiFlush Normal Saline 0.9) flush 10-20 mL 10-20 mL, Intravenous, EVERY 1 MIN PRN, Starting on Alyce 12/15/23 at 1154, Until Alyce 12/15/23 at 1412, Showroom Executive Director, Routine Given 12/15/2023 11:54 AM EDT 20 mLs documented in this encounter Care Teams Long Line Teamster Relationship Specialty Start Date End Date Blanquita Pagan APRN [address] [place] [address] PCP - General Family Medicine 01/07/23 documented as of this encounter
--- OUTSIDE RECORDS SUMMARY | 2024-05-02 08:09 | XMS_ITS | Encounter Summary ---
Author Organization [facility] Address [facility] [place] [address] Care Team Providers Care Coding Consultant Name Role Phone Blanquita Pagna APRN Primary Care Provider [phone] Reason for Referral * Diagnostic Test (Routine) - Closed Specialty Diagnoses / Procedures Referred By Contac t Referred To Contact Radiology Diagnoses Lymphoma, unspecified body region, unspecified lymphoma type Procedures NM PET CT Skull Base to Mid-thigh Magdalena Ashraf APRN [facility] HEMATOLOGY [place] [address] [place] [address] Referral ID Status Reason Start Date Expiration Date V isits Requested Visits Authorized [id number] Closed Specialty Service Requested 06/30/2023 12/28/2024 1 1 Reason for Visit * Diagnostic Test (Routine) - Closed Specialty Diagnoses / Procedures Referred By Contac t Referred To Contact Radiology Diagnoses Lymphoma, unspecified body region, unspecified lymphoma type Procedures NM PET CT Skull Base to Mid-thigh Magdalena Ashraf APRN [facility] HEMATOLOGY [place] [address] [facility] [place] [address] Referral ID Status Reason Start Date Expiration Date V isits Requested Visits Authorized [id number] Closed Specialty Service Requested 06/30/2023 12/28/2024 1 1 Encounter Details Date Type Department Care Team (Latest Contact Info) Description 08/17/2023 1:07 PM EST Hospital Encounter Nuclear Medicine at [facility] [place] [address] Magdalena Ashraf APRN [facility] DR HEMATOLOGY [place] [address] Lymphoma, unspecified body region, unspecified lymphoma type Discharge Disposition: Home Social History Tobacco Use [...] place to sleep or slept in a skilled nursing (including now)? No 02/16/2023 DH IPV Inpatient [...] 8:30 AM EST Office Visit Hematology/Oncology at [address] [phone] Pardeep George MD [facility] DR HEMATOLOGY [place] [address] Kelli Zapata APRN [address] [place] [address] [place] [address] 05/02/2024 9:00 AM EST Infusion Hematology Oncology at [address] [phone] 01/31/2025 8:30 AM EDT Office Visit Psychiatry [place] [address] Radha Negrete, PhD [facility] [place] [address] documented as of this encounter Procedures Procedure Name Priority Date/Time Associated Diagnosis Comments NM PET CT SKULL BASE TO MID-THIGH ([facility]) Routine 08/17/2023 2:40 PM EST Lymphoma, unspecified body region, unspecified lymphoma type documented in this encounter Results * NM PET CT Skull Base to Mid-thigh (08/17/2023 2:40 PM EST) Anatomical Region Laterality Modality Positron Emissio n Tomography (PET) Impressions 08/22/2023 11:23 AM EST 1. ??No residual active lymphoma (Deauville score 2). 2. ??Residual 2 cm cystic-appearing left supraclavicular adenopathy, with mild peripheral FDG avidity which is favored to represent posttreatment inflammation. Attention on follow-up. 3. ??Residual adenopathy in the abdominal retroperitoneum has no significant activity above reference blood pool background. 4. ??Unchanged 6.5 cm non-FDG avid fluid attenuating left adnexal cyst, unchanged compared to CT 01/06/2023. Recommend pelvic ultrasound for further characterization. 5. ??Non-FDG avid severe T9 vertebral body compression fracture, increased in height loss compared to prior PET/CT. 6. ??Mild diffusely increased marrow activity in the axial and proximal appendicular skeleton, consistent with reactive marrow. 7. ??Unchanged non-FDG avid 10 mm groundglass opacity in the left lower lobe. Continued attention on follow-up recommended. I have personally reviewed the image(s) and the resident's interpretation and agree with the findings, Pardeep Stevens MD at 08/22/2023 11:23 AM Thank you for letting us participate in the care of this patient. ??If you are a health care provider and have any questions regarding this report, please contact the number below. ??For patients who have questions please contact the health direct care staffer that requested your imaging first. ? Electronically signed by: Pardeep Stevens MD, [facility] ([phone]), at 08/22/2023 11:23 AM Narrative 08/22/2023 11:23 AM EST EXAMINATION: NM PET CT STANDARD SKULL BASE TO MID-THIGH CLINICAL HISTORY: Hematologic malignancy, assess treatment response Additional history: Follicular lymphoma diagnosed December 2022 status post 6 cycles Bendamustine and Rituxan . C85.90, Non-Hodgkin lymphoma, unspecified, unspecified site TECHNIQUE: Following IV injection of 54-qskbpw-6-deoxyglucose (FDG) a standard uptake of approximately 60 minutes, a noncontrast CT scan followed by a PET scan were acquired from the base of the skull to mid thighs. The noncontrast CT was used for anatomic localization and photon attenuation correction of the PET scan. Blood glucose level: 82 (mg/dL) FDG dose: 7.5 mCi COMPARISON: CT chest, abdomen and pelvis 04/29/2023, PET/CT 03/16/2023 FINDINGS: HEAD/NECK: Decreased size and near complete metabolic resolution of the left supraclavicular adenopathy with central area of photopenia and mild peripheral FDG avidity (axial image 44), which now measures 2 x 1.2 cm, previously 3.2 x 2.[address] 03/16/2023. No new adenopathy. CHEST: Complete resolution of previously seen hypermetabolic lesion in the left upper thoracic paraspinal region. Unchanged non-FDG avid 10 mm groundglass opacity in the left lower lobe (axial image 70), unchanged dating back to CT of 01/06/2023. No new suspicious pulmonary nodule. Coronary artery and aortic calcifications. Right chest port with catheter tip extending to the superior cavoatrial junction. ABDOMEN/PELVIS: Metabolic resolution and markedly decreased size of the abdominal and pelvic retroperitoneal adenopathy and the bilateral inguinal adenopathy, with residual adenopathy in these regions have no significant activity above reference blood pool background. No new adenopathy. Splenic activity has normalized with normal splenic size. Unchanged fluid attenuating well-circumscribed cystic lesion in the left pelvis measures up to 6.5 cm in greatest dimension and is unchanged compared to CT 01/06/2023. Stable simple cyst in the left kidney. SKELETON/EXTREMITIES: Mild diffusely increased marrow activity in the axial and proximal appendicular skeleton, markedly decreased in intensity compared to prior and consistent with reactive marrow. Non-FDG avid severe T9 anterior vertebral body compression fracture, increased in height loss compared to prior PET/CT. Similar CT visualized ill-defined sclerotic changes in the bilateral iliac bones with appearance most suggestive of Paget's disease. Additional areas of sclerosis in several bilateral ribs and in the T2 vertebral body are unchanged compared to CT of 01/06/2023. Procedure Note Pardeep Stevens MD - 08/22/2023 EXAMINATION: NM PET CT STANDARD SKULL BASE TO MID-THIGH CLINICAL HISTORY: Hematologic malignancy, assess treatment response Additional history: Follicular lymphoma diagnosed December 2022 status post 6cycles Bendamustine and Rituxan . C85.90, Non-Hodgkin lymphoma, unspecified, unspecified site TECHNIQUE: Following IV injection of 70-vlhuyo-7-deoxyglucose (FDG) astandard uptake of approximately 60 minutes, a noncontrast CT scan followed by aPET scan were acquired from the base of the skull to mid thighs. The noncontrast CTwas used for anatomic localization and photon attenuation correction of thePET scan. Blood glucose level: 82 (mg/dL) FDG dose: 7.5 mCi COMPARISON: CT chest, abdomen and pelvis 04/29/2023, PET/CT 03/16/2023 FINDINGS: HEAD/NECK: Decreased size and near complete metabolic resolution of the left supraclavicular adenopathy with central area of photopenia and mildperipheral FDG avidity (axial image 44), which now measures 2 x 1.2 cm, previously3.2 x 2.[address] 03/16/2023. No new adenopathy. CHEST: Complete resolution of previously seen hypermetabolic lesion in the leftupper thoracic paraspinal region. Unchanged non-FDG avid 10 mm groundglass opacity in the left lower lobe(axial image 70), unchanged dating back to CT of 01/06/2023. No new suspiciouspulmonary nodule. Coronary artery and aortic calcifications. Right chest port with cathetertip extending to the superior cavoatrial junction. ABDOMEN/PELVIS: Metabolic resolution and markedly decreased size of the abdominal andpelvic retroperitoneal adenopathy and the bilateral inguinal adenopathy, withresidual adenopathy in these regions have no significant activity above referenceblood pool background. No new adenopathy. Splenic activity has normalized with normal splenic size. Unchanged fluid attenuating well-circumscribed cystic lesion in the leftpelvis measures up to 6.5 cm in greatest dimension and is unchanged compared toCT 01/06/2023. Stable simple cyst in the left kidney. SKELETON/EXTREMITIES: Mild diffusely increased marrow activity in the axial and proximalappendicular skeleton, markedly decreased in intensity compared to prior and consistentwith reactive marrow. Non-FDG avid severe T9 anterior vertebral body compression fracture,increased in height loss compared to prior PET/CT. Similar CT visualized ill-defined sclerotic changes in the bilateral iliacbones with appearance most suggestive of Paget's disease. Additional areas of sclerosis in several bilateral ribs and in the T2 vertebral body areunchanged compared to CT of 01/06/2023. IMPRESSION 1. No residual active lymphoma (Deauville score 2). 2. Residual 2 cm cystic-appearing left supraclavicular adenopathy, withmild peripheral FDG avidity which is favored to represent posttreatmentinflammation. Attention on follow-up. 3. Residual adenopathy in the abdominal retroperitoneum has nosignificant activity above reference blood pool background. 4. Unchanged 6.5 cm non-FDG avid fluid attenuating left adnexal cyst,unchanged compared to CT 01/06/2023. Recommend pelvic ultrasound for further characterization. 5. Non-FDG avid severe T9 vertebral body compression fracture, increasedin height loss compared to prior PET/CT. 6. Mild diffusely increased marrow activity in the axial and proximal appendicular skeleton, consistent with reactive marrow. 7. Unchanged non-FDG avid 10 mm groundglass opacity in the left lowerlobe. Continued attention on follow-up recommended. I have personally reviewed the image(s) and the resident's interpretationand agree with the findings, Pardeep Stevens MD at 08/22/2023 11:23 AM Thank you for letting us participate in the care of this patient. If youare a health care provider and have any questions regarding this report,please contact the number below. For patients who have questions please contactthe health direct care staffer that requested your imaging first. Magdalena Ashraf WELL LOGGING OPERATOR MUD ANALYSIS IMG PET ORDERABLES documented in this encounter Visit Diagnoses Diagnosis Lymphoma, unspecified body region, unspecified lymphoma type documented in this encounter Administered Medications Inactive Administered Medications - up to 3 most recent administrations Medication Order MAR Action Action Date Dose Rate Site fludeoxyglucose (F-18) FDG injection 0-20 mCi 0-20 mCi, Intravenous, ONCE PRN, 1 dose, Starting on Tue08/17/23 at 1334, Until Tue08/17/23 at 1329, Per Protocol, Radiology Contrast, Routine Given 08/17/2023 1:29 PM EST 7.5 mCi Right Arm documented in this encounter Care Teams Coding Consultant Relationship Specialty Start Date End Date Blanquita Pagan APRN [address] [place] [address] PCP - General Family Medicine 01/07/23 documented as of this encounter
--- OUTSIDE RECORDS SUMMARY | 2024-05-02 08:09 | XMS_ITS | Encounter Summary ---
Author Organization [facility] Address [facility] Kumar [place] [address] Care Team Providers Care Virtualization Architect Name Role Phone Blanquita Pagan APRN Primary Care Provider [phone] Reason for Visit * Reason Comments Other Port flush Encounter Details Date Type Department Care Team (Late st Contact Info) Description 04/05/2024 11:30 AM EDT Infusion Hematology Oncology at [address] [phone] Lymphoma, unspecified body region, unspecified [...] in a penitentiary (including now)? No 02/16/2023 DH IPV Inpatient [...] Mass Index 18.35 04/05/2024 11:36 AM EDT documented in this encounter Progress Notes * Regine Mary RN - 04/05/2024 11:30 AM EDT INFUSION THERAPY ADMINISTRATION NOTES TIME TREATMENT STARTED: 1140 TIME TREATMENT ENDED: 1150 DIAGNOSIS: 1. Lymphoma, unspecified body region, unspecified lymphoma type sodium chloride 0.9 % (flush) (BD PosiFlush Normal Saline 0.9) flush 10-20 mL PROTOCOL: n/a REASON FOR VISIT mediport flush SUBJECTIVE Ani Ridley denies any complaints. OBJECTIVE: VITAL SIGNS: BP 130/76 (Patient Position: Sitting) Pulse 71 Temp 36.1 ??C (97 ??F) (Temporal) Resp 18 Ht167.2 cm (5' 5.83) Wt 51.3 kg (113 lb 1.6 oz) SpO2 100% BMI 18.35 kg/m?? Mediport with excellent blood return REACTIONS (DESCRIPTION, TIME, INTERVENTION AND EFFECTIVENESS) none ASSESSMENT Ani Ridley was awake, alert and he tolerated treatment well. PLAN Return to clinic per routine. documented in this encounter Plan of Treatment Upcoming Encounters Date Type Department Care Team (Late st Contact Info) Description 05/02/2024 8:30 AM EST Office Visit Hematology/Oncology at [address] [phone] Pardeep George MD [facility] DR HEMATOLOGY [place] [address] Kelli Zapata APRN [address] [place] [address] DR MEDICAL ONCOLOGY [place], [place] [id number] 05/02/2024 9:00 AM EST Infusion Hematology Oncology at [address] [phone] 01/31/2025 8:30 AM EDT Office Visit Psychiatry and [place] [address] Radha Negrete, PhD [facility] [place] [address] documented as of this encounter Visit Diagnoses Diagnosis Lymphoma, unspecified body region, unspecified lymphoma type documented in this encounter Administered Medications Inactive Administered Medications - up to 3 most recent administrations Medication Order MAR Action Action Date Dose Rate Site sodium chloride 0.9 % (flush) (BD PosiFlush Normal Saline 0.9) flush 10-20 mL 10-20 mL, Intravenous, EVERY 1 MIN PRN, Starting on Alyce 04/05/24 at 1137, Until Alyce 04/05/24 at 1405, Cone Examiner, Routine Given 04/05/2024 11:45 AM EDT 20 mLs documented in this encounter Care Teams Virtualization Architect Relationship Specialty Start Date End Date Blanquita Pagan APRN [address] [place] [address] PCP - General Family Medicine 01/07/23 documented as of this encounter
--- OUTSIDE RECORDS SUMMARY | 2024-05-02 08:09 | XMS_ITS | Encounter Summary ---
Author Organization [facility] Address [facility] [place] [address] Care Team Providers Care Photolithographer Name Role Phone Blanquita Pagan APRN Primary Care Provider [phone] Reason for Visit * Treatment/Therapy Plan Authorization (Routine) - Authorized Specialty Diagnoses / Procedures Referred By Contac t Referred To Contact Hematology and Oncology Diagnoses Lymphoma, unspecified body region, unspecified lymphoma type Lytic bone lesions on xray Procedures INFUSION Pardeep George MD [facility] [place] [address] Pardeep George MD [facility] DR HEMATOLOGY [place] [address] Referral ID Status Reason Start Date Expiration Date V isits Requested Visits Authorized [id number] Authorized 07/28/2023 07/27/2024 1 101 Encounter Details Date Type Department Care Team (Late st Contact Info) Description 03/08/2024 9:30 AM EDT Infusion Hematology Oncology at [address] [phone] Lymphoma, unspecified body region, unspecified lymphoma type; [...] Progress Notes * Sommer Kidd RN - 03/08/2024 9:30 AM EDT INFUSION THERAPY ADMINISTRATION NOTES DIAGNOSIS: Follicular Lymphoma CYCLE #:4 Day 1 REASON FOR VISIT: Maintenance Rituxan, Rapid SUBJECTIVE Ani offers no complaints. She was seen in clinic by Dr. George prior to infusion. She does not take the dexamethasone as premed. OBJECTIVE IV ACCESS: Mediport Pre administration: Chemotherapy orders independently verified for drug name, route, and dosage per patient's height, weight and BSA by Sommer Kidd, RN & [facility] onsite. REACTIONS (DESCRIPTION, TIME, INTERVENTION AND EFFECTIVENESS) none ASSESSMENT Ani was awake, alert and tolerated treatment well. PLAN Return to clinic per routine. documented in this encounter Plan of Treatment Upcoming Encounters Date Type Department Care Team (Late st Contact Info) Description 05/02/2024 8:30 AM EST Office Visit Hematology/Oncology at [address] [phone] Pardeep George MD [facility] DR HEMATOLOGY [place] [address] Kelli Zapata APRN [address] [place] [address] DR MEDICAL ONCOLOGY [place], [place] [id number] 05/02/2024 9:00 AM EST Infusion Hematology Oncology at [address] [phone] 01/31/2025 8:30 AM EDT Office Visit Psychiatry [place] [address] Radha Negrete, PhD [facility] [place] [address] documented as of this encounter Visit Diagnoses [...] mg, Oral, ONCE, 1 dose, On Alyce 03/08/24 at 1030, Administer prior to riTUXimab., Routine Given 03/08/2024 10:18 AM EDT 650 mg diphenhydrAMINE (Benadryl) (50 mg/mL) injection 25 mg 25 mg, Intravenous, ONCE, 1 dose, On Alyce 03/08/24 at 1030, Administer prior to riTUXimab, Routine Given 03/08/2024 10:25 AM EDT 25 mg riTUXimab-pvvr (Ruxience) 600 mg in sodium chloride 0.9% 300 mL infusion 600 mg (rounded from 566.25 mg = 375 mg/m2/dose ? 1.51 m2 Treatment Plan BSA from Recorded weight), Intravenous, ONCE, 1 dose, On Alyce 03/08/24 at 1130, Administer Per Protocol, Is this product being used for treatment of malignant indication? Yes, Patient is a candidate for rapid infusion riTUXimab? Yes New Bag 03/08/2024 11:07 AM EDT 600 mg sodium chloride 0.9 % (flush) (BD PosiFlush Normal Saline 0.9) flush 5-20 mL 5-20 mL, Intravenous, EVERY 1 MIN PRN, Starting on Alyce 03/08/24 at 1003, Until Alyce 03/08/24 at 1606, Line Care, Flush pertains to all indwelling lines. Flush per protocol found in the job aid using the link provided on this medication record. Refer to Intravenous (IV) Job Aid: Adult Flushing & Catheter Care (1130) job aid for additional information regarding guidelines and administration., Routine Given 03/08/2024 12:47 PM EDT 20 mLs documented in this encounter Care Teams Photolithographer Relationship Specialty Start Date End Date Blanquita Pagan APRN [address] [place] [address] PCP - General Family Medicine 01/07/23 documented as of this encounter
--- OUTSIDE RECORDS SUMMARY | 2024-05-02 08:09 | XMS_ITS | Encounter Summary ---
Author Organization [facility] Address [facility] [place] [address] Care Team Providers Care Electrodynamicist Name Role Phone Blanquita Pagan APRN Primary Care Provider [phone] Reason for Referral * Psychiatric (Routine) - Authorized Specialty Diagnoses / Procedures Referred By Contac t Referred To Contact Psychiatry Diagnoses Unspecified mental disorder due to known physiological condition Cognitive deficits Procedures PRO NEUROBEHAVIORAL STATUS EXAM PHYS/QHP 1ST HR PRO NEUROPSYCHOLOGICAL TEST EVAL PHYS/QHP 1ST HOUR PRO NEUROPSYCHOLOGICAL TEST EVAL PHYS/QHP EA ADDL HR TC PSYCL/NRPSYCL CLERICAL ADMINISTRATOR 2+ TEST 1ST 30 MIN TC PSYCL/NRPSYCL CLERICAL ADMINISTRATOR 2+ TEST EA ADDL 30 MIN PRO PSYCL/NRPSYCL TEST PHYS/QHP 2+ TEST EA ADDL 30 MIN Blanquita Pagan APRN [address] [place] [address] Radha Negrete, PhD [facility] [place] [address] Referral ID Status Reason Start Date Expiration Date Visits Requested Visits Authorized [id number] Authorized Consult, Test & Treat PCP Updated and/or Approved 11/11/2023 11/09/2024 6 11 Encounter Details Date Type Department Care Team (Latest Contact Info) Description 11/22/2023 Transcribe Orders eDH Incoming Referrals [phone] Blanquita Pagan APRN [address] [place] [address] Unspecified mental disorder due to known physiological condition Social History Tobacco Use Types Packs/Day Years [...] place to sleep or slept in a jail (including now)? No 02/16/2023 IPV Inpatient Questions [...] 8:30 AM EST Office Visit Hematology/Oncology at [address] [phone] Pardeep George MD [facility] DR HEMATOLOGY [place] [address] Kelli Zapata APRN [address] [place] [address] [place] [address] 05/02/2024 9:00 AM EST Infusion Hematology Oncology at [address] [phone] 01/31/2025 8:30 AM EDT Office Visit Psychiatry and [place] [address] aRdha Negrete, PhD [facility] [place] [address] Scheduled Referrals Name Type Priority Associated Diagnoses Orde r Schedule Referral to Adult Psychiatry Outpatient Referral Routine Unspecified mental disorder due to known physiological condition Ordered: 11/22/2023 documented as of this encounter Visit Diagnoses Diagnosis Unspecified mental disorder due to known physiological condition documented in this encounter Care Teams Electrodynamicist Relationship Specialty Start Date End Date Blanquita Pagan APRN [address] [place] [address] PCP - General Family Medicine 01/07/23 documented as of this encounter
--- OUTSIDE RECORDS SUMMARY | 2024-05-02 08:09 | XMS_ITS | Encounter Summary ---
Author Organization [facility] Address [facility] [place] [address] Care Team Providers Care Refinery Superintendent Name Role Phone Blanquita Pagan APRN Primary Care Provider [phone] Encounter Details Date Type Department Care Team (Late st Contact Info) Description 07/28/2023 Notes Only Hematology/Oncology at [address] [phone] Svitlana Allan, CHEMICAL COMPOUNDER OFFICE OF CARE MANAGEMENT Social History Tobacco Use Types Packs/Day Years [...] as of this encounter Progress Notes * Svitlana Allan MSW - 07/28/2023 9:52 AM EST Follow up with Ani during her infusion visit today. She indicated this is her last treatment forright now. She indicated she is feeling brighter. She is managing day to day and has good supportfrom her family. Ani did not identify any new needs. Offered support. Will continue as a resource for Ani. Brief assessment Supportive Counseling documented in this encounter Plan of Treatment Upcoming Encounters Date Type Department Care Team (Late st Contact Info) Description 05/02/2024 8:30 AM EST Office Visit Hematology/Oncology at [address] [phone] Pardeep George MD [facility] DR HEMATOLOGY [place] [address] Kelli Zapata APRN [address] [place] [address] [place] [address] 05/02/2024 9:00 AM EST Infusion Hematology Oncology at [address] [phone] 01/31/2025 8:30 AM EDT Office Visit Psychiatry [place] [address] Radha Negrete, PhD [facility] [place] [address] documented as of this encounter Visit Diagnoses Not on filedocumented in this encounter Care Teams Refinery Superintendent Relationship Specialty Start Date End Date Blanquita Pagan APRN [address] [place] [address] PCP - General Family Medicine 01/07/23 documented as of this encounter
--- OUTSIDE RECORDS SUMMARY | 2024-05-02 08:09 | XMS_ITS | Encounter Summary ---
Author Organization [facility] Address [facility] [place] [address] Care Team Providers Care Injection Molding Machine Setter Name Role Phone Blanquita Pagan APRN Primary Care Provider [phone] Encounter Details Date Type Department Care Team (Latest Contact Info) Description 09/22/2023 Travel Social History Tobacco Use Types Packs/Day [...] place to sleep or slept in a fci (including now)? No 02/16/2023 IPV Inpatient Questions [...] AM EST Office Visit Hematology/Oncology at [address] [phone] Pardeep George MD [facility] DR [place] [address] Kelli Zapata APRN [address] [place] [address] [place] [address] 05/02/2024 9:00 AM EST Infusion Hematology Oncology at [address] [phone] 01/31/2025 8:30 AM EDT Office Visit Psychiatry [place] [address] Radha Negrete, PhD [facility] [place] [address] documented as of this encounter Visit Diagnoses Not on filedocumented in this encounter Care Teams Injection Molding Machine Setter Relationship Specialty Start Date End Date Blanquita Pagan APRN [address] [place] [address] PCP - General Family Medicine 01/07/23 documented as of this encounter
--- OUTSIDE RECORDS SUMMARY | 2024-05-02 08:09 | XMS_ITS | Encounter Summary ---
Author Organization [facility] [place] [address] Care Team Providers Care Shoe Trimmer Name Role Phone Blanquita Pagan APRN Primary Care Provider [phone] Reason for Visit * Reason Onset Date Comments Parental/patient Concern 11/03/2023 Concern ed about memory issues. Encounter Details Date Type Department Care Team ([facility] Contact Info) Description 11/03/2023 Telephone Hematology Oncology at [address] [phone] Kristyn Payne, RN Parental/patient Concern (Concerned about memory issues.) Social History Tobacco Use Types Packs/Day Years [...] health care facility (including now)? No 02/16/2023 DH IPV Inpatient [...] encounter Miscellaneous Notes * Telephone Encounter - Kristyn Payne RN - 11/03/2023 4:29 PM EDT Enrique had called in to state that Ani was experiencing some lapses in memory throughout her lymphoma treatments and that they had hoped these would lessen but they have not. They have expected that this would improve as she got further out from chemotherapy but it has not. They would like Dr. George's opinion on next steps. Dr. George reviewed the message and felt the first steps would be to see the PCP to begin ruling out possible causes because her lab values were improving and she was moving farther out from chemotherapy. Both Enrique and Ani were present on the phone call and theyboth verbalized agreement to this plan. We are seeing them in two weeks with lab. documented in this encounter Plan of Treatment Upcoming Encounters Date Type Department Care Team (Late st Contact Info) Description 05/02/2024 8:30 AM EST Office Visit Hematology/Oncology at [address] [phone] Pardeep George MD [facility] DR HEMATOLOGY [place] [address] Kelli Zapata APRN [address] [place] [address] [place] [address] 05/02/2024 9:00 AM EST Infusion Hematology Oncology at [address] [phone] 01/31/2025 8:30 AM EDT Office Visit Psychiatry and [place] [address] Radha Negrete, PhD [facility] [place] [address] documented as of this encounter Visit Diagnoses Not on filedocumented in this encounter Care Teams Shoe Trimmer Relationship Specialty Start Date End Date Blanquita Pagan APRN [address] [place] [address] PCP - General Family Medicine 01/07/23 documented as of this encounter
--- OUTSIDE RECORDS SUMMARY | 2024-05-02 08:09 | XMS_ITS | Encounter Summary ---
Author Organization [facility] Address [facility] [place] [address] Care Team Providers Care Ammunition Assembly Ii Laborer Name Role Phone Blanquita Pagan APRN Primary Care Provider [phone] Encounter Details Date Type Department Care Team (Latest Contact Info) Description 02/15/2024 3:00 PM EDT TH Visit (TeleHealth) Psychiatry [place] [address] Radha Negrete, PhD [facility] [place] [address] Memory deficits; Lymphoma, unspecified body region, unspecified [...] Progress Notes * Radha Negrete, PhD - 02/15/2024 3:00 PM EDT Neuropsychology Feedback Note. I spoke with Ms. Ridley and her to review her recent neurocognitive test results. They demonstrated a good understanding of the information. documented in this encounter Plan of Treatment Upcoming Encounters Date Type Department Care Team (Late st Contact Info) Description 05/02/2024 8:30 AM EST Office Visit Hematology/Oncology at [address] [phone] Pardeep George MD [facility] DR [place] [address] Kelli Zapata APRN [address] [place] [address] DR MEDICAL ONCOLOGY [place], [place] [address] 05/02/2024 9:00 AM EST Infusion Hematology Oncology at [address] [phone] 01/31/2025 8:30 AM EDT Office Visit Psychiatry [place] [address] Radha Negrete, PhD [facility] [place] [place] [address] documented as of this encounter Visit Diagnoses Diagnosis Memory deficits Memory loss Lymphoma, unspecified body region, unspecified lymphoma type documented in this encounter Care Teams Ammunition Assembly Ii Laborer Relationship Specialty Start Date End Date Blanquita Pagan APRN [address] [place] [address] PCP - General Family Medicine 01/07/23 documented as of this encounter
--- OUTSIDE RECORDS SUMMARY | 2024-05-02 08:10 | XMS_ITS | Encounter Summary ---
Author Organization [facility] Address [facility] [place] [address] Care Team Providers Care Mineral Industry Teacher Name Role Phone Blanquita Pagan APRN Primary Care Provider [phone] Encounter Details Date Type Department Care Team (Late st Contact Info) Description 07/28/2023 9:00 AM EST Office Visit Hematology/Oncology at [address] [phone] [facility] DR HEMATOLOGY [place] [address] [facility] DR HEMATOLOGY [place] [address] Lymphoma, unspecified body region, unspecified lymphoma type; [...] Sign Reading Time Taken Comments Blood Pressure 129/70 07/28/2023 9:01 AM EST Pulse 64 07/28/2023 9:01 AM EST Temperature 36.1 ??C (97 ??F) 07/28/2023 9:01 AM EST Respiratory Rate 16 07/28/2023 9:01 AM EST Oxygen Saturation 100% 07/28/2023 9:01 AM EST Inhaled Oxygen Concentration - - Weight 49 kg (108 lb) 07/28/2023 9:01 AM EST Height 167.3 cm (5' 5.87) 07/28/2023 9:01 AM ES T Body Mass Index 17.5 07/28/2023 9:01 AM EST documented in this encounter Progress Notes * Pardeep George MD - 07/28/2023 9:00 AM EST Subjective Patient ID: Ani Ridley is a 73 y.o. female. HPI The patient is a 73-year-old female that I am seeing in the [facility]. She has been diagnosed with follicular lymphoma. She was worked up in the [facility] by Dr. Daugherty and started on Bendamustine and Rituxan. She has now completed 5 cycles She has tolerated treatment quite well. No new pains. Back pain near her compression fractures at T9 is a bit more uncomfortable for her. This has worsened over the last cycle or 2. Still with fatigue after the treament but better. Less brain fog. No infections. She is scheduled for an MRI and follow-up with Dr. Daugherty after she completes her sixth and final cycle. Patient Active Problem List Diagnosis Code Lymphoma [...] visit. Facility-Administered Medications Ordered in Other Visits: sodium chloride 0.9% infusion, 125 mL/hr, Intravenous, Continuous, Magdalena Ashraf APRN, Stopped at07/29/23 0931 No Known Allergies Social History Socioeconomic History [...] Activity: Not on file Intimate Partner Violence: Not on file Housing Stability: Unknown (02/16/2023) Housing Stability Vital [...] systems reviewed and are negative. Objective BP 129/70 (Patient Position: Sitting) Pulse 64 Temp 36.1 ??C (97 ??F) (Temporal) Resp 16 Ht167.3 cm (5' 5.87) Wt 49 kg (108 lb) SpO2 100% BMI 17.50 kg/m?? Physical Exam Constitutional: General: She is [...] Recent Results (from the past 72 hour(s)) Comprehensive metabolic panel (non-fasting) Result Value Ref Range Glucose Lvl 108 (H) BUN 16 Creatinine 0.6 Sodium 138 Potassium 4.0 Calcium 9.2 Total Protein 6.6 Albumin 3.7 Total Bilirubin 0.4 Alk Phos 64 AST 28 ALT 39 LDH 172 TSH 4.24 (H) Free T4 1.08 CBC (with Diff) Result Value Ref Range WBC 4.47 RBC 3.43 (L) Hemoglobin 11.2 Hematocrit 32.6 (L) Platelets 236 Neutr Abs (ANC) 3.43 Assessment and Plan 73-year-old female diagnosed with advanced stage low-grade follicular lymphoma. She has initiated chemotherapy with Bendamustine and Rituxan and has now completed 5 cycles and she has tolerated therapy well. She is now due for her sixth and final cycle and her counts are adequate to proceed with therapy today. She is having more pain in the back. It would be interesting to make sure her PET scan shows no active lymphoma in that area. She does have underlying osteoporosis and has been on Fosamax but she maybenefit from escalation of her antiresorptive treatment to Xgeva given her previous bone involvement from the lymphoma. She will follow-up with Dr. Daugherty in a few weeks after completing her 6 cycle today. I anticipate she will start Rituxan maintenance in a couple of months so we will schedule her for that We will proceed with cycle 6 today. documented in this encounter Plan of Treatment Upcoming Encounters Date Type Department Care Team (Late st Contact Info) Description 05/02/2024 8:30 AM EST Office Visit Hematology/Oncology at [address] [phone] [facility] DR HEMATOLOGY [place] [address] Kelli Zapata APRN [address] [place] [address] DR MEDICAL ONCOLOGY [place], [place] [address] 05/02/2024 9:00 AM EST Infusion Hematology Oncology at [address] [phone] 01/31/2025 8:30 AM EDT Office Visit Psychiatry and [place] [address] Radha Negrete, PhD [facility] [place] [address] documented as of this encounter Procedures Procedure Name Priority Date/Time Associated Diagnosis Comments CBC (WITH DIFF) Routine 07/28/2023 COMPREHENSIVE METABOLIC PANEL Routine 07/28/2023 documented in this encounter Results * (ABNORMAL) CBC (with Diff) (07/28/2023) White Blood Cell 4.47 Red Blood Cell 3.43(L) Hemoglobin 11.2 Hematocrit 32.6(L) Platelet 236 Neutrophil Absolute (ANC) - Automated 3.43 Blood 07/28/2023 Historical Provider HEMATOLOGY ORDERA BLES * (ABNORMAL) Comprehensive metabolic panel (non-fasting) (07/28/2023) Glucose 108(H) Blood Urea Nitrogen 16 Creatinine 0.6 Sodium 138 Potassium 4.0 Calcium 9.2 Protein, Total 6.6 Albumin 3.7 Bilirubin, Total 0.4 Alkaline Phosphatase 64 Aspartate Aminotransferase 28 Alanine Aminotransferase 39 Lactate Dehydrogenase 172 Thyroid Stimulating Hormone 4.24(H) Free T4 1.08 Blood 07/28/2023 Historical Provider CHEMISTRY ORDERAB LES documented in this encounter Visit Diagnoses Diagnosis Lymphoma, unspecified body region, unspecified lymphoma type Lytic bone lesions on xray Disorder of bone and cartilage, unspecified documented in this encounter Care Teams Mineral Industry Teacher Relationship Specialty Start Date End Date Blanquita Pagan APRN [address] [place] [address] PCP - General Family Medicine 01/07/23 documented as of this encounter
--- OUTSIDE RECORDS SUMMARY | 2024-05-02 08:10 | XMS_ITS | Encounter Summary ---
Author Organization [facility] Address [facility] [place] [address] Care Team Providers Care Blanket Folder Name Role Phone Blanquita Pagan APRN Primary Care Provider [phone] Reason for Visit * Reason Comments Chemotherapy Cycle 2, Day 2 - Gautam damustine and On Pro * Treatment/Therapy Plan Authorization (Routine) - Closed Specialty Diagnoses / Procedures Referred By Efrain phillip Referred To Contact Hematology and Oncology Diagnoses Lymphoma, unspecified body region, unspecified lymphoma type Lytic bone lesions on xray Procedures TC RITUXIMAB-PVVR, BIOSIMILAR, (RUXIENCE), 10 MG, INJ [id number] RUXIENCE Miguel Daugherty MD [facility] [place] [address] Miguel Daugherty MD [facility] [address] [place] [address] Referral ID Status Reason Start Date Expiration Date Visits Re quested Visits Authorized [id number] Closed 02/25/2023 02/25/2024 1 106 Encounter Details Date Type Department Care Team (Late st Contact Info) Description 04/08/2023 8:00 AM EDT Infusion Hematology Oncology at [address] [phone] Lymphoma, unspecified body region, unspecified [...] Sign Reading Time Taken Comments Blood Pressure 121/64 04/08/2023 8:25 AM EDT Pulse 77 04/08/2023 8:25 AM EDT Temperature 36.1 ??C (96.9 ??F) 04/08/2023 8:25 AM ED T Respiratory Rate 18 04/08/2023 8:25 AM EDT Oxygen Saturation 99% 04/08/2023 8:25 AM EDT Inhaled Oxygen Concentration - - Weight 51 kg (112 lb 6.4 oz) 04/08/2023 8:25 AM EDT Height 167.6 cm (5' 5.98) 04/08/2023 8:25 AM ED T Body Mass Index 18.15 04/08/2023 8:25 AM EDT documented in this encounter Progress Notes * Kristyn Payne, RN - 04/08/2023 8:00 AM EDT INFUSION THERAPY ADMINISTRATION NOTES DIAGNOSIS: Lymphoma CYCLE #: Cycle 2, Day 2 - Bendamustine, On pro REASON FOR VISIT: To receive chemotherapy, supportive care. SUBJECTIVE: Ani feels well today. OBJECTIVE: VSS LAB DATA: 04/07/23 - WBC - 5.26, H/H - 10.6/32.2, Plt Ct - ,294 ANC - 4.01, Lytes wnl, BUN/Cr - 16/0.5. IV ACCESS: Port accessed off site on 04/07/23. Flushes readily with brisk blood return. This flushes readily with blood return. Pre administration: Chemotherapy orders independently verified for drug name, route, and dosage per patient's height, weight and BSA by Kristyn Payne, KENNETH and Staff Pharmacist(s). REACTIONS (DESCRIPTION, TIME, INTERVENTION AND EFFECTIVENESS) none ASSESSMENT: Ani was awake, alert and tolerated treatment well. Port flushed with 20 cc's of NS and 500 unitsof heparin and de-accessed. OnPro applied to R arm at. Due to start deploying dose of medication at 04/09/23. Patient instructed to remove at 04/09/23 when meter reads empty and light is solid green. Verbal and written instruction given to patient. PLAN: Return to clinic as planned. documented in this encounter Plan of Treatment Upcoming Encounters Date Type Department Care Team (Late st Contact Info) Description 05/02/2024 8:30 AM EST Office Visit Hematology/Oncology at [address] [phone] Pardeep George MD [facility] [place] [address] Kelli Zapata APRN [address] [place] [address] [place] [address] 05/02/2024 9:00 AM EST Infusion Hematology Oncology at [address] [phone] 01/31/2025 8:30 AM EDT Office Visit Psychiatry [place] [address] Radha Negrete, PhD [facility] [place] [address] documented as of this encounter Visit Diagnoses [...] Recorded weight), Intravenous, ONCE, 1 dose, On Tue04/08/23 at 0930, Administer over 10 Minutes, The resulting final concentration of bendamustine in the infusion bag should be between 1.85 - 5.6 mg/mL. Warning Vesicant/Irritant Medication New Bag 04/08/2023 9:22 AM EDT 142 mg 334.1 mL/hr dexAMETHasone (Decadron) tablet 10 mg 10 mg, Oral, ONCE, 1 dose, On Tue04/08/23 at 0830, Give IV is patient is unable to tolerate Oral Administer prior to chemotherapy, Routine Given 04/08/2023 8:59 AM EDT 10 mg heparin (pf) (porcine) (100 units/mL) flush 5 mL syringe 500 Units 500 Units, Intravenous, ONCE PRN, Starting on Tue04/08/23 at 0800, Until Tue04/08/23 at 1301, Line Care, Refer to Intravenous (IV) Procedure: Accessing Implanted Vascular Access Devices (654) procedure and/or Intravenous (IV) Job Aid: Adult Flushing & Catheter Care (5638) job aid for additional information regarding guidelines and administration., Routine Given 04/08/2023 9:35 AM EDT 500 Units pegfilgrastim (Neulasta Onpro) (6 mg/0.6 mL) injection kit 6 mg 6 mg, Subcutaneous, ONCE, 1 dose, On Tue04/08/23 at 0830, Allow the prefilled syringe co-packaged with the on-body injector to reach room temperature at least 30 minutes prior to administration., Routine, This agent is restricted to outpatient use. Is this drug being given as an outpatient? Yes Given 04/08/2023 9:23 AM EDT 6 mg Right Arm sodium chloride 0.9 % (flush) (BD PosiFlush Normal Saline 0.9) flush 5-20 mL 5-20 mL, Intravenous, EVERY 1 MIN PRN, Starting on Alyce 04/07/23 at 1518, Until Tue04/08/23 at 1301, Line Care, Flush pertains to all indwelling lines. Flush per protocol found in the job aid using the link provided on this medication record. Refer to Intravenous (IV) Job Aid: Adult Flushing & Catheter Care (4252) job aid for additional information regarding guidelines and administration., Routine Given 04/08/2023 9:35 AM EDT 20 mLs sodium chloride 0.9% infusion 125 mL/hr, Intravenous, CONTINUOUS, Starting on Tue04/08/23 at 0830, Until Tue04/08/23 at 1301, Pls run IV fluids during chemo for maximum volume of 750-1000cc. New Bag 04/08/2023 8:45 AM EDT 125 mL/hr 125 mL/hr documented in this encounter Care Teams Blanket Folder Relationship Specialty Start Date End Date Blanquita Pagan APRN [address] [place] [address] PCP - General Family Medicine 01/07/23 documented as of this encounter
--- OUTSIDE RECORDS SUMMARY | 2024-05-02 08:10 | XMS_ITS | Encounter Summary ---
Author Organization [facility] Address [facility] [place] [address] Care Team Providers Care Entry Level Accounting Clerk Name Role Phone Blanquita Pagan APRN Primary Care Provider [phone] Encounter Details Date Type Department Care Team (Late st Contact Info) Description 03/22/2023 Telephone Hematology [place] [address] Gayathri Mcmillan, RN Social History Tobacco Use Types Packs/Day Years [...] encounter Miscellaneous Notes * Telephone Encounter - Gayathri Mcmillan RN - 03/22/2023 10:54 AM EDT RN called patient at MD request to review appointments for tomorrow. Pt to have port placed in IR arriving at 0730. Pt reports she and her are aware of appointments, they have talked to IR. Pt reports she has no further questions and will see us tomorrow. documented in this encounter Plan of Treatment Upcoming Encounters Date Type Department Care Team (Late st Contact Info) Description 05/02/2024 8:30 AM EST Office Visit Hematology/Oncology at [address] [phone] Pardeep George MD [facility] [place] [address] Kelli Zapata APRN [address] [place] [address] [place] [address] 05/02/2024 9:00 AM EST Infusion Hematology Oncology at [address] [phone] 01/31/2025 8:30 AM EDT Office Visit Psychiatry and [place] [address] Radha Negrete, PhD [facility] [place] [address] documented as of this encounter Visit Diagnoses Not on filedocumented in this encounter Care Teams Entry Level Accounting Clerk Relationship Specialty Start Date End Date Blanquita Pagan APRN [address] [place] [address] PCP - General Family Medicine 01/07/23 documented as of this encounter
--- OUTSIDE RECORDS SUMMARY | 2024-05-02 08:10 | XMS_ITS | Encounter Summary ---
Author Organization [facility] Address [facility] [place] [address] Care Team Providers Care Dealer Card Room Name Role Phone Blanquita Pagan APRN Primary Care Provider [phone] Encounter Details Date Type Department Care Team (Late st Contact Info) Description 04/29/2023 12:10 PM EDT Ancillary Procedure Radiology Library at [facility] [place] [phone] Blanquita Pagan APRN [address] [place] [address] Social History Tobacco Use Types Packs/Day Years [...] in a half-way (including now)? No 02/16/2023 IPV Inpatient Questions [...] AM EST Office Visit Hematology/Oncology at [address] [phone] Pardeep George MD [facility] [place] [address] Kelli Zapata APRN [address] [place] [address] [place] [address] 05/02/2024 9:00 AM EST Infusion Hematology Oncology at [address] [phone] 01/31/2025 8:30 AM EDT Office Visit Psychiatry [place] [address] Radha Negrete, PhD [facility] [place] [address] documented as of this encounter Procedures Procedure Name Priority Date/Time Associated Diagnosis Comments FILM LIBRARY STORAGE ONLY CT CHEST ABDOMEN PELVIS Routine 04/29/2023 12:05 PM EDT documented in this encounter Results * Film Library- Storage Only CT Chest Abdomen Pelvis (04/29/2023 12:05 PM EDT) Narrative KISHORE - 04/29/2023 12:05 PM EDT This exam is auto-finalizing. It's purpose is for storage only. Blanquita Pagan APRN IMG FILM LIBRARY ORD ERABLES Performing Organization Address City/State/[facility] Co de Phone Number [place], [place] documented in this encounter Visit Diagnoses Not on filedocumented in this encounter Care Teams Dealer Card Room Relationship Specialty Start Date End Date Blanquita Pagan APRN [address] [place] [address] PCP - General Family Medicine 01/07/23 documented as of this encounter
--- OUTSIDE RECORDS SUMMARY | 2024-05-02 08:10 | XMS_ITS | Encounter Summary ---
Author Organization [facility] Address [facility] [place] [address] Care Team Providers Care Food Analyst Name Role Phone Blanquita Pagan APRN Primary Care Provider [phone] Encounter Details Date Type Department Care Team (Latest Contact Info) Description 03/23/2023 Travel Social History Tobacco Use Types Packs/Day [...] AM EST Office Visit Hematology/Oncology at [address] [phone] Pardeep George MD [facility] DR [place] [address] Kelli Zapata APRN [address] [place] [address] [place] [address] 05/02/2024 9:00 AM EST Infusion Hematology Oncology at [address] [phone] 01/31/2025 8:30 AM EDT Office Visit Psychiatry [place] [address] Radha Negrete, PhD [facility] [place] [address] documented as of this encounter Visit Diagnoses Not on filedocumented in this encounter Care Teams Food Analyst Relationship Specialty Start Date End Date Blanquita Pagan APRN [address] [place] [address] PCP - General Family Medicine 01/07/23 documented as of this encounter
--- OUTSIDE RECORDS SUMMARY | 2024-05-02 08:10 | XMS_ITS | Encounter Summary ---
Author Organization [facility] Address [facility] [place] [address] Care Team Providers Care Curriculum Designer Name Role Phone Blanquita Pagan APRN Primary Care Provider [phone] Encounter Details Date Type Department Care Team (Late st Contact Info) Description 05/05/2023 8:30 AM EST Office Visit Hematology/Oncology at [address] [phone] Pardeep George MD [facility] [place] [address] Magdalena Ashraf APRN [facility] [place] [address] Follicular lymphoma grade I, unspecified body region Social History Tobacco Use [...] place to sleep or slept in a residential (including now)? No 02/16/2023 DH IPV Inpatient [...] Sign Reading Time Taken Comments Blood Pressure 142/76 05/05/2023 8:34 AM EST Pulse 75 05/05/2023 8:34 AM EST Temperature 36 ??C (96.8 ??F) 05/05/2023 8:34 AM EST Respiratory Rate 18 05/05/2023 8:34 AM EST Oxygen Saturation 100% 05/05/2023 8:34 AM EST Inhaled Oxygen Concentration - - Weight 49.4 kg (109 lb) 05/05/2023 8:34 AM EST Height 167.6 cm (5' 5.98) 05/05/2023 8:34 AM ES T Body Mass Index 17.6 05/05/2023 8:34 AM EST documented in this encounter Progress Notes * Pardeep George MD - 05/05/2023 8:30 AM EST Subjective Patient ID: Ani Ridley is a 73 y.o. female. HPI The patient is a 73-year-old female that I am seeing in the [facility]. She has been diagnosed with follicular lymphoma. She was worked up in the [facility] .by Dr. Daugherty and startedon Bendamustine and Rituxan. She has now completed 2 cycles She tolerated treatment quite well. No new pains. Still with fatigue after the treatment but betterafter the 1st week. She managed constipation well the last cycle Patient Active Problem List Diagnosis Code Lymphoma C85.90 Lytic bone lesions on xray M89.9 Anemia, iron deficiency D50.9 Current Outpatient Medications: polyethylene glycoL (Miralax) 17 gram oral powder [...] mg by mouth daily., Disp: , Rfl: traMADoL (Ultram) 50 mg tablet, Take 0.5 tablets by mouth every 6 hours as needed for Pain. (Patient not taking: Reported on 04/07/2023), Disp: 30 tablet, Rfl: 0 prochlorperazine (Compazine) 10 mg tablet, Take 1 [...] systems reviewed and are negative. Objective BP 142/76 (Patient Position: Sitting) Pulse 75 Temp 36 ??C (96.8 ??F) (Temporal) Resp 18 Ht167.6 cm (5' 5.98) Wt 49.4 kg (109 lb) SpO2 100% BMI 17.60 kg/m?? Physical Exam Constitutional: General: She is not in acute distress. HENT: Mouth/Throat: Mouth: Mucous membranes are moist. Eyes: General: No scleral icterus. Cardiovascular: Rate and Rhythm: Normal rate. Pulmonary: Effort: Pulmonary effort is normal. Lymphadenopathy: Cervical: No cervical adenopathy. Skin: Findings: No rash. Neurological: Mental Status: She is alert and oriented to person, place, and time. Labs today White count 5.5, ANC 4.3, hemoglobin 11.2, platelets 356 CT scan from 04/29/2023. I reviewed the images personally interval decrease in size of adenopathy in the neck chest abdomen and pelvis 2. Stable 6 cm cyst in the left ovary 3. Severe compression fracture T9 Assessment and Plan 73-year-old female diagnosed with advanced stage low-grade follicular lymphoma. She has initiated chemotherapy with Bendamustine and Rituxan and has now completed 2 cycles and she has tolerated therapy well. Current CT scan shows significant improvement in her disease and most particularly the paraspinal mass. She does not seem to have any symptoms from the T9 compression fracture and I do not think that is related to the lymphoma. She does have underlying osteoporosis and is on alendronate and I suspect that this was source of her compression fracture. We will proceed with cycle 3 today. She will return in 4 weeks for cycle 4. We will try to complete6 cycles and then reimage her at that point. documented in this encounter Plan of Treatment Upcoming Encounters Date Type Department Care Team (Late st Contact Info) Description 05/02/2024 8:30 AM EST Office Visit Hematology/Oncology at [address] [phone] Pardeep George MD [facility] [address] [place] [address] Kelli Zapata APRN [address] [place] [address] DR MEDICAL ONCOLOGY [place], [place] [id number] 05/02/2024 9:00 AM EST Infusion Hematology Oncology at [address] [phone] 01/31/2025 8:30 AM EDT Office Visit Psychiatry and [place] [address] Radha Negrete, PhD [facility] [place] [address] documented as of this encounter Procedures Procedure Name Priority Date/Time Associated Diagnosis Comments CBC (WITH DIFF) Routine 05/05/2023 COMPREHENSIVE METABOLIC PANEL Routine 05/05/2023 documented in this encounter Results * (ABNORMAL) Comprehensive metabolic panel (non-fasting) (05/05/2023) Glucose 93 Blood Urea Nitrogen 16 Creatinine 0.5(L) Sodium 137 Potassium 4.2 Calcium 9.5 Protein, Total 7.0 Albumin 3.8 Bilirubin, Total 0.5 Alkaline Phosphatase 74 Aspartate Aminotransferase 28 Alanine Aminotransferase 42 Lactate Dehydrogenase 190 Blood 05/05/2023 Historical Provider CHEMISTRY ORDERAB LES * CBC (with Diff) (05/05/2023) White Blood Cell 5.51 Red Blood Cell 3.70 Hemoglobin 11.2 Hematocrit 33.6 Platelet 356 Neutrophil Absolute (ANC) - Automated 4.34 Blood 05/05/2023 Historical Provider HEMATOLOGY ORDERA BLES documented in this encounter Visit Diagnoses Diagnosis Follicular lymphoma grade I, unspecified body region documented in this encounter Care Teams Curriculum Designer Relationship Specialty Start Date End Date Blanquita Pagan APRN [address] [place] [address] PCP - General Family Medicine 01/07/23 documented as of this encounter
--- OUTSIDE RECORDS SUMMARY | 2024-05-02 08:10 | XMS_ITS | Encounter Summary ---
Author Organization [facility] Address [facility] [place] [address] Care Team Providers Care Car Ferry Captain Name Role Phone Blanquita Pagan APRN Primary Care Provider [phone] Reason for Visit * Reason Comments Chemotherapy C4D2 Bendamustine + Onpro * Treatment/Therapy Plan Authorization (Routine) - Closed Specialty Diagnoses / Procedures Referred By Contac t Referred To Contact Hematology and Oncology Diagnoses Lymphoma, unspecified body region, unspecified lymphoma type Lytic bone lesions on xray Procedures TC RITUXIMAB-PVVR, BIOSIMILAR, (RUXIENCE), 10 MG, INJ Q5119 RUXIENCE Miguel Daugherty MD [facility] [place] [address] Miguel Daugherty MD [facility] [address] [place] [address] Referral ID Status Reason Start Date Expiration Date Visits Re quested Visits Authorized [id number] Closed 02/25/2023 02/25/2024 1 106 Encounter Details Date Type Department Care Team (Late st Contact Info) Description 06/03/2023 8:30 AM EST Infusion Hematology Oncology at [address] [phone] Lymphoma, unspecified body region, unspecified [...] place to sleep or slept in a group home (including now)? No 02/16/2023 DH IPV [...] Sign Reading Time Taken Comments Blood Pressure 150/79 06/03/2023 8:30 AM EST Pulse 69 06/03/2023 8:30 AM EST Temperature 36.2 ??C (97.1 ??F) 06/03/2023 8:30 AM ES T Respiratory Rate 18 06/03/2023 8:30 AM EST Oxygen Saturation 100% 06/03/2023 8:30 AM EST Inhaled Oxygen Concentration - - Weight 50.9 kg (112 lb 4.8 oz) 06/03/2023 8:30 A M EST Height 167.3 cm (5' 5.87) 06/03/2023 8:30 AM ES T Body Mass Index 18.2 06/03/2023 8:30 AM EST documented in this encounter Progress Notes * Sommer Kidd RN - 06/03/2023 8:30 AM EST INFUSION THERAPY ADMINISTRATION NOTES DIAGNOSIS: lymphoma PROTOCOL:na CYCLE #: 4 day 2 REASON FOR VISIT: bendamustine + Onpro SUBJECTIVE Ani Ridley offers no complaints, she reports less brain fog with excluding the dexamethasone yesterday. OBJECTIVE LAB DATA: Labs reviewed and found adequate for treatment. Mediport with excellent blood return before during and after treatment, left accessed per pt request Pre administration: Chemotherapy orders independently verified for drug name, route, and dosage per patient's height, weight and BSA by Sommer Kidd, KENNETH and pharmacists on site. REACTIONS (DESCRIPTION, TIME, INTERVENTION AND EFFECTIVENESS) none ASSESSMENT Ani Ridley was awake, alert and he tolerated treatment well. OnPro applied to right arm at 0848. Due to start deploying dose of medication at 1148. Patient instructed to remove at 1248 when meter reads empty and light is solid green. Verbal and written instruction given to patient. PLAN Return to clinic per plan. documented in this encounter Plan of Treatment Upcoming Encounters Date Type Department Care Team (Late st Contact Info) Description 05/02/2024 8:30 AM EST Office Visit Hematology/Oncology at [address] [phone] Pardeep George MD [facility] [address] [place] [address] Kelli Zapata APRN [address] [place] [address] [place] [address] 05/02/2024 9:00 AM EST Infusion Hematology Oncology at [address] [phone] 01/31/2025 8:30 AM EDT Office Visit Psychiatry and Behavioral Health at [facility] [place] [address] Radha Negrete, PhD [facility] [place] [address] documented as of this encounter Visit Diagnoses [...] Recorded weight), Intravenous, ONCE, 1 dose, On Tue06/03/23 at 0830, Administer over 10 Minutes, The resulting final concentration of bendamustine in the infusion bag should be between 1.85 - 5.6 mg/mL. Warning Vesicant/Irritant Medication New Bag 06/03/2023 8:41 AM EST 142 mg 334.1 mL/hr pegfilgrastim (Neulasta Onpro) (6 mg/0.6 mL) injection kit 6 mg 6 mg, Subcutaneous, ONCE, 1 dose, On Tue06/03/23 at 0830, Allow the prefilled syringe co-packaged with the on-body injector to reach room temperature at least 30 minutes prior to administration., Routine, This agent is restricted to outpatient use. Is this drug being given as an outpatient? Yes Given 06/03/2023 8:48 AM EST 6 mg Right Arm sodium chloride 0.9% infusion 125 mL/hr, Intravenous, CONTINUOUS, Starting on Tue06/03/23 at 0830, Until Tue06/03/23 at 1107, Pls run IV fluids during chemo for maximum volume of 750-1000cc. New Bag 06/03/2023 8:38 AM EST 125 mL/hr 125 mL/hr documented in this encounter Care Teams Car Ferry Captain Relationship Specialty Start Date End Date Blanquita Pagan APRN [address] [place] [address] PCP - General Family Medicine 01/07/23 documented as of this encounter
--- OUTSIDE RECORDS SUMMARY | 2024-05-02 08:10 | XMS_ITS | Encounter Summary ---
Author Organization [facility] Address [facility] [place] [address] Care Team Providers Care Digester Hand Name Role Phone Blanquita Pagan APRN Primary Care Provider [phone] Encounter Details Date Type Department Care Team (Latest Contact Info) Description 07/28/2023 Travel Social History Tobacco Use Types Packs/Day [...] AM EST Office Visit Hematology/Oncology at [address] [phone] Pardeep George MD [facility] DR [place] [address] Kelli Zapata APRN [address] [place] [address] [place] [address] 05/02/2024 9:00 AM EST Infusion Hematology Oncology at [address] [phone] 01/31/2025 8:30 AM EDT Office Visit Psychiatry [place] [address] Radha Negrete, PhD [facility] [place] [address] documented as of this encounter Visit Diagnoses Not on filedocumented in this encounter Care Teams Digester Hand Relationship Specialty Start Date End Date Blanquita Pagan APRN [address] [place] [address] PCP - General Family Medicine 01/07/23 documented as of this encounter
--- OUTSIDE RECORDS SUMMARY | 2024-05-02 08:10 | XMS_ITS | Encounter Summary ---
Author Organization [facility] Address [facility] [place] [address] Care Team Providers Care Student Life Advisor Name Role Phone Blanquita Pagan APRN Primary Care Provider [phone] Reason for Visit * Reason Comments Chemotherapy C5D1 Sumaya/Rituxan * Treatment/Therapy Plan Authorization (Routine) - Closed Specialty Diagnoses / Procedures Referred By Contac t Referred To Contact Hematology and Oncology Diagnoses Lymphoma, unspecified body region, unspecified lymphoma type Lytic bone lesions on xray Procedures TC RITUXIMAB-PVVR, BIOSIMILAR, (RUXIENCE), 10 MG, INJ Q5119 RUXIENCE Miguel Daugherty MD [facility] DR HEMATOLOGY [place] [address] Miguel Daugherty MD [facility] DR HEMATOLOGY [place] [address] Referral ID Status Reason Start Date Expiration Date Visits Re quested Visits Authorized [id number] Closed 02/25/2023 02/25/2024 1 106 Encounter Details Date Type Department Care Team (Late st Contact Info) Description 06/30/2023 9:00 AM EST Infusion Hematology Oncology at [address] [phone] Lymphoma, unspecified body region, unspecified [...] Progress Notes * Sommer Kidd RN - 06/30/2023 9:00 AM EST INFUSION THERAPY ADMINISTRATION NOTES DIAGNOSIS: lymphoma PROTOCOL:na CYCLE #: 5 day 1 REASON FOR VISIT: rituxan/bendamustine SUBJECTIVE Ani Ridley offers no complaints, she had a provider visit prior to infusion, ready for treatment. OBJECTIVE LAB DATA: Labs reviewed and found [...] tolerated treatment well. PLAN Return to clinic tomorrow for day 2 of cycle 5. documented in this encounter Plan of Treatment Upcoming Encounters Date Type Department Care Team (Late st Contact Info) Description 05/02/2024 8:30 AM EST Office Visit Hematology/Oncology at [address] [phone] Pardeep George MD [facility] DR HEMATOLOGY [place] [address] Kelli Zapata APRN [address] [place] [address] DR MEDICAL ONCOLOGY [place], [place] [id number] 05/02/2024 9:00 AM EST Infusion Hematology Oncology at [address] [phone] 01/31/2025 8:30 AM EDT Office Visit Psychiatry [place] [address] Radha Negrete, PhD [facility] [place] [address] documented as of this encounter Visit Diagnoses [...] mg, Oral, ONCE, 1 dose, On Alyce 06/30/23 at 0930, Administer prior to riTUXimab., Routine Given 06/30/2023 9:33 AM EST 650 mg bendamustine (Bendeka/Belrapzo) 142 mg in sodium chloride 0.9% 55.68 mL infusion 142 mg (rounded from 142.2 mg = 90 mg/m2/dose ? 1.58 m2 Treatment Plan BSA from Recorded weight), Intravenous, ONCE, 1 dose, On Alyce 06/30/23 at 1030, Administer over 10 Minutes, The resulting final concentration of bendamustine in the infusion bag should be between 1.85 - 5.6 mg/mL. Warning Vesicant/Irritant Medication New Bag 06/30/2023 11:55 AM EST 142 mg 334.1 mL/hr diphenhydrAMINE (Benadryl) capsule 50 mg 50 mg, Oral, ONCE, 1 dose, On Alyce 06/30/23 at 0930, Administer prior to riTUXimab, Routine Given 06/30/2023 9:33 AM EST 50 mg palonosetron (Aloxi) (0.05 mg/mL) injection 0.25 mg 0.25 mg, Intravenous, ONCE, 1 dose, On Alyce 06/30/23 at 0930, Administer over 30 seconds., Routine Given 06/30/2023 9:33 AM EST 0.25 mg riTUXimab-pvvr (Ruxience) 600 mg in sodium chloride 0.9% 300 mL infusion 600 mg, Intravenous, ONCE, 1 dose, On Alyce 06/30/23 at 1030, Administer Per Protocol, Is this product being used for treatment of malignant indication? Yes, Patient is a candidate for rapid infusion riTUXimab? Yes New Bag 06/30/2023 10:14 AM EST 600 mg sodium chloride 0.9 % (flush) (BD PosiFlush Normal Saline 0.9) flush 5-20 mL 5-20 mL, Intravenous, EVERY 1 MIN PRN, Starting on Alyce 06/30/23 at 0909, Until Alyce 06/30/23 at 1438, Line Care, Flush pertains to all indwelling lines. Flush per protocol found in the job aid using the link provided on this medication record. Refer to Intravenous (IV) Job Aid: Adult Flushing & Catheter Care (0927) job aid for additional information regarding guidelines and administration., Routine Given 06/30/2023 12:09 PM EST 20 mLs sodium chloride 0.9% infusion 125 mL/hr, Intravenous, CONTINUOUS, Starting on Alyce 06/30/23 at 0930, Until Alyce 06/30/23 at 1438, Pls run IV fluids during chemo for maximum volume of 750-1000cc. New Bag 06/30/2023 9:41 AM EST 125 mL/hr 125 mL/hr documented in this encounter Care Teams Student Life Advisor Relationship Specialty Start Date End Date Blanquita Pagan APRN [address] [place] [address] PCP - General Family Medicine 01/07/23 documented as of this encounter
--- OUTSIDE RECORDS SUMMARY | 2024-05-02 08:10 | XMS_ITS | Encounter Summary ---
Author Organization [facility] Address [facility] [place] [address] Care Team Providers Care Cigar Head Holer Name Role Phone Blanquita Pagan APRN Primary Care Provider [phone] Encounter Details Date Type Department Care Team (Late st Contact Info) Description 06/02/2023 Notes Only Hematology/Oncology at [address] [phone] Svitlana Allan, [employer] OFFICE OF CARE MANAGEMENT Social History Tobacco [...] to sleep or slept in a senior living (including now)? No 02/16/2023 DH IPV Inpatient [...] Progress Notes * Svitlana Allan MSW - 06/02/2023 10:07 AM EST Follow up with Ani during her infusion visit. She indicated shei s managing day to day fairly well. She has good supports. She enjoyed her Thanksgiving with family. Ani did not identify any new needs today. Offered support. Will follow as indicated. Brief assessment Supportive Counseling documented in this encounter Plan of Treatment Upcoming Encounters Date Type Department Care Team (Late st Contact Info) Description 05/02/2024 8:30 AM EST Office Visit Hematology/Oncology at [address] [phone] Pardeep George MD [facility] DR HEMATOLOGY [place] [address] Kelli Zapata APRN [address] [place] [address] [place] [address] 05/02/2024 9:00 AM EST Infusion Hematology Oncology at [address] [phone] 01/31/2025 8:30 AM EDT Office Visit Psychiatry and [place] [address] Radha Negrete, PhD [facility] [place] [address] documented as of this encounter Visit Diagnoses Not on filedocumented in this encounter Care Teams Cigar Head Holer Relationship Specialty Start Date End Date Blanquita Pagan APRN [address] [place] [address] PCP - General Family Medicine 01/07/23 documented as of this encounter
--- OUTSIDE RECORDS SUMMARY | 2024-05-02 08:10 | XMS_ITS | Encounter Summary ---
Author Organization [facility] Address [facility] [place] [address] Care Team Providers Care Independent Agent Music Education Name Role Phone Blanquita Pagan APRN Primary Care Provider [phone] Reason for Visit * Reason Comments Chemotherapy C4D1 Sumaya/Rituxan * Treatment/Therapy Plan Authorization (Routine) - Closed Specialty Diagnoses / Procedures Referred By Contac t Referred To Contact Hematology and Oncology Diagnoses Lymphoma, unspecified body region, unspecified lymphoma type Lytic bone lesions on xray Procedures TC RITUXIMAB-PVVR, BIOSIMILAR, (RUXIENCE), 10 MG, INJ Q5119 RUXIENCE Miguel Daugherty MD [facility] [place] [address] Miguel Daugherty MD [facility] [place] [address] Referral ID Status Reason Start Date Expiration Date Visits Re quested Visits Authorized [id number] Closed 02/25/2023 02/25/2024 1 106 Encounter Details Date Type Department Care Team (Late st Contact Info) Description 06/02/2023 9:00 AM EST Infusion Hematology Oncology at [address] [phone] Lymphoma, unspecified body region, unspecified [...] of this encounter Progress Notes * Sommer Kidd, RN - 06/02/2023 9:00 AM EST INFUSION THERAPY ADMINISTRATION NOTES DIAGNOSIS: lymphoma PROTOCOL:na CYCLE #: 4 day 1 REASON FOR VISIT: rituxan/bendamustine SUBJECTIVE Ani Ridley offers no complaints. OBJECTIVE [...] clinic tomorrow for day 2 of cycle 4. documented in this encounter Plan of Treatment Upcoming Encounters Date Type Department Care Team (Late st Contact Info) Description 05/02/2024 8:30 AM EST Office Visit Hematology/Oncology at [address] [phone] Pardeep George MD [facility] [place] [address] Kelli Zapata APRN [address] [place] [address] DR MEDICAL ONCOLOGY [place], [place] [id number] 05/02/2024 9:00 AM EST Infusion Hematology Oncology at [address] [phone] 01/31/2025 8:30 AM EDT Office Visit Psychiatry and [place]al [place] [address] Radha Negrete, PhD [facility] [place] [address] documented as of this encounter Visit Diagnoses [...] mg, Oral, ONCE, 1 dose, On Alyce 06/02/23 at 0930, Administer prior to riTUXimab., Routine Given 06/02/2023 9:28 AM EST 650 mg bendamustine (Bendeka/Belrapzo) 142 mg in sodium chloride 0.9% 55.68 mL infusion 142 mg (rounded from 142.2 mg = 90 mg/m2/dose ? 1.58 m2 Treatment Plan BSA from Recorded weight), Intravenous, ONCE, 1 dose, On Alyce 06/02/23 at 1030, Administer over 10 Minutes, The resulting final concentration of bendamustine in the infusion bag should be between 1.85 - 5.6 mg/mL. Warning Vesicant/Irritant Medication New Bag 06/02/2023 11:56 AM EST 142 mg 334.1 mL/hr diphenhydrAMINE (Benadryl) capsule 50 mg 50 mg, Oral, ONCE, 1 dose, On Alyce 06/02/23 at 0930, Administer prior to riTUXimab, Routine Given 06/02/2023 9:28 AM EST 50 mg heparin (pf) (porcine) (100 units/mL) flush 5 mL syringe 500 Units 500 Units, Intravenous, ONCE PRN, Starting on Alyce 06/02/23 at 0909, Until Alyce 06/02/23 at 1419, Line Care, Refer to Intravenous (IV) Procedure: Accessing Implanted Vascular Access Devices (494) procedure and/or Intravenous (IV) Job Aid: Adult Flushing & Catheter Care (8669) job aid for additional information regarding guidelines and administration., Routine Given 06/02/2023 12:11 PM EST 500 Units palonosetron (Aloxi) (0.05 mg/mL) injection 0.25 mg 0.25 mg, Intravenous, ONCE, 1 dose, On Alyce 06/02/23 at 0930, Administer over 30 seconds., Routine Given 06/02/2023 9:31 AM EST 0.25 mg riTUXimab-pvvr (Ruxience) 600 mg in sodium chloride 0.9% 300 mL infusion 600 mg, Intravenous, ONCE, 1 dose, On Alyce 06/02/23 at 1030, Administer Per Protocol, Is this product being used for treatment of malignant indication? Yes, Patient is a candidate for rapid infusion riTUXimab? Yes New Bag 06/02/2023 10:17 AM EST 600 mg sodium chloride 0.9 % (flush) (BD PosiFlush Normal Saline 0.9) flush 5-20 mL 5-20 mL, Intravenous, EVERY 1 MIN PRN, Starting on Alyce 06/02/23 at 0909, Until Alyce 06/02/23 at 1419, Line Care, Flush pertains to all indwelling lines. Flush per protocol found in the job aid using the link provided on this medication record. Refer to Intravenous (IV) Job Aid: Adult Flushing & Catheter Care (0026) job aid for additional information regarding guidelines and administration., Routine Given 06/02/2023 12:11 PM EST 20 mLs sodium chloride 0.9% infusion 125 mL/hr, Intravenous, CONTINUOUS, Starting on Alyce 06/02/23 at 0930, Until Alyce 06/02/23 at 1419, Pls run IV fluids during chemo for maximum volume of 750-1000cc. New Bag 06/02/2023 10:12 AM EST 125 mL/hr 125 mL/hr documented in this encounter Care Teams Independent Agent Music Education Relationship Specialty Start Date End Date Blanquita Pagan APRN [address] [place] [address] PCP - General Family Medicine 01/07/23 documented as of this encounter
--- OUTSIDE RECORDS SUMMARY | 2024-05-02 08:10 | XMS_ITS | Encounter Summary ---
[facility] Address [facility] Kumar dennisruben [place] [id number] Care Team Providers Care Vamp Maker Name Role Phone Blanquita Pagan APRN Primary Care Provider [phone] Reason for Visit * Reason Comments Chemotherapy * Treatment/Therapy Plan Authorization (Routine) - Closed Specialty Diagnoses / Procedures Referred By Contac t Referred To Contact Hematology and Oncology Diagnoses Lymphoma, unspecified body region, unspecified lymphoma type Lytic bone lesions on xray Procedures TC RITUXIMAB-PVVR, BIOSIMILAR, (RUXIENCE), 10 MG, INJ Q5119 RUXIENCE Miguel Daugherty MD [facility] [place] [address] Miguel Daugherty MD [facility] DR HEMATOLOGY [place] [address] Referral ID Status Reason Start Date Expiration Date Visits Re quested Visits Authorized [id number] Closed 02/25/2023 02/25/2024 1 106 Encounter Details Date Type Department Care Team (Late st Contact Info) Description 05/05/2023 9:00 AM EST Infusion Hematology Oncology at [address] [phone] Lymphoma, unspecified body region, unspecified [...] as of this encounter Progress Notes * Loni Nobles, RN - 05/05/2023 9:00 AM EST INFUSION THERAPY ADMINISTRATION NOTES DIAGNOSIS: lymphoma PROTOCOL:na CYCLE #: 2 day 1 REASON FOR VISIT: rituxan/bendamustine SUBJECTIVE Ani Ridley offers no complaints. OBJECTIVE LAB DATA: Labs reviewed and found adequate for treatment. Mediport with excellent blood return before during and after treatment, left accessed per pt request Rituxan at rapid rate no issues 120 cc/hr for 60 ccs then 240 cc/hr for 240 ccs Pre administration: Chemotherapy orders independently verified for drug name, route, and dosage per patient's height, weight and BSA by Loni Nobles, KENNETH and Jose Banks pharmacist. REACTIONS (DESCRIPTION, TIME, INTERVENTION AND EFFECTIVENESS) none ASSESSMENT Ani Ridley was awake, alert and he tolerated treatment well. PLAN Return to clinic tomorrow for day 2 of cycle 2. documented in this encounter Plan of Treatment Upcoming Encounters Date Type Department Care Team (Late st Contact Info) Description 05/02/2024 8:30 AM EST Office Visit Hematology/Oncology at [address] [phone] Pardeep George MD [facility] DR HEMATOLOGY [place] [address] Kelli Zapata APRN [address] [place] [address] DR MEDICAL ONCOLOGY [place], [place] [address] 05/02/2024 9:00 AM EST Infusion Hematology Oncology at [address] [phone] 01/31/2025 8:30 AM EDT Office Visit Psychiatry [place] [address] Radha Negrete, PhD [facility] [place] [address] documented as of this encounter Visit Diagnoses [...] mg, Oral, ONCE, 1 dose, On Alyce 05/05/23 at 0930, Administer prior to riTUXimab., Routine Given 05/05/2023 9:38 AM EST 650 mg bendamustine (Bendeka/Belrapzo) 142 mg in sodium chloride 0.9% 55.68 mL infusion 142 mg (rounded from 142.2 mg = 90 mg/m2/dose ? 1.58 m2 Treatment Plan BSA from Recorded weight), Intravenous, ONCE, 1 dose, On Alyce 05/05/23 at 1030, Administer over 10 Minutes, The resulting final concentration of bendamustine in the infusion bag should be between 1.85 - 5.6 mg/mL. Warning Vesicant/Irritant Medication New Bag 05/05/2023 11:53 AM EST 142 mg 334.1 mL/hr dexAMETHasone (Decadron) tablet 10 mg 10 mg, Oral, ONCE, 1 dose, On Alyce 05/05/23 at 0930, Administer prior to riTUXimab, Routine Given 05/05/2023 9:38 AM EST 10 mg diphenhydrAMINE (Benadryl) capsule 50 mg 50 mg, Oral, ONCE, 1 dose, On Alyce 05/05/23 at 0930, Administer prior to riTUXimab, Routine Given 05/05/2023 9:38 AM EST 50 mg palonosetron (Aloxi) (0.05 mg/mL) injection 0.25 mg 0.25 mg, Intravenous, ONCE, 1 dose, On Alyce 05/05/23 at 0930, Administer over 30 seconds., Routine Given 05/05/2023 9:40 AM EST 0.25 mg riTUXimab-pvvr (Ruxience) 600 mg in sodium chloride 0.9% 300 mL infusion 600 mg, Intravenous, ONCE, 1 dose, On Alyce 05/05/23 at 1030, Administer Per Protocol, Is this product being used for treatment of malignant indication? Yes, Patient is a candidate for rapid infusion riTUXimab? Yes New Bag 05/05/2023 10:23 AM EST 600 mg sodium chloride 0.9% infusion 125 mL/hr, Intravenous, CONTINUOUS, Starting on Alyce 05/05/23 at 0930, Until Alyce 05/05/23 at 1753, Pls run IV fluids during chemo for maximum volume of 750-1000cc. New Bag 05/05/2023 9:39 AM EST 125 mL/hr 125 mL/hr documented in this encounter Care Teams Vamp Maker Relationship Specialty Start Date End Date Blanquita Pagan APRN [address] [place] [address] PCP - General Family Medicine 01/07/23 documented as of this encounter
--- OUTSIDE RECORDS SUMMARY | 2024-05-02 08:10 | XMS_ITS | Encounter Summary ---
Author Organization [facility] Address [facility] [place] [address] Care Team Providers Care Wound Care Physician Name Role Phone Blanquita Pagan APRN Primary Care Provider [phone] Encounter Details Date Type Department Care Team (Latest Contact Info) Description 06/02/2023 Travel Social History Tobacco Use Types Packs/Day [...] a group home (including now)? No 02/16/2023 IPV Inpatient [...] 8:30 AM EST Office Visit Hematology/Oncology at [address] [phone] Pardeep George MD [facility] DR [place] [address] Kelli Zapata APRN [address] [place] [address] [place] [address] 05/02/2024 9:00 AM EST Infusion Hematology Oncology at [address] [phone] 01/31/2025 8:30 AM EDT Office Visit Psychiatry [place] [address] Radha Negrete, PhD [facility] [place] [address] documented as of this encounter Visit Diagnoses Not on filedocumented in this encounter Care Teams Wound Care Physician Relationship Specialty Start Date End Date Blanquita Pagan APRN [address] [place] [address] PCP - General Family Medicine 01/07/23 documented as of this encounter
--- OUTSIDE RECORDS SUMMARY | 2024-05-02 08:10 | XMS_ITS | Encounter Summary ---
Author Organization [facility] Address [facility] [place] [address] Care Team Providers Care Director Of Culture Name Role Phone Blanquita Pagan APRN Primary Care Provider [phone] Encounter Details Date Type Department Care Team (Latest Contact Info) Description 06/30/2023 Travel Social History Tobacco Use Types Packs/Day [...] a skilled nursing (including now)? No 02/16/2023 IPV Inpatient Questions [...] AM EST Office Visit Hematology/Oncology at [address] [phone] Pardeep George MD [facility] DR HEMATOLOGY [place] [address] Kelli Zapata APRN [address] [place] [address] [place] [address] 05/02/2024 9:00 AM EST Infusion Hematology Oncology at [address] [phone] 01/31/2025 8:30 AM EDT Office Visit Psychiatry [place] [address] Radha Negrete, PhD [facility] [place] [address] documented as of this encounter Visit Diagnoses Not on filedocumented in this encounter Care Teams Director Of Culture Relationship Specialty Start Date End Date Blanquita Pagan APRN [address] [place] [address] PCP - General Family Medicine 01/07/23 documented as of this encounter
--- OUTSIDE RECORDS SUMMARY | 2024-05-02 08:10 | XMS_ITS | Encounter Summary ---
Author Organization [facility] Address [facility] Kumar dennisruben [place] [id number] Care Team Providers Care Origination Specialist Name Role Phone Blanquita Pagan APRN Primary Care Provider [phone] Reason for Visit * Reason Comments Chemotherapy * Treatment/Therapy Plan Authorization (Routine) - Closed Specialty Diagnoses / Procedures Referred By Contac t Referred To Contact Hematology and Oncology Diagnoses Lymphoma, unspecified body region, unspecified lymphoma type Lytic bone lesions on xray Procedures TC RITUXIMAB-PVVR, BIOSIMILAR, (RUXIENCE), 10 MG, INJ Q5119 RUXIENCE Miguel Daugherty MD [facility] DR [place]AT[place] [address] Miguel Daugherty MD [facility] DR [place] [address] Referral ID Status Reason Start Date Expiration Date Visits Re quested Visits Authorized [id number] Closed 02/25/2023 02/25/2024 1 106 Encounter Details Date Type Department Care Team (Late st Contact Info) Description 05/06/2023 8:00 AM EST Infusion Hematology Oncology at [address] [phone] Lymphoma, unspecified body region, unspecified [...] Progress Notes * Chriss Nobles, RN - 05/06/2023 8:00 AM EST INFUSION THERAPY ADMINISTRATION NOTES DIAGNOSIS: Lymphoma CYCLE #: Cycle 3, Day 2 - Bendamustine, On pro REASON FOR VISIT: To receive chemotherapy, supportive care. SUBJECTIVE: Ani feels well today. OBJECTIVE: VSS LAB DATA: adequate for treatment IV ACCESS: Port accessed off site. Flushes readily with brisk blood return. This flushes readily with blood return. Pre administration: Chemotherapy orders independently verified for drug name, route, and dosage per patient's height, weight and BSA by CHRISS NOBLES, KENNETH and Staff Pharmacist(s). REACTIONS (DESCRIPTION, TIME, INTERVENTION AND EFFECTIVENESS) none ASSESSMENT: Ani was awake, alert and tolerated treatment well. Port flushed with 20 cc's of NS and 500 unitsof heparin and de-accessed. OnPro applied to R arm at. Due to start deploying dose of medication at 1150 05/07/23. Patient instructed to remove at 1235 05/07/23 when meter reads empty and light is solid green. Verbal and written instruction given to patient. PLAN: Return to clinic as planned. documented in this encounter Plan of Treatment Upcoming Encounters Date Type Department Care Team (Late st Contact Info) Description 05/02/2024 8:30 AM EST Office Visit Hematology/Oncology at [address] [phone] Pardeep George MD [facility] DR [place] [address] Kelli Zapata APRN [address] [place] [address] DR [place] [address] 05/02/2024 9:00 AM EST Infusion Hematology Oncology at [address] [phone] 01/31/2025 8:30 AM EDT Office Visit Psychiatry [place] [address] Radha Negrete, PhD [facility] [place] [address] documented as of this encounter Visit Diagnoses [...] Recorded weight), Intravenous, ONCE, 1 dose, On Tue05/06/23 at 0900, Administer over 10 Minutes, The resulting final concentration of bendamustine in the infusion bag should be between 1.85 - 5.6 mg/mL. Warning Vesicant/Irritant Medication New Bag 05/06/2023 8:34 AM EST 142 mg 334.1 mL/hr dexAMETHasone (Decadron) tablet 10 mg 10 mg, Oral, ONCE, 1 dose, On Tue05/06/23 at 0800, Administer prior to chemotherapy, Routine Given 05/06/2023 8:25 AM EST 10 mg heparin (pf) (porcine) (100 units/mL) flush 5 mL syringe 500 Units 500 Units, Intravenous, ONCE PRN, Starting on Alyce 05/05/23 at 1235, Until Tue05/06/23 at 1103, Line Care, Refer to Intravenous (IV) Procedure: Accessing Implanted Vascular Access Devices (434) procedure and/or Intravenous (IV) Job Aid: Adult Flushing & Catheter Care (7441) job aid for additional information regarding guidelines and administration., Routine Given 05/06/2023 8:50 AM EST 500 Units pegfilgrastim (Neulasta Onpro) (6 mg/0.6 mL) injection kit 6 mg 6 mg, Subcutaneous, ONCE, 1 dose, On Tue05/06/23 at 0800, Allow the prefilled syringe co-packaged with the on-body injector to reach room temperature at least 30 minutes prior to administration., Routine, This agent is restricted to outpatient use. Is this drug being given as an outpatient? Yes Given 05/06/2023 8:50 AM EST 6 mg Right Arm sodium chloride 0.9% infusion 125 mL/hr, Intravenous, CONTINUOUS, Starting on Tue05/06/23 at 0800, Until Tue05/06/23 at 1103, Pls run IV fluids during chemo for maximum volume of 750-1000cc. New Bag 05/06/2023 8:26 AM EST 125 mL/hr 125 mL/hr documented in this encounter Care Teams Origination Specialist Relationship Specialty Start Date End Date Blanquita Pagan APRN [address] [place] [address] PCP - General Family Medicine 01/07/23 documented as of this encounter
--- OUTSIDE RECORDS SUMMARY | 2024-05-02 08:10 | XMS_ITS | Encounter Summary ---
Author Organization [facility] [place] [address] Care Team Providers Care Medical Secretary Receptionist Name Role Phone Blanquita Pagan APRN Primary Care Provider [phone] Reason for Referral * Diagnostic Test (Routine) - Closed Specialty Diagnoses / Procedures Referred By Contac t Referred To Contact Radiology Diagnoses Lymphoma, unspecified body region, unspecified lymphoma type Procedures NM PET CT Skull Base to Mid-thigh Magdalena Ashraf APRN [facility] HEMATOLOGY [place] [address] [place] [address] Referral ID Status Reason Start Date Expiration Date V isits Requested Visits Authorized [id number] Closed Specialty Service Requested 06/30/2023 12/28/2024 1 1 Encounter Details Date Type Department Care Team (Late st Contact Info) Description 06/30/2023 8:30 AM EST Office Visit Hematology/Oncology at [address] [phone] Magdalena Ashraf APRN [facility] HEMATOLOGY [place] [address] Lymphoma, unspecified body region, unspecified lymphoma type [...] place to sleep or slept in a chcf (including now)? No 02/16/2023 DH IPV Inpatient [...] Sign Reading Time Taken Comments Blood Pressure 108/58 06/30/2023 8:27 AM EST Pulse 80 06/30/2023 8:27 AM EST Temperature 35.8 ??C (96.4 ??F) 06/30/2023 8:27 AM ES T Respiratory Rate 16 06/30/2023 8:27 AM EST Oxygen Saturation 100% 06/30/2023 8:27 AM EST Inhaled Oxygen Concentration - - Weight 49.9 kg (110 lb) 06/30/2023 8:27 AM EST Height 167.3 cm (5' 5.87) 06/30/2023 8:27 AM ES T Body Mass Index 17.83 06/30/2023 8:27 AM EST documented in this encounter Progress Notes * Magdalena Ashraf Kumar, PLYCOR OPERATOR - 06/30/2023 8:30 AM EST Subjective Patient ID: Ani Ridley is a 73 y.o. female here for f/u of follicular NHL Patient Active Problem List Diagnosis Follicular lymphoma Dx December 2022, extensive adenopathy and blastic lesions noted at T2, as well as on the left second, third, and seventh rib. Ki-67 of 20 to 30%, negative for cyclin D1 and SOX11, positive for BCL2 and BCL6. Flow cytometry demonstrated atypical kappa restricted B cells Started BR 03/10/23 Anemia, iron deficiency Lymphoma Lytic bone lesions on xray HPI Ani is doing very well. She is getting stronger and more stable in her walking Her reports that this is clearly improving. Her problems with some memory/'brain fog' persist - but she definitely felt better with no Dexamehtasone as pre-med and would like to continue this. No infusion reactions. She has no new lumps or bumps. NO fevers or chills. She really is doing very well overall. Review of Systems Constitutional: Negative. HENT: Negative. Eyes: Negative. Respiratory: Negative. Negative for cough and shortness of breath. Cardiovascular: Negative. Negative for chest pain, palpitations and leg swelling. Gastrointestinal: Negative. Negative for constipation, diarrhea, nausea and vomiting. Genitourinary: Negative. Musculoskeletal: Negative. Skin: Negative. Neurological: Negative. Negative for weakness and numbness. Hematological: Negative. Psychiatric/Behavioral: Positive for decreased concentration. As above Objective Physical Exam Constitutional: General: She is not in acute distress. Appearance: She is well-developed. HENT: Head: Atraumatic. Mouth/Throat: Pharynx: No oropharyngeal exudate. Eyes: Conjunctiva/sclera: Conjunctivae normal. Pupils: Pupils are equal, round, and reactive to light. Cardiovascular: Rate and Rhythm: Normal rate and regular rhythm. Heart sounds: Normal heart sounds. No murmur heard. Pulmonary: Effort: Pulmonary effort is normal. Breath sounds: Normal breath sounds. No wheezing or rales. Abdominal: General: Bowel sounds are normal. Palpations: Abdomen is soft. There is no mass. Tenderness: There is no guarding or rebound. Musculoskeletal: General: Normal range of motion. Cervical back: Normal range of motion and neck supple. Lymphadenopathy: Cervical: No cervical adenopathy. Upper Body: Right upper body: No supraclavicular adenopathy. Left upper body: No supraclavicular adenopathy. Skin: General: Skin is warm and dry. Neurological: Mental Status: She is alert and oriented to person, place, and time. Psychiatric: Mood and Affect: Mood normal. Recent Results (from the past 72 hour(s)) CBC (with Diff) Result Value Ref Range WBC 5.31 RBC 3.44 (L) Hemoglobin 11.1 (L) Hematocrit 32.8 (L) Platelets 286 Neutr Abs (ANC) 4.21 Comprehensive metabolic panel (non-fasting) Result Value Ref Range Glucose Lvl 102 BUN 13 Creatinine 0.7 Sodium 143 Potassium 3.8 Calcium 9.2 Total Protein 7.0 Albumin 3.7 Total Bilirubin 0.4 Alk Phos 73 AST 21 ALT 32 TSH Result Value Ref Range TSH 5.55 (H) Lactate Dehydrogenase Result Value Ref Range LDH 170 BP 108/58 (Patient Position: Sitting) Pulse 80 Temp 35.8 ??C (96.4 ??F) (Temporal) Resp 16 Ht 167.3 cm (5' 5.87) Wt 49.9 kg (110 lb) SpO2 100% BMI 17.83 kg/m?? Assessment and Plan Ani is a antonieta 73-year-old female diagnosed with advanced stage low-grade follicular lymphoma. She has initiated chemotherapy with Bendamustine and Rituxan and has now completed 4 cycles and she has tolerated therapy very well. Most current CT scan shows significant improvement in her disease and most particularly the paraspinal mass. her neurological symptoms are greatly improved. Stable counts - no new B symptoms. We will proceed with cycle 5 today. We will support her with neulasta on day 2. Aware to call if any fevers/ temp > 100.4F TSH remains mildly elevated - I have asked Ani to follow up with her PCP regarding this. She will return in 4 weeks for cycle 6. We will aim to complete 6 cycles and then reimage her at that point. We will try to get her PET scan scheduled for the same day that her Consult with Dr. Daugherty documented in this encounter Plan of Treatment Upcoming Encounters Date Type Department Care Team (Late st Contact Info) Description 05/02/2024 8:30 AM EST Office Visit Hematology/Oncology at [address] [phone] Pardeep George MD [facility] DR HEMATOLOGY [place] [address] Kelli Zapata APRN [address] [place] [address] [place] [address] 05/02/2024 9:00 AM EST Infusion Hematology Oncology at [address] [phone] 01/31/2025 8:30 AM EDT Office Visit Psychiatry [place] [address] Radha Negrete, PhD [facility] [place] [address] documented as of this encounter Procedures Procedure Name Priority Date/Time Associated Diagnosis Comments CBC (WITH DIFF) Routine 06/30/2023 TSH Routine 06/30/2023 LACTATE DEHYDROGENASE Routine 06/30/2023 COMPREHENSIVE METABOLIC PANEL Routine 06/30/2023 documented in this encounter Results * NM [...] who have questions please contact the health care transitions nurse that requested your imaging first. ? Narrative 08/22/2023 11:23 AM EST EXAMINATION: NM PET CT STANDARD SKULL BASE TO MID-THIGH CLINICAL HISTORY: Hematologic malignancy, assess treatment response Additional history: Follicular lymphoma diagnosed December 2022 status post 6 cycles Bendamustine and Rituxan . C85.90, Non-Hodgkin lymphoma, unspecified, unspecified site TECHNIQUE: Following IV injection of 94-llhcqn-2-deoxyglucose (FDG) a standard uptake of approximately 60 [...] unspecified site TECHNIQUE: Following IV injection of 12-cvqowf-8-deoxyglucose (FDG) astandard uptake of approximately 60 minutes, [...] patients who have questions please contactthe health care transitions nurse that requested your imaging first. Magdalena Ashraf PLYCOR OPERATOR IMG PET ORDERABLES * Lactate Dehydrogenase (06/30/2023) Lactate Dehydrogenase 170 Blood 06/30/2023 Historical Provider CHEMISTRY ORDERAB LES * (ABNORMAL) TSH (06/30/2023) Pathologist [facility] Thyroid Stimulating Hormone 5.55(H) Blood 06/30/2023 Historical Provider CHEMISTRY ORDERAB LES * Comprehensive metabolic panel (non-fasting) (06/30/2023) Pathologist [facility] Glucose 102 Blood Urea Nitrogen 13 Creatinine 0.7 Sodium 143 Potassium 3.8 Calcium 9.2 Protein, Total 7.0 Albumin 3.7 Bilirubin, Total 0.4 Alkaline Phosphatase 73 Aspartate Aminotransferase 21 Alanine Aminotransferase 32 Blood 06/30/2023 Historical Provider CHEMISTRY ORDERAB LES * (ABNORMAL) CBC (with Diff) (06/30/2023) Pathologist [facility] White Blood Cell 5.31 Red Blood Cell 3.44(L) Hemoglobin 11.1(L) Hematocrit 32.8(L) Platelet 286 Neutrophil Absolute (ANC) - Automated 4.21 Blood 06/30/2023 Historical Provider HEMATOLOGY ORDERA BLES documented in this encounter Visit Diagnoses Diagnosis Lymphoma, unspecified body region, unspecified lymphoma type Lymphoma, unspecified body region, unspecified lymphoma type documented in this encounter Care Teams Medical Secretary Receptionist Relationship Specialty Start Date End Date Blanquita Pagan APRN [address] [place] [address] PCP - General Family Medicine 01/07/23 documented as of this encounter
--- OUTSIDE RECORDS SUMMARY | 2024-05-02 08:10 | XMS_ITS | Encounter Summary ---
Author Organization [facility] Address [facility] [place] [address] Care Team Providers Care Card Reader Name Role Phone Blanquita Pagan APRN Primary Care Provider [phone] Encounter Details Date Type Department Care Team (Latest Contact Info) Description 05/05/2023 Travel Social History Tobacco Use Types Packs/Day [...] AM EST Office Visit Hematology/Oncology at [address] [phone] Pardeep George MD [facility] DR HEMATOLOGY [place] [address] Kelli Zapata APRN [address] [place] [address] [place] [address] 05/02/2024 9:00 AM EST Infusion Hematology Oncology at [address] [phone] 01/31/2025 8:30 AM EDT Office Visit Psychiatry [place] [address] Radha Negrete, PhD [facility] DR [place]TH[place] [address] documented as of this encounter Visit Diagnoses Not on filedocumented in this encounter Care Teams Card Reader Relationship Specialty Start Date End Date Blanquita Pagan APRN [address] [place] [address] PCP - General Family Medicine 01/07/23 documented as of this encounter
--- OUTSIDE RECORDS SUMMARY | 2024-05-02 08:10 | XMS_ITS | Encounter Summary ---
Author Organization [facility] [place] [address] Care Team Providers Care Well Logging Captain Name Role Phone Blanquita Pagan APRN Primary Care Provider [phone] Reason for Referral * Diagnostic Test (Routine) - Closed Specialty Diagnoses / Procedures Referred By Contac t Referred To Contact Radiology Diagnoses Lymphoma, unspecified body region, unspecified lymphoma type Procedures IR [facility] Zandra Glasgow ELEVATED MOTORMAN [facility] HEMATOLOGY [place] [address] [facility] [place] [address] Referral ID Status Reason Start Date Expiration Date V isits Requested Visits Authorized [id number] Closed Specialty Service Requested 03/11/2023 09/08/2024 1 1 Reason for Visit * Diagnostic Test (Routine) - Closed Specialty Diagnoses / Procedures Referred By Contac t Referred To Contact Radiology Diagnoses Lymphoma, unspecified body region, unspecified lymphoma type Procedures IR [facility] Zandra Glasgow ELEVATED MOTORMAN [facility] HEMATOLOGY [place] [address] [facility] [place] [address] Referral ID Status Reason Start Date Expiration Date V isits Requested Visits Authorized [id number] Closed Specialty Service Requested 03/11/2023 09/08/2024 1 1 Encounter Details Date Type Department Care Team (Latest Contact Info) Description 03/23/2023 7:31 AM EDT - 03/23/2023 9:59 AM EDT Hospital Encounter Radiology at [facility] [place] [address] Zandra Glasgow APRN [facility] HEMATOLOGY [place] [address] Lymphoma, unspecified body region, unspecified lymphoma type [...] in a alf (including now)? No 02/16/2023 [facility] Inpatient Questions Answer Date Recorded Prevent Contact [...] Sign Reading Time Taken Comments Blood Pressure 134/67 03/23/2023 9:45 AM EDT Pulse 87 03/23/2023 9:20 AM EDT Temperature 37 ??C (98.6 ??F) 03/23/2023 9:32 AM EDT Respiratory Rate 16 03/23/2023 9:45 AM EDT Oxygen Saturation 100% 03/23/2023 9:45 AM EDT Inhaled Oxygen Concentration - - Weight - - Height - - Body Mass Index - - documented in this encounter Discharge Instructions * Discharge Instructions* Zi Watters RN - 03/23/2023 8:53 AM EDT Department of Vascular and Interventional Radiology Discharge Instructions for your Chest Port You have received a ???Power Port?? , which provides access for infusions and blood draws. What makes this a ???Power Port?? is the unique ability to ???power inject?? contrast (intravenous dye) through the port when getting a CT scan, which produces superior images (pictures). Patients who don???t have these special ports need to have an IV started if they need dye injected for their CT scan. Your port is printed with the letters ???CT?? which can be detected by x- ray to identify it as a ???Power Port?? . You will be provided with an ID card stating the director account management and type of port you have. Please carry this with you in a safe place. Bandage: There is a sterile dressing over the port site consisting of small gauze with a clear dressing (Tegaderm or [id number] ). This dressing should be left in place for 48 hours. If the clear dressing becomes loose you should place tape over the edges to secure it in place. Note: If you have steri-strips beneath your dressing, simply allow them to fall off. Do not peel them off. There may be Aten-jaimes (skin glue) also, allow this to flake off. Pain: Apply ice bag to site (s) at 30 minute intervals (30 minutes on and 30 minutes off) for 24 hours?? . May use as needed for pain and/or bruising after 24 hours. Bathing: Do not take a shower until 48 hours after your port is placed; after this time you may shower with the dressing in place, then remove it and pat your skin dry. After 48 hours, we recommend that you cover the area with THE AQUA GUARD PROVIDED for 1 week while showering, facing away from theshower stream. You may use a bandaid to cover the site after the 48 hours are up if there is any drainage. No tub baths, whirlpools or swimming for one week following port placement. Flushing the mediport: If your port has not been used, it must be flushed every 30 days. What to expect when your port is accessed: 1. You may feel tenderness the first few times it is accessed but generally this subsides over time. Ask your healthcare provider to use a local anesthetic on the site if discomfort is a problem for you. You may ask for a prescription for a topical cream (EMLA) from your clinician; you may apply athome prior to your appointments, to help numb the skin over your port. 2. The clinician should be wearing sterile gloves and a mask during the access procedure. Anyone inthe room with you should also have a mask on. 3. The skin over and 2 inches around the port should be cleaned with a disinfectant 4. Tell the clinician if you would like the skin numbed (lidocaine) before the access needle is placed. 5. Unless you are unable to take heparin (blood thinner), the port should be injected with a heparin solution before deaccess (at end of each treatment or blood draw). When to call your healthcare provider: If you notice bleeding from the puncture site in your neck, or from the port incision on your chest, you should apply firm pressure over the site for 10-15 minutes, keeping the site covered. Call if you are still bleeding after 10-15 minutes. If you develop pain, redness, drainage or swelling at or around the port site, or the puncture sitein the neck If you develop fever (elevation of more than 2 degrees or greater than 101F) and/or shaking chills When to call the Interventional Radiology Department: Please call with any questions or concerns. If it is during regular office hours, please call [phone]. If it is after regular office hours, or on weekends or holidays, please call [phone] and ask to speak to the Senior Health Consultant decorating consultant for Interventional Radiology. XXX You have received medication during your procedure to help lessen anxiety and keep you comfortable. These medications affect judgement and reaction time. We recommend that you do not drive, operate equipment, sign any important documents, or smoke unattended for 24 hours following your procedure. Because of the sedation, be careful on stairs, as you may be unsteady on your feet. You may resume your regular diet as tolerated. IV site -- slight redness, or tenderness is normal, you can use a warm compress. If tenderness and redness increases or foul drainage occurs, please contact your M. D. Revised 04/12/19 documented in this encounter Medications at Time of Discharge [...] Take 40 mg by mouth daily. 10/16/2022 prochlorperazine (Compazine) 10 mg tablet Take 1 tablet by mouth every 6 hours as needed for Nausea. 15 tablet 3 03/09/2023 allopurinoL (Zyloprim) 300 mg tablet Take 1 tablet by mouth daily. Take one tablet by mouth for 14 days then stop. 14 tablet 03/11/2023 05/05/2023 acetaminophen (Tylenol) 80 mg chewable tablet Take 80 mg by mouth 2 times daily. 05/05/2023 traMADoL (Ultram) 50 mg tablet Take 0.5 tablets by mouth every 6 hours as needed for Pain. 30 tablet 03/09/2023 06/02/2023 documented as of this encounter Progress Notes * Geronimo Carlson LPN - 03/23/2023 9:59 AM EDT Interventional and Vascular Radiology Post-Procedure Call Name: Ani Ridley Age: 72 y.o. Sex: Female Date of : 1950 (home) Telephone Information: PCP Blanquita Pagan APRN [phone] Date/Time of call: March 24, 2023/9:05 AM Procedure: Mediport Procedural Provider: Mediport placement Contact made with patient Are you having pain/difficulty breathing related to your procedure now? done Are you having any swelling or bleeding from the site? done Are you having any other problems related to your procedure? done Do you have any questions about the discharge instructions given to you? done Do you have any comments about your Nurse or Provider or the care you received? done Comments (if applicable): Concerns addressed, questions answered. POC updated and reviewed. Geronimo Carlson LPN * Zi Watters RN - 03/23/2023 8:32 AM EDT ANGIO NURSING DATABASE Name: Ani Ridley Date of : 1950 AGE: 72 y.o. [address]: [address] [place], [place] [id number] (home) Mobile: Telephone Information: Referring Provider: Zandra Glasgow REASON FOR VISIT: Order Questions Answers Where will study be performed? [facility] Radiology [120] Is the patient on anticoagulant / antiplatelet therapy ? No Reason for exam and clinical history: Chemotherapy with poor venous access Planned procedure: Mediport implant Labs to be performed day of procedure: No labs Sedation: Moderate (Conscious sedation) Prophylactic antibiotic : None Contrast: No contrast Additional medications for procedure: Lidocaine Position: Supine Consent: Pending Medications to discontinue (and days held): None Case Urgency:: G2- Elective Outpatient intervention within 8-14 days No Known Allergies Pertinent PMH: Patient Active Problem List Diagnosis Code Lymphoma C85.90 Lytic bone lesions on xray M89.9 Anemia, iron deficiency D50.9 Date/Procedure Meds Given/Comments 03/23/2023 Mediport Placement 2 mg Versed, 100 mcg Fentanyl 0830 to procedure room IR 4 via stretcher. Onto table Supine. All monitors, O2, safety strap in place. Meds per protocol. Laboratory Results: Lab Results Component Value Date CREATININE 0.56 (L) 03/09/2023 Lab Results Component Value Date K 4.2 03/09/2023 Lab Results Component Value Date PLATELET 540 (H) 03/16/2023 documented in this encounter H&P Notes * Aliza Mccoy PA - 03/23/2023 7:55 AM EDT INTERVENTIONAL RADIOLOGY FOCUSED H&P: Procedure: Mediport implant Update to H&P: The patient's history and physical exam have been reviewed and completed. There has been NO interval change from that of the pre-procedural note done within the last 30 days. There is NO change in the procedural plan. Physical Exam: Cardiovascular: Regular, Normal Pulmonary: Breath sounds clear to auscultation Meds: Current medications reviewed. No medications held. Labs: No new relevant labs. The planned procedure (and sedation plan if appropriate) , its benefits and risks, and alternativeswere discussed with the patient. The patient consented to the procedure. PRE-SEDATION ASSESSMENT: Sedation Plan: moderate (conscious sedation) ASA: 2: Patient with mild systemic disease Mallampati: II: tonsillar pillars are blocked by the tongue Confirm NPO status: Yes History of anesthetic complications: No Current medications reviewed: Yes Allergies reviewed: Yes Source Note - Aliza Mccoy PA - 03/14/2023 9:05 AM EDT Images from the original note were not included. Interventional Radiology Focused Pre-procedure H&P: PCP: Blanquita Pagan APRN Referring Provider: Zandra Glasgow APRN Planned procedure: Mediport implant Procedure indication: Low grade lymphoma, need for long-term durable venous access for systemic chemotherapy IR workflow: Procedure request received through Interventional Radiology eDH order queue. There are no answered order specific questions. History of Present Illness: Per chart review, Ani Ridley is a 72 y.o. female with PMH of low grade lymphoma who presents to Interventional Radiology to undergo Mediport implant for long-term durable venous access for initiation of systemic chemotherapy. First infusion is currently scheduled for04/07/23. Remainder of patient's medical and surgical history, allergies, medications, and social/family history obtained below as previously outlined in patient's medical record. IR History: Ultrasound-guided core biopsy of left supraclavicular lymph node [place] [facility] Anticoagulation/Antiplatelet: None listed Labs: Lab Results Component Value Date HGB 10.5 (L) 03/09/2023 HCT 31.4 (L) 03/09/2023 WBC 9.1 03/09/2023 PLATELET 384 (H) 03/09/2023 BUN 24 (H) 03/09/2023 CREATININE 0.56 (L) 03/09/2023 ALBUMIN 3.6 03/09/2023 BILITOT <0.2 (L) 03/09/2023 AST 25 03/09/2023 ALT 18 03/09/2023 ALKPHOS 87 03/09/2023 Allergies: Patient has no known allergies. Imaging: CTAP 01/06/23 Assessment: 72 y.o. female with lymphoma presenting to Interventional Radiology for Mediport implant. Plan Planned procedure: Mediport implant Labs to be performed day of procedure: No labs Sedation: Moderate (Conscious sedation) Prophylactic antibiotic : None Contrast: No contrast Additional medications for procedure: Lidocaine Position: Supine Consent: Pending Medications to discontinue (and days held): None Cytopathology presence needed: No Case Urgency:: G2- Elective Outpatient intervention within 8-14 days Medications: Current Outpatient Medications on File Prior to Visit Medication Sig Dispense Refill allopurinoL (Zyloprim) 300 mg tablet Take 1 tablet by mouth daily. Take one tablet by mouth for 14 days then stop. 14 tablet 0 cyanocobalamin, Vitamin B-12, (Vitamin B-12) 100 mcg tablet Take 100 mcg by mouth daily. acetaminophen (Tylenol) 80 mg chewable tablet Take 80 mg by mouth 2 times daily. multivitamin (THERAGRAN) Tablet Take 1 tablet by mouth daily. traMADoL (Ultram) 50 mg tablet Take 0.5 tablets by mouth every 6 hours as needed for Pain. 30 tablet 0 prochlorperazine (Compazine) 10 mg tablet Take 1 tablet by mouth every 6 hours as needed for Nausea. (Patient not taking: Reported on 03/11/2023) 15 tablet 3 alendronate (Fosamax) 10 mg tablet Take 10 mg by mouth daily. levothyroxine (Synthroid) 50 mcg tablet Take 50 mcg by mouth daily. pantoprazole EC (Protonix) [address] tablet Take 40 mg by mouth daily. No current facility-administered medications on file prior to visit. Past Medical/Surgical history: Patient Active Problem List Diagnosis Code Lymphoma C85.90 Lytic bone lesions on xray M89.9 Anemia, iron deficiency D50.9 No past medical history on file. No past surgical history on file. Social History and Habits: Social History Tobacco Use Smoking status: Never Smokeless tobacco: Never Vaping Use Vaping Use: Never used Significant Family History: No family history on file. Pertinent ROS: as per HPI Physical Exam: Pending (to be performed in IR the day of procedure) ASA: Pending (to be assessed in IR the day of procedure) Mallampati class: Pending (to be assessed in IR the day of procedure) 03/14/2023 Aliza Mccoy PA-C documented in this encounter Plan of Treatment Upcoming Encounters Date Type Department Care Team (Late st Contact Info) Description 05/02/2024 8:30 AM EST Office Visit Hematology/Oncology at [address] [phone] Pardeep George MD [facility] DR HEMATOLOGY [place] [address] Kelli Zapata APRN [address] [place] [address] DR MEDICAL ONCOLOGY [place], [place] [address] 05/02/2024 9:00 AM EST Infusion Hematology Oncology at [address] [phone] 01/31/2025 8:30 AM EDT Office Visit Psychiatry and [place] [address] Radha Negrete, PhD [facility] [place] [address] documented as of this encounter Procedures Procedure Name Priority Date/Time Associated Diagnosis Comments IR MEDIPORT PLACEMENT Routine 03/23/2023 9:26 AM EDT Lymphoma, unspecified body region, unspecified lymphoma type documented in this encounter Results * IR Mediport Placement (03/23/2023 9:26 AM EDT) Anatomical Region Laterality Modality X-Ray Angiograph y Narrative 03/23/2023 9:20 AM EDT Interventional Radiology Procedure Note Procedure: Chest Port Placement Indication: Low grade lymphoma, need for long-term durable venous access for systemic chemotherapy Informed Consent: After discussing risks (including infection, trauma / damage to surrounding structures, hemorrhage, non-success, amongst others), and benefits of the procedure, the patient consented to the procedure. Monitoring and Sedation Details: Due to the painful nature of the procedure, patient received split doses of intravenous fentanyl and versed from the IR nurse while pulse, pressure, end tidal CO2 parameters and oxygen saturation were continuously monitored. Technique: A standard time-out was conducted just before the start of the procedure to verify all hernandes aspects; including the correct patient and planned procedure, procedure location, informed consent, and all relevant critical information, all of which were correct. The patient was positioned supine on the procedure table. ??The right neck was cleaned and prepped in typical sterile fashion; maximal sterile barrier technique was used throughout. ?? The right internal jugular vein was sonographically evaluated and determined to be patent. A permanent image was stored. Local anesthetic was administered. The vein was accessed via real-time ultrasound and micropuncture set with 21 gauge needle. A 0.018 wire was advanced into superior vena cava. The remainder of the procedure was performed under fluoroscopic guidance. A 4 Fr introducer sheath was placed and the wire exchanged for a 0.035 J wire. The wire was advanced into the IVC. 1% lidocaine and 2% lidocaine with epinephrine was then infiltrated in a caudal-lateral direction, and infiltrated over a 2x2 cm infraclavicular area for pocket creation. A 2 cm transverse incision was made in the right anterior chest wall, and with blunt dissection a pocket was created. A tunneler was then used to advance the catheter subcutaneously to the venous access site. A 4 Fr introducer sheath was exchanged for a peel-away sheath over the wire. The wire and inner obturator were removed and the catheter advanced into the superior vena cava under fluoroscopic guidance. The catheter was trimmed to appropriate length and attached to the port. The port was inserted into the pocket and the sheath was removed. Catheter tip location was identified and a permanent image was stored. The port flushed and aspirated well. ??The pocket was closed using a two-layer technique with 2-0 vicryl deep interrupted and 4-0 vicryl running sutures. The skin closed was with dermabond. The port was left accessed. Medications: Fentanyl 100 mcg IV, Versed 2 mg IV, 1% Lidocaine <10cc subcutaneous, 2% Lidocaine with Epinephrine < 20 cc subcutaneous. Contrast: None. Fluoroscopic Time: 1.0 minutes. Estimated Blood Loss: <10 cc. Complications: ??No immediate. Impression: Implantation of power-injectable, Medcomp Pro-Fuse 8 F single-lumen port in right chest with tip in cavoatrial junction. The port may be used immediately. Plan: Patient to IR recovery unit, may discharge home when meets criteria. Resident / Fellow: Dr. Ezekiel Gutiérrez Attending of record: Dr. Abraham Ulrich I, Dr. Ulrich, was present throughout the procedure. I was present during the intraservice time as documented by the IR Nurse. ?? Zandra Glasgow ELEVATED MOTORMAN IMG IR ORDERABLES documented in this encounter Visit Diagnoses Diagnosis Lymphoma, unspecified body region, unspecified lymphoma type documented in this encounter Administered Medications Inactive Administered Medications - up to 3 most recent administrations Medication Order MAR Action Action Date Dose Rate Site fentaNYL (pf) (50 mcg/mL) multi-dose injection 25-50 mcg 25-50 mcg, Intravenous, EVERY 3 MIN PRN, Starting on Tue03/23/23 at 0746, Until Tue03/23/23 at 0959, Pain, per unit protocol, For use in Interventional Radiology (IR) only for procedural sedation with direct provider supervision and verbal order. - Start dose: 50 mcg (reduce dose to 25 mcg if history of sedation sensitivity). - Titration dose: 25-50 mcg IV, (based on patient response) every 3 minutes PRN to maintain procedural pain less than 2 per Pain Scale. Maximum dose: 50 mcg/dose, 250 mcg/hour, Angio/IR (Day of Procedure), Routine Given 03/23/2023 9:02 AM EDT 25 mcg Given 03/23/2023 8:56 AM EDT 25 mcg Given 03/23/2023 8:48 AM EDT 25 mcg lidocaine (Xylocaine) 1% (10 mg/mL) injection 10 mg 10 mg, Subcutaneous, ONCE, 1 dose, On Tue03/23/23 at 0815, For use in Interventional Radiology (IR) only for procedure with direct provider supervision and verbal order., Angio/IR (Day of Procedure), Routine Given 03/23/2023 8:53 AM EDT 10 mg lidocaine-EPINEPHrine (2% - 1:100,000) injection vial 10 mL 10 mL, Intradermal, ONCE, 1 dose, On Tue03/23/23 at 0815, Angio/IR (Day of Procedure), Routine Given 03/23/2023 8:52 AM EDT 10 mLs midazolam (pf) (Versed) (1 mg/mL) multi-dose injection 0.5-1 mg 0.5-1 mg, Intravenous, EVERY 3 MIN PRN, Starting on Tue03/23/23 at 0746, Until Tue03/23/23 at 0959, Sedation, For use in Interventional Radiology (IR) only for procedural sedation with direct provider supervision and verbal order. - Start dose: 1 mg (Reduce dose to 0.5 mg if history of sedation sensitivity). - Titration dose: 0.5 mg - 1 mg (based on patient response) every 3 minutes PRN to obtain RASS score of -3. Maximum dose: 1 mg/dose, 5 mg/hour., Angio/IR (Day of Procedure), Routine Given 03/23/2023 9:00 AM EDT 0.5 mg Given 03/23/2023 8:46 AM EDT 0.5 mg Given 03/23/2023 8:39 AM EDT 1 mg documented in this encounter Care Teams Well Logging Captain Relationship Specialty Start Date End Date Blanquita Pagan APRN [address] [place] [address] PCP - General Family Medicine 01/07/23 documented as of this encounter
--- OUTSIDE RECORDS SUMMARY | 2024-05-02 08:10 | XMS_ITS | Encounter Summary ---
Author Organization [facility] Address [facility] [place] [address] Care Team Providers Care Learning Support Specialist Name Role Phone Blanquita Pagan APRN Primary Care Provider [phone] Encounter Details Date Type Department Care Team (Late st Contact Info) Description 04/04/2023 Orders Only Hematology/Oncology at [address] [phone] Pardeep George MD [facility] [place] [address] Lymphoma, unspecified body region, unspecified lymphoma type [...] 8:30 AM EST Office Visit Hematology/Oncology at [address] [phone] Pardeep George MD [facility] [place]AT[place] [address] Kelli Zapata APRN [address] [place] [address] [place] [address] 05/02/2024 9:00 AM EST Infusion Hematology Oncology at [address] [phone] 01/31/2025 8:30 AM EDT Office Visit Psychiatry [place] [address] Radha Negrete, PhD [facility] [place] [address] Scheduled Orders Name Type Priority Associated Diagnoses Orde r Schedule CBC (with Diff) Lab STAT Lymphoma, unspecified body region, unspecified lymphoma type Expected: 04/11/2023, Expires: 04/04/2024 Comprehensive metabolic panel (non-fasting) Lab STAT Lymphoma, unspecified body region, unspecified lymphoma type Expected: 04/11/2023, Expires: 04/04/2024 Lactate Dehydrogenase Lab STAT Lymphoma, unspecified body region, unspecified lymphoma type Expected: 04/11/2023, Expires: 04/04/2024 documented as of this encounter Visit Diagnoses Diagnosis Lymphoma, unspecified body region, unspecified lymphoma type documented in this encounter Care Teams Learning Support Specialist Relationship Specialty Start Date End Date Blanquita Pagan APRN [address] [place] [address] PCP - General Family Medicine 01/07/23 documented as of this encounter
--- OUTSIDE RECORDS SUMMARY | 2024-05-02 08:10 | XMS_ITS | Encounter Summary ---
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 Procedures TC RITUXIMAB-PVVR, BIOSIMILAR, (RUXIENCE), 10 MG, INJ Q5119 RUXIENCE Miguel Daugherty MD [facility] [address] [place] [address] Miguel Daugherty MD [facility] DR HEMATOLOGY [place] [address] Referral ID Status Reason Start Date Expiration Date Visits Re quested Visits Authorized [id number] Closed 02/25/2023 02/25/2024 1 106 Encounter Details Date Type Department Care Team (Late st Contact Info) Description 07/01/2023 8:30 AM EST Infusion Hematology Oncology at [address] [phone] Lymphoma, unspecified body region, unspecified [...] Sign Reading Time Taken Comments Blood Pressure 132/68 07/01/2023 8:39 AM EST Pulse 73 07/01/2023 8:39 AM EST Temperature 36.2 ??C (97.1 ??F) 07/01/2023 8:39 AM ES T Respiratory Rate 16 07/01/2023 8:39 AM EST Oxygen Saturation 98% 07/01/2023 8:39 AM EST Inhaled Oxygen Concentration - - Weight 49.9 kg (110 lb) 07/01/2023 8:39 AM EST Height 167.3 cm (5' 5.87) 07/01/2023 8:39 AM ES T Body Mass Index 17.83 07/01/2023 8:39 AM EST documented in this encounter Progress Notes * Sommer Kidd RN - 07/01/2023 8:30 AM EST INFUSION THERAPY ADMINISTRATION NOTES DIAGNOSIS: lymphoma PROTOCOL:na CYCLE #: 5 day 2 REASON FOR VISIT: bendamustine + Onpro SUBJECTIVE Ani Ridley offers no complaints. OBJECTIVE LAB DATA: Labs reviewed and found adequate for treatment. Mediport with excellent blood return before during and after treatment. Pre administration: Chemotherapy orders independently verified [...] 8:30 AM EST Office Visit Hematology/Oncology at [address] [phone] Pardeep George MD [facility] DR HEMATOLOGY [place] [address] Kelli Zapata APRN [address] [place] [address] [place] [address] 05/02/2024 9:00 AM EST Infusion Hematology Oncology at [address] [phone] 01/31/2025 8:30 AM EDT Office Visit Psychiatry and [place] [address] Radha Negrete, PhD [facility] [place] [address] documented as of this encounter Visit Diagnoses [...] Recorded weight), Intravenous, ONCE, 1 dose, On Tue07/01/23 at 0915, Administer over 10 Minutes, The resulting final concentration of bendamustine in the infusion bag should be between 1.85 - 5.6 mg/mL. Warning Vesicant/Irritant Medication New Bag 07/01/2023 9:02 AM EST 142 mg 334.1 mL/hr pegfilgrastim (Neulasta Onpro) (6 mg/0.6 mL) injection kit 6 mg 6 mg, Subcutaneous, ONCE, 1 dose, On Tue07/01/23 at 0815, Allow the prefilled syringe co-packaged with the on-body injector to reach room temperature at least 30 minutes prior to administration., Routine, This agent is restricted to outpatient use. Is this drug being given as an outpatient? Yes Given 07/01/2023 9:13 AM EST 6 mg sodium chloride 0.9 % (flush) (BD PosiFlush Normal Saline 0.9) flush 5-20 mL 5-20 mL, Intravenous, EVERY 1 MIN PRN, Starting on Tue07/01/23 at 0756, Until Tue07/01/23 at 1125, Line Care, Flush pertains to all indwelling lines. Flush per protocol found in the job aid using the link provided on this medication record. Refer to Intravenous (IV) Job Aid: Adult Flushing & Catheter Care (2050) job aid for additional information regarding guidelines and administration., Routine Given 07/01/2023 9:16 AM EST 20 mLs documented in this encounter Care Teams Call Center Support Representative Relationship Specialty Start Date End Date Blanquita Pagan APRN [address] [place] [address] PCP - General Family Medicine 01/07/23 documented as of this encounter
--- OUTSIDE RECORDS SUMMARY | 2024-05-02 08:10 | XMS_ITS | Encounter Summary ---
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 Procedures TC RITUXIMAB-PVVR, BIOSIMILAR, (RUXIENCE), 10 MG, INJ Q5119 RUXIENCE Miguel Daugherty MD [facility] [place] [address] Miguel Daugherty MD [facility] [place] [address] Referral ID Status Reason Start Date Expiration Date Visits Re quested Visits Authorized [id number] Closed 02/25/2023 02/25/2024 1 106 Encounter Details Date Type Department Care Team (Late st Contact Info) Description 04/07/2023 9:30 AM EDT Infusion Hematology Oncology at [address] [phone] Lymphoma, unspecified body region, unspecified [...] as of this encounter Progress Notes * Regine Mary, KENNETH - 04/07/2023 9:30 AM EDT INFUSION THERAPY ADMINISTRATION NOTES TIME TREATMENT STARTED: 999 TIME TREATMENT ENDED: 1314 DIAGNOSIS: lymphoma PROTOCOL:na CYCLE #: 2 day [...] per patient's height, weight and BSA by Jose Mary RN and Jose Banks pharmacist. REACTIONS (DESCRIPTION, TIME, INTERVENTION AND EFFECTIVENESS) none ASSESSMENT Ani Ridley was awake, alert and he tolerated treatment well. PLAN Return to clinic tomorrow for day 2 of cycle 2. documented in this encounter Plan of Treatment Upcoming Encounters Date Type Department Care Team (Late st Contact Info) Description 05/02/2024 8:30 AM EST Office Visit Hematology/Oncology at [address] [phone] Pardeep George MD [facility] [place] [address] Kelli Zapata APRN [address] [place] [address] [place] [address] 05/02/2024 9:00 AM EST Infusion Hematology Oncology at [address] [phone] 01/31/2025 8:30 AM EDT Office Visit Psychiatry [place] [address] Radha Negrete, PhD [facility] [place] [address] documented as of this encounter Visit Diagnoses [...] mg, Oral, ONCE, 1 dose, On Alyce 04/07/23 at 1015, Administer prior to riTUXimab., Routine Given 04/07/2023 10:21 AM EDT 650 mg bendamustine (Bendeka/Belrapzo) 142 mg in sodium chloride 0.9% 55.68 mL infusion 142 mg (rounded from 142.2 mg = 90 mg/m2/dose ? 1.58 m2 Treatment Plan BSA from Recorded weight), Intravenous, ONCE, 1 dose, On Alyce 04/07/23 at 1115, Administer over 10 Minutes, The resulting final concentration of bendamustine in the infusion bag should be between 1.85 - 5.6 mg/mL. Warning Vesicant/Irritant Medication New Bag 04/07/2023 12:51 PM EDT 142 mg 334.1 mL/hr dexAMETHasone (Decadron) (10 mg/mL) injection 10 mg 10 mg, Intravenous, ONCE, 1 dose, On Alyce 04/07/23 at 1015, Administer prior to riTUXimab Given 04/07/2023 10:30 AM EDT 10 mg diphenhydrAMINE (Benadryl) (50 mg/mL) injection 25 mg 25 mg, Intravenous, ONCE, 1 dose, On Alyce 04/07/23 at 1015, Administer prior to riTUXimab, Routine Given 04/07/2023 10:22 AM EDT 25 mg heparin (pf) (porcine) (100 units/mL) flush 5 mL syringe 500 Units 500 Units, Intravenous, ONCE PRN, Starting on Alyce 04/07/23 at 0955, Until Alyce 04/07/23 at 1636, Line Care, Refer to Intravenous (IV) Procedure: Accessing Implanted Vascular Access Devices (654) procedure and/or Intravenous (IV) Job Aid: Adult Flushing & Catheter Care (4514) job aid for additional information regarding guidelines and administration., Routine Given 04/07/2023 1:07 PM EDT 500 Units palonosetron (Aloxi) (0.05 mg/mL) injection 0.25 mg 0.25 mg, Intravenous, ONCE, 1 dose, On Alyce 04/07/23 at 1015, Administer over 30 seconds., Routine Given 04/07/2023 10:35 AM EDT 0.25 mg riTUXimab-pvvr (Ruxience) 600 mg in sodium chloride 0.9% 300 mL infusion 600 mg, Intravenous, ONCE, 1 dose, On Alyce 04/07/23 at 1115, Dose Ordered = 592 mg (375 mg/m2). Pharmacist rounded dose per procedure. Administer Per Protocol, Is this product being used for treatment of malignant indication? Yes, Patient is a candidate for rapid infusion riTUXimab? Yes New Bag 04/07/2023 11:11 AM EDT 600 mg sodium chloride 0.9 % (flush) (BD PosiFlush Normal Saline 0.9) flush 5-20 mL 5-20 mL, Intravenous, EVERY 1 MIN PRN, Starting on Alyce 04/07/23 at 0955, Until Alyce 04/07/23 at 1636, Line Care, Flush pertains to all indwelling lines. Flush per protocol found in the job aid using the link provided on this medication record. Refer to Intravenous (IV) Job Aid: Adult Flushing & Catheter Care (7021) job aid for additional information regarding guidelines and administration., Routine Given 04/07/2023 1:06 PM EDT 20 mLs sodium chloride 0.9% infusion 125 mL/hr, Intravenous, CONTINUOUS, Starting on Alyce 04/07/23 at 1015, Until Alyce 04/07/23 at 1636, Pls run IV fluids during chemo for maximum volume of 750-1000cc. New Bag 04/07/2023 10:00 AM EDT 125 mL/hr 125 mL/hr documented in this encounter Care Teams Physician Office Clin Asst Relationship Specialty Start Date End Date Blanquita Pagan APRN [address] [place] [address] PCP - General Family Medicine 01/07/23 documented as of this encounter
--- OUTSIDE RECORDS SUMMARY | 2024-05-02 08:10 | XMS_ITS | Encounter Summary ---
Author Organization [facility] Address [facility] [place] [address] Care Team Providers Care Outdoor Adventure Guides Name Role Phone Blanquita Pagan APRN Primary Care Provider [phone] Encounter Details Date Type Department Care Team (Latest Contact Info) Description 04/07/2023 Travel Social History Tobacco Use Types Packs/Day [...] AM EST Office Visit Hematology/Oncology at [address] [phone] Pardeep George MD [facility] DR HEMATOLOGY [place] [address] Kelli Zapata APRN [address] [place] [address] [place] [address] 05/02/2024 9:00 AM EST Infusion Hematology Oncology at [address] [phone] 01/31/2025 8:30 AM EDT Office Visit Psychiatry [place] [phone] Radha Negrete, PhD [facility] DR [place] [address] documented as of this encounter Visit Diagnoses Not on filedocumented in this encounter Care Teams Outdoor Adventure Guides Relationship Specialty Start Date End Date Blanquita Pagan APRN [address] [place] [address] PCP - General Family Medicine 01/07/23 documented as of this encounter
--- OUTSIDE RECORDS SUMMARY | 2024-05-02 08:10 | XMS_ITS | Encounter Summary ---
Author Organization [facility] Address [facility] [place] [address] Care Team Providers Care Raveler Name Role Phone Blanquita Pagan APRN Primary Care Provider [phone] Reason for Visit * Reason Comments Follow-up Encounter Details Date Type Department Care Team (Late st Contact Info) Description 03/23/2023 11:00 AM EDT Office Visit Hematology [place] [address] Miguel Daugherty MD [facility] DR HEMATOLOGY [place] [address] Zandra Glasgow APRN [facility] [address] HEMATOLOGY [place] [address] Lymphoma, unspecified body region, unspecified lymphoma type [...] No 02/16/2023 Housing Stability Vital Sign Answer Melinda e Recorded In the last 12 months, [...] Sign Reading Time Taken Comments Blood Pressure 125/78 03/23/2023 11:06 AM EDT Pulse 75 03/23/2023 11:06 AM EDT Temperature 36.2 ??C (97.2 ??F) 03/23/2023 11:06 AM E DT Respiratory Rate 16 03/23/2023 11:06 AM EDT Oxygen Saturation 100% 03/23/2023 11:06 AM EDT Inhaled Oxygen Concentration - - Weight 50.6 kg (111 lb 8.8 oz) 03/23/2023 11:06 AM EDT Height 167.6 cm (5' 5.98) 03/23/2023 11:06 AM E DT Body Mass Index 18.01 03/23/2023 11:06 AM EDT documented in this encounter Progress Notes * Miguel Daugherty MD - 03/23/2023 11:00 AM EDT HEMATOLOGY CLINIC [facility] [phone] I had the pleasure of seeing and evaluating Ani at the request of MILLA Hernandez. Ani is here with a new diagnosis of low-grade lymphoma and is here to discuss treatment options as well as rest of the work-up required. The patient presented with progressive left supraclavicular [...] Flow cytometry demonstrated atypical kapparestricted B cells. The hematopathologist felt that the histology, as well as flow cytometry and molecular markers weremost consistent with a low-grade B-cell lymphoma At the current time, the patient and her noticed a weight loss at the time of diagnosis. She has occasional midepigastric discomfort and is uncertain if this is related to her GERD or not. She also notes fatigue. She denies any other pain. Upon questioning, she and her notes a slow progression and deterioration in her memory over the past few years. 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 Diagnosed with polyneuropathy years ago Osteoporosis Hypothyroidism Medical records indicate a history of hyperlipidemia and borderline hypertension. Past surgery Patient had tonsillectomy years ago, she also had a twice and has 3 children. There is one set of twins. Current medications Current Outpatient Medications on File Prior to [...] facility-administered medications on file prior to visit. Allergies-the patient denies any medical allergies. 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 She does not smoke. She drinks alcohol but stopped years ago. She has 3 children alive and well without any major medical problems. Family history both parents have . Mother at age 91 from dementia. Her father at age 70 from lymphoma. She has 5 siblings and to have passed. 1 had of stomach issues of uncertain etiology. Sister of scleroderma. Review of systems A complete review of systems was asked with pertinent findings mentioned above in HPI. Constitutional: . Appetite good, + recent weight change, no fevers/chills, night sweats. HEENT: No ALMEIDA, rhinorrhea, nasal congestion, sore throat, mouth sores. Vision normalize Resp: No SOB, BAKER, cough, or chest tightness. CV: No chest pain or palpitations. No LE edema. Abd: No abd pain, reflux, N/V. : No dysuria, urgency, frequency. Musculoskeletal: No muscle or joint pain. Neuro: No changes in sensation, weakness, speech difficulty, lightheadedness or dizziness. Feels steady on feet. Heme: No easy bruising or bleeding. Skin: No rash. Psych: Mood stable. No confusion, memory problems or sleep disturbances. Physical exam Blood pressure 125/78, pulse 75, temperature 36.2 ??C (97.2 ??F), temperature source Temporal, resp. rate 16, height 167.6 cm (5' 5.98), weight 50.6 kg (111 lb 8.8 oz), SpO2 100 %. Limited exam today Patient is a very pleasant 72-year-old female. She has somewhat of a flat affect and answers questions slowly. GENERAL: Patient appears well and is in no acute distress. HEENT: NCAT . EOMI, PERRLA; anicteric, No conjunctival injection Sinuses non- tender. Oral pharynx is clear without erythema or exudate. On the ENT exam, she has a 2 x 3 cm left supraclavicular node. NECK: Supple and without adenopathy or thyroid enlargement. CARDIAC: Regular rate and rhythm without S3, S4 ; II/ murmur at the lower left sternal border. LUNGS: Clear to auscultation bilaterally. No rales, rhonchi or wheezing. ABDOMEN: Soft, non-tender, non-distended, and without hepatosplenomegaly. Bowel sounds are normoactive. EXTREMITIES: No edema, cyanosis or clubbing. SKIN: No rashes or lesions. No bruises or petechiae. LYMPHADENOPATHY: 1 x 1 cm right axillary lymph node. MUSCULOSKELETAL: No pain on palpation of sternum, ribs or vertebral bodies. Mild pain behind left knee Laboratory test Latest Reference Range & Units 02/16/23 10:15 WBC 4.0 - 9.5 x10(3)/mcL 8.3 RBC 4.00 - 5.21 x10(6)/mcL 3.76 (L) Hemoglobin 11.7 - 15.5 g/dL 10.5 (L) Hematocrit 35.7 - 45.8 % 32.0 (L) MCV 82.6 - 94.4 fL 85.1 MCH 27.1 - 32.0 pg 27.9 MCHC 31.7 - 35.0 g/dL 32.8 RDWSD 37.0 - 46.0 fL 44.1 RDWCV 11.5 - 14.1 % 14.4 (H) Platelets 145 - 357 x10(3)/mcL 366 (H) MPV 7.6 - 12.[address] % 0.7 - 2.5 % 1.[address] Abs 0.020 - 0.110 x10(6)/mcL 0.060 Immature Retic% 0.5 - 13.8 % 10.2 Reticulated Hgb 29.8 - 39.4 pg 31.0 nRBC % Auto % 0.0 nRBC Abs Auto 0.000 - 0.000 x10(3)/mcL 0.000 Neutr Abs (ANC) 1.70 - 6.10 x10(3)/mcL 6.85 (H) Neutrophils % % 82.4 Immature Gran % % 0.20 Lymphocytes % % 5.3 Monocytes % % 10.9 Eosinophils % % 0.5 Basophils % % 0.7 Celia Gran Abs 0.00 - 0.04 x10(3)/mcL 0.02 Lymphocytes Abs 0.9 - 3.2 x10(3)/mcL 0.4 (L) Monocyte Abs 0.3 - 0.9 x10(3)/mcL 0.9 Eosinophils Abs 0.0 - 0.4 x10(3)/mcL 0.0 Basophils Abs 0.0 - 0.1 x10(3)/mcL 0.1 Sodium 135 - 145 mmol/L 131 (L) Potassium 3.5 - 5.0 mmol/L 3.8 Chloride 98 - 107 mmol/L 92 (L) CO2 22 - 31 mmol/L 28 Anion Gap 5 - 15 mmol/L 11 BUN 8 - 18 mg/dL 13 Creatinine 0.70 - 1.20 mg/dL 0.54 (L) Estimated GFR >=60 mL/min/1.73 m?? 97 Calcium 8.5 - 10.5 mg/dL 9.2 Uric Acid 2.5 - 6.5 mg/dL 3.7 Glucose Lvl 65 - 199 mg/dL 89 Total Protein 6.1 - 8.0 g/dL 7.2 Albumin 3.2 - 5.2 g/dL 4.1 Total Bilirubin 0.2 - 1.3 mg/dL 0.3 Alk Phos 35 - 105 unit/L 90 AST 0 - 30 unit/L 20 ALT 0 - 30 unit/L 11 LDH 110 - 220 unit/L 293 (H) Iron 30 - 150 mcg/dL 24 (L) TIBC 250 - 450 mcg/dL 310 Iron Saturation 20 - 50 % 8 (L) Ferritin 30 - 400 ng/mL 83 Vitamin B-12 232 - 1,245 pg/mL 359 Haptoglobin 30 - 200 mg/dL 414 (H) IgG 700 - 1,600 mg/dL 879 IgA 70 - 400 mg/dL 106 IgM 40 - 230 mg/dL 44 HepB Surface Ab Quant IU/L <3.5 HepB Surface Ab Negative Hep B Core IgM Negative Negative Hepatitis C Ab Negative Negative MELINDA Negative Methylmalonic Acid <=0.40 nmol/mL 0.23 (L): Data is abnormally low (H): Data is abnormally high Recent Results (from the past 72 hour(s)) Comprehensive metabolic panel (non-fasting) Result Value Ref Range Glucose Lvl 95 65 - 199 mg/dL BUN 10 8 - 18 mg/dL Creatinine 0.37 (L) 0.70 - 1.20 mg/dL Sodium 131 (L) 135 - 145 mmol/L Potassium 3.6 3.5 - 5.0 mmol/L Chloride 91 (L) 98 - 107 mmol/L CO2 26 22 - 31 mmol/L Anion Gap 14 5 - 15 mmol/L Calcium 8.9 8.5 - 10.5 mg/dL Total Protein 6.5 6.1 - 8.0 g/dL Albumin 3.8 3.2 - 5.2 g/dL AST 15 0 - 30 unit/L ALT 12 0 - 30 unit/L Alk Phos 146 (H) 35 - 105 unit/L Total Bilirubin 0.3 0.2 - 1.3 mg/dL Estimated GFR 106 >=60 mL/min/1.73 m?? Hemogram Result Value Ref Range WBC 25.1 (H) 4.0 - 9.5 x10(3)/mcL RBC 3.61 (L) 4.00 - 5.21 x10(6)/mcL Hemoglobin 9.9 (L) 11.7 - 15.5 g/dL Hematocrit 29.5 (L) 35.7 - 45.8 % MCV 81.7 (L) 82.6 - 94.4 fL MCH 27.4 27.1 - 32.0 pg MCHC 33.6 31.7 - 35.0 g/dL Platelets 301 145 - 357 x10(3)/mcL RDWSD 46.1 (H) 37.0 - 46.0 fL RDWCV 16.0 (H) 11.5 - 14.1 % MPV 9.1 7.6 - 12.9 fL nRBC % Auto 0.0 % nRBC Abs Auto 0.000 0.000 - 0.000 x10(3)/mcL Differential, Automated Result Value Ref Range Neutrophils % 91.3 % Neutr Abs (ANC) 22.96 (H) 1.70 - 6.10 x10(3)/mcL Lymphocytes % 0.6 % Lymphocytes Abs 0.2 (L) 0.9 - 3.2 x10(3)/mcL Monocytes % 4.7 % Monocyte Abs 1.2 (H) 0.3 - 0.9 x10(3)/mcL Eosinophils % 0.1 % Eosinophils Abs 0.0 0.0 - 0.4 x10(3)/mcL Basophils % 0.4 % Basophils Abs 0.1 0.0 - 0.1 x10(3)/mcL Immature Gran % 2.90 % Celia Gran Abs 0.72 (H) 0.00 - 0.04 x10(3)/mcL Assessment and plan # new diagnosis of follicular NHL The left supraclavicular lymph node biopsy demonstrates a low-grade B-cell lymphoma with a Ki-67 of20 to 30%. It is interesting to note that there appears to be 2 small B-cell populations: 1 population of CD10 positive and CD19 dim positive. The second population has a phenotype that looks like CLL/SLL and this is CD5 positive, CD10 positive, CD20 positive. Lab results indicate that Bcl-2 is positive, BCL6 is positive, but cyclin D1 is negative and SOX11 is negative. Flow confirmed an atypicalkappa restricted B-cell population. It was felt that the histology, as well as molecular findings are most consistent with a low- grade B-cell lymphoma. I reviewed for Ani and her Enrique today the natural course history of low-grade lymphoma. I emphasized that we first need to determine the extent of disease and this will also determine prognosis and treatment. A few unique qualities or characteristics of her lymphoma need to be addressed. In particular, she has a 4.5 x 6 cm mass adjacent to T1-T2. I presented the pt at [facility] - see note beow - we willempirically start chemo to cover this area w/ a f/u MRI in future to determine if xrt needed She also has blastic lesions in the 3-4 ribs but is asymptomatic. We can monitor these at this time. At Tumor Board , Dr Stevens felt some were old and due to past trauma In addition, she is anemic with a hemoglobin of 10.9 g/dL. I will perform a limited work-up and attempt to identify potential causes. In addition, a bone marrow aspirate and biopsy will be performed to assess for lymphoma but will also evaluate for anemia. Finally, it is obvious that Ani's memory is not at her baseline. Upon discussing this with Ani and her Enrique, there has been a progressive decline over the past few years and I suspectis unrelated to the lymphoma. We can pursue neurocognitive testing in the future but at this time, we will focus on the immediate work-up of the lymphoma and treatment. Immediate plans and recommendations I presented the patient's case at tumor board on February 22, 2023. We reviewed the histology as wellas outside scans. At this time, Ani has a left supraclavicular node measuring 3 x 4.5 cm as wellas a mass at T1-T2 that measures 4.5 x 6 cm. Upon review of the scans, the mass does not seem to be invading bone or nerves but it is impinging on T1 and T2. Her FLIPI score is 4 or 5 out of 5 due to stage III disease, age 72, hemoglobin 11 of 10.5 g/dL, increased LDH, and questionable extranodal involvement. She does have weight loss. As result of numerous factors including weight loss, mild anemia, mild elevation in the LDH, possibly lytic bone lesions although these may be traumatic, paraspinal mass atT1 and T2, the decision was to consider starting chemotherapy. After 2 cycles repeat a scan of the T1-T2 lesion to determine if radiation may need to be added. She will need at least 4-6 cycles of therapy. Patient lives in [facility] would like to be treated in [place]. As result, we will start cycle 1 here and asked that she see Dr. Lawson locally for subsequent cycles. Immediate Plans The patient recently received her first cycle of R-Bendamustine due to the concern of a paraspinal mass progressing. Of note, the chemo was started prior to the bone marrow and PET scan since there was such a delay the patient was on a waiting list. These 2 tests have subsequently been completed with results as listed below. The patient will continue to see Dr. Bon Patterson at [facility]. She will continue to get therapy at [facility]. 3. Due to the presence of the paraspinal mass, I would consider admitting that an MRI or CT of thatarea after 2 cycles to determine the response and if radiation therapy may be needed. 4. I emphasized to the patient and her will need 4-6 cycles of therapy with results of upcoming scans as well as side effects and her tolerance of therapy will dictate number cycles. 5. I emphasized that Dr. George will now assume care especially since her Mediport placement was successful today. I will set up a follow-up appoint with the patient in approximately 4 months I am happy to see the patient at any point in the meantime. 6. Limited w/u for her anemia unrevealing. I assume related to NHL. Await BM bx - check TSH, copperlevel today 7. Prelim labs within [facility], including CBC, CMP, LDH, uric acid, serologies for hep B and hep C, and immunoglobulin levels. Are outlined above 8. Given her longstanding unsteadiness with her gait, I checked a B12 and methylmalonic acid level - both normal 9. We will continue to monitor mental status. If needed, we will referred for neurocognitive testing in the future. 10. I emphasized that Ani is somewhat immune compromised. As result, she will need the flu vaccine as well as COVID-vaccine, Once available 11. The patient's weight continues to decrease. I would consider referral to dietary/nutrition at [facility]. 12. Once again, I reviewed in detail the Rituxan/Bendamustine regiment as well as potential side effects. Ani is having constipation possibly due to Zofran. We talked about potential treatment options moving forward. She is currently on a stool softener as well as a laxative. I would like to thank Blanquita Pagan [facility] for asking me to see this very pleasant patient. I will keep her posted on results. Parts of this note were completed completed using voice recognition dictation. Miguel Daugherty MD phlebotomist supervisor/instructor Director - Blood and Marrow Transplant Program ===== Addendum-March 23, 2023 The patient has now completed a work-up including a bone marrow aspirate and biopsy which demonstrated no evidence of lymphoma. The PET scan results confirmed the findings noted on the previous CAT scan as noted above. The PET scan results are listed below. [id number] Location: [facility] The signing pathologist has (i) examined the relevant preparation(s) for the specimen(s) and (ii) rendered or confirmed the diagnosis(es). . Bone Marrow Final DIAGNOSIS BONE MARROW (BLOOD FILM, ASPIRATE, TOUCH PREP, CORE & CLOT SECTIONS): 1. FL, by history. 2. Hypercellular marrow with maturing trilineage hematopoiesis and villegas-myeloid hyperplasia, consistent with growth factor/pegfilgrastim effect (see discussion). PERIPHERAL SMEAR 03/16/23 09:00 EDT WBC * 79.5 x10(3)/mcL (Ref. Range 4.0 - 9.5) RBC 3.79 x10(6)/mcL (Ref. Range 4.00 - 5.21) Hgb 10.6 g/dL (Ref. Range 11.7 - 15.5) Hct 31.4 % (Ref. Range 35.7 - 45.8) MCV 82.8 fL (Ref. Range 82.6 - 94.4) MCH 28.0 pg (Ref. Range 27.1 - 32.0) MCHC 33.8 g/dL (Ref. Range 31.7 - 35.0) RDWSD 44.7 fL (Ref. Range 37.0 - 46.0) RDWCV 15.6 % (Ref. Range 11.5 - 14.1) Platelet 540 x10(3)/mcL (Ref. Range 145 - 357) MPV 8.4 fL (Ref. Range 7.6 - 12.9) Neutro Absolute 65.95 x10(3)/mcL (Ref. Range 1.70 - 6.10) Immature Gran 8.34 x10(3)/mcL (Ref. Range 0.00 - 0.04) Lymph Absolute 0.3 x10(3)/mcL (Ref. Range 0.9 - 3.2) Monocy Absolute 4.8 x10(3)/mcL (Ref. Range 0.3 - 0.9) There is a normocytic normochromic anemia with increased polychromasia. Anisopoikilocytosis is increased with elliptocytes and lindsey cells. There is a marked left-shifted absolute neutrophilia and monocytosis, with granulocytes showing toxic changes and rare hypersegmented forms. Dohle bodies are seen. There is an absolute lymphopenia. There is a thrombocytosis with unremarkable platelet morphology. BONE MARROW ASPIRATE Adequacy: Smear/touch preparations adequate, hypercellular. G:E ratio: 4:1 Erythroid: Complete normoblastic maturation, no left-shift. Granulocyte: Markedly increased with pronounced left shift. Blasts: Not significantly increased. Megakaryocyte: Normal in number and morphology. Lymphocyte: Scattered mature forms seen, no aggregates appreciated. Plasma cells: Not increased, normal morphology. Other: Normal eosinophils, basophils, and mast cells. . BONE MARROW ASPIRATE Iron stain: Iron stores present, no ring sideroblasts. IMPRESSION 1. Mildly FDG avid lymphadenopathy is present in the left supraclavicular space, left side of the upper posterior mediastinum, in the retroperitoneum, pelvis and inguinal spaces consistent with low-grade lymphoma. 2. Diffusely increased activity in the marrow and spleen is likely related to Neulasta therapy. 3. There is sclerosis of the left side of the T2 vertebral body, possibly due to involvement of the vertebra by the adjacent posterior mediastinal mass. 4. Focal areas of sclerosis in the ribs bilaterally are of uncertain etiology but may be due to previous trauma. 5. Focal areas of sclerosis are present in the iliac bones bilaterally. The appearance of the left iliac bone suggest Paget disease. The right iliac bone may also be Paget disease. 6. Focal lucency in the upper sternal body may be due to adjacent degenerative disease of the sternomanubrial joint. ----- ADDENDUM 04/07/23 BM karyotype - normal documented in this encounter Plan of Treatment Upcoming Encounters Date Type Department Care Team (Late st Contact Info) Description 05/02/2024 8:30 AM EST Office Visit Hematology/Oncology at [address] [address] Pardeep George MD [facility] DR HEMATOLOGY [place] [address] Kelli Zapata [employer] [address] [place] [address] DR MEDICAL ONCOLOGY [place], [place] [id number] 05/02/2024 9:00 AM EST Infusion Hematology Oncology at [address] [phone] 01/31/2025 8:30 AM EDT Office Visit Psychiatry [place] [id number] Radha Negrete, PhD [facility] [place] [address] documented as of this encounter Results * (ABNORMAL) Comprehensive metabolic panel (non-fasting) (03/23/2023 10:35 AM EDT) [facility] Glucose 95 65 - 199 mg/dL [facility] Comment:Diabetes: >=200 mg/d L plus symptoms Blood Urea Nitrogen 10 8 - 18 mg/dL [facility] Creatinine 0.37(L) 0.70 - 1.20 mg/dL [facility] Sodium 131(L) 135 - 145 mmol/L [facility] Potassium 3.6 3.5 - 5.0 mmol/L [facility] Comment: Please note: ??Patients with WBC >100,000 may have falsely elevated Potassium levels. ??For accurate Potassium quantification in these patients send serum separator tube (gold top) for subsequent determinations. ??Contact the Clinical Chemistry Laboratory if there are any questions. Chloride 91(L) 98 - 107 mmol/L [facility] Carbon Dioxide 26 22 - 31 mmol/L [facility] Anion Gap 14 5 - 15 mmol/L [facility] Calcium 8.9 8.5 - 10.5 mg/dL [facility] Protein, Total 6.5 6.1 - 8.0 g/dL [facility] Albumin 3.8 3.2 - 5.2 g/dL [facility] Aspartate Aminotransferase 15 0 - 30 unit/L [facility] Alanine Aminotransferase 12 0 - 30 unit/L [facility] Alkaline Phosphatase 146(H) 35 - 105 unit/L [facility] Bilirubin, Total 0.3 0.2 - 1.3 mg/dL [facility] Est Glomerular Filtration Rate 106 >=60 mL/min/1. 73 m?? [facility] Comment: This patient's estimated GFR was [...] and symptoms in addition to eGFR. Blood 03/23/2023 10:3 5 AM EDT 03/23/2023 10:39 AM EDT Narrative Resulting Agency Comment Spec In Lab Zandra Glasgow APRN CHEMISTRY ORDERABL ES [facility] [place] [address] documented in this encounter Visit Diagnoses Diagnosis Lymphoma, unspecified body region, unspecified lymphoma type documented in this encounter Care Teams Raveler Relationship Specialty Start Date End Date Blanquita Pagan APRN [address] [place] [address] PCP - General Family Medicine 01/07/23 documented as of this encounter
--- OUTSIDE RECORDS SUMMARY | 2024-05-02 08:10 | XMS_ITS | Encounter Summary ---
Author Organization [facility] [place] [address] Care Team Providers Care Assistant Commissioner Name Role Phone Blanquita Pagan APRN Primary Care Provider [phone] Encounter Details Date Type Department Care Team (Latest Contact Info) Description 04/09/2023 3:30 PM EDT - 04/09/2023 11:59 PM EDT Hospital Encounter Hematology Oncology Level [address] [place] [address] Lymphoma, unspecified body region, unspecified lymphoma type [C85.90 (ICD-10-CM)] Discharge Disposition: Home Social History Tobacco Use [...] as of this encounter Progress Notes * Nikki Haro RN - 04/09/2023 5:09 PM EDT Outpatient Infusion Note DATE 04/09/23 Arrival Time: 1635 Departure Time: 1710 Diagnosis: Lymphoma Reason for visit: ? Needing an injection of pegfilgrastim. SUBJECTIVE: Pt and report a possible failed OnPro device. ? ASSESSMENT: Pt called the Fellow, Dr. Chaudhry from home early afternoon to report a possible failed OnPro device, an outpt appt was scheduled to receive an injection of pegfilgrastim. When pt and arrived they reported to this RN that the device did not fall off until 20 minutes after the medication would have been completely administered, approx. 1350. This RN spoke with Dr. Chaudhry, and the decision was made not to give her a dose of pegfilgrastim. Pt sent home. PLAN: Return to clinic as scheduled documented in this encounter Miscellaneous Notes * Addendum Note - Alex Pulido MD - 04/09/2023 11:59 PM EDTEncounter addended by: Alex Pulido MD on: 04/10/2023 9:12 AM Actions taken: Order list changed documented in this encounter Plan of Treatment Upcoming Encounters Date Type Department Care Team (Late st Contact Info) Description 05/02/2024 8:30 AM EST Office Visit Hematology/Oncology at [address] [phone] Pardeep George MD [facility] DR HEMATOLOGY [place] [address] Kelli Zapata APRN [address] [place] [address] [place] [address] 05/02/2024 9:00 AM EST Infusion Hematology Oncology at [address] [phone] 01/31/2025 8:30 AM EDT Office Visit Psychiatry [place] [address] Radha Negrete, PhD [facility] [place] [address] documented as of this encounter Visit Diagnoses Diagnosis Lymphoma, unspecified body region, unspecified lymphoma type [C85.90 (ICD-10-CM)] documented in this encounter Care Teams Assistant Commissioner Relationship Specialty Start Date End Date Blanquita Pagan APRN [address] [place] [address] PCP - General Family Medicine 01/07/23 documented as of this encounter
--- OUTSIDE RECORDS SUMMARY | 2024-05-02 08:10 | XMS_ITS | Encounter Summary ---
Author Organization [facility] Address [facility] [place] [address] Care Team Providers Care Motor Man Name Role Phone Blanquita Pagan APRN Primary Care Provider [phone] Encounter Details Date Type Department Care Team (Late st Contact Info) Description 03/16/2023 Telephone Hematology [place] [address] Gayathri Mcmillan, RN Social History [...] Telephone Encounter - Gayathri Mcmillan RN - 03/16/2023 1:41 PM EDT Regarding: Dat - CBC @ [facility] 03/23 Injection/Infusion Referral Call placed to [facility] @ [phone]. Spoke w/ TICKET DISPENSER CHANGER. Services to be provided for pt are: CBC ~ 03/23/23. TICKET DISPENSER CHANGER confirmed they would provide services to pt. I CALLED PT, LM ASKING HER TO CALL [facility] TO SCHEDULE LAB APPT. Pt orders faxed to [phone]. RTC: 03/23. documented in this encounter Plan of Treatment Upcoming Encounters Date Type Department Care Team (Late st Contact Info) Description 05/02/2024 8:30 AM EST Office Visit Hematology/Oncology at [address] [phone] Pardeep George MD [facility] DR HEMATOLOGY [place] [address] Kelli Zapata APRN [address] [place] [address] DR MEDICAL ONCOLOGY [place], [place] [address] 05/02/2024 9:00 AM EST Infusion Hematology Oncology at [address] [phone] 01/31/2025 8:30 AM EDT Office Visit Psychiatry [place] [address] Radha Negrete, PhD [facility] [place] [address] documented as of this encounter Visit Diagnoses Not on filedocumented in this encounter Care Teams Motor Man Relationship Specialty Start Date End Date Blanquita Pagan APRN [address] [place] [address] PCP - General Family Medicine 01/07/23 documented as of this encounter
--- OUTSIDE RECORDS SUMMARY | 2024-05-02 08:10 | XMS_ITS | Encounter Summary ---
Author Organization [facility] [place] [address] Care Team Providers Care Torch Cutter Name Role Phone Blanquita Pagan APRN Primary Care Provider [phone] Encounter Details Date Type Department Care Team (Late st Contact Info) Description 03/16/2023 Orders Only [place] [address] Zandra Glasgow MASTER [facility] [place] [address] Lymphoma, unspecified body region, unspecified lymphoma type [...] in a halfway (including now)? No 02/16/2023 IPV Inpatient Questions [...] AM EST Office Visit Hematology/Oncology at [address] [phone] Pardeep George MD [facility] [place] [address] Kelli Zapata APRN [address] [place] [address] [place] [address] 05/02/2024 9:00 AM EST Infusion Hematology Oncology at [address] [phone] 01/31/2025 8:30 AM EDT Office Visit Psychiatry [place] [address] Radha Negrete, PhD [facility] [place] [address] Scheduled Orders Name Type Priority Associated Diagnoses Orde r Schedule CBC (with Diff) Lab Routine Lymphoma, unspecified body region, unspecified lymphoma type Every 2 Weeks for 12 Occurrences starting 03/16/2023 until 03/16/2024, 1 completed documented as of this encounter Visit Diagnoses Diagnosis Lymphoma, unspecified body region, unspecified lymphoma type documented in this encounter Care Teams Torch Cutter Relationship Specialty Start Date End Date Blanquita Pagan APRN [address] [place] [address] PCP - General Family Medicine 01/07/23 documented as of this encounter
--- OUTSIDE RECORDS SUMMARY | 2024-05-02 08:10 | XMS_ITS | Encounter Summary ---
Author Organization [facility] [place] [address] Care Team Providers Care Vocational Counselor Name Role Phone Blanquita Pagan APRN Primary Care Provider [phone] Encounter Details Date Type Department Care Team (Late st Contact Info) Description 04/09/2023 Telephone Hematology Oncology Level [address] [place] [address] Kaitlynn Chaudhry MD [facility] DR HEMATOLOGY/[place] [address] Social History Tobacco Use Types Packs/Day Years [...] as of this encounter Progress Notes * Kaitlynn Chaudhry MD - 04/09/2023 2:33 PM EDT I received the page from Ani Ridley . 2nd onpro injection yesterday at [facility]. On pro fell off today while she was taking off a tight shirt. Reviewed her CBC from 04/07/2023, hgb 10.6, PLT 294. Spoke with the , he is able to drive the pt here to [facility] for onpro replacement. Kaitlynn Chaudhry MD Hematology/ Medical Oncology Fellow [facility] Page #[phone] documented in this encounter Plan of Treatment Upcoming Encounters Date Type Department Care Team (Late st Contact Info) Description 05/02/2024 8:30 AM EST Office Visit Hematology/Oncology at [address] [phone] Pardeep George MD [facility] DR HEMATOLOGY AND ONCOLOGY [place], [place] [phone] Kelli Zapata APRN [address] [place] [address] [place] [address] 05/02/2024 9:00 AM EST Infusion Hematology Oncology at [address] [phone] 01/31/2025 8:30 AM EDT Office Visit Psychiatry [place] [address] Radha Negrete, PhD [facility] [place] [address] documented as of this encounter Visit Diagnoses Not on filedocumented in this encounter Care Teams Vocational Counselor Relationship Specialty Start Date End Date Blanquita Pagan APRN [address] [place] [address] PCP - General Family Medicine 01/07/23 documented as of this encounter
--- OUTSIDE RECORDS SUMMARY | 2024-05-02 08:10 | XMS_ITS | Encounter Summary ---
Author Organization [facility] Address [facility] [place] [address] Care Team Providers Care Spiritual Counselor Name Role Phone Blanquita Pagan APRN Primary Care Provider [phone] Encounter Details Date Type Department Care Team (Late st Contact Info) Description 04/07/2023 9:00 AM EDT Office Visit Hematology/Oncology at [address] [phone] Pardeep George MD [facility] DR [place] [address] Magdalena Ashraf APRN [facility] DR [place] [address] Follicular lymphoma grade I, unspecified body region [...] Sign Reading Time Taken Comments Blood Pressure 133/75 04/07/2023 8:59 AM EDT Pulse 77 04/07/2023 8:59 AM EDT Temperature 36 ??C (96.8 ??F) 04/07/2023 8:59 AM EDT Respiratory Rate 16 04/07/2023 8:59 AM EDT Oxygen Saturation 100% 04/07/2023 8:59 AM EDT Inhaled Oxygen Concentration - - Weight 48.7 kg (107 lb 6.4 oz) 04/07/2023 8:59 A M EDT Height 167.6 cm (5' 5.98) 04/07/2023 8:59 AM ED T Body Mass Index 17.34 04/07/2023 8:59 AM EDT documented in this encounter Progress Notes * Pardeep George MD - 04/07/2023 9:00 AM EDT Subjective Patient ID: Ani Ridley is a 73 y.o. female. HPI The patient is a 73-year-old female that I am meeting for the first time in the [facility]. She has recently been diagnosed with follicular lymphoma. She was worked up in the [facility] by Dr. Daugherty and started on Bendamustine and Rituxan 1 month ago. She is due for cycle 2 and is here tostart that. She did get Neulasta with her first cycle. She tolerated treatment quite well. She had some fatigue in the first few weeks she was pretty tired but this last week she has been doing much better. She did lose some weight but feels like she is doing better over this last week. The lymph node mass above her left clavicle by report has resolved. She does not have any significant back pain. No fevers. Patient Active Problem List Diagnosis Code Lymphoma C85.90 Lytic bone lesions on xray M89.9 Anemia, iron deficiency D50.9 Current Outpatient Medications: cyanocobalamin, Vitamin B-12, (Vitamin B-12) 100 mcg tablet, Take 100 mcg by mouth daily., Disp: , Rfl: acetaminophen (Tylenol) 80 mg chewable tablet, Take 80 mg by mouth 2 times daily., Disp: , Rfl: multivitamin (THERAGRAN) Tablet, Take 1 tablet by mouth daily., Disp: , Rfl: alendronate (Fosamax) 10 mg tablet, Take 10 mg by mouth daily., Disp: , Rfl: levothyroxine (Synthroid) 50 mcg tablet, Take 50 mcg by mouth daily., Disp: , Rfl: pantoprazole EC (Protonix) [address] tablet, Take 40 mg by mouth daily., Disp: , Rfl: allopurinoL (Zyloprim) 300 mg tablet, Take 1 tablet by mouth daily. Take one tablet by mouth for 14days then stop. (Patient not taking: Reported on 04/07/2023), Disp: 14 tablet, Rfl: 0 traMADoL (Ultram) 50 mg tablet, Take 0.5 [...] visit. Facility-Administered Medications Ordered in Other Visits: pegfilgrastim (Neulasta Onpro) (6 mg/0.6 mL) injection kit 6 mg, 6 mg, Subcutaneous, Once, Pardeep George MD dexAMETHasone (Decadron) (10 mg/mL) injection 10 mg, 10 mg, Intravenous, Once, Pardeep George MD dexAMETHasone (Decadron) tablet 10 mg, 10 mg, Oral, Once, Pardeep George MD sodium chloride 0.9% infusion, 125 mL/hr, Intravenous, Continuous, Pardeep George MD bendamustine (Bendeka/Belrapzo) 142 mg in sodium chloride 0.9% 55.68 mL infusion, 90 mg/m2/dose (Treatment Plan Recorded), Intravenous, Once, Pardeep George MD heparin (pf) (porcine) (100 units/mL) flush 5 mL syringe 500 Units, 500 Units, Intravenous, Once PRN, Pardeep George MD sodium chloride 0.9 % [...] of Health Financial Resource Strain: Low Risk Difficulty of Paying Living Expenses: Not hard at all Food Insecurity: Unknown Worried About Running Out of Food in the Last Year: Never true Ran Out of Food in the Last Year: Not on file Transportation Needs: No Transportation Needs Lack of Transportation (Medical): No Lack of Transportation (Non-Medical): No Physical Activity: Not on file Housing Stability: Unknown Unable to Pay for Housing in the [...] systems reviewed and are negative. Objective BP 133/75 (Patient Position: Sitting) Pulse 77 Temp 36 ??C (96.8 ??F) (Temporal) Resp 16 Ht167.6 cm (5' 5.98) Wt 48.7 kg (107 lb 6.4 oz) SpO2 100% BMI 17.34 kg/m?? Physical Exam Constitutional: General: She is not in acute distress. HENT: Mouth/Throat: Mouth: Mucous membranes are moist. Eyes: General: No scleral icterus. Cardiovascular: Rate and Rhythm: Normal rate. Pulmonary: Effort: Pulmonary effort is normal. Lymphadenopathy: Cervical: No cervical adenopathy. Skin: Findings: No rash. Neurological: Mental Status: She is alert and oriented to person, place, and time. Labs today White count 5.1, ANC 4.0, hemoglobin 10.6, platelets 294 Creatinine 0.5, LDH 176 Assessment and Plan 73-year-old female diagnosed with advanced stage low-grade follicular lymphoma. She has initiated chemotherapy with Bendamustine and Rituxan and after her first cycle had resolution of the palpable adenopathy. Her counts are adequate to proceed to cycle 2 today. We did talk about several issues. I encouragedher for frequent small meals and calorie/nutrition dense foods. We talked about management of constipation which was a problem around her first cycle but she notesshe was on narcotics at that point and no longer needs them. She is going to use her stool softenerand add MiraLAX She did tolerate her first Rituxan without difficulty so we will proceed with rapid Rituxan today. She wanted to know if she is having more problems otherwise we will see her back in 4 weeks when she is due for her next cycle. I am going to repeat an early CT scan of the chest abdomen pelvis to follow-up on her paraspinal mass and be sure that his responding as well. documented in this encounter Plan of Treatment Upcoming Encounters Date Type Department Care Team (Late st Contact Info) Description 05/02/2024 8:30 AM EST Office Visit Hematology/Oncology at [address] [phone] Pardeep George MD [facility] DR [place] [address] Kelli Zapata APRN [address] [place] [address] DR MEDICAL ONCOLOGY [place], [place] [id number] 05/02/2024 9:00 AM EST Infusion Hematology Oncology at [address] [phone] 01/31/2025 8:30 AM EDT Office Visit Psychiatry [place] [address] Radha Negrete, PhD [facility] [place] [address] Scheduled Orders Name Type Priority Associated Diagnoses Orde r Schedule CBC (with Diff) Lab STAT Follicular lymphoma grade I, unspecified body region Every 4 Weeks for 12 Occurrences starting 04/08/2023 until 04/08/2024 Comprehensive metabolic panel (non-fasting) Lab STAT Follicular lymphoma grade I, unspecified body region Every 4 Weeks for 12 Occurrences starting 04/08/2023 until 04/08/2024 Lactate Dehydrogenase Lab STAT Follicular lymphoma grade I, unspecified body region Every 4 Weeks for 12 Occurrences starting 04/08/2023 until 04/08/2024 documented as of this encounter Procedures Procedure Name Priority Date/Time Associated Diagnosis Comments CBC (WITH DIFF) Routine 04/07/2023 COMPREHENSIVE METABOLIC PANEL Routine 04/07/2023 documented in this encounter Results * Comprehensive metabolic panel (non-fasting) (04/07/2023) Blood Urea Nitrogen 16 Creatinine 0.5 Sodium 135 Potassium 3.8 Calcium 9.4 Protein, Total 7.0 Albumin 3.6 Bilirubin, Total 0.4 Alkaline Phosphatase 84 Aspartate Aminotransferase 19 Alanine Aminotransferase 25 Blood 04/07/2023 Historical Provider CHEMISTRY ORDERAB LES * (ABNORMAL) CBC (with Diff) (04/07/2023) White Blood Cell 5.26 Red Blood Cell 3.75 Hemoglobin 10.6(L) Hematocrit 32.2(L) Platelet 294 Neutrophil Absolute (ANC) - Automated 4.01 Blood 04/07/2023 Historical Provider HEMATOLOGY ORDERA BLES documented in this encounter Visit Diagnoses Diagnosis Follicular lymphoma grade I, unspecified body region documented in this encounter Care Teams Spiritual Counselor Relationship Specialty Start Date End Date Blanquita Pagan APRN [address] [place] [address] PCP - General Family Medicine 01/07/23 documented as of this encounter
--- OUTSIDE RECORDS SUMMARY | 2024-05-02 08:10 | XMS_ITS | Encounter Summary ---
Author Organization [facility] Address [facility] [place] [address] Care Team Providers Care Lens Silverer Name Role Phone Blanquita Pagan APRN Primary Care Provider [phone] Encounter Details Date Type Department Care Team (Late st Contact Info) Description 03/21/2023 Telephone Hematology [place] [phone] [facility] DR HEMATOLOGY/[place] [address] Social History Tobacco Use Types Packs/Day Years [...] encounter Miscellaneous Notes * Telephone Encounter - Kaitlynn Chaudhry MD - 03/21/2023 6:30 AM EDT I received a page from Dr. Dumont at [facility]. Ani Ridley is a recently diagnosed low-grade follicular NHL, Cycle 1# R- Bendamustine on 03/10& presented to ER at [facility] for mak feet pain. Labs are grossly unremarkable. Physical exam per Dr. Dumont was unremarkable with good pulses and capillary refill. US LE pending. A&P #mak Feet pain, unknown etiology # low grade follicular lymphoma, cycle 1# BR 03/10/2023 -Her current presentation seems benign. There is small portion of pt who got Bendamustine reports limb pain. Reviewed her recent PET/CT skull to thigh, yet does not cover her feet, but mak feet pain is unlikely disease related. -US pending, if positive Dr. Dumont will reach out again. Please call with any new concerns or questions. Cc'd Dr. Daugherty and Heme triage Kaitlynn Chaudhry MD Hematology/ Medical Oncology Fellow [facility] Page #[phone] documented in this encounter Plan of Treatment Upcoming Encounters Date Type Department Care Team (Late st Contact Info) Description 05/02/2024 8:30 AM EST Office Visit Hematology/Oncology at [address] [phone] [facility] DR HEMATOLOGY [place] [address] Kelli Zapata APRN [address] [place] [address] MEDICAL ONCOLOGY [place], [place] [phone] 05/02/2024 9:00 AM EST Infusion Hematology Oncology at [address] [phone] 01/31/2025 8:30 AM EDT Office Visit Psychiatry and [place] [address] Radha Negrete, PhD [facility] [place] [address] documented as of this encounter Visit Diagnoses Not on filedocumented in this encounter Care Teams Lens Silverer Relationship Specialty Start Date End Date Blanquita Pagan APRN [address] [place] [address] PCP - General Family Medicine 01/07/23 documented as of this encounter
--- OUTSIDE RECORDS SUMMARY | 2024-05-02 08:10 | XMS_ITS | Encounter Summary ---
Author Organization [facility] Address [facility] [place] [address] Care Team Providers Care Systems Integration Manager Name Role Phone Blanquita Pagan APRN Primary Care Provider [phone] Reason for Visit * Reason Comments Chemotherapy Cycle 6 day 1 * Treatment/Therapy Plan Authorization (Routine) - Closed Specialty Diagnoses / Procedures Referred By Contac t Referred To Contact Hematology and Oncology Diagnoses Lymphoma, unspecified body region, unspecified lymphoma type Lytic bone lesions on xray Procedures TC RITUXIMAB-PVVR, BIOSIMILAR, (RUXIENCE), 10 MG, INJ [id number] RUXIENCE Miguel Daugherty MD [facility] DR [place] [address] Miguel Daugherty MD [facility] DR HEMATOLOGY [place] [address] Referral ID Status Reason Start Date Expiration Date Visits Re quested Visits Authorized [id number] Closed 02/25/2023 02/25/2024 1 106 Encounter Details Date Type Department Care Team (Late st Contact Info) Description 07/28/2023 9:30 AM EST Infusion Hematology Oncology at [address] [phone] Lymphoma, unspecified body region, unspecified [...] Progress Notes * Regine Mary, KENNETH - 07/28/2023 9:30 AM EST INFUSION THERAPY ADMINISTRATION NOTES TIME TREATMENT STARTED: 944 TIME TREATMENT ENDED: 1229 DIAGNOSIS: follicular lymphoma PROTOCOL:na CYCLE #: 6 day 1 REASON FOR VISIT: rituxan / bendamustine SUBJECTIVE Ani Ridley offers no complaints. OBJECTIVE LAB DATA: Labs reviewed and found adequate for treatment. Pt has received rituxan rapid rate without dexamethasone per Beena Ashraf PUPPET MASTER as she gets feelings of confusion when given it so none was given today. Pre administration: Chemotherapy orders independently verified for drug name, route, and dosage per patient's height, weight and BSA by Jose Mary RN and Tommy Alford pharmacist. REACTIONS (DESCRIPTION, TIME, INTERVENTION AND EFFECTIVENESS) none Pt received rapid infusion of rituxan with no issues Mediport with excellent blood return before during and after infusion, flushed with 20 ccs normal saline and pulsating action, needle left in place for infusion tomorrow. ASSESSMENT Ani Ridley was awake, alert and he tolerated treatment well. PLAN Return to clinic tomorrow. documented in this encounter Plan of Treatment Upcoming Encounters Date Type Department Care Team (Late st Contact Info) Description 05/02/2024 8:30 AM EST Office Visit Hematology/Oncology at [address] [phone] Pardeep George MD [facility] DR HEMATOLOGY [place] [address] Kelli aZpata PROCESS TRAINER [address] [place] [address] [place] [address] 05/02/2024 9:00 AM EST Infusion Hematology Oncology at [address] [phone] 01/31/2025 8:30 AM EDT Office Visit Psychiatry [place] [address] Radha Negrete, PhD [facility] [place] [address] documented as of this encounter Visit Diagnoses [...] mg, Oral, ONCE, 1 dose, On Alyce 07/28/23 at 1000, Administer prior to riTUXimab., Routine Given 07/28/2023 9:56 AM EST 650 mg bendamustine (Bendeka/Belrapzo) 142 mg in sodium chloride 0.9% 55.68 mL infusion 142 mg (rounded from 142.2 mg = 90 mg/m2/dose ? 1.58 m2 Treatment Plan BSA from Recorded weight), Intravenous, ONCE, 1 dose, On Alyce 07/28/23 at 1100, Administer over 10 Minutes, The resulting final concentration of bendamustine in the infusion bag should be between 1.85 - 5.6 mg/mL. Warning Vesicant/Irritant Medication New Bag 07/28/2023 12:12 PM EST 142 mg 334.1 mL/hr diphenhydrAMINE (Benadryl) capsule 50 mg 50 mg, Oral, ONCE, 1 dose, On Alyce 07/28/23 at 1000, Administer prior to riTUXimab, Routine Given 07/28/2023 9:56 AM EST 50 mg palonosetron (Aloxi) (0.05 mg/mL) injection 0.25 mg 0.25 mg, Intravenous, ONCE, 1 dose, On Alyce 07/28/23 at 1000, Administer over 30 seconds., Routine Given 07/28/2023 9:57 AM EST 0.25 mg riTUXimab-pvvr (Ruxience) 600 mg in sodium chloride 0.9% 300 mL infusion 600 mg, Intravenous, ONCE, 1 dose, On Alyce 07/28/23 at 1100, Administer Per Protocol, Is this product being used for treatment of malignant indication? Yes, Patient is a candidate for rapid infusion riTUXimab? Yes New Bag 07/28/2023 10:34 AM EST 600 mg sodium chloride 0.9 % (flush) (BD PosiFlush Normal Saline 0.9) flush 5-20 mL 5-20 mL, Intravenous, EVERY 1 MIN PRN, Starting on Alyce 07/28/23 at 0932, Until Alyce 07/28/23 at 1457, Line Care, Flush pertains to all indwelling lines. Flush per protocol found in the job aid using the link provided on this medication record. Refer to Intravenous (IV) Job Aid: Adult Flushing & Catheter Care (3667) job aid for additional information regarding guidelines and administration., Routine Given 07/28/2023 12:25 PM EST 20 mLs sodium chloride 0.9% infusion 125 mL/hr, Intravenous, CONTINUOUS, Starting on Alyce 07/28/23 at 1000, Until Alyce 07/28/23 at 1457, Pls run IV fluids during chemo for maximum volume of 750-1000cc. New Bag 07/28/2023 10:01 AM EST 125 mL/hr 125 mL/hr documented in this encounter Care Teams Systems Integration Manager Relationship Specialty Start Date End Date Blanquita Pagan APRN [address] [place] [address] PCP - General Family Medicine 01/07/23 documented as of this encounter
--- OUTSIDE RECORDS SUMMARY | 2024-05-02 08:10 | XMS_ITS | Encounter Summary ---
Author Organization [facility] Address [facility] [place] [address] Care Team Providers Care Wildlife Biology Technician Name Role Phone Blanquita Pagan APRN Primary Care Provider [phone] Encounter Details Date Type Department Care Team (Latest Contact Info) Description 03/23/2023 10:00 AM EDT - 03/23/2023 11:59 PM EDT Hospital Encounter [place]ology [place] [address] Lymphoma, unspecified body region, unspecified lymphoma type [...] as of this encounter Progress Notes * Amy Barajas RN - 03/23/2023 10:37 AM EDT Patient Name: Ani Ridley Patient Age: 72 y.o. Birthdate: 1950 Admit date: 03/23/2023 Attending Physician: No att. providers found Access visit. See MAR and/or flowsheet. documented in this encounter Plan of Treatment Upcoming Encounters Date Type Department Care Team (Late st Contact Info) Description 05/02/2024 8:30 AM EST Office Visit Hematology/Oncology at [address] [phone] Pardeep George MD [facility] DR HEMATOLOGY [place] [address] Kelli Zapata APRN [address] [place] [address] DR MEDICAL ONCOLOGY [place], [place] [id number] 05/02/2024 9:00 AM EST Infusion Hematology Oncology at [address] [phone] 01/31/2025 8:30 AM EDT Office Visit Psychiatry [place] [address] Radha Negrete, PhD [facility] [place] [address] documented as of this encounter Procedures Procedure Name Priority Date/Time Associated Diagnosis Comments HEMOGRAM Routine 03/23/2023 10:35 AM EDT Lymphoma, unspecified body region, unspecified lymphoma type DIFFERENTIAL, AUTOMATED Routine 03/23/2023 10:35 AM EDT Lymphoma, unspecified body region, unspecified lymphoma type CBC (WITH DIFF) Routine 03/23/2023 10:35 AM EDT Lymphoma, unspecified body region, unspecified lymphoma type COMPREHENSIVE METABOLIC PANEL STAT 03/23/2023 10:35 AM EDT Lymphoma, unspecified body region, unspecified lymphoma type documented in this encounter Results * (ABNORMAL) Differential, Automated (03/23/2023 10:35 AM EDT) Neutrophil % 91.3 % [facility] Neutrophil Absolute 22.96(H) 1.70 - 6.10 x10(3)/mc L [facility] Lymph % 0.6 % [facility] Lymphocytes Abs 0.2(L) 0.9 - 3.2 x10(3)/mc L [facility] Monocyte % 4.7 % [facility] Monocyte Abs 1.2(H) 0.3 - 0.9 x10(3)/mc L [facility] Eos % 0.1 % [facility] Eosinophils Abs 0.0 0.0 - 0.4 x10(3)/mc L [facility] Basophil % 0.4 % [facility] Baso Absolute 0.1 0.0 - 0.1 x10(3)/mc L [facility] Immature Gran % 2.90 % [facility] Comment: Immature granulocytes(IG's)percentage and absolute count will include metamyelocytes, myelocytes, and promyelocytes. Blood smears from CBCs yielding IG's will be scanned manually for concordance. If this scan disagrees with the automated IG or if promyelocytes are noted, a manual differential will be performed. Immature Gran Absolute 0.72(H) 0.00 - 0.04 x10(3)/mc L [facility] Blood 03/23/2023 10:3 5 AM EDT 03/23/2023 10:39 AM EDT Narrative Resulting Agency Comment Spec In Lab Zandra Glasgow SUBCONTRACT ADMINISTRATOR HEMATOLOGY ORDERAB LES [facility] [place] [address] * (ABNORMAL) Hemogram (03/23/2023 10:35 AM EDT) White Blood Cell 25.1(H) 4.0 - 9.5 x10(3)/mc L [facility] Red Blood Cell 3.61(L) 4.00 - 5.21 x10(6)/mc L [facility] Hemoglobin 9.9(L) 11.7 - 15.5 g/dL [facility] Hematocrit 29.5(L) 35.7 - 45.8 % [facility] Mean Cell Volume 81.7(L) 82.6 - 94.[address] fL [facility] Mean Cell Hemoglobin 27.4 27.1 - 32.[address] [facility] Mean Cell Hemoglobin Concentration 33.6 31.7 - 35.0 g/dL [facility] Platelet 301 145 - 357 x10(3)/mc L [facility] RDW Standard Deviation 46.1(H) 37.0 - 46.[address] fL [facility] RDW coefficient of variation 16.0(H) 11.5 - 14.1 % [facility] Mean Platelet Volume 9.1 7.6 - 12.9 fL [facility] NRBC% auto 0.0 % [facility] NRBC Absolute 0.000 0.000 - 0.000 x10(3)/mc L [facility] Blood 03/23/2023 10:3 5 AM EDT 03/23/2023 10:39 AM EDT Narrative Resulting Agency Comment Spec In Lab Zandra Glasgow APRN HEMATOLOGY ORDERAB LES [facility] [place] [address] * (ABNORMAL) Comprehensive metabolic panel (non-fasting) (03/23/2023 10:35 AM EDT) Glucose 95 65 - 199 mg/dL [facility] Comment:Diabetes: >=200 mg/d L plus symptoms Blood Urea Nitrogen 10 8 - 18 mg/dL [facility] Creatinine 0.37(L) 0.70 - 1.20 mg/dL [facility] Sodium 131(L) 135 - 145 mmol/L [facility] Potassium 3.6 3.5 - 5.0 mmol/L [facility] Comment: Please note: ??Patients with WBC >100,000 may have falsely elevated Potassium levels. ??For accurate Potassium quantification in these patients send serum separator tube (gold top) for subsequent determinations. ??Contact the Clinical Chemistry Laboratory if there are any questions. Chloride 91(L) 98 - 107 mmol/L [facility] Carbon Dioxide 26 22 - 31 mmol/L [facility] Anion Gap 14 5 - 15 mmol/L [facility] Calcium 8.9 8.5 - 10.5 mg/dL [facility] Protein, Total 6.5 6.1 - 8.0 g/dL [facility] Albumin 3.8 3.2 - 5.2 g/dL [facility] Aspartate Aminotransferase 15 0 - 30 unit/L [facility] Alanine Aminotransferase 12 0 - 30 unit/L [facility] Alkaline Phosphatase 146(H) 35 - 105 unit/L [facility] Bilirubin, Total 0.3 0.2 - 1.3 mg/dL [facility] Est Glomerular Filtration Rate 106 >=60 mL/min/1. 73 m?? [facility] Comment: This patient's estimated GFR was [...] Agency Comment Spec In Lab Zandra Glasgow SUBCONTRACT ADMINISTRATOR CHEMISTRY ORDERABL ES [facility] [place] [address] documented in this encounter Visit Diagnoses Diagnosis Lymphoma, unspecified body region, unspecified lymphoma type documented in this encounter Administered Medications Inactive Administered Medications - up to 3 most recent administrations Medication Order MAR Action Action Date Dose Rate Site heparin (pf) (porcine) (100 units/mL) flush 5 mL syringe 500 Units 500 Units, Intravenous, ONCE PRN, Starting on Tue03/23/23 at 1036, Until Tue03/24/23 at 0433, Line Care, Routine Given 03/23/2023 10:37 AM EDT 500 Units sodium chloride 0.9 % (flush) (BD PosiFlush Normal Saline 0.9) flush 10-20 mL 10-20 mL, Intravenous, EVERY 1 MIN PRN, Starting on Tue03/23/23 at 1036, Until Alyce 03/24/23 at 0433, Chronic Manager, Routine Given 03/23/2023 10:36 AM EDT 20 mLs documented in this encounter Care Teams Wildlife Biology Technician Relationship Specialty Start Date End Date Blanquita Pagan APRN [address] [place] [address] PCP - General Family Medicine 01/07/23 documented as of this encounter
--- OUTSIDE RECORDS SUMMARY | 2024-05-02 08:10 | XMS_ITS | Encounter Summary ---
Author Organization [facility] Address [facility] [place] [address] Care Team Providers Care Washing Machine Assembler Name Role Phone Blanquita Pagan APRN Primary Care Provider [phone] Encounter Details Date Type Department Care Team (Late st Contact Info) Description 06/02/2023 8:30 AM EST Office Visit Hematology/Oncology at [address] [phone] Magdalena Ashraf APRN [facility] HEMATOLOGY [place] [address] Follicular lymphoma, unspecified follicular lymphoma type, unspecified body region; Hypothyroidism, unspecified type Social History Tobacco Use Types Packs/Day [...] in a [facility] (including now)? No 02/16/2023 DH IPV Inpatient [...] Sign Reading Time Taken Comments Blood Pressure 152/83 06/02/2023 8:23 AM EST Pulse 68 06/02/2023 8:23 AM EST Temperature 35.7 ??C (96.2 ??F) 06/02/2023 8:23 AM ES T Respiratory Rate 18 06/02/2023 8:23 AM EST Oxygen Saturation 99% 06/02/2023 8:23 AM EST Inhaled Oxygen Concentration - - Weight 50.7 kg (111 lb 12.8 oz) 06/02/2023 8:23 AM EST Height 167.6 cm (5' 5.98) 06/02/2023 8:23 AM ES T Body Mass Index 18.05 06/02/2023 8:23 AM EST documented in this encounter Progress Notes * Magdalena Ashraf, GENERAL LABORER - 06/02/2023 8:30 AM EST Subjective Patient ID: Ani Ridley is a 73 y.o. female here for f/u of NHL Patient Active Problem List Diagnosis Follicular [...] lesions on xray HPI Ani is doing quite well. She I seating and drinking better - has gained a few pounds - enjoying ice cream. Her chronic neuropathy and gait issues have greatly improved - no stum bles or falls. Shedoes have her chronic cough - this wa sbetter and is now worse again. Clear sputum - feels like shespits up a lot. No SOB - is walking 5000 steps a day. No N/V. Constipation is well controlled with diet and stool softeners. She does c/o foggy brain - worse the first few weeks after treatment and then seems to clear. She continues to have no pain from her compression fracture. No F/C or night sweats. Review of Systems Constitutional: Negative. HENT: Negative. Eyes: Negative. Respiratory: Positive for cough. Negative for shortness of breath. Cardiovascular: Negative. Negative for chest pain, palpitations and leg swelling. Gastrointestinal: Negative. Negative for constipation, diarrhea, nausea and vomiting. Genitourinary: Negative. Musculoskeletal: Negative. Skin: Negative. Neurological: Positive for numbness. Negative for weakness. Chronic PN - this is much better since starting treatment - as well as her gait and stability Hematological: Negative. Psychiatric/Behavioral: Negative. Objective Physical Exam Constitutional: General: She is not in acute distress. Appearance: She is well-developed. HENT: Head: Atraumatic. Mouth/Throat: Pharynx: No oropharyngeal exudate. Eyes: Conjunctiva/sclera: Conjunctivae normal. Pupils: Pupils are equal, round, and reactive to light. Cardiovascular: Rate and Rhythm: Normal rate and regular rhythm. Heart sounds: Murmur heard. Pulmonary: Effort: Pulmonary effort is normal. Breath sounds: Normal breath sounds. No wheezing or rales. Abdominal: General: Bowel sounds are normal. Palpations: Abdomen is soft. There is no mass. Tenderness: There is no guarding or rebound. Musculoskeletal: General: Normal range of motion. Cervical back: Normal range of motion. Rigidity present. Lymphadenopathy: Cervical: No cervical adenopathy. Upper Body: Right upper body: No supraclavicular adenopathy. Left upper body: No supraclavicular adenopathy. Skin: General: Skin is warm and dry. Neurological: Mental Status: She is alert and oriented to person, place, and time. Psychiatric: Mood and Affect: Mood normal. Recent Results (from the past 72 hour(s)) CBC (with Diff) Result Value Ref Range WBC 6.12 RBC 3.58 (L) Hemoglobin 11.1 (L) Hematocrit 33.3 (L) Platelets 258 Neutr Abs (ANC) 4.97 Comprehensive metabolic panel (non-fasting) Result Value Ref Range Glucose Lvl 92 BUN 14 Creatinine 0.6 Sodium 140 Potassium 3.8 Calcium 9.1 Total Protein 6.8 Albumin 3.6 Total Bilirubin 0.3 Alk Phos 74 AST 26 ALT 37 LDH 183 BP 152/83 (Patient Position: Sitting) Pulse 68 Temp 35.7 ??C (96.2 ??F) (Temporal) Resp 18 Ht 167.6 cm (5' 5.98) Wt 50.7 kg (111 lb 12.8 oz) SpO2 99% BMI 18.05 kg/m?? Assessment and Plan 73-year-old female diagnosed with advanced stage low-grade follicular lymphoma. She has initiated chemotherapy with Bendamustine and Rituxan and has now completed 3 cycles and she has tolerated therapy very well. Current CT scan shows significant improvement in her disease and most particularly the paraspinal mass. She still does not seem to have any symptoms from the T9 compression fracture and I do not think that is related to the lymphoma. We will proceed with cycle 3 today. I am discontinuing her dex premed as she has had no infusion reactions and complains of trouble with concentration. This does remain PRN. Chronic cough - sounds like PND- will trial OTC flonase. Benadryl as pre med may help today. We will support her with neulasta on day 2. Aware to call if any fevers/ temp > 100.4F We will also check TSH at her next visit as this could be contributing to her symptoms. Last TSH was 6.15 on 03/09/23. She will return in 4 weeks for cycle 4. We will aim to complete 6 cycles and then reimage her at that point. documented in this encounter Miscellaneous Notes * Addendum Note - Vargas Vora APRN - 06/02/2023 8:30 AM ESTAddended by: VARGAS VORA on: 06/02/2023 12:20 PM Modules accepted: Orders documented in this encounter Plan of Treatment Upcoming Encounters Date Type Department Care Team (Late st Contact Info) Description 05/02/2024 8:30 AM EST Office Visit Hematology/Oncology at [address] [phone] Pardeep George MD [facility] HEMATOLOGY [place] [address] Vargas Vora APRN [address] [place] [address] [place] [address] 05/02/2024 9:00 AM EST Infusion Hematology Oncology at [address] [phone] 01/31/2025 8:30 AM EDT Office Visit Psychiatry [place] [phone] Radha Negrete, PhD [facility] [place] [address] documented as of this encounter Procedures Procedure Name Priority Date/Time Associated Diagnosis Comments CBC (WITH DIFF) Routine 06/02/2023 COMPREHENSIVE METABOLIC PANEL Routine 06/02/2023 documented in this encounter Results * Comprehensive metabolic panel (non-fasting) (06/02/2023) Glucose 92 Blood Urea Nitrogen 14 Creatinine 0.6 Sodium 140 Potassium 3.8 Calcium 9.1 Protein, Total 6.8 Albumin 3.6 Bilirubin, Total 0.3 Alkaline Phosphatase 74 Aspartate Aminotransferase 26 Alanine Aminotransferase 37 Lactate Dehydrogenase 183 Blood 06/02/2023 Historical Provider CHEMISTRY ORDERAB LES * (ABNORMAL) CBC (with Diff) (06/02/2023) White Blood Cell 6.12 Red Blood Cell 3.58(L) Hemoglobin 11.1(L) Hematocrit 33.3(L) Platelet 258 Neutrophil Absolute (ANC) - Automated 4.97 Blood 06/02/2023 Historical Provider HEMATOLOGY ORDERA BLES documented in this encounter Visit Diagnoses Diagnosis Follicular lymphoma, unspecified follicular lymphoma type, unspecified body region Hypothyroidism, unspecified type documented in this encounter Care Teams Washing Machine Assembler Relationship Specialty Start Date End Date Blanquita Pagan APRN [address] [place] [address] PCP - General Family Medicine 01/07/23 documented as of this encounter
[2024-05-02 08:11] LABS: Absolute Basophil Count 0.06 10^3/uL (0.0-0.2); Absolute Eosinophil Count 0.07 10^3/uL (0.0-0.7); Absolute Lymphocyte Count 0.46 10^3/uL (1.2-3.4); Absolute Monocyte Count 0.62 10^3/uL (0.1-0.8); Absolute Neutrophil Count 2.99 10^3/uL (1.2-6.7); Basophils % 1.4 %; Eosinophils % 1.7 %; HCT 34.2 % (36.0-46.0); HGB 11.7 g/dL (11.2-15.7); MCH 32.2 pg (27.0-33.0); MCHC 34.2 % (32.0-36.0); MCV 94 fL (80-95); Monocytes % 14.8 %; Neutrophils % 71.1 %; Platelet Count 201 10^3/uL (130-400); RBC 3.63 10^6/uL (3.93-5.22); RDW 13.4 % (11.7-14.6); RDW-SD 45.9 fL
--- OUTSIDE RECORDS SUMMARY | 2024-05-02 08:11 | XMS_ITS | Encounter Summary ---
Author Organization [facility] Address [facility] [place] [address] Care Team Providers Care Facility Specialist Name Role Phone Blanquita Pagan APRN Primary Care Provider [phone] Reason for Visit * Reason Comments Specialty Pharmacy Review Neulasta OnPro 6mg/0.6ml syringe Encounter Details Date Type Department Care Team (Late st Contact Info) Description 03/09/2023 Specialty [place] [phone] Amy Hoskins, [facility] Social History Tobacco Use Types Packs/Day Years Used Date Smoking Tobacco: Never Smokeless Tobacco: Never Overall Financial Resource Strain (CARDIA) Answe r [...] of this encounter Progress Notes * Amy Hoskins - 03/09/2023 11:59 PM EDT The [facility] has completed a benefits investigation for Ani Ridley to review their eligibility to fill at [facility]. Per patient's medication list they are prescribed Neulasta OnPro 6mg/0.6ml syringe and the medication is able to be filled at the [facility], but the medication cost may not be financially viable. The patient is eligible to fill the medication through Specialty Pharmacy with a high copay. Dueto the high copay, the patient is filling the medication through inpatient pharmacy during her appointments and is able to bill her medical benefit for the cost documented in this encounter Plan of Treatment Upcoming Encounters Date Type Department Care Team (Late st Contact Info) Description 05/02/2024 8:30 AM EST Office Visit Hematology/Oncology at [address] [phone] Pardeep George MD [facility] DR HEMATOLOGY [place] [address] Kelli Zapata APRN [address] [place] [address] [place] [address] 05/02/2024 9:00 AM EST Infusion Hematology Oncology at [address] [phone] 01/31/2025 8:30 AM EDT Office Visit Psychiatry and [place] [phone] Radha Negrete, PhD [facility] [place] [address] documented as of this encounter Visit Diagnoses Not on filedocumented in this encounter Care Teams Facility Specialist Relationship Specialty Start Date End Date Blanquita Pagan APRN [address] [place] [address] PCP - General Family Medicine 01/07/23 documented as of this encounter
--- OUTSIDE RECORDS SUMMARY | 2024-05-02 08:11 | XMS_ITS | Encounter Summary ---
Author Organization [facility] Address [facility] Kumar cagle [place] [id number] Care Team Providers Care Lay Out Former Name Role Phone Blanquita Pagan APRN Primary Care Provider [phone] Reason for Visit * Reason Comments Chemotherapy Cycle 1, Day 2 - Gautam damustine, On Pro IV Medication IV venofer * Treatment/Therapy Plan Authorization (Routine) - Closed Specialty Diagnoses / Procedures Referred By Efrain phillip Referred To Contact Hematology and Oncology Diagnoses Lymphoma, unspecified body region, unspecified lymphoma type Lytic bone lesions on xray Procedures TC RITUXIMAB-PVVR, BIOSIMILAR, (RUXIENCE), 10 MG, INJ [id number] RUXIENCE Miguel Daugherty MD [facility] [address] HEMATOLOGY [place] [address] Miguel Daugherty MD [facility] [address] HEMATOLOGY [place] [address] Referral ID Status Reason Start Date Expiration Date Visits Re quested Visits Authorized [id number] Closed 02/25/2023 02/25/2024 1 106 Encounter Details Date Type Department Care Team (Late st Contact Info) Description 03/11/2023 9:00 AM EDT Infusion Hematology Oncology at [address] [phone] Lytic bone lesions on xray; Other iron deficiency anemia; Lymphoma, unspecified body region, unspecified lymphoma type [...] in a half-way (including now)? No 02/16/2023 Sex and Gender Information Value Date Recorded Sex Assigned at Not on file Gender Identity Not on file Sexual Orientation Not on file documented as of this encounter Last Filed Vital Signs Vital Sign Reading Time Taken Comments Blood Pressure 115/53 03/11/2023 8:56 AM EDT Pulse 77 03/11/2023 8:56 AM EDT Temperature 36 ??C (96.8 ??F) 03/11/2023 8:56 AM EDT Respiratory Rate 18 03/11/2023 8:56 AM EDT Oxygen Saturation 100% 03/11/2023 8:56 AM EDT Inhaled Oxygen Concentration - - Weight 56 kg (123 lb 6.4 oz) 03/11/2023 8:56 AM EDT Height 172.7 cm (5' 7.99) 03/11/2023 8:56 AM ED T Body Mass Index 18.77 03/11/2023 8:56 AM EDT documented in this encounter Progress Notes * Kristyn Payne RN - 03/11/2023 9:00 AM EDT INFUSION THERAPY ADMINISTRATION NOTES DIAGNOSIS: Lymphoma CYCLE #: Cycle 1, Day 2 - Bendamustine, On pro, IV venofer REASON FOR VISIT: To receive chemotherapy, supportive care, and iron infusion. SUBJECTIVE: Ani c/o mild nausea. She will be receiving dexamethasone. She has compazine at home and we reviewed how and when to take. She has a support person with her today and he is attentive to treatment issues. OBJECTIVE: VSS LAB DATA: Reviewed. IV ACCESS: PIV placed 03/10. This flushes readily with blood return. Pre administration: Chemotherapy orders independently verified for drug name, route, and dosage per patient's height, weight and BSA by Kristyn Payne, KENNETH and Staff Pharmacist(s). REACTIONS (DESCRIPTION, TIME, INTERVENTION AND EFFECTIVENESS) none ASSESSMENT: Ani was awake, alert and tolerated treatment well. PIV discontinued prior to dismissal. OnPro applied to R arm at 1030. Due to start deploying dose of medication at 1330 9/16. Patient instructed to remove at 1430 9/16 when meter reads empty and light is solid green. Verbal and written instruction given to patient. The patient is interested in port placement. I stated I would alert Dr. Daugherty. Ani was observed for 30 minutes post venofer infusion and exhibited no reaction. PLAN: Return to clinic as planned. documented in this encounter Plan of Treatment Upcoming Encounters Date Type Department Care Team (Late st Contact Info) Description 05/02/2024 8:30 AM EST Office Visit Hematology/Oncology at [address] [phone] Pardeep George MD [facility] [address] HEMATOLOGY [place] [address] Kelli Zapata APRN [address] [place] [address] DR MEDICAL ONCOLOGY [place], [place] [address] 05/02/2024 9:00 AM EST Infusion Hematology Oncology at [address] [phone] 01/31/2025 8:30 AM EDT Office Visit Psychiatry and [place] [phone] Radha Negrete, PhD [facility] [address] [place] [address] documented as of this encounter Visit Diagnoses Diagnosis Lytic bone lesions on xray Disorder of bone and cartilage, unspecified Other iron deficiency anemia Lymphoma, unspecified body region, unspecified lymphoma type [...] Recorded weight), Intravenous, ONCE, 1 dose, On Tue03/11/23 at 1030, Administer over 10 Minutes, The resulting final concentration of bendamustine in the infusion bag should be between 1.85 - 5.6 mg/mL. Warning Vesicant/Irritant Medication New Bag 03/11/2023 9:56 AM EDT 142 mg 334.1 mL/hr dexAMETHasone (Decadron) tablet 10 mg 10 mg, Oral, ONCE, 1 dose, On Tue03/11/23 at 0930, Administer prior to chemotherapy, Routine Given 03/11/2023 9:14 AM EDT 10 mg iron sucrose (Venofer) (20 mg/mL) for slow IV push 200 mg 200 mg, Intravenous, ONCE, 1 dose, On Tue03/11/23 at 1045, Administer over 5 Minutes, Patients should be closely monitored for signs of hypersensitivity during and for at least 30 min after each administration. The observation period is not needed for patients who have demonstrated tolerability. Given 03/11/2023 10:16 AM EDT 200 mg pegfilgrastim (Neulasta Onpro) (6 mg/0.6 mL) injection kit 6 mg 6 mg, Subcutaneous, ONCE, 1 dose, On Tue03/11/23 at 0930, Allow the prefilled syringe co-packaged with the on-body injector to reach room temperature at least 30 minutes prior to administration., Routine, This agent is restricted to outpatient use. Is this drug being given as an outpatient? Yes Given 03/11/2023 10:23 AM EDT 6 mg Right Arm sodium chloride 0.9% infusion 125 mL/hr, Intravenous, CONTINUOUS, Starting on Tue03/11/23 at 0930, Until Tue03/11/23 at 1443, Pls run IV fluids during chemo for maximum volume of 750-1000cc. New Bag 03/11/2023 9:10 AM EDT 125 mL/hr 125 mL/hr documented in this encounter Care Teams Lay Out Former Relationship Specialty Start Date End Date Blanquita Pagan APRN [address] [place] [address] PCP - General Family Medicine 01/07/23 documented as of this encounter
--- OUTSIDE RECORDS SUMMARY | 2024-05-02 08:11 | XMS_ITS | Encounter Summary ---
Author Organization [facility] Address [facility] [place] [address] Care Team Providers Care Policy Director Name Role Phone Blanquita Pagan APRN Primary Care Provider [phone] Encounter Details Date Type Department Care Team (Latest Contact Info) Description 03/16/2023 Travel Social History Tobacco Use Types Packs/Day [...] 8:30 AM EST Office Visit Hematology/Oncology at [address] [phone] Pardeep George MD [facility] [address] [place] [address] Kelli Zapata APRN [address] [place] [address] [place] [address] 05/02/2024 9:00 AM EST Infusion Hematology Oncology at [address] [phone] 01/31/2025 8:30 AM EDT Office Visit Psychiatry and [place] [phone] Radha Negrete, PhD [facility] [place] [place] [address] documented as of this encounter Visit Diagnoses Not on filedocumented in this encounter Care Teams Policy Director Relationship Specialty Start Date End Date Blanquita Pagan APRN [address] [place] [address] PCP - General Family Medicine 01/07/23 documented as of this encounter
--- OUTSIDE RECORDS SUMMARY | 2024-05-02 08:11 | XMS_ITS | Encounter Summary ---
Author Organization [facility] Address [facility] [place] [address] Care Team Providers Care Safety And Health Manager Name Role Phone Blanquita Pagan APRN Primary Care Provider [phone] Encounter Details Date Type Department Care Team (Latest Contact Info) Description 03/09/2023 8:06 AM EDT - 03/09/2023 11:59 PM EDT Hospital Encounter Hematology [place] [phone] Lymphoma, unspecified body region, unspecified lymphoma type; Anemia, unspecified type; Refractory anemia, unspecified Discharge Disposition: Home Social History Tobacco Use [...] a senior living (including now)? No 02/16/2023 Sex and Gender [...] needed for Nausea. 15 tablet 3 03/09/2023 acetaminophen (Tylenol) 80 mg chewable tablet Take 80 mg by mouth 2 times daily. 05/05/2023 traMADoL (Ultram) 50 mg tablet Take 0.5 tablets by mouth every 6 hours as needed for Pain. 30 tablet 03/09/2023 06/02/2023 documented as of this encounter Plan of Treatment Upcoming Encounters Date Type Department Care Team (Late st Contact Info) Description 05/02/2024 8:30 AM EST Office Visit Hematology/Oncology at [address] [phone] Pardeep George MD [facility] [place] [address] Kelli Zapata APRN [address] [place] [address] [place] [address] 05/02/2024 9:00 AM EST Infusion Hematology Oncology at [address] [phone] 01/31/2025 8:30 AM EDT Office Visit Psychiatry and Behavioral Health at [facility] [place] [phone] Radha Negrete, PhD [facility] [place] [address] documented as of this encounter Procedures Procedure Name Priority Date/Time Associated Diagnosis Comments HEMOGRAM STAT 03/09/2023 8:30 AM EDT Lymphoma, unspecified body region, unspecified lymphoma type Anemia, unspecified type DIFFERENTIAL, AUTOMATED STAT 03/09/2023 8:30 AM EDT Lymphoma, unspecified body region, unspecified lymphoma type Anemia, unspecified type COPPER, SERUM Routine 03/09/2023 8:30 AM EDT Lymphoma, unspecified body region, unspecified lymphoma type Anemia, unspecified type Refractory anemia, unspecified CBC (WITH DIFF) STAT 03/09/2023 8:30 AM EDT Lymphoma, unspecified body region, unspecified lymphoma type Anemia, unspecified type TSH STAT 03/09/2023 8:30 AM EDT Lymphoma, unspecified body region, unspecified lymphoma type Anemia, unspecified type COMPREHENSIVE METABOLIC PANEL STAT 03/09/2023 8:30 AM EDT Lymphoma, unspecified body region, unspecified lymphoma type Anemia, unspecified type documented in this encounter Results * (ABNORMAL) Differential, Automated (03/09/2023 8:30 AM EDT) Neutrophil % 79.4 % [facility] Neutrophil Absolute 7.24(H) 1.70 - 6.10 x10(3)/mc L [facility] Lymph % 4.5 % [facility] Lymphocytes Abs 0.4(L) 0.9 - 3.2 x10(3)/mc L [facility] Monocyte % 15.2 % [facility] Monocyte Abs 1.4(H) 0.3 - 0.9 x10(3)/mc L [facility] Eos % 0.2 % [facility] Eosinophils Abs 0.0 0.0 - 0.4 x10(3)/mc L [facility] Basophil % 0.3 % [facility] Baso Absolute 0.0 0.0 - 0.1 x10(3)/mc L [facility] Immature Gran % 0.40 % [facility] Comment: Immature granulocytes(IG's)percentage and absolute count will include metamyelocytes, myelocytes, and promyelocytes. Blood smears from CBCs yielding IG's will be scanned manually for concordance. If this scan disagrees with the automated IG or if promyelocytes are noted, a manual differential will be performed. Immature Gran Absolute 0.04 0.00 - 0.04 x10(3)/ L [facility] Blood 03/09/2023 8:30 AM EDT 03/09/2023 8:52 AM EDT Narrative Resulting Agency Comment Spec In Lab Miguel Daugherty MD HEMATOLOGY ORDERABLE S [facility] [place] [address] * (ABNORMAL) Hemogram (03/09/2023 8:30 AM EDT) White Blood Cell 9.1 4.0 - 9.5 x10(3)/mc L [facility] Red Blood Cell 3.87(L) 4.00 - 5.21 x10(6)/mc L [facility] Hemoglobin 10.5(L) 11.7 - 15.5 g/dL [facility] Hematocrit 31.4(L) 35.7 - 45.8 % [facility] Mean Cell Volume 81.1(L) 82.6 - 94.4 fL [facility] Mean Cell Hemoglobin 27.1 27.1 - 32.0 pg [facility] Mean Cell Hemoglobin Concentration 33.4 31.7 - 35.0 g/dL [facility] Platelet 384(H) 145 - 357 x10(3)/mc L [facility] RDW Standard Deviation 42.7 37.0 - 46.0 fL [facility] RDW coefficient of variation 14.6(H) 11.5 - 14.1 % [facility] Mean Platelet Volume 8.9 7.6 - 12.9 fL [facility] NRBC% auto 0.0 % [facility] NRBC Absolute 0.000 0.000 - 0.000 x10(3)/mc L [facility] Blood 03/09/2023 8:30 AM EDT 03/09/2023 8:52 AM EDT Narrative Resulting Agency Comment Spec In Lab Miguel Daugherty MD HEMATOLOGY ORDERABLE S Performing Organization Address [facility] de Phone Number [facility] [place] [address] * Copper, serum (03/09/2023 8:30 AM EDT) Copper (OCTOBER) 180 77 - 206 mcg/dL [facility] Comment: ADDITIONAL INFORMATION This test was developed and its performance characteristics determined by [facility] in a manner consistent with CLIA requirements. This test has not been cleared or approved by the U.S. Food and Drug Administration. Test Performed by: [facility] - [address] [address] Ambulatory Analyst: Melvin Alonso M.D. Ph.D.; CLIA# [id number] Blood 03/09/2023 8:30 AM EDT 03/09/2023 12:33 PM EDT Narrative Resulting Agency Comment Spec In Lab Miguel Daugherty MD LAB SEND OUT ORDERAB LES Performing Organization Address [facility] [place] [address] * (ABNORMAL) TSH (03/09/2023 8:30 AM EDT) Thyroid Stimulating Hormone 6.15(H) 0.27 - 4.20 mcIU/mL [facility] Comment: Reference Interval (mcIU/mL): Females: ??First Trimester: 0.23-3.88 ??Second Trimester: 0.22-3.90 ??Third Trimester: 0.44-4.66 Blood 03/09/2023 8:30 AM EDT 03/09/2023 8:52 AM EDT Narrative Resulting Agency Comment Spec In Lab Miguel Daugherty MD CHEMISTRY ORDERABLES [facility] [place] [address] * (ABNORMAL) Comprehensive metabolic panel (non-fasting) (03/09/2023 8:30 AM EDT) Glucose 94 65 - 199 mg/dL [facility] Comment:Diabetes: >=200 mg/d L plus symptoms Blood Urea Nitrogen 24(H) 8 - 18 mg/dL [facility] Creatinine 0.56(L) 0.70 - 1.20 mg/dL [facility] Sodium 129(L) 135 - 145 mmol/L [facility] Potassium 4.2 3.5 - 5.0 mmol/L [facility] Comment: Please note: ??Patients with WBC >100,000 may have falsely elevated Potassium levels. ??For accurate Potassium quantification in these patients send serum separator tube (gold top) for subsequent determinations. ??Contact the Clinical Chemistry Laboratory if there are any questions. Chloride 92(L) 98 - 107 mmol/L [facility] Carbon Dioxide 25 22 - 31 mmol/L [facility] Anion Gap 12 5 - 15 mmol/L [facility] Calcium 9.1 8.5 - 10.5 mg/dL [facility] Protein, Total 6.7 6.1 - 8.0 g/dL [facility] Albumin 3.6 3.2 - 5.2 g/dL [facility] Aspartate Aminotransferase 25 0 - 30 unit/L [facility] Alanine Aminotransferase 18 0 - 30 unit/L [facility] Alkaline Phosphatase 87 35 - 105 unit/L [facility] Bilirubin, Total <0.2(L) 0.2 - 1.3 mg/dL [facility] Est Glomerular Filtration Rate 96 >=60 mL/min/1. 73 m?? [facility] Comment: This patient's estimated GFR [...] and symptoms in addition to eGFR. Blood 03/09/2023 8:30 AM EDT 03/09/2023 8:52 AM EDT Narrative Resulting Agency Comment Spec In Lab Miguel Daugherty MD CHEMISTRY ORDERABLES Performing Organization Address City/State/[facility] Co de Phone Number [facility] [address] documented in this encounter Visit Diagnoses Diagnosis Lymphoma, unspecified body region, unspecified lymphoma type Anemia, unspecified type documented in this encounter Care Teams Safety And Health Manager Relationship Specialty Start Date End Date Blanquita Pagan APRN [address] [place] [address] PCP - General Family Medicine 01/07/23 documented as of this encounter
--- OUTSIDE RECORDS SUMMARY | 2024-05-02 08:11 | XMS_ITS | Encounter Summary ---
Author Organization [facility] Address [facility] [place] [address] Care Team Providers Care Glass Finisher Name Role Phone Blanquita Pagan APRN Primary Care Provider [phone] Reason for Referral * Diagnostic Test (Routine) - Closed Specialty Diagnoses / Procedures Referred By Efrain phillip Referred To Contact Radiology Diagnoses Lymphoma, unspecified body region, unspecified lymphoma type Anemia, unspecified type Gastroesophageal reflux disease, unspecified whether esophagitis present Lytic bone lesions on xray Procedures NM PET CT Skull Base to Mid-thigh Jacqueline Cr MD [facility] [address] [place] [address] [place] [address] Referral ID Status Reason Start Date Expiration Date V isits Requested Visits Authorized [id number] Closed Specialty Service Requested 02/16/2023 08/19/2024 1 1 Reason for Visit * Reason Comments Advice Only * Consultation (Urgent) - Closed Specialty Diagnoses / Procedures Referred By Contguerita t Referred To Contact Hematology and Oncology Diagnoses Lymphadenopathy Lymphocytopenia Malignant neoplasm of head, face and neck Blanquita Pagan APRN [address] [place] [address] [facility] [address] [place] [address] Referral ID Status Reason Start Date Expiration Date V isits Requested Visits Authorized [id number] Closed Consult, Test & Treat PCP Updated and/or Approved 01/07/2023 01/07/2024 12 12 Encounter Details Date Type Department Care Team (Late st Contact Info) Description 02/16/2023 9:00 AM EDT Office Visit Hematology [place] [address] Jacqueline Cr MD [facility] [address] [place] [address] Zandra Glasgow APRN [facility] [address] [place] [address] Lymphoma, unspecified body region, unspecified lymphoma type; Imbalance; Memory deficit; Hypothyroidism, unspecified type; Anemia, unspecified type; Gastroesophageal reflux disease, unspecified whether esophagitis present; Lytic bone lesions on xray Social History Tobacco Use Types Packs/Day Years Used Date Smoking Tobacco: Never Smokeless Tobacco: Never Tobacco Cessation:Counseling Given: Not Answered Overall Financial Resource Strain (CARDIA) Answe r [...] in a custodial (including now)? No 02/16/2023 Sex and Gender Information Value Date Recorded Sex Assigned at Not on file Gender Identity Not on file Sexual Orientation Not on file documented as of this encounter Last Filed Vital Signs Vital Sign Reading Time Taken Comments Blood Pressure 142/73 02/16/2023 8:46 AM EDT Pulse 77 02/16/2023 8:46 AM EDT Temperature 36.2 ??C (97.2 ??F) 02/16/2023 8:46 AM ED T Respiratory Rate 16 02/16/2023 8:46 AM EDT Oxygen Saturation 99% 02/16/2023 8:46 AM EDT Inhaled Oxygen Concentration - - Weight 53.5 kg (117 lb 15.1 oz) 02/16/2023 8:46 AM EDT Height 168.5 cm (5' 6.34) 02/16/2023 8:46 AM ED T Body Mass Index 18.84 02/16/2023 8:46 AM EDT documented in this encounter Progress Notes * Jacqueline Cr MD - 02/16/2023 9:00 AM EDT HEMATOLOGY CLINIC [facility] [phone] I had the pleasure of seeing and [...] at the time of diagnosis. She has also had an unsteady gait over the past 6 months. She has occasional midepigastric discomfort and is uncertain if this is related to her GERD or not. She also notes fatigue. She denies any otherpain. Upon questioning, she and her notes a slow progression and deterioration in her memory. Past medical history Recent diagnosis of a [...] Prior to Visit Medication Sig Dispense Refill alendronate (Fosamax) 10 mg tablet Take 10 mg by mouth daily. levothyroxine (Synthroid) 50 mcg tablet Take 50 mcg by mouth daily. pantoprazole EC (Protonix) [address] tablet Take 40 mg by mouth daily. No current facility-administered medications on file prior to visit. Allergies-the patient denies any medical allergies. 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 She does not smoke. She drinks [...] or sleep disturbances. Physical exam Blood pressure 142/73, pulse 77, temperature 36.2 ??C (97.2 ??F), temperature source Temporal, resp. rate 16, height 168.5 cm (5' 6.34), weight 53.5 kg (117 lb 15.1 oz), SpO2 99 %. Patient is a very pleasant 72-year-old female. [...] equal bilat; normal gait. No [facility] findings Laboratory test-currently pending Assessment and plan # new diagnosis of [...] x 6 cm mass adjacent to T1-T2. We need to determine if this needs to be radiated, or if wecould empirically start treatment to cover this area. She also has blastic lesions in the 3-4 ribs but is asymptomatic. We can monitor these at this time. In addition, she is anemic with a [...] been a progressive decline over the past year and I suspect is unrelated to the lymphoma. We can pursue neurocognitive testing in the future but at this time, we will focus on the immediate work-up of the lymphoma and treatment. Immediate plans and recommendations 1. I will present the patient at lymphoma tumor board to review the pathology as well as radiographs 2. I will complete the work-up for what appears to be low-grade lymphoma with a PET scan as well asa bone marrow aspirate and biopsy with FISH and cytogenetics 3. I will check baseline labs including a CBC, CMP, LDH, uric acid, serologies for hep B and hep C,and immunoglobulin levels. 4. Given the size of the left supraclavicular mass and the mass abutting T2, we will discuss the role of radiation therapy as well as other treatment options at tumor board 5. Perform a limited anemia work-up including iron studies and hemolysis studies due to the new diagnosis of lymphoma 6. Given her longstanding unsteadiness with her gait, we will check a B12 and methylmalonic acid level. 7. We will continue to monitor mental status. If needed, we will referred for neurocognitive testing in the future. 8. I emphasized that Ani is somewhat immune compromised. As result, she will need the flu vaccine as well as COVID-vaccine, Once available I would like to thank Blanquita Pagan [facility] for asking me to see this very pleasant patient. I will keep her posted on results. Parts of this note were completed completed using voice recognition dictation. Jacqueline Cr MD compensation and benefits advisor Director - Blood and Marrow Transplant Program Addendum-February 24, 2023 I presented the patient's case at tumor [...] is impinging on T1 and T2. Her foot P score is 4 or 5 out of 5 due to stage III disease, age 72, hemoglobin 11 of 10.5 g/dL, increased LDH, and questionable extranodal involvement. She does have weight loss. As result of numerous factors including weight loss, mild anemia, mild elevation in the LDH, possibly lytic bone lesions although these may be traumatic, high flow [employer], paraspinal mass at T1 and T2, the decision was to consider starting chemotherapy. After 2 cycles repeat a scan of the T1-T2 lesion to determine if radiation may need to be added. She will need atleast 4-6 cycles of therapy. Patient lives in [facility] would like to be treated in [place]. As result, we will start cycle 1 here and asked that she see Dr. Alvares locally for subsequent cycles. I called Ani and her Enrique today and reviewed all the above. At the current time, her PET scan and bone marrow biopsy are scheduled for the end of February but I do not believe that we can wait that long to start therapy. We are trying to move up those things but either way we need to start therapy soon. Jacqueline Cr MD documented in this encounter Miscellaneous Notes * Addendum Note - Jacqueline Cr MD - 02/16/2023 9:00 AM EDTAddended by: JACQUELINE CR on: 02/25/2023 02:13 PM Modules accepted: Orders documented in this encounter Plan of Treatment Upcoming Encounters Date Type Department Care Team (Late st Contact Info) Description 05/02/2024 8:30 AM EST Office Visit Hematology/Oncology at [address] [phone] Pardeep George MD [facility] DR [place] [address] Kelli Zapata [address] [place] [address] 05/02/2024 9:00 AM EST Infusion Hematology Oncology at [address] [phone] 01/31/2025 8:30 AM EDT Office Visit Psychiatry and [place] [address] Radha Negrete, PhD [facility] [address] [facility] [place] [address] documented as of this encounter Results * NM PET CT Skull Base to Mid-thigh (03/16/2023 1:35 PM EDT) Anatomical Region Laterality Modality Positron Emissio n Tomography (PET) Impressions 03/18/2023 10:14 AM EDT 1. ??Mildly FDG avid lymphadenopathy is present in the left supraclavicular space, left side of the upper posterior mediastinum, in the retroperitoneum, pelvis and inguinal spaces consistent with low-grade lymphoma. 2. ??Diffusely increased activity in the marrow and spleen is likely related to Neulasta therapy. 3. ??There is sclerosis of the left side of the T2 vertebral body, possibly due to involvement of the vertebra by the adjacent posterior mediastinal mass. 4. ??Focal areas of sclerosis in the ribs bilaterally are of uncertain etiology but may be due to previous trauma. 5. ??Focal areas of sclerosis are present in the iliac bones bilaterally. The appearance of the left iliac bone suggest Paget disease. The right iliac bone may also be Paget disease. 6. ??Focal lucency in the upper sternal body may be due to adjacent degenerative disease of the sternomanubrial joint. Thank you for letting us participate in the care of this patient. ??If you are a health care provider and have any questions regarding this report, please contact the number below. ??For patients who have questions please contact the health summer child caregiver that requested your imaging first. ? Narrative 03/18/2023 10:14 AM EDT EXAMINATION: NM PET CT STANDARD SKULL BASE TO MID-THIGH CLINICAL HISTORY: Non-Hodgkin lymphoma, staging TECHNIQUE: Following IV injection of 07-okgixx-0-deoxyglucose (FDG) a standard uptake of approximately 60 minutes, a noncontrast CT scan followed by a PET scan were acquired from the base of the skull to mid thighs. The noncontrast CT was used for anatomic localization and photon attenuation correction of the PET scan. Blood glucose level: 66 (mg/dL) FDG dose: 9.9 mCi COMPARISON: None FINDINGS: HEAD/NECK: A left supraclavicular mass is present. This mass measures approximately 3.2 cm in diameter (image 41). It is centrally photopenic but does have an FDG avid lesion or edema. A discretely separate hypermetabolic focus projects posterior to the superior aspect of the mass adjacent to the left first rib (image 39). There is also a 1.4 cm hypermetabolic left supraclavicular lymph node. CHEST: Hypermetabolic tissue is present in the left side of the posterior mediastinum extending along the levels of T1 and T2. There is a 9 mm groundglass opacity in the left lower lobe (image 71) which is minimally FDG avid. A small right pleural effusion is present. Coronary and aortic calcifications can be seen. ABDOMEN/PELVIS: Retroperitoneal lymphadenopathy is present and is, for the most part, not FDG avid. There are FDG avid nodes in the aortocaval (images 150, 169), left para-aortic (image 151) spaces. Mildly FDG avid bilateral external iliac and inguinal nodes are noted. Diffusely increased activity is present in the spleen. Activity within the soft tissues posterior to the right iliac bone is consistent with the recent bone marrow aspiration. Left renal cyst. Approximately 6 cm non-FDG avid fluid density left adnexal region cyst. This has been noted in the report of a prior CT scan SKELETON/EXTREMITIES: There is diffuse intensely increased bone marrow activity. Several areas of osseous sclerosis are present and the FDG activity at these sites is diminished. These include the left side of the T2 vertebral body adjacent to the soft tissue mass, and the right and left iliac bones. The left iliac bone has a thickened cortex and coarsened trabeculation. Decreased activity is associated with sclerosis of the anterior right fifth rib, the posterolateral right ninth rib, the lateral left third rib and the lateral left seventh rib. Focally decreased FDG activity corresponds to a focal lucency in the left side of the upper sternal body. Decreased marrow activity is associated with a compression fracture of the T9 vertebral body. Procedure Note Mariano Regan MD - 03/18/2023 EXAMINATION: NM PET CT STANDARD SKULL BASE TO MID-THIGH CLINICAL HISTORY: Non-Hodgkin lymphoma, staging TECHNIQUE: Following IV injection of 08-mueoeh-8-deoxyglucose (FDG) astandard uptake of approximately 60 minutes, a noncontrast CT scan followed by aPET scan were acquired from the base of the skull to mid thighs. The noncontrast CTwas used for anatomic localization and photon attenuation correction of thePET scan. Blood glucose level: 66 (mg/dL) FDG dose: 9.9 mCi COMPARISON: None FINDINGS: HEAD/NECK: A left supraclavicular mass is present. This mass measures approximately3.2 cm in diameter (image 41). It is centrally photopenic but does have an FDGavid lesion or edema. A discretely separate hypermetabolic focus projects posterior to thesuperior aspect of the mass adjacent to the left first rib (image 39). There is also a 1.4 cm hypermetabolic left supraclavicular lymph node. CHEST: Hypermetabolic tissue is present in the left side of the posteriormediastinum extending along the levels of T1 and T2. There is a 9 mm groundglass opacity in the left lower lobe (image 71)which is minimally FDG avid. A small right pleural effusion is present. Coronary and aorticcalcifications can be seen. ABDOMEN/PELVIS: Retroperitoneal lymphadenopathy is present and is, for the most part, notFDG avid. There are FDG avid nodes in the aortocaval (images 150, 169), left para-aortic (image 151) spaces. Mildly FDG avid bilateral external iliacand inguinal nodes are noted. Diffusely increased activity is present in the spleen. Activity within the soft tissues posterior to the right iliac bone isconsistent with the recent bone marrow aspiration. Left renal cyst. Approximately 6 cm non-FDG avid fluid density leftadnexal region cyst. This has been noted in the report of a prior CT scan SKELETON/EXTREMITIES: There is diffuse intensely increased bone marrow activity. Several areasof osseous sclerosis are present and the FDG activity at these sites isdiminished. These include the left side of the T2 vertebral body adjacent to the softtissue mass, and the right and left iliac bones. The left iliac bone has athickened cortex and coarsened trabeculation. Decreased activity is associatedwith sclerosis of the anterior right fifth rib, the posterolateral right ninthrib, the lateral left third rib and the lateral left seventh rib. Focally decreased FDG activity corresponds to a focal lucency in the leftside of the upper sternal body. Decreased marrow activity is associated with a compression fracture of theT9 vertebral body. IMPRESSION 1. Mildly FDG avid lymphadenopathy is present in the leftsupraclavicular space, left side of the upper posterior mediastinum, in theretroperitoneum, pelvis and inguinal spaces consistent with low-grade lymphoma. 2. Diffusely increased activity in the marrow and spleen is likelyrelated to Neulasta therapy. 3. There is sclerosis of the left side of the T2 vertebral body, possiblydue to involvement of the vertebra by the adjacent posterior mediastinalmass. 4. Focal areas of sclerosis in the ribs bilaterally are of uncertainetiology but may be due to previous trauma. 5. Focal areas of sclerosis are present in the iliac bones bilaterally.The appearance of the left iliac bone suggest Paget disease. The right iliacbone may also be Paget disease. 6. Focal lucency in the upper sternal body may be due to adjacentdegenerative disease of the sternomanubrial joint. Thank you for letting us participate in the care of this patient. If youare a health care provider and have any questions regarding this report,please contact the number below. For patients who have questions please contactthe health summer child caregiver that requested your imaging first. Jacqueline Cr MD [facility] PET ORDERABLES * Hepatitis C Antibody (02/16/2023 10:15 AM EDT) Hepatitis C Antibody Negative Negative [facility] Blood 02/16/2023 10:1 5 AM EDT 02/16/2023 10:35 AM EDT Narrative Resulting Agency Comment Spec In Lab Jacqueline Cr MD CHEMISTRY ORDERABLES [facility] [place] [address] * Hepatitis B Surface Antibody (02/16/2023 10:15 AM EDT) Hepatitis B Surface Antibody, Quantitative <3.5 IU/L [facility] Comment: HepB Surface Ab Quant: Unvaccinated: < 8.5 IU/L Vaccinated: >= 11.5 IU/L Hepatitis B Surface Antibody Negative [facility] Comment: Patient is presumed to be not vaccinated or immune to HBV infection. Expected Results: Vaccinated: Positive Unvaccinated: Negative Blood 02/16/2023 10:1 5 AM EDT 02/16/2023 10:35 AM EDT Narrative Resulting Agency Comment Spec In Lab Jacqueline Cr MD CHEMISTRY ORDERABLES [facility] [place] [address] * Hepatitis B Core Antibody, IgM (02/16/2023 10:15 AM EDT) Pathologist [facility] Hepatitis B Core IgM Negative Negative [facility] Blood 02/16/2023 10:1 5 AM EDT 02/16/2023 10:35 AM EDT Narrative Resulting Agency Comment Spec In Lab Jacqueline Cr MD CHEMISTRY ORDERABLES [facility] [place] [address] * Methylmalonic acid, serum (02/16/2023 10:15 AM EDT) Methylmalonic Acid (OCTOBER) 0.23 <=0.40 nmol/mL [facility] Comment: ADDITIONAL INFORMATION This test was developed and its performance characteristics determined by [facility] in a manner consistent with CLIA requirements. This test has not been cleared or approved by the U.S. Food and Drug Administration. Test Performed by: [facility] - [address] [address] Check Processor: Melvin Alonso M.D. Ph.D.; CLIA# [id number] Blood 02/16/2023 10:1 5 AM EDT 02/16/2023 12:06 PM EDT Narrative Resulting Agency Comment Spec In Lab Jacqueline Cr MD LAB SEND OUT ORDERAB LES Performing Organization Address City/[facility] Co de Phone Number [facility] [place] [place] [address] * Vitamin B12 (02/16/2023 10:15 AM EDT) Vitamin B12 359 232 - 1,245 pg/mL [facility] Blood 02/16/2023 10:1 5 AM EDT 02/16/2023 10:35 AM EDT Narrative Resulting Agency Comment Spec In Lab Jacqueline Cr MD CHEMISTRY ORDERABLES Performing Organization Address [facility] Co de Phone Number [facility] [place] [place] [address] * Ferritin (02/16/2023 10:15 AM EDT) Pathologist [facility] Ferritin 83 30 - 400 ng/mL [facility] Comment: Pediatric reference ranges not verified at [facility], interpret with caution. Reference ranges for females greater than 50 years of age approach values for men, i.e., 30-400 ng/mL. Blood 02/16/2023 10:1 5 AM EDT 02/16/2023 10:35 AM EDT Narrative Resulting Agency Comment Spec In Lab Jacqueline Cr MD CHEMISTRY ORDERABLES Performing Organization Address City/[facility]/ZIP Co de Phone Number [facility] [place] [address] * (ABNORMAL) Iron and TIBC (02/16/2023 10:15 AM EDT) Iron 24(L) 30 - 150 mcg/dL [facility] TIBC 310 250 - 450 mcg/dL [facility] Iron Saturation 8(L) 20 - 50 % [facility] Blood 02/16/2023 10:1 5 AM EDT 02/16/2023 10:35 AM EDT Narrative Resulting Agency Comment Spec In Lab Jacqueline Cr MD CHEMISTRY ORDERABLES Performing Organization Address City/[facility]/ZIP Co de Phone Number [facility] [place] [address] * Reticulocyte Count (02/16/2023 10:15 AM EDT) Reticulocyte % 1.7 0.7 - 2.5 % [facility] Retic Abs # 0.060 0.020 - 0.110 x10(6)/mcL [facility] Immature Retic% 10.2 0.5 - 13.8 % [facility] Reticulated Hgb 31.0 29.8 - 39.4 pg [facility] Blood 02/16/2023 10:1 5 AM EDT 02/16/2023 10:35 AM EDT Narrative Resulting Agency Comment Spec In Lab Jacqueline Cr MD HEMATOLOGY ORDERABLE S Performing Organization Address City/[facility]/ZIP Co de Phone Number [facility] [place] [address] * (ABNORMAL) Haptoglobin (02/16/2023 10:15 AM EDT) Haptoglobin 414(H) 30 - 200 mg/dL [facility] Comment: Haptoglobin concentrations in newborns is low to undetectable; however, adult concentrations are usually attained by 4 months of age. ??No sex-related differences for haptoglobin have been detected. Blood 02/16/2023 10:1 5 AM EDT 02/16/2023 10:35 AM EDT Narrative Resulting Agency Comment Spec In Lab Jacqueline Cr MD CHEMISTRY ORDERABLES Performing Organization Address [facility] Co de Phone Number [facility] [place] [address] * Immunoglobulins, Quantitative (02/16/2023 10:15 AM EDT) Immunoglobulin G 879 700 - 1,600 mg/dL [facility] Comment: Pediatric Reference Intervals obtained from the [employer] Reference Interval project. http://www.Flipkart.ca/caliperproject/index.html IgA 106 70 - 400 mg/dL [facility] IgM 44 40 - 230 mg/dL [facility] Blood 02/16/2023 10:1 5 AM EDT 02/16/2023 10:35 AM EDT Narrative Resulting Agency Comment Spec In Lab Jacqueline Cr MD CHEMISTRY ORDERABLES Performing Organization Address [facility] Co de Phone Number [facility] [place] [address] * Direct antiglobulin test (02/16/2023 10:15 AM EDT) ROMMEL Poly Negative [facility] Blood 02/16/2023 10:1 5 AM EDT 02/16/2023 10:27 AM EDT Narrative Resulting Agency Comment Spec In Lab Jacqueline Cr MD BLOOD BANK LAB ORDER NADYA Performing Organization Address City/[facility] Co de Phone Number [facility] [place] [address] * Uric acid (02/16/2023 10:15 AM EDT) Uric Acid 3.7 2.5 - 6.5 mg/dL [facility] Blood 02/16/2023 10:1 5 AM EDT 02/16/2023 10:35 AM EDT Narrative Resulting Agency Comment Spec In Lab Jacqueline Cr MD CHEMISTRY ORDERABLES Performing Organization Address City/[facility]/ZIP Co de Phone Number [facility] [place] [address] * (ABNORMAL) Lactate Dehydrogenase (02/16/2023 10:15 AM EDT) Lactate Dehydrogenase 293(H) 110 - 220 unit/L [facility] Blood 02/16/2023 10:1 5 AM EDT 02/16/2023 10:35 AM EDT Narrative Resulting Agency Comment Spec In Lab Jacqueline Cr MD CHEMISTRY ORDERABLES Performing Organization Address [facility] Co de Phone Number [facility] [place] [address] * (ABNORMAL) Comprehensive metabolic panel (non-fasting) (02/16/2023 10:15 AM EDT) Glucose 89 65 - 199 mg/dL [facility] Comment:Diabetes: >=200 mg/d L plus symptoms Blood Urea Nitrogen 13 8 - 18 mg/dL [facility] Creatinine 0.54(L) 0.70 - 1.20 mg/dL [facility] Sodium 131(L) 135 - 145 mmol/L [facility] Potassium 3.8 3.5 - 5.0 mmol/L [facility] Comment: Please note: ??Patients with WBC >100,000 may have falsely elevated Potassium levels. ??For accurate Potassium quantification in these patients send serum separator tube (gold top) for subsequent determinations. ??Contact the Clinical Chemistry Laboratory if there are any questions. Chloride 92(L) 98 - 107 mmol/L [facility] Carbon Dioxide 28 22 - 31 mmol/L [facility] Anion Gap 11 5 - 15 mmol/L [facility] Calcium 9.2 8.5 - 10.5 mg/dL [facility] Protein, Total 7.2 6.1 - 8.0 g/dL [facility] Albumin 4.1 3.2 - 5.2 g/dL [facility] Aspartate Aminotransferase 20 0 - 30 unit/L [facility] Alanine Aminotransferase 11 0 - 30 unit/L [facility] Alkaline Phosphatase 90 35 - 105 unit/L [facility] Bilirubin, Total 0.3 0.2 - 1.3 mg/dL [facility] Est Glomerular Filtration Rate 97 >=60 mL/min/1. 73 m?? [facility] Comment: This patient's estimated GFR [...] and symptoms in addition to eGFR. Blood 02/16/2023 10:1 5 AM EDT 02/16/2023 10:35 AM EDT Narrative Resulting Agency Comment Spec In Lab Jacqueline Cr MD CHEMISTRY ORDERABLES Performing Organization Address City/State/[facility] Co de Phone Number [facility] [place] [address] documented in this encounter Visit Diagnoses Diagnosis Lymphoma, unspecified body region, unspecified lymphoma type Imbalance Abnormality of gait Memory deficit Memory loss Hypothyroidism, unspecified type Anemia, unspecified type Gastroesophageal reflux disease, unspecified whether esophagitis present Lytic bone lesions on xray Disorder of bone and cartilage, unspecified Lymphoma, unspecified body region, unspecified lymphoma type Anemia, unspecified type Gastroesophageal reflux disease, unspecified whether esophagitis present Lytic bone lesions on xray Disorder of bone and cartilage, unspecified documented in this encounter Care Teams Glass Finisher Relationship Specialty Start Date End Date Blanquita Pagan APRN [address] [place] [address] PCP - General Family Medicine 01/07/23 documented as of this encounter
--- OUTSIDE RECORDS SUMMARY | 2024-05-02 08:11 | XMS_ITS | Encounter Summary ---
Author Organization [facility] [place] [address] Care Team Providers Care A&P Technician Name Role Phone Blanquita Pagan APRN Primary Care Provider [phone] Encounter Details Date Type Department Care Team (Late st Contact Info) Description 01/08/2023 Notes [place] [address] Elise Burk APRN [facility] [place] [place] [address] Social History Tobacco Use Types Packs/Day Years Used Date Smoking Tobacco: Never Assessed Sex and Gender Information Value Date Recorded Sex Assigned at Not on file Gender Identity Not on file Sexual Orientation Not on file documented as of this encounter Progress Notes * Elise Burk APRN - 01/08/2023 10:23 AM EDT Images from the original note were not included. NEURORADIOLOGY BRIEF PRE-PROCEDURE NOTE Name: Ani Ridley Date of : 1950 Referring provider: Blanquita Pagan APRN Indication: Left supraclavicular lymphadenopathy Planned Procedure: US guided core biopsy, Left cervical lymph node Chief Complaint/HPI: Ani Ridley is a 72 y.o. female Palpable cervical lymphnode over several months, CT scan showing likely malignancy process, differential includes metastasis v. Lymphoma. Allergies: No Known Allergies Medications: Current Outpatient Medications: alendronate (Fosamax) 10 mg tablet, Take 10 mg by mouth daily., Disp: , Rfl: levothyroxine (Synthroid) 50 mcg tablet, Take 50 mcg by mouth daily., Disp: , Rfl: pantoprazole EC (Protonix) [address] tablet, Take 40 mg by mouth daily., Disp: , Rfl: Labs: none Imaging: CT chest 01/06/23 Assessment: 72 y.o. female without contraindication to proceed. Labs to be performed day of procedure: none Medications to discontinue: none Position: supine Sedation: local Additional medications for procedure: Lidocaine 1% Consent: day of procedure Elise Burk APRN 01/08/2023 10:24 AM documented in this encounter Plan of Treatment Upcoming Encounters Date Type Department Care Team (Late st Contact Info) Description 05/02/2024 8:30 AM EST Office Visit Hematology/Oncology at [address] [phone] Pardeep George MD [facility] [place] [address] Kelli Zapata APRN [address] [place] [address] [place] [address] 05/02/2024 9:00 AM EST Infusion Hematology Oncology at [address] [phone] 01/31/2025 8:30 AM EDT Office Visit Psychiatry and [place] [address] Radha Negrete, PhD [facility] [place] [address] documented as of this encounter Visit Diagnoses Not on filedocumented in this encounter Care Teams A&P Technician Relationship Specialty Start Date End Date Blanquita Pagan APRN [address] [place] [address] PCP - General Family Medicine 01/07/23 documented as of this encounter
--- OUTSIDE RECORDS SUMMARY | 2024-05-02 08:11 | XMS_ITS | Encounter Summary ---
Author Organization [facility] Address [facility] [place] [address] Care Team Providers Care Technology Education Instructor Name Role Phone Blanquita Pagan APRN Primary Care Provider [phone] Encounter Details Date Type Department Care Team (Late st Contact Info) Description 03/16/2023 9:30 AM EDT - 03/16/2023 10:30 AM EDT Surgery [place] [phone] Miguel Daugherty MD [facility] [address] HEMATOLOGY [place] [address] ([facility] MSURG) BONE MARROW BIOPSY AND ASPIRATION; DIAGNOSTIC (VU 1.44) Social History Tobacco Use Types Packs/Day Years [...] Sign Reading Time Taken Comments Blood Pressure 129/98 03/16/2023 10:10 AM EDT Pulse 88 03/16/2023 10:10 AM EDT Temperature 37.1 ??C (98.8 ??F) 03/16/2023 8:14 AM ED T Respiratory Rate 16 03/16/2023 10:10 AM EDT Oxygen Saturation 100% 03/16/2023 10:10 AM EDT Inhaled Oxygen Concentration - - Weight 52.2 kg (115 lb) 03/16/2023 8:12 AM EDT Height 167.6 cm (5' 6) 03/16/2023 8:12 AM EDT Body Mass Index 18.56 03/16/2023 8:12 AM EDT documented in this encounter Discharge Instructions * Discharge Instructions* Bethany Schneider RN - 03/16/2023 8:00 AM EDT OUTPATIENT SURGERY POST-OPERATIVE INSTRUCTIONS BONE MARROW BIOPSY SITE You have had a bone marrow aspiration and or/biopsy, which is like having an operation with a tiny,deep incision. Do Not do any strenuous work today, like housework, yard work, sports of any kind or lifting more than 5 pounds as it may cause your bone marrow site to bleed. To avoid infection, leave the clear plastic dressing on the site for three days. You may shower, bathe, or swim as you wish, provided the clear dressing remains intact, and all sides of the dressing are firmly adhered to the skin. In the unlikely event that a portion or the entire dressing should come off, you may replace it with a conventional cloth band aid. However, you will no longer be able to get the site wet until three days have passed, as a conventional band aid is not waterproof and the site is no longer a sterile area. It is not unusual for the site to leak a scant amount of blood, so do not be alarmed to see a smallcollection, or ???puddle?? of blood under the dressing. Wound healing will still occur. If you are uncertain if there is an increase in any leaking from your bone marrow site, roll up a towel, lie down on a firm surface, place the towel directly over the puncture site to apply pressure,and rest there for one half hour. Direct, FIRM thumb pressure applied to the site for 10 minutes works well as an alternative method. Leave the dressing on. Most people do not experience much discomfort after this procedure, but if you do, you should ask your physician what to take. AVOID ASPIRIN PRODUCTS as these interfere with clotting. After three days, remove your dressing and leave it off, so the air can get to the site to finish the healing process. NOTIFY YOUR DOCTOR FOR: Redness Heat Fever Swelling Drainage Increased pain Foul odor (which may not be apparent through the dressing) If you are having problems or have any additional concerns or questions: Between 8am and 5pm - Call the Hematology Clinic at . After 5pm or on a weekend: Call the [facility] bench boring machine operator at and ask for the physician furs salesperson covering for your doctor. Instructions following sedation You may have received medication before and/or during your procedure, which affects judgement and reaction time. Use caution with stairs. Do not drive, operate machinery, drink alcoholic beverages, or make any legal decisions for 24 hours. You may eat a regular diet as tolerated. Do not smoke if you are alone. IV site -- slight redness, or tenderness is normal, you can use a warm compress. If tenderness and redness increases or foul drainage occurs, please contact [place] [address] [email or web address] [facility] [place] documented in this encounter Medications at Time [...] as of this encounter Progress Notes * Bethany Schneider RN - 03/16/2023 10:38 AM EDT Date/Procedure: Meds Given Comments Bone Marrow Biopsy 03/16 Midazolam: 0.5 mg Fentanyl:37.5 mcg Pt tolerated procedure well and vitals stable throughout. Critical WBC reported to provider. Pressure to incision applied for 30 min, no active bleeding at time of dc. IV kept in place due to PET scan scheduled at 12:30. Pt only had water after procedure. Discharge instructions and medications reviewed with patient and prior to procedure. All questions answered and written copy sent home with patient. Patient voided and ambulated to car for discharge accompanied by [facility] staff member. documented in this encounter H&P Notes * Inga Julian APRN - 03/16/2023 9:30 AM EDT Pre-Sedation Assessment: Planned procedure: Bone Marrow Aspirate with Biopsy Indications: Staging Diagnosis: Low Grade B-cell Lymphoma Assessment: Cardiovascular: Rhythm: Regular Rate: Normal Pulmonary: Breath sounds clear to auscultation ASA: 3: Patient with severe systemic disease Mallampati: II: tonsillar pillars are blocked by the tongue H&P reviewed: Yes Relevant diagnostic studies: CBC diff pending Confirm NPO status: Yes, Date and Time of last intake: Solids: 03/15/23 at 19:00pm; Liquids: 03/16/23: sips of water at 06:00am History of anesthetic complications: No Current medications reviewed: Yes Allergies reviewed: Yes Alcohol use: No, Date and Time of last drink: NA Drug use: No Sedation Plan: moderate (conscious sedation) The sedation plan, its benefits and risks, and alternatives were discussed with the patient. The planned procedure, its benefits and risks, and alternatives were discussed with the patient. The patient consented to the procedure. Discharge to: PET scan today. Accompanied by Inga Julian, MSN, MANAGER ATHLETICS Nurse Practitioner Section of Hematology/Oncology [facility] Office phone: documented in this encounter Procedure Notes * Inga Julian APRN - 03/16/2023 9:30 AM EDTProcedure(s): ([facility] MSURG) BONE MARROW BIOPSY AND ASPIRATION; DIAGNOSTIC Pre-Procedure Diagnose(s): Low grade B-cell lymphoma Post-Procedure Diagnose(s): Low grade B-cell lymphoma BONE MARROW BIOPSY AND ASPIRATION PROCEDURE NOTE Bone Marrow Biopsy & Aspiration with Conscious Sedation Date/Time of Procedure: March 16, 2023 at 10:10am Proceduralist: INGA JULIAN APRN, RN, MS, RHEUMATOLOGY SPECIALIST DIAGNOSIS: Low Grade B-cell Lymphoma Pre-Procedure: (x) Consent signed and on chart. (x) CBC drawn within 3 days. (x) Medications/Allergies (x) H & P complete Prior to start of procedure the following is verified in a TIME OUT: (x) Patient identity (x) Planned procedure (x) Safety concerns IV ACCESS: Per sedation RN PAIN INTERVENTION: Per sedation RN Sterile Condition: Chlorohexidine was used to sterilize the area. Sterile drapes were used to create a sterile field. Local Anesthesia: 1% Lidocaine 15mLs PROCEDURE: A bone marrow biopsy and aspiration was performed on the RIGHT posterior iliac crest. Tegaderm dressing placed and pressure applied to site(s) for 30 minutes following the procedure. Estimated Blood Loss: minimal Complications: none POST INTERVENTION CARE & PAIN ASSESSMENT: Per [facility] nurses. Follow-up: Written/Verbal instructions for site care given to patient per [facility] nurses. Follow-up with Physician as instructed. Inga Julian, MSN, MANAGER ATHLETICS Nurse Practitioner Section of Hematology/Oncology [facility] Office phone: documented in this encounter Plan of Treatment Upcoming Encounters Date Type Department Care Team (Late st Contact Info) Description 05/02/2024 8:30 AM EST Office Visit Hematology/Oncology at [address] [phone] Pardeep George MD [facility] DR HEMATOLOGY [place] [address] Kelli Zapata APRN [address] [place] [address] DR MEDICAL ONCOLOGY [place], [place] [phone] 05/02/2024 9:00 AM EST Infusion Hematology Oncology at [address] [phone] 01/31/2025 8:30 AM EDT Office Visit Psychiatry and Behavioral Health at [facility] [place] [address] Radha Negrete, PhD [facility] [place] [address] documented as of this encounter Procedures Procedure Name Priority Date/Time Associated Diagnosis Comments IMMUNOPHENOTYPING FLOW CYTOMETRY (BLOOD) Routine 03/16/2023 10:10 AM EDT CHROMO REPORT ACQUIRED Routine 10:10 AM EDT BONE MARROW FINAL REPORT Routine 023 10:10 AM EDT IRON STAIN, BONE MARROW Routine 03/16/20 10:10 AM EDT BONE MARROW PANEL ([facility]/CGP/APD) Routine 03/16/2023 10:10 AM EDT Diagnostic Bone Marrow Biopsies & Aspirations ([id number]) 03/16/2023 9:49 AM EDT lymphoma SCAN, PERIPHERAL BLOOD Routine 9:00 AM EDT HEMOGRAM Routine 03/16/2023 9:00 AM EDT DIFFERENTIAL, AUTOMATED Routine 03/16/20 9:00 AM EDT CBC (WITH DIFF) Routine 03/16/2023 9:00 AM EDT ([facility]) BONE MARROW BIOPSY AND ASPIRATION; DIAGNOSTIC Routine 03/16/2023 7:59 AM EDT documented in this encounter Results * chromo report acquired (03/16/2023 10:10 AM EDT) Pathologist [facility] Cytogenetics Acquired Report Final Report ? [id number] Specimen Type: Bone Marrow Specimen Condition: ~2.5mL, adequate Collection Date/Time: 03/16/2023 10:10 Received Date/Time: 03/17/2023 09:50 Indication: ??Follicular Lymphoma ---Results--- Please see the chromosome analysis scanned report in eD-H corresponding to this specimen. ??This report was completed by [facility] and is located in 'Chart Review' under the 'Media' tab. ??The document name is titled External Genetic Study. ---Karyotype--- See comments. ---Preparation-- - Culture Type: Other FISH Method: ??N/A ---Comments--- The specimen was referred to [facility] ([place], Tel: ?? ) for cytogenetic analysis. ---Disclaimer--- Please note that the above is not a patient lab result and does not have an interpretative component. ??It is only provided to indicate the location of the final report in the EMR for this individual, which has the official interpretations. 10.11.23 (Electronic Signature) Verified By: Radha Holm [facility] 03/16/2023 10:1 0 AM EDT 03/17/2023 9:50 AM EDT Zandra Glasgow APRN HEMATOLOGY ORDERAB LES Performing Organization Address City/State/[facility] Co de Phone Number [facility] [place] [place] [address] * Bone Marrow Final Report (03/16/2023 10:10 AM EDT) Final Diagnosis [id number] ? Location: [facility] The signing pathologist has (i) examined the relevant preparation(s) for the specimen(s) and (ii) rendered or confirmed the diagnosis(es). . ? Bone Marrow Final DIAGNOSIS BONE MARROW (BLOOD FILM, ASPIRATE, TOUCH PREP, CORE & CLOT SECTIONS): ?? 1. ??FL, by history. ?? 2. ??Hypercellular marrow with maturing trilineage hematopoiesis and villegas-myeloid ?hyperplasia, consistent with growth factor/pegfilgrastim effect (see discussion). Electronically signed by: ?Anthony Gates MD Verified: ??03/18/2023 9:15 ?? Hematopathologist Performed at: ??-[facility] Dept. of Pathology, [place] [address] Aircraft Charter Dispatcher: Cristina Johnson MD, FCAP, ??CLIA Certificate: [id number] DISCUSSION Note is made of the patient recently receiving pegfilgrastim as part of their treatment regiment for low-grade follicular lymphoma. Flow cytometry studies support the diagnostic interpretation. Case dictated by Beny Simms ?? Hardin ??Sagrario (Hematopathology Fellow). As the attending physician, I attest that I examined the histologic slides, and confirm the diagnosis. PERIPHERAL SMEAR 03/16/23 09:00 EDT ?WBC * 79.5 x10(3)/mcL (Ref. Range 4.0 - 9.5) ?? RBC 3.79 x10(6)/mcL (Ref. Range 4.00 - 5.21) ?? Hgb 10.6 g/dL (Ref. Range 11.7 - 15.5) ?? Hct 31.4 % (Ref. Range 35.7 - 45.8) ?? MCV 82.8 fL (Ref. Range 82.6 - 94.4) ?? MCH 28.0 pg (Ref. Range 27.1 - 32.0) ?? MCHC 33.8 g/dL (Ref. Range 31.7 - 35.0) ?? RDWSD 44.7 fL (Ref. Range 37.0 - 46.0) ?? RDWCV 15.6 % (Ref. Range 11.5 - 14.1) ?? Platelet 540 x10(3)/mcL (Ref. Range 145 - 357) ?? MPV 8.4 fL (Ref. Range 7.6 - 12.9) ?? Neutro Absolute 65.95 x10(3)/mcL (Ref. Range 1.70 - 6.10) ?? Immature Gran 8.34 x10(3)/mcL (Ref. Range 0.00 - 0.04) ?? Lymph Absolute 0.3 x10(3)/mcL (Ref. Range 0.9 - 3.2) ?? Monocy Absolute 4.8 x10(3)/mcL (Ref. Range 0.3 [...] unremarkable platelet morphology. BONE MARROW ASPIRATE Adequacy: ?Smear/touch preparations adequate, hypercellular. G:E ratio: ? 4:1 Erythroid: ? Complete normoblastic maturation, no left-shift. Granulocyte: ?? Markedly increased with pronounced left shift. Blasts: ?Not significantly increased. Megakaryocyte: Normal in number and morphology. Lymphocyte: ?Scattered mature forms seen, no aggregates appreciated. Plasma cells: ??Not increased, normal morphology. Other: ? Normal eosinophils, basophils, and mast cells. . BONE MARROW ASPIRATE Iron stain: ?Iron stores present, no ring sideroblasts. DIFFERENTIAL Not performed BONE MARROW BIOPSY and/or CLOT Core Adequacy: Decalcified, adequate, evaluable marrow present. Clot Adequacy: Limited marrow spicules present, findings similar to core. Cellularity: ?? Hypercellular (70%). Erythroid: ? Precursors numerically normal Granulocyte: ?? Precursors numerically increased, left shift Megakaryocyte: Normal in number and appearance, no clustering seen. Lymphocytes: ?? No abnormal aggregates identified. Plasma cells: ??Normal numbers. Other: ? Normal eosinophils, basophils, and mast cells. Bone: ?Trabecular bone normal for age. IMMUNOHISTOCHEMISTRY STUDIES Block: ?A1 Fixative: ?? Formalin ANTIBODY ?RESULT/COMMENT CD3 ? Normal distribution T cells CD19 ?Rare single B cells The immunoperoxidase stains reported above were developed by the clinical laboratory at [facility]. Antibody specificities have been verified on tissues with known staining performance characteristics. These stains have not been cleared or approved by the U.S. Food and Drug Administration, however such approval is not required for analyte-specific reagents of this type. Appropriate positive and negative controls are included for each case. CLINICAL INFORMATION Specimen: A1: Bone marrow, aspirate and biopsy, right A2: SPICULE/ CLOT SECTION Clinical Diagnosis: 72F w/recently diagnosed low-grade follicular lymphoma ([id number], [id number]), currently on treatment, s/p pegfilgrastim. Indication for Study: Staging. SPECIMEN PROCESSING A - Received in two containers: 1 - Labeled/Fixative: Patient, formalin. Quantity/Size: Two, is 0.8 and 1.2 x 0.2 cm Tissue Description: Red-brown firm needle core biopsies of bone. Submitted in: A1 2 - Labeled/Fixative: Patient demographics, fresh. Quantity/Size: Fragments, 2.0 x 0.3 x 0.1 cm in aggregate Tissue Description: Wil[place] -tom soft tissue fragments. Submitted in: A2 Sections/Processing: Blocks submitted for decalcification: A1. Entirely submitted in 2 cassettes labeled A1-A2. ??shb ?Flow Cytometry DIAGNOSIS BONE MARROW ASPIRATE, FLOW CYTOMETRY: . DIAGNOSIS No phenotypically abnormal T-cell population or increase in blasts is detected. No CD19+ B-cells are identified (see comment). COMMENT: Please refer to the primary biopsy report for morphologic correlation. Electronically signed by: ?Yajaira APONTE, Anthony Verified: ??03/18/2023 8:55 ?? Hematopathologist Performed at: ??-[facility] Dept. of Pathology, [place] [address] Aircraft Charter Dispatcher: Cristina Johnson MD, FCAP, ??CLIA Certificate: [id number] DISCUSSION The AO67-qij low-SSC flow scatterplot region shows no ?significant ??increase in blasts. The lymphocyte -enriched gate represents <1% of the total events, and this gated population consists mostly of T-cells (78%), B-cells (0%), and NK-cells (20%). The T-cells show a CD4:CD8 ratio of about 1.3:1, and no villegas-T-cell marker aberrancy is identified. No CD19+ B-cell events are detected, which precludes immunophenotypic evaluation. Flow analysis is an ancillary study. A definite diagnosis requires correlation with the morphologic features of this process and if necessary, correlation with other ancillary studies like immunohistochemistry , enzyme cytochemistry and/or cyto/ molecular genetics. This test was developed and its performance characteristics determined by the Clinical Flow Cytometry Laboratory at [facility]. It has not been cleared or approved by the U.S. Food and Drug Administration. ??The FDA has determined that such clearance or approval is not necessary. ??This test is used for clinical purposes. ??It should not be regarded as investigational or for research. This laboratory is certified under the Clinical Laboratory Improvement Act of 1988 (CLIA) as qualified to perform high complexity clinical laboratory testing. Case dictated by Beny Mcdonald ??M.D. (Hematopathology Fellow) ?. As the attending physician, I attest that I examined the flow cytometry worksheet, and confirm the diagnosis. SPECIMEN PROCESSING [id number] Cells for immunophenotypic analysis were derived from bone marrow. CD45 vs side scatter gating was utilized to identify a lymphoid analysis region that comprises approximately 0% of all cells. The following markers were assessed: CD2, CD3, CD4, CD5, CD7, CD8, CD10, CD19, CD45, CD56, kappa light chain, and lambda light chain. CLINICAL INFORMATION 72F w/recently diagnosed low-grade follicular lymphoma ([id number], [id number]), currently on treatment, s/p pegfilgrastim. 03/18/2023 9:15 AM EDT [facility] AP Specimen BONE MARROW STRUCTURE / Unknown 03/16/2023 10:10 AM EDT 03/16/2023 10:10 AM EDT Zandra Glasgow APRN PATHOLOGY/CYTOLOGY ORDERABLES [facility] [place] [address] [facility] [place] [address] * Immunophenotyping Flow Cytometry (03/16/2023 10:10 AM EDT) Immunophenotyping Flow See Comment [facility] Comment: When completed by the Pathologist, the Flow Cytometry Report ([id number]) will display under the Pathology Results section within eD. Bone Marrow 03/16/2023 10:1 0 AM EDT 03/16/2023 10:40 AM EDT Narrative Resulting Agency Comment Spec In Lab Zandra Glasgow APRN HEMATOLOGY ORDERAB LES Performing Organization Address City/[facility]/ZIP Co de Phone Number [facility] [place] [address] * Iron Stain, Bone Marrow (03/16/2023 10:10 AM EDT) Bone Marrow Iron Stain See Comment [facility] Comment:See Bone Marrow Repo rt [id number] under Hematopathology Reports. Bone Marrow 03/16/2023 10:1 0 AM EDT 03/16/2023 10:40 AM EDT Narrative Resulting Agency Comment Spec In Lab Zandra Glasgow APRN HEMATOLOGY ORDERAB LES [facility] [place] [address] * Scan, Peripheral Blood (03/16/2023 9:00 AM EDT) Plat estimate Increased [facility] RBC Morphology Abnormal [facility] Hypochromia Slight [facility] Polychromasia Present >5/HPF [facility] Ovalocytes 1-5 /HPF [facility] Muse Cells 1-5 /HPF [facility] Toxic Granulation Present [facility] Dohle Bodies Present [facility] Blood 03/16/2023 9:00 AM EDT 03/16/2023 9:44 AM EDT Narrative Resulting Agency Comment Spec In Lab Zandra Glasgow MANAGER ATHLETICS HEMATOLOGY ORDERAB LES [facility] [place] [address] * (ABNORMAL) Differential, Automated (03/16/2023 9:00 AM EDT) Neutrophil % 82.9 % [facility] Neutrophil Absolute 65.95(H) 1.70 - 6.10 x10(3)/mc L [facility] Lymph % 0.4 % [facility] Lymphocytes Abs 0.3(L) 0.9 - 3.2 x10(3)/mc L [facility] Monocyte % 6.0 % [facility] Monocyte Abs 4.8(H) 0.3 - 0.9 x10(3)/mc L [facility] Eos % 0.1 % [facility] Eosinophils Abs 0.1 0.0 - 0.4 x10(3)/mc L [facility] Basophil % 0.1 % [facility] Baso Absolute 0.1 0.0 - 0.1 x10(3)/mc L [facility] Immature Gran % 10.50 % [facility] Comment: Immature granulocytes(IG's)percentage and absolute count will include metamyelocytes, myelocytes, and promyelocytes. Blood smears from CBCs yielding IG's will be scanned manually for concordance. If this scan disagrees with the automated IG or if promyelocytes are noted, a manual differential will be performed. Immature Gran Absolute 8.34(H) 0.00 - 0.04 x10(3)/mc L [facility] Blood 03/16/2023 9:00 AM EDT 03/16/2023 9:44 AM EDT Narrative Resulting Agency Comment Spec In Lab Zandra Glasgow APRN HEMATOLOGY ORDERAB LES Performing Organization Address City/[facility]/ZIP Co de Phone Number [facility] [place] [address] * (ABNORMAL) Hemogram (03/16/2023 9:00 AM EDT) White Blood Cell 79.5(Crit ical) 4.0 - 9.5 x10(3)/mc L [facility] Comment: This result has been called to ZACHARY MOYER by Misty Pagan on 03 16 2023 at 0959, and has been read back. Red Blood Cell 3.79(L) 4.00 - 5.21 x10(6)/mc L [facility] Hemoglobin 10.6(L) 11.7 - 15.5 g/dL [facility] Hematocrit 31.4(L) 35.7 - 45.8 % [facility] Mean Cell Volume 82.8 82.6 - 94.4 fL [facility] Mean Cell Hemoglobin 28.0 27.1 - 32.0 pg [facility] Mean Cell Hemoglobin Concentration 33.8 31.7 - 35.0 g/dL [facility] Platelet 540(H) 145 - 357 x10(3)/mc L [facility] RDW Standard Deviation 44.7 37.0 - 46.0 fL [facility] RDW coefficient of variation 15.6(H) 11.5 - 14.1 % [facility] Mean Platelet Volume 8.4 7.6 - 12.9 fL [facility] NRBC% auto 0.0 % [facility] NRBC Absolute 0.000 0.000 - 0.000 x10(3)/mc L [facility] Blood 03/16/2023 9:00 AM EDT 03/16/2023 9:44 AM EDT Narrative Resulting Agency Comment Spec In Lab Zandra Glasgow MANAGER ATHLETICS HEMATOLOGY ORDERAB LES [facility] [place] [place] [address] documented in this encounter Visit Diagnoses Not on filedocumented in this encounter Administered Medications Inactive Administered Medications - up to 3 most recent administrations Medication Order MAR Action Action Date Dose Rate Site fentaNYL (pf) (50 mcg/mL) multi-dose injection 25 mcg 25 mcg, Intravenous, EVERY 5 MIN PRN, Starting on Tue03/16/23 at 0800, Until Tue03/16/23 at 1207, Pain, Administer every 5 min to achieve pain scale 1-3. Hold for respiratory rate less than 8 breaths per minute. Dose not to exceed 200 mcg., Intra-Operative (Intra-Procedure), Routine Given 03/16/2023 10:05 AM EDT 12.5 mcg Given 03/16/2023 9:52 AM EDT 25 mcg flumazeniL (Romazicon) (0.1 mg/mL) injection 0.2 mg 0.2 mg, Intravenous, EVERY 2 MIN PRN, Starting on Tue03/16/23 at 0800, Until Tue03/16/23 at 1207, Benzodiazepine reversal, 0.2 mg intravenous, every 2 minutes PRN for total of 5 doses for respiratory rate less than 8 or SpO2 less than 90% despite supplement O2., Intra-Operative (Intra-Procedure), Routine lidocaine (Xylocaine) 1% (10 mg/mL) injection 3 mg 3 mg (0.3 mL), Subcutaneous, ONCE PRN, 1 dose, Starting on Tue03/16/23 at 0800, Until Tue03/16/23 at 1207, for discomfort with PIV insertion, Day of Surgery (Day of Procedure), Routine midazolam (pf) (Versed) (1 mg/mL) multi-dose injection 0.25-1 mg 0.25-1 mg, Intravenous, EVERY 5 MIN PRN, Starting on Tue03/16/23 at 0800, Until Tue03/16/23 at 1207, Anxiety, Administer every 5 minutes to achieve RASS (-)1. Hold for delirium/agitation. Dose not to exceed 4 mg., Intra-Operative (Intra-Procedure), Routine Given 03/16/2023 9:52 AM EDT 0 .5 mg naloxone (Narcan) (0.4 mg/mL) injection 0.1 mg 0.1 mg, Intravenous, EVERY 2 MIN PRN, Starting on Tue03/16/23 at 0800, Until Tue03/16/23 at 1207, Opioid Reversal, For opiate induced oversedation or respiratory depression. (maximum dose of 0.8 mg), Intra-Operative (Intra-Procedure), Routine sodium chloride 0.9 % (flush) (BD PosiFlush Normal Saline 0.9) flush 5 mL 5 mL, Intravenous, EVERY 12 HOURS, First dose on Tue03/16/23 at 0830, Until Discontinued, Day of Surgery (Day of Procedure), Routine sodium chloride 0.9 % (flush) (BD PosiFlush Normal Saline 0.9) flush 5-20 mL 5-20 mL, Intravenous, EVERY 1 MIN PRN, Starting on Tue03/16/23 at 0800, Until Tue03/16/23 at 1207, flush, Flush pertains to all indwelling lines. Flush per protocol found in the job aid using the link provided on this medication record., Day of Surgery (Day of Procedure), Routine sodium chloride 0.9% infusion 1,000 mL, at 100 mL/hr, Intravenous, CONTINUOUS, Starting on Tue03/16/23 at 0830, Until Tue03/16/23 at 1207, Day of Surgery (Day of Procedure) documented in this encounter Active and Recently Administered Medications Times are shown in EDT. Scheduled Medication Order 03/14/2023 03/15/2023 03/16/2023 heparin (pf) (porcine) (1,000 unt/mL) injection for bone marrow biopsy as directed, ONCE, On Tue03/16/23 at 0830, 1 dose, Do not administer to patient. To be used to heparinize [facility] ONLY for bone marrow sample. , Day of Surgery (Day of Procedure) 0830 (Due) lidocaine (pf) (Xylocaine) (10 mg/mL) 1% injection 10 mg 10 mg, Subcutaneous, ONCE, 1 dose, On Tue03/16/23 at 0830, To be given DURING the procedure, Day of Surgery (Day of Procedure), Routine 0830 (Due) sodium chloride 0.9 % (flush) (BD PosiFlush Normal Saline 0.9) flush 5 mL 5 mL, Intravenous, EVERY 12 HOURS, First dose on Tue03/16/23 at 0830, Until Discontinued, Day of Surgery (Day of Procedure), Routine 0830 (Due) Continuous Medication Order 03/14/2023 03/15/2023 03/16/2023 sodium chloride 0.9% infusion 1,000 mL, at 100 mL/hr, Intravenous, CONTINUOUS, Starting on Tue03/16/23 at 0830, Until Tue03/16/23 at 1207, Day of Surgery (Day of Procedure) 0830 (Due) PRN Medication Order 03/14/2023 03/15/2023 03/16/2023 fentaNYL (pf) (50 mcg/mL) multi-dose injection 25 mcg 25 mcg, Intravenous, EVERY 5 MIN PRN, Starting on Tue03/16/23 at 0800, Until Tue03/16/23 at 1207, Pain, Administer every 5 min to achieve pain scale 1-3. Hold for respiratory rate less than 8 breaths per minute. Dose not to exceed 200 mcg., Intra-Operative (Intra-Procedure), Routine 951 (Given - Provid er: Bethany Schneider RN)100 (Given - Provider: Bethany Schneider RN) flumazeniL (Romazicon) (0.1 mg/mL) injection 0.2 mg 0.2 mg, Intravenous, EVERY 2 MIN PRN, Starting on Tue03/16/23 at 0800, Until Tue03/16/23 at 1207, Benzodiazepine reversal, 0.2 mg intravenous, every 2 minutes PRN for total of 5 doses for respiratory rate less than 8 or SpO2 less than 90% despite supplement O2., Intra-Operative (Intra-Procedure), Routine lidocaine (Xylocaine) 1% (10 mg/mL) injection 3 mg 3 mg (0.3 mL), Subcutaneous, ONCE PRN, 1 dose, Starting on Tue03/16/23 at 0800, Until Tue03/16/23 at 1207, for discomfort with PIV insertion, Day of Surgery (Day of Procedure), Routine midazolam (pf) (Versed) (1 mg/mL) multi-dose injection 0.25-1 mg 0.25-1 mg, Intravenous, EVERY 5 MIN PRN, Starting on Tue03/16/23 at 0800, Until Tue03/16/23 at 1207, Anxiety, Administer every 5 minutes to achieve RASS (-)1. Hold for delirium/agitation. Dose not to exceed 4 mg., Intra-Operative (Intra-Procedure), Routine 951 (Given - Provid er: Bethany Schneider RN) naloxone (Narcan) (0.4 mg/mL) injection 0.1 mg 0.1 mg, Intravenous, EVERY 2 MIN PRN, Starting on Tue03/16/23 at 0800, Until Tue03/16/23 at 1207, Opioid Reversal, For opiate induced oversedation or respiratory depression. (maximum dose of 0.8 mg), Intra-Operative (Intra-Procedure), Routine sodium chloride 0.9 % (flush) (BD PosiFlush Normal Saline 0.9) flush 5-20 mL 5-20 mL, Intravenous, EVERY 1 MIN PRN, Starting on Tue03/16/23 at 0800, Until Tue03/16/23 at 1207, flush, Flush pertains to all indwelling lines. Flush per protocol found in the job aid using the link provided on this medication record., Day of Surgery (Day of Procedure), Routine documented in this encounter Care Teams Technology Education Instructor Relationship Specialty Start Date End Date Blanquita Pgaan APRN [address] [place] [address] PCP - General Family Medicine 01/07/23 documented as of this encounter
--- OUTSIDE RECORDS SUMMARY | 2024-05-02 08:11 | XMS_ITS | Encounter Summary ---
Author Organization [facility] Address [facility] [place] [address] Care Team Providers Care Motorman/Woman Name Role Phone Blanquita Pagan APRN Primary Care Provider [phone] Encounter Details Date Type Department Care Team (Latest Contact Info) Description 02/16/2023 10:05 AM EDT - 02/16/2023 11:59 PM EDT Hospital Encounter [place]ematology [place] [address] Lymphoma, unspecified body region, unspecified lymphoma type; Imbalance; Memory deficit; Hypothyroidism, unspecified type; Anemia, unspecified type; Gastroesophageal reflux disease, unspecified whether esophagitis present; Lytic bone lesions on xray Discharge Disposition: Home Social History Tobacco Use [...] a skilled nursing (including now)? No 02/16/2023 Sex and Gender Information Value Date Recorded Sex Assigned at Not on file Gender Identity Not on file Sexual Orientation Not on file documented as of this encounter Medications at Time of Discharge Medication Sig Dispensed Refills Start Date End Date alendronate (Fosamax) 10 mg tablet Take 10 mg by mouth daily. 10/16/2022 levothyroxine (Synthroid) 50 mcg tablet Take 50 mcg by mouth daily. 11/16/2022 pantoprazole EC (Protonix) [address] tablet Take 40 mg by mouth daily. 10/16/2022 documented as of this encounter Plan of Treatment Upcoming Encounters Date Type Department Care Team (Late st Contact Info) Description 05/02/2024 8:30 AM EST Office Visit Hematology/Oncology at [address] [phone] Pardeep George MD [facility] DR HEMATOLOGY [place] [address] Kelli Zapata APRN [address] [place] [address] [place] [address] 05/02/2024 9:00 AM EST Infusion Hematology Oncology at [address] [phone] 01/31/2025 8:30 AM EDT Office Visit Psychiatry [place] [address] Radha Negrete, PhD [facility] [place] [address] documented as of this encounter Procedures Procedure Name Priority Date/Time Associated Diagnosis Comments IMMUNOGLOBULINS, QUANTITATIVE Routine 02/16/2023 10:15 AM EDT Lymphoma, unspecified body region, unspecified lymphoma type Imbalance Memory deficit Hypothyroidism, unspecified type Anemia, unspecified type Gastroesophageal reflux disease, unspecified whether esophagitis present Lytic bone lesions on xray HEMOGRAM Routine 02/16/2023 10:15 AM EDT Lymphoma, unspecified body region, unspecified lymphoma type Imbalance Memory deficit Hypothyroidism, unspecified type Anemia, unspecified type Gastroesophageal reflux disease, unspecified whether esophagitis present Lytic bone lesions on xray DIFFERENTIAL, AUTOMATED Routine 02/16/2023 10:15 AM EDT Lymphoma, unspecified body region, unspecified lymphoma type Imbalance Memory deficit Hypothyroidism, unspecified type Anemia, unspecified type Gastroesophageal reflux disease, unspecified whether esophagitis present Lytic bone lesions on xray HEPATITIS C ANTIBODY Routine 02/16/2023 10:15 AM EDT Lymphoma, unspecified body region, unspecified lymphoma type Imbalance Memory deficit Hypothyroidism, unspecified type Anemia, unspecified type Gastroesophageal reflux disease, unspecified whether esophagitis present Lytic bone lesions on xray METHYLMALONIC ACID, SERUM Routine 02/16/2023 10:15 AM EDT Lymphoma, unspecified body region, unspecified lymphoma type Imbalance Memory deficit Hypothyroidism, unspecified type Anemia, unspecified type Gastroesophageal reflux disease, unspecified whether esophagitis present Lytic bone lesions on xray IRON AND TIBC Routine 02/16/2023 10:15 AM EDT Lymphoma, unspecified body region, unspecified lymphoma type Imbalance Memory deficit Hypothyroidism, unspecified type Anemia, unspecified type Gastroesophageal reflux disease, unspecified whether esophagitis present Lytic bone lesions on xray HEPATITIS B CORE ANTIBODY, IGM Routine 02/16/2023 10:15 AM EDT Lymphoma, unspecified body region, unspecified lymphoma type Imbalance Memory deficit Hypothyroidism, unspecified type Anemia, unspecified type Gastroesophageal reflux disease, unspecified whether esophagitis present Lytic bone lesions on xray HEPATITIS B SURFACE ANTIBODY Routine 02/16/2023 10:15 AM EDT Lymphoma, unspecified body region, unspecified lymphoma type Imbalance Memory deficit Hypothyroidism, unspecified type Anemia, unspecified type Gastroesophageal reflux disease, unspecified whether esophagitis present Lytic bone lesions on xray RETICULOCYTE COUNT Routine 02/16/2023 10 :15 AM EDT Lymphoma, unspecified body region, unspecified lymphoma type Imbalance Memory deficit Hypothyroidism, unspecified type Anemia, unspecified type Gastroesophageal reflux disease, unspecified whether esophagitis present Lytic bone lesions on xray CBC (WITH DIFF) Routine 02/16/2023 10:15 AM EDT Lymphoma, unspecified body region, unspecified lymphoma type Imbalance Memory deficit Hypothyroidism, unspecified type Anemia, unspecified type Gastroesophageal reflux disease, unspecified whether esophagitis present Lytic bone lesions on xray DIRECT ANTIGLOBULIN TEST Routine 02/16/2023 10:15 AM EDT Lymphoma, unspecified body region, unspecified lymphoma type Imbalance Memory deficit Hypothyroidism, unspecified type Anemia, unspecified type Gastroesophageal reflux disease, unspecified whether esophagitis present Lytic bone lesions on xray URIC ACID Routine 02/16/2023 10:15 AM EDT Lymphoma, unspecified body region, unspecified lymphoma type Imbalance Memory deficit Hypothyroidism, unspecified type Anemia, unspecified type Gastroesophageal reflux disease, unspecified whether esophagitis present Lytic bone lesions on xray LACTATE DEHYDROGENASE Routine 02/16/2023 10:15 AM EDT Lymphoma, unspecified body region, unspecified lymphoma type Imbalance Memory deficit Hypothyroidism, unspecified type Anemia, unspecified type Gastroesophageal reflux disease, unspecified whether esophagitis present Lytic bone lesions on xray HAPTOGLOBIN Routine 02/16/2023 10:15 AM EDT Lymphoma, unspecified body region, unspecified lymphoma type Imbalance Memory deficit Hypothyroidism, unspecified type Anemia, unspecified type Gastroesophageal reflux disease, unspecified whether esophagitis present Lytic bone lesions on xray FERRITIN Routine 02/16/2023 10:15 AM EDT Lymphoma, unspecified body region, unspecified lymphoma type Imbalance Memory deficit Hypothyroidism, unspecified type Anemia, unspecified type Gastroesophageal reflux disease, unspecified whether esophagitis present Lytic bone lesions on xray VITAMIN B12 Routine 02/16/2023 10:15 AM EDT Lymphoma, unspecified body region, unspecified lymphoma type Imbalance Memory deficit Hypothyroidism, unspecified type Anemia, unspecified type Gastroesophageal reflux disease, unspecified whether esophagitis present Lytic bone lesions on xray COMPREHENSIVE METABOLIC PANEL Routine 02/16/2023 10:15 AM EDT Lymphoma, unspecified body region, unspecified lymphoma type Imbalance Memory deficit Hypothyroidism, unspecified type Anemia, unspecified type Gastroesophageal reflux disease, unspecified whether esophagitis present Lytic bone lesions on xray documented in this encounter Results * (ABNORMAL) Differential, Automated (02/16/2023 10:15 AM EDT) Neutrophil % 82.4 % [facility] Neutrophil Absolute 6.85(H) 1.70 - 6.10 x10(3)/mc L [facility] Lymph % 5.3 % [facility] Lymphocytes Abs 0.4(L) 0.9 - 3.2 x10(3)/mc L [facility] Monocyte % 10.9 % [facility] Monocyte Abs 0.9 0.3 - 0.9 x10(3)/mc L [facility] Eos % 0.5 % [facility] Eosinophils Abs 0.0 0.0 - 0.4 x10(3)/mc L [facility] Basophil % 0.7 % [facility] Baso Absolute 0.1 0.0 - 0.1 x10(3)/mc L [facility] Immature Gran % 0.20 % [facility] Comment: Immature granulocytes(IG's)percentage and absolute count will include metamyelocytes, myelocytes, and promyelocytes. Blood smears from CBCs yielding IG's will be scanned manually for concordance. If this scan disagrees with the automated IG or if promyelocytes are noted, a manual differential will be performed. Immature Gran Absolute 0.02 0.00 - 0.04 x10(3)/mc L [facility] Blood 02/16/2023 10:1 5 AM EDT 02/16/2023 10:35 AM EDT Narrative Resulting Agency Comment Spec In Lab Miguel Daugherty MD HEMATOLOGY ORDERABLE S [facility] [place] [address] * (ABNORMAL) Hemogram (02/16/2023 10:15 AM EDT) White Blood Cell 8.3 4.0 - 9.5 x10(3)/mc L [facility] Red Blood Cell 3.76(L) 4.00 - 5.21 x10(6)/mc L [facility] Hemoglobin 10.5(L) 11.7 - 15.5 g/dL [facility] Hematocrit 32.0(L) 35.7 - 45.8 % [facility] Mean Cell Volume 85.1 82.6 - 94.4 fL [facility] Mean Cell Hemoglobin 27.9 27.1 - 32.0 pg [facility] Mean Cell Hemoglobin Concentration 32.8 31.7 - 35.0 g/dL [facility] Platelet 366(H) 145 - 357 x10(3)/mc L [facility] RDW Standard Deviation 44.1 37.0 - 46.0 fL [facility] RDW coefficient of variation 14.4(H) 11.5 - 14.1 % [facility] Mean Platelet Volume 9.1 7.6 - 12.9 fL [facility] NRBC% auto 0.0 % [facility] NRBC Absolute 0.000 0.000 - 0.000 x10(3)/mc L [facility] Blood 02/16/2023 10:1 5 AM EDT 02/16/2023 10:35 AM EDT Narrative Resulting Agency Comment Spec In Lab Miguel Daugherty MD HEMATOLOGY ORDERABLE S Performing Organization Address City/[facility]/ZIP Co de Phone Number [facility] [place] [address] * (ABNORMAL) Comprehensive metabolic panel (non-fasting) (02/16/2023 10:15 AM EDT) Glucose 89 65 - 199 mg/dL [facility] Comment:Diabetes: >=200 mg/d L plus symptoms Blood Urea Nitrogen 13 8 - 18 mg/dL [facility] Creatinine 0.54(L) 0.70 - 1.20 mg/dL [facility] Sodium 131(L) 135 - 145 mmol/L [facility] Potassium 3.8 3.5 - 5.0 mmol/L [facility] Comment: Please note: ??Patients with WBC >100,000 may have falsely elevated Potassium levels. ??For accurate Potassium quantification in these patients send serum separator tube (gold top) for subsequent determinations. ??Contact the Clinical Chemistry Laboratory if there are any questions. Chloride 92(L) 98 - 107 mmol/L [facility] Carbon Dioxide 28 22 - 31 mmol/L [facility] Anion Gap 11 5 - 15 mmol/L [facility] Calcium 9.2 8.5 - 10.5 mg/dL [facility] Protein, Total 7.2 6.1 - 8.0 g/dL [facility] Albumin 4.1 3.2 - 5.2 g/dL [facility] Aspartate Aminotransferase 20 0 - 30 unit/L [facility] Alanine Aminotransferase 11 0 - 30 unit/L [facility] Alkaline Phosphatase 90 35 - 105 unit/L [facility] Bilirubin, Total 0.3 0.2 - 1.3 mg/dL [facility] Est Glomerular Filtration Rate 97 >=60 mL/min/1. 73 m?? [facility] Comment: This patient's estimated GFR [...] Daugherty MD CHEMISTRY ORDERABLES Performing Organization Address City/[facility]/ZIP Co de Phone Number [facility] [place] [address] * (ABNORMAL) Lactate Dehydrogenase (02/16/2023 10:15 AM EDT) Lactate Dehydrogenase 293(H) 110 - 220 unit/L [facility] Blood 02/16/2023 10:1 5 AM EDT 02/16/2023 10:35 AM EDT Narrative Resulting Agency Comment Spec In Lab Miguel Daugherty MD CHEMISTRY ORDERABLES Performing Organization Address [facility] Co de Phone Number [facility] [place] [address] * Uric acid (02/16/2023 10:15 AM EDT) Pathologist [facility] Uric Acid 3.7 2.5 - 6.5 mg/dL [facility] Blood 02/16/2023 10:1 5 AM EDT 02/16/2023 10:35 AM EDT Narrative Resulting Agency Comment Spec In Lab Miguel Daugherty MD CHEMISTRY ORDERABLES Performing Organization Address [facility] Co de Phone Number [facility] [place] [address] * Direct antiglobulin test (02/16/2023 10:15 AM EDT) MELINDA Poly Negative [facility] Blood 02/16/2023 10:1 5 AM EDT 02/16/2023 10:27 AM EDT Narrative Resulting Agency Comment Spec In Lab Miguel Daugherty MD BLOOD BANK LAB ORDER NADYA Performing Organization Address City/[facility] Co de Phone Number [facility] [place] [address] * Immunoglobulins, Quantitative (02/16/2023 10:15 AM EDT) Immunoglobulin G 879 700 - 1,600 mg/dL [facility] Comment: Pediatric Reference Intervals obtained from the Caliper Reference Interval project. http://www.sickORVIBOds.ca/caliperproject/index.html IgA 106 70 - 400 mg/dL [facility] IgM 44 40 - 230 mg/dL [facility] Blood 02/16/2023 10:1 5 AM EDT 02/16/2023 10:35 AM EDT Narrative Resulting Agency Comment Spec In Lab Miguel Daugherty MD CHEMISTRY ORDERABLES Performing Organization Address [facility] Co de Phone Number [facility] [place] [address] * (ABNORMAL) Haptoglobin (02/16/2023 10:15 AM EDT) Haptoglobin 414(H) 30 - 200 mg/dL [facility] Comment: Haptoglobin concentrations in newborns is low to undetectable; however, adult concentrations are usually attained by 4 months of age. ??No sex-related differences for haptoglobin have been detected. Blood 02/16/2023 10:1 5 AM EDT 02/16/2023 10:35 AM EDT Narrative Resulting Agency Comment Spec In Lab Miguel Daugherty MD CHEMISTRY ORDERABLES Performing Organization Address [facility] de Phone Number [facility] [place] [address] * Reticulocyte Count (02/16/2023 10:15 AM EDT) Reticulocyte % 1.7 0.7 - 2.5 % [facility] Retic Abs # 0.060 0.020 - 0.110 x10(6)/mcL [facility] Immature Retic% 10.2 0.5 - 13.8 % [facility] Reticulated Hgb 31.0 29.8 - 39.4 pg [facility] Blood 02/16/2023 10:1 5 AM EDT 02/16/2023 10:35 AM EDT Narrative Resulting Agency Comment Spec In Lab Miguel Daugherty MD HEMATOLOGY ORDERABLE S [facility] [place] [address] * (ABNORMAL) Iron and TIBC (02/16/2023 10:15 AM EDT) Iron 24(L) 30 - 150 mcg/dL [facility] TIBC 310 250 - 450 mcg/dL [facility] Iron Saturation 8(L) 20 - 50 % [facility] Blood 02/16/2023 10:1 5 AM EDT 02/16/2023 10:35 AM EDT Narrative Resulting Agency Comment Spec In Lab Miguel Daugherty MD CHEMISTRY ORDERABLES Performing Organization Address City/[facility]/ZIP Co de Phone Number [facility] [place] [address] * Ferritin (02/16/2023 10:15 AM EDT) Ferritin 83 30 - 400 ng/mL [facility] Comment: Pediatric reference ranges not verified at [facility], interpret with caution. Reference ranges for females greater than 50 years of age approach values for men, i.e., 30-400 ng/mL. Blood 02/16/2023 10:1 5 AM EDT 02/16/2023 10:35 AM EDT Narrative Resulting Agency Comment Spec In Lab Miguel Daugherty MD CHEMISTRY ORDERABLES Performing Organization Address City/[facility]/ZIP Co de Phone Number [facility] [place] [address] * Vitamin B12 (02/16/2023 10:15 AM EDT) Vitamin B12 359 232 - 1,245 pg/mL [facility] Blood 02/16/2023 10:1 5 AM EDT 02/16/2023 10:35 AM EDT Narrative Resulting Agency Comment Spec In Lab Miguel Daugherty MD CHEMISTRY ORDERABLES [facility] [place] [address] * Methylmalonic acid, serum (02/16/2023 10:15 AM EDT) Pathologist [facility] [place] Methylmalonic Acid (OCTOBER) 0.23 <=0.40 nmol/mL [facility] Comment: ADDITIONAL INFORMATION This test was developed and its performance characteristics determined by [facility] in a manner consistent with CLIA requirements. This test has not been cleared or approved by the U.S. Food and Drug Administration. Test Performed by: [place] [address] Clinical Quality Manager: Melvin Alonso M.D. Ph.D.; CLIA# [id number] Blood 02/16/2023 10:1 5 AM EDT 02/16/2023 12:06 PM EDT Narrative Resulting Agency Comment Spec In Lab Miguel Daugherty MD LAB SEND OUT ORDERAB LES [facility] [place] [address] * Hepatitis B Core Antibody, IgM (02/16/2023 10:15 AM EDT) [facility] Hepatitis B Core IgM Negative Negative [facility] Blood 02/16/2023 10:1 5 AM EDT 02/16/2023 10:35 AM EDT Narrative Resulting Agency Comment Spec In Lab Miguel Daugherty MD CHEMISTRY ORDERABLES Performing Organization Address [facility]/ZIP Co de Phone Number [facility] [place] [address] * Hepatitis B Surface Antibody (02/16/2023 10:15 AM EDT) [facility] Hepatitis B Surface Antibody, Quantitative <3.5 IU/L [facility] Comment: HepB Surface Ab Quant: Unvaccinated: < 8.5 IU/L Vaccinated: >= 11.5 IU/L Hepatitis B Surface Antibody Negative [facility] Comment: Patient is presumed to be not vaccinated or immune to HBV infection. Expected Results: Vaccinated: Positive Unvaccinated: Negative Blood 02/16/2023 10:1 5 AM EDT 02/16/2023 10:35 AM EDT Narrative Resulting Agency Comment Spec In Lab Miguel Daugherty MD CHEMISTRY ORDERABLES Performing Organization Address City/[facility] Co de Phone Number [facility] [place] [address] * Hepatitis C Antibody (02/16/2023 10:15 AM EDT) Hepatitis C Antibody Negative Negative [facility] Blood 02/16/2023 10:1 5 AM EDT 02/16/2023 10:35 AM EDT Narrative Resulting Agency Comment Spec In Lab Miguel Daugherty MD CHEMISTRY ORDERABLES Performing Organization Address [facility] Co de Phone Number [facility] [place] [address] documented in this encounter Visit Diagnoses Diagnosis Lymphoma, unspecified body region, unspecified lymphoma type Imbalance Abnormality of gait Memory deficit Memory loss Hypothyroidism, unspecified type Anemia, unspecified type Gastroesophageal reflux disease, unspecified whether esophagitis present Lytic bone lesions on xray Disorder of bone and cartilage, unspecified documented in this encounter Care Teams Motorman/Woman Relationship Specialty Start Date End Date Blanquita Pagan APRN [address] [place] [address] PCP - General Family Medicine 01/07/23 documented as of this encounter
--- OUTSIDE RECORDS SUMMARY | 2024-05-02 08:11 | XMS_ITS | Encounter Summary ---
Author Organization [facility] Address [facility] [place] [address] Care Team Providers Care Research & Insights Executive Name Role Phone Blanquita Pagan APRN Primary Care Provider [phone] Encounter Details Date Type Department Care Team (Latest Contact Info) Description 02/16/2023 Travel Social History Tobacco Use Types Packs/Day [...] in a fpc (including now)? No 02/16/2023 Sex and Gender Information Value Date Recorded Sex Assigned at Not on file Gender Identity Not on file Sexual Orientation Not on file documented as of this encounter Plan of Treatment Upcoming Encounters Date Type Department Care Team (Late st Contact Info) Description 05/02/2024 8:30 AM EST Office Visit Hematology/Oncology at [address] [phone] Pardeep George MD [facility] [place] [address] Kelli Zapata WELDING MANAGER [address] [place] [address] DR MEDICAL ONCOLOGY [place], [place] [address] 05/02/2024 9:00 AM EST Infusion Hematology Oncology at [address] [phone] 01/31/2025 8:30 AM EDT Office Visit Psychiatry [place] [address] Radha Negrete, PhD [facility] [place] [address] documented as of this encounter Visit Diagnoses Not on filedocumented in this encounter Care Teams Research & Insights Executive Relationship Specialty Start Date End Date Blanquita Pagan APRN [address] [place] [address] PCP - General Family Medicine 01/07/23 documented as of this encounter
--- OUTSIDE RECORDS SUMMARY | 2024-05-02 08:11 | XMS_ITS | Encounter Summary ---
Author Organization [facility] Address [facility] [place] [address] Care Team Providers Care Custom Applicator Name Role Phone Blanquita Pagan APRN Primary Care Provider [phone] Encounter Details Date Type Department Care Team (Late st Contact Info) Description 03/13/2023 Telephone Hematology [place] [phone] Joni Lora MD [facility] DR HEMATOLOGY/[place] [address] Social History Tobacco Use Types Packs/Day Years [...] in a detention (including now)? No 02/16/2023 Sex and Gender Information Value Date Recorded Sex Assigned at Not on file Gender Identity Not on file Sexual Orientation Not on file documented as of this encounter Miscellaneous Notes * Telephone Encounter - Joni Lora MD - 03/13/2023 2:32 PM EDT I agudelo a phone call with Ani to FL stage III, FLIPI 4 or 5, followed by Dr. Daugherty. She started R + brady on 03/10/23. Since then she has not had any bowel movement. She tried pruns and fluid but constipation has not solved yet. She has ducolax at home, and she wants to try that. I allowed her to take 1 tablet of ducolax and see if she has any BM later today. If it is not successful, she can try miralax over the counter as well. If she still has the constipation problem until tomorrow. She will reach out to the clinic to discuss the management further. CC: [facility] Daugherty and [facility] Joni Lora MD [facility] Hematology Oncology Fellow Page [phone] documented in this encounter Plan of Treatment Upcoming Encounters Date Type Department Care Team (Late st Contact Info) Description 05/02/2024 8:30 AM EST Office Visit Hematology/Oncology at [address] [phone] Pardeep George MD [facility] DR HEMATOLOGY [place] [address] Kelli Zapata APRN [address] [place] [address] DR MEDICAL ONCOLOGY [place], [place] [address] 05/02/2024 9:00 AM EST Infusion Hematology Oncology at [address] [phone] 01/31/2025 8:30 AM EDT Office Visit Psychiatry [place] [address] Radha Negrete, PhD [facility] [place] [place] [address] documented as of this encounter Visit Diagnoses Not on filedocumented in this encounter Care Teams Custom Applicator Relationship Specialty Start Date End Date Blanquita Pagan APRN [address] [place] [address] PCP - General Family Medicine 01/07/23 documented as of this encounter
--- OUTSIDE RECORDS SUMMARY | 2024-05-02 08:11 | XMS_ITS | Encounter Summary ---
[place] [address] Care Team Providers Care Cytology Manager Name Role Phone Blanquita Pagan APRN Primary Care Provider [phone] Reason for Referral * Diagnostic Test (Routine) - Closed Specialty Diagnoses / Procedures Referred By Contac t Referred To Contact Radiology Diagnoses Malignant neoplasm of supraclavicular region Lymphocytopenia Lymphadenopathy Procedures IR Biopsy Lymph Node (Head/Neck) Blanquita Pagan APRN [address] [place] [address] [facility] [place] [address] Referral ID Status Reason Start Date Expiration Date V isits Requested Visits Authorized [id number] Closed Specialty Service Requested 01/07/2023 07/10/2024 1 1 Reason for Visit * Diagnostic Test (Routine) - Closed Specialty Diagnoses / Procedures Referred By Contac t Referred To Contact Radiology Diagnoses Malignant neoplasm of supraclavicular region Lymphocytopenia Lymphadenopathy Procedures IR Biopsy Lymph Node (Head/Neck) Blanquita Pagan APRN [address] [place] [address] [facility] [place] [address] Referral ID Status Reason Start Date Expiration Date V isits Requested Visits Authorized [id number] Closed Specialty Service Requested 01/07/2023 07/10/2024 1 1 Encounter Details Date Type Department Care Team (Latest Contact Info) Description 01/25/2023 8:15 AM EDT - 01/25/2023 11:59 PM EDT Hospital [place] [address] Blanquita Pagan APRN [address] [place] [address] Malignant neoplasm of supraclavicular region; Lymphocytopenia; Lymphadenopathy Discharge Disposition: Home Social History Tobacco Use [...] AM EST Office Visit Hematology/Oncology at [address] [phone] Pardeep George MD [facility] DR [place] [address] Kelli Zapata APRN [address] [place] [address] [place] [address] 05/02/2024 9:00 AM EST Infusion Hematology Oncology at [address] [phone] 01/31/2025 8:30 AM EDT Office Visit Psychiatry [place] [phone] Radha Negrete, PhD [facility] [place] [address] documented as of this encounter Procedures Procedure Name Priority Date/Time Associated Diagnosis Comments IR BIOPSY LYMPH NODE (HEAD/NECK) Routine 01/25/2023 9:33 AM EDT Malignant neoplasm of supraclavicular region Lymphocytopenia Lymphadenopathy IMMUNOPHENOTYPING FLOW CYTOMETRY (BLOOD) Routine 01/25/2023 9:20 AM EDT FLOW CYTOMETRY REPORT Routine 01/25/2023 9:20 AM EDT SURGICAL PATHOLOGY REPORT Routine 01/25/2023 8:45 AM EDT SPECIMEN TO PATHOLOGY Routine 01/25/2023 8:45 AM EDT documented in this encounter Results * IR Biopsy Lymph Node (Head/Neck) (01/25/2023 9:33 AM EDT) Anatomical Region Laterality Modality X-Ray Angiograph y Impressions 01/25/2023 10:46 AM EDT Technically successful ultrasound-guided core needle biopsy of an enlarged left supraclavicular lymph node. Operators: Resident: Jerrod Dietrich MD Attending: Mark Timmons M.D. Procedure/Teaching Attestation: I was present for the procedure. I have personally reviewed the image(s) and the resident's interpretation and agree with the findings, Mark Timmons MD at 01/25/2023 10:46 AM Thank you for letting us participate in the care of this patient. ??If you are a health care provider and have any questions regarding this report, please contact the number below. ??For patients who have questions please contact the health customer care coordinator that requested your imaging first. ? Electronically signed by: Mark Timmons MD, [facility] ([phone]), at 01/25/2023 10:46 AM Narrative 01/25/2023 10:46 AM EDT EXAMINATION: IR BIOPSY LYMPH NODE (HEAD/NECK) Procedure: Ultrasound-guided core biopsy of left supraclavicular lymph node performed on 01/25/2023 Indication for Procedure: Enlarged left supraclavicular lymph node. Consent: After discussing the risks (including infection, hemorrhage, damage to surrounding structures, nondiagnostic biopsy) and benefits, the patient consented to the procedure. Technique: Preliminary ultrasound images confirm the presence of an enlarged left supraclavicular lymph node measuring up to 3.2 cm. ?? Prior to beginning the procedure, a standard time out Moment of Truth was performed. Using sterile technique and ultrasound guidance, the nodule was biopsied. ??A total of 8 passes were made using 19-20 gauge co-axial needle system. ?? The patient tolerated the procedure well without evidence of complication. Medications: Lidocaine 1% <5 mL SQ EBL: 0 cc Complications: No immediate Specimens: 8 core needle biopsies of the enlarged lymph node sent for histopathology and flow cytometry. Findings: Preprocedure ultrasound images demonstrated an enlarged left supraclavicular lymph node. Position of the needle tip was confirmed in the target lesion by ultrasound. Blanquita Pagan APRN G IR ORDERABLES * Flow Cytometry Report (01/25/2023 9:20 AM EDT) Flow Cytometry Report [id number] ? Location: [facility] The signing pathologist has (i) examined the relevant preparation(s) for the specimen(s) and (ii) rendered or confirmed the diagnosis(es). . ?Flow Cytometry DIAGNOSIS LYMPH NODE, LEFT SUPRACLAVICULAR - FLOW CYTOMETRY: ?? 1. Atypical kappa-restricted B-cell subsets are detected, representing ~80% of the ?lymphocytes (see comment) ?? 2. No significant T-cell population is detected COMMENT: The findings indicate involvement by a mature B-cell neoplasm. Both B-cell subsets are kappa restricted, but it is unclear from this study if they are clonally related, and the detected phenotypes are not sufficiently specific for lymphoma subclassification. The VQ53-btp subset shows expression of CD10, which suggests a germinal center origin. The KS43-kokoah subset shows atypical co-expression of CD5 and CD10, as well as aberrant expression of some T-cell markers. Please refer to the primary biopsy report for morphologic correlation. Case dictated by Beny Mcdonald ??M.D. (Hematopathology Fellow) ?. As the attending physician, I attest that I examined the flow cytometry worksheet, and confirm the diagnosis. Electronically signed by: ?Aguilar Villarreal MD Verified: ??01/26/2023 21:03 ??Hematopathologist Performed at: ??-[facility] Dept. of Pathology, [place] [address] Senior Hr Business Partner: Cristina Johnson MD, FCAP, ??CLIA Certificate: [id number] DISCUSSION Cell viability in the ZC32-eggyhv low-SSC scatterplot region was 68% as assessed by 7-AAD exclusion. The gate represents about 28% of the total events, and this gated population consists mostly of T-cells (91%), B-cells (8%), and NK-cells (1%). The T-cells show a CD4:CD8 ratio of about 3.3:1, and no villegas-T-cell marker aberrancy is identified. The B-cells in this region are polytypic with a kappa:lambda ratio of about 3.6:1. Cell viability in a CD45 gqy-vl-kxqxhn owk-jh-wdjtsfoc SSC scatterplot region was 71% as assessed by 7-AAD exclusion. This gate represents about 52% of the total events, and this gated population consists mostly of T-cells (<5%), B-cells (89%), and NK- cells (3%). The B-cells in this gate are abnormal and belong to two separate kappa- restricted subsets of roughly equal proportion. The first subset (44.9% of the gated events) expresses CD10, CD19 (dim), CD20, CD38, CD45, FMC7, and kappa restriction; and is negative for the remaining selected markers. The second subset (44.5% of the gated events) expresses CD2 (dim), CD3 (dim), CD5 (dim), CD10 (bright), CD19, CD20, CD23, CD38, CD45, FMC7, and kappa restriction; and is negative for CD4, CD8, CD7, and the remaining selected markers. Flow analysis is an ancillary study. A definite diagnosis requires correlation with the morphologic features of this process and if necessary, correlation with other ancillary studies like immunohistochemistr y, enzyme cytochemistry and/or cyto/ molecular genetics. This test was developed and its performance characteristics determined by the Clinical Flow Cytometry Laboratory at [facility]. It has not been cleared or approved by the U.S. Food and Drug Administration. ??The FDA has determined that such clearance or approval is not necessary. ??This test is used for clinical purposes. ??It should not be regarded as investigational or for research. . DISCUSSION This laboratory is certified under the Clinical Laboratory Improvement Act of 1988 (CLIA) as qualified to perform high complexity clinical laboratory testing. SPECIMEN PROCESSING [id number] Cells for immunophenotypic analysis were derived from a left supraclavicular chain lymph node. CD45 vs side scatter gating was utilized to identify a lymphocyte analysis region that comprises approximately 19-34% of all cells. The following markers were assessed: CD2, CD3, CD4, CD5, CD7, CD8, CD10, CD19, CD20, CD23, CD38, CD45, CD56, FMC-7, kappa light chain, and lambda light chain. CLINICAL INFORMATION A 72 year old woman with palpable left cervical lymph node of several months duration, with clinical concern for lymphoma vs. metastasis. She underwent an ultrasound guided needle biopsy. [facility] 01/25/2023 9:20 AM EDT Amy Reyna APRN PATHOLOGY/CYTOLOG Y ORDERABLES [facility] [place] [address] * Immunophenotyping Flow Cytometry (01/25/2023 9:20 AM EDT) Immunophenotyping Flow See Comment [facility] Comment: When completed by the Pathologist, the Flow Cytometry Report ([id number]) will display under the Pathology Results section within eDH. Other 01/25/2023 9:20 AM EDT 01/25/2023 9:41 AM EDT Narrative Resulting Agency Comment Spec In Lab Amy Reyna [employer] HEMATOLOGY ORDERA BLES Performing Organization Address [facility] Co de Phone Number [facility] [place] [address] * Surgical Pathology Report (01/25/2023 8:45 AM EDT) Final Diagnosis [id number] ? Location: [facility] The signing pathologist has (i) examined the relevant preparation(s) for the specimen(s) and (ii) rendered or confirmed the diagnosis(es). . ?Surgical Pathology DIAGNOSIS LYMPH NODE, LEFT SUPRACLAVICULAR: ?? 1. Low-grade B-cell lymphoma (see discussion) ?? 2. Ki67 proliferation estimated at 20-30% Electronically signed by: ?Aguilar Villarreal MD Verified: ??01/28/2023 0:19 ?? Hematopathologist Performed at: ??-[facility] Dept. of Pathology, [place] [address] Senior Hr Business Partner: Cristina Johnson MD, FCAP, ??CLIA Certificate: [id number] DISCUSSION Concurrent flow cytometry studies helped to confirm presence of a B-cell lymphoma, but unexpectedly showed two distinct kappa-restricted B-cell subsets. One of the subsets was LP45-ajw with expression of CD10. The other was CP45-acwlil with atypical coexpression of both CD5 and CD10, along with unusual aberrant expression of other T-cell markers. However, we did not identify two different lymphoid populations histomorphologically in this small biopsy. Given the expression of shared expression of CD10 across the subsets, centrocytic histomorphology, co-expression of BCL2 and BCL6, and relatively low Ki67 proliferation, a low-grade follicular lymphoma is a distinct diagnostic consideration. One of the B-cell subsets detected by flow cytometry appeared to also express CD5. However, the typical CD5+ B-cell lymphomas (CLL/SLL and mantle cell lymphoma) are not favored as the histologic appearance and negativity for cyclin D1 and SOX11 help to exclude these entities. Further delineation and categorization of this lymphoma is not possible as the tissue in this small biopsy was depleted by the immunohistochemical panel described below. An excisional lymph node biopsy is recommended if a more definitive categorization is clinically necessary. Case dictated by Beny Mcdonald ??M.D. (Hematopathology Fellow). As the attending physician, I attest that I examined the histologic slides, and confirm the diagnosis. ADDITIONAL STUDIES MICROSCOPIC DESCRIPTION The histologic sections contain thin needle cores of an atypical lymphoid population. Evaluation of dara architecture and growth patterns is suboptimal in needle biopsies, but the lymphoid cells appear to diffusely infiltrate the evaluable tissue. No nodular growth, well-formed follicles, or normal dara architecture is appreciated. The cellular composition consists mostly of small- to intermediate- sized lymphocytes, many of which have a centrocytic appearance. No significant increase or sheet-like aggregation of large lymphoid cells is appreciated. IMMUNOHISTOCHEMISTRY STUDIES Block: ?A1 (Core biopsies) Fixative: ?? Formalin ANTIBODY: ?? RESULT/COMMENT CD3 ?(-), few scattered background small T-cells stain CD20 ? (+), strong uniform lymphoma staining . ADDITIONAL STUDIES CD21 ? (-), no significant PRISON meshworks observed BCL2 ? (+), strong uniform lymphoma staining, BCL2 & BCL6 coexpressed BCL6 ? (+), moderate uniform lymphoma staining MUM1 ? (-), rare background cells stain CMYC ? (-), weak staining in ~10-20% of cells Ki67 ? (+), proliferation estimated at 20-30% SOX10 ?(-) SOX11 ?(-) Cyclin D1 ??(-) [id number] ?? (-) Note: The immunoperoxidase stains reported above were developed and their performance characteristics determined by [facility]. They have not been cleared or approved by the U.S. Food and Drug Administration, although such approval is not required for analyte-specific reagents of this type. Appropriate positive and negative controls are included for each case. SPECIMEN(S) SUBMITTED A - Left supraclavicular lymph node (Multiple) CLINICAL INFORMATION A 72 year old woman with a palpable cervical lymph node of several months duration. She underwent an ultrasound-guided needle biopsy of an enlarged left supraclavicular lymph node. SPECIMEN PROCESSING A - Labeled/Fixative: Left supraclavicular lymph node, formalin. Quantity/Size: Fragments, from 0.3 x 0.1 cm to 1.2 x 0.1 cm Tissue Description: Delicate, template needle core biopsies. Sections/Processing: Entirely submitted in 1 cassette labeled A1. ??pps 01/28/2023 12:19 AM EDT [facility] LYMPH NODE SPECIMEN / Unknown 01/25/2023 8:45 AM EDT 01/25/2023 8:45 AM EDT Amy Reyna APRN PATHOLOGY/CYTOLOG Y ORDERABLES [facility] [address] [place] [address] * Specimen to Pathology (01/25/2023 8:45 AM EDT) AP Specimen 01/25/2023 8:45 AM EDT 01/25/2023 8:45 AM EDT Narrative [facility] - 01/25/2023 8:45 AM EDT Specimen requisition ordered. 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
--- OUTSIDE RECORDS SUMMARY | 2024-05-02 08:11 | XMS_ITS | Encounter Summary ---
Author Organization [facility] Address [facility] [place] [address] Care Team Providers Care Skiver Operator Name Role Phone Blanquita Pagan APRN Primary Care Provider [phone] Encounter Details Date Type Department Care Team (Late st Contact Info) Description 02/18/2023 Orders Only Hematology [place] [address] Zandra Glasgow [employer] SCHEDULER [facility] HEMATOLOGY [place] [address] Social History Tobacco Use Types Packs/Day Years [...] in a jail (including now)? No 02/16/2023 Sex and Gender Information Value Date Recorded Sex Assigned at Not on file Gender Identity Not on file Sexual Orientation Not on file documented as of this encounter Plan of Treatment Upcoming Encounters Date Type Department Care Team (Late st Contact Info) Description 05/02/2024 8:30 AM EST Office Visit Hematology/Oncology at [address] [phone] Pardeep George MD [facility] DR HEMATOLOGY [place] [address] Kelli Zapata APRN [address] [place] [address] MEDICAL ONCOLOGY [place], [place] [address] 05/02/2024 9:00 AM EST Infusion Hematology Oncology at [address] [phone] 01/31/2025 8:30 AM EDT Office Visit Psychiatry and [place] [address] Radha Negrete, PhD [facility] [place] [address] documented as of this encounter Visit Diagnoses Not on filedocumented in this encounter Care Teams Skiver Operator Relationship Specialty Start Date End Date Blanquita Pagan APRN [address] [place] [address] PCP - General Family Medicine 01/07/23 documented as of this encounter
--- OUTSIDE RECORDS SUMMARY | 2024-05-02 08:11 | XMS_ITS | Encounter Summary ---
Author Organization [facility] Address [facility] [place] [address] Care Team Providers Care Film Painter Name Role Phone Blanquita Pagan APRN Primary Care Provider Encounter Details Date Type Department Care Team (Latest Contact Info) Description 03/16/2023 7:56 AM EDT - 03/16/2023 10:50 AM EDT Hospital Encounter [place] [phone] Miguel Daugherty MD [facility] DR H[place] [address] Discharge Disposition: Home Social History Tobacco Use [...] 5pm or on a weekend: Call the [facility] chain hoist operator at and ask for the physician weekend receptionist covering for your doctor. Instructions following sedation [...] drainage occurs, [place] [address] [email or web address] [facility], [facility] [place] documented in this encounter Medications at [...] scan today. Accompanied by Inga Julian, MSN, HUMAN RESOURCES MANAGER MANUFACTURING Nurse Practitioner Section of Hematology/Oncology [facility] Office phone: documented in this encounter Procedure [...] 10:10am Proceduralist: INGA JULIAN APRN, RN, MS, HAND RUG CLEANER DIAGNOSIS: Low Grade B-cell Lymphoma Pre-Procedure: (x) [...] with Physician as instructed. Inga Julian, MSN, HUMAN RESOURCES MANAGER MANUFACTURING Nurse Practitioner Section of Hematology/Oncology [facility] Office phone: documented in this encounter Plan of Treatment Upcoming Encounters Date Type Department Care Team (Late st Contact Info) Description 05/02/2024 8:30 AM EST Office Visit Hematology/Oncology at [address] [phone] Pardeep George MD [facility] DR H[place] [address] Kelli Zapata APRN [address] [place] [address] [place] [address] 05/02/2024 9:00 AM EST Infusion Hematology Oncology at [address] [phone] 01/31/2025 8:30 AM EDT Office Visit Psychiatry and [place] [address] Radha Negrete, PhD [facility] [place] [address] documented as of this encounter Procedures Procedure Name Priority Date/Time Associated Diagnosis Comments IMMUNOPHENOTYPING FLOW CYTOMETRY (BLOOD) Routine 03/16/2023 10:10 AM EDT CHROMO REPORT ACQUIRED Routine 10:10 AM EDT BONE MARROW FINAL REPORT Routine 023 10:10 AM EDT IRON STAIN, BONE MARROW Routine 03/16/20 10:10 AM EDT BONE MARROW PANEL ([facility]/CGP/APD) Routine 03/16/2023 10:10 AM EDT Diagnostic Bone Marrow Biopsies & Aspirations ([id number]) 03/16/2023 9:49 AM EDT lymphoma SCAN, PERIPHERAL BLOOD Routine 9:00 AM EDT HEMOGRAM Routine 03/16/2023 9:00 AM EDT DIFFERENTIAL, AUTOMATED Routine 03/16/20 9:00 AM EDT CBC (WITH DIFF) Routine 03/16/2023 9:00 AM EDT ([facility]) BONE MARROW BIOPSY AND ASPIRATION; DIAGNOSTIC Routine 03/16/2023 7:59 AM EDT documented in this encounter Results * chromo report acquired (03/16/2023 10:10 AM EDT) Pathologist [facility] Cytogenetics Acquired Report Final Report ? [id number] Specimen Type: Bone Marrow Specimen Condition: ~2.5mL, adequate Collection Date/Time: 03/16/2023 10:10 Received Date/Time: 03/17/2023 09:50 Indication: ??Follicular Lymphoma ---Results--- Please see the chromosome analysis scanned report in eD-H corresponding to this specimen. ??This report was completed by [facility] and is located in 'Chart Review' under the 'Media' tab. ??The document name is titled External Genetic Study. ---Karyotype--- See comments. ---Preparation-- - Culture Type: Other FISH Method: ??N/A ---Comments--- The specimen was referred to [facility] ([place], [place], Tel: ?? ) for cytogenetic analysis. ---Disclaimer--- Please note that the above is not a patient lab result and does not have an interpretative component. ??It is only provided to indicate the location of the final report in the EMR for this individual, which has the official interpretations. 10.11.23 (Electronic Signature) Verified By: Radha Holm [facility] 03/16/2023 10:1 0 AM EDT 03/17/2023 9:50 AM EDT Zandra Glasgow HUMAN RESOURCES MANAGER MANUFACTURING HEMATOLOGY ORDERAB LES Performing Organization Address City/State/[facility] Co de Phone Number [facility] [place] [place] [address] * Bone Marrow Final Report (03/16/2023 10:10 AM EDT) Final Diagnosis [id number] ? Location: [facility] The signing pathologist has [...] Verified: ??03/18/2023 9:15 ?? Hematopathologist Performed at: ??-[facility] Dept. of Pathology, [place] [address] Cartridge Maker: Cristina Johnson MD, FCAP, ??CLIA Certificate: [id number] DISCUSSION Note is made of the patient recently receiving pegfilgrastim as part of their treatment regiment for low-grade follicular lymphoma. Flow cytometry studies support the diagnostic interpretation. Case dictated by Beny Simms ?? [place] ??Sagrario (Hematopathology Fellow). As the attending physician, [...] were developed by the clinical laboratory at [facility]. Antibody specificities have been verified on tissues [...] 72F w/recently diagnosed low-grade follicular lymphoma ([id number], [id number]), currently on treatment, s/p pegfilgrastim. Indication for Study: Staging. SPECIMEN PROCESSING A - Received in two containers: 1 - Labeled/Fixative: Patient, formalin. Quantity/Size: Two, is 0.8 and 1.2 x 0.2 cm Tissue Description: Red-brown firm needle core biopsies of bone. Submitted in: A1 2 - Labeled/Fixative: Patient demographics, fresh. Quantity/Size: Fragments, 2.0 x 0.3 x 0.1 cm in aggregate Tissue Description: [place] -tom soft tissue fragments. Submitted in: A2 [...] Verified: ??03/18/2023 8:55 ?? Hematopathologist Performed at: ??-[facility] Dept. of Pathology, [place] [address] Cartridge Maker: Cristina Johnson MD, FCAP, ??CLIA Certificate: [id number] DISCUSSION The EF28-gfq low-SSC flow scatterplot region shows no ?significant [...] by the Clinical Flow Cytometry Laboratory at [facility]. It has not been cleared or [...] laboratory testing. Case dictated by Beny Mcdonald ??M.Ruslan (Hematopathology Fellow) ?. As the attending physician, I attest that I examined the flow cytometry worksheet, and confirm the diagnosis. SPECIMEN PROCESSING [id number] Cells for immunophenotypic analysis were derived from bone marrow. CD45 vs side scatter gating was utilized to identify a lymphoid analysis region that comprises approximately 0% of all cells. The following markers were assessed: CD2, CD3, CD4, CD5, CD7, CD8, CD10, CD19, CD45, CD56, kappa light chain, and lambda light chain. CLINICAL INFORMATION 72F w/recently diagnosed low-grade follicular lymphoma ([id number], [id number]), currently on treatment, s/p pegfilgrastim. 03/18/2023 9:15 AM EDT [facility] AP Specimen BONE MARROW STRUCTURE / Unknown 03/16/2023 10:10 AM EDT 03/16/2023 10:10 AM EDT Zandra Glasgow HUMAN RESOURCES MANAGER MANUFACTURING PATHOLOGY/CYTOLOGY ORDERABLES [facility] [place] [phone] [place] [address] [place] [address] * Immunophenotyping Flow Cytometry (03/16/2023 10:10 AM EDT) Immunophenotyping Flow See Comment [facility] Comment: When completed by the Pathologist, the Flow Cytometry Report ([id number]) will display under the Pathology Results section within eD. Bone Marrow 03/16/2023 10:1 0 AM EDT 03/16/2023 10:40 AM EDT Narrative Resulting Agency Comment Spec In Lab Zandra Glasgow FELICITY HEMATOLOGY ORDERAB LES Performing Organization Address City/[facility]/ZIP Co de Phone Number [facility] [place] [address] * Iron Stain, Bone Marrow (03/16/2023 10:10 AM EDT) Bone Marrow Iron Stain See Comment [facility] Comment:See Bone Marrow Repo rt [id number] under Hematopathology Reports. Bone Marrow 03/16/2023 10:1 0 AM EDT 03/16/2023 10:40 AM EDT Narrative Resulting Agency Comment Spec In Lab Zandra Glasgow APRN HEMATOLOGY ORDERAB LES Performing Organization Address City/[facility]/[place] [address] * Scan, Peripheral Blood (03/16/2023 9:00 AM EDT) Plat estimate Increased [facility] RBC Morphology Abnormal [facility] Hypochromia Slight [facility] Polychromasia Present >5/HPF [facility] Ovalocytes 1-5 /HPF [facility] HOSP ITAL [facility]ORAT[facility] [place] Cells 1-5 /HPF [facility] Toxic Granulation Present [facility] Dohle Bodies Present [facility] Blood 03/16/2023 9:00 AM EDT 03/16/2023 9:44 AM EDT Narrative Resulting Agency Comment Spec In Lab Zandra Glasgow HUMAN RESOURCES MANAGER MANUFACTURING HEMATOLOGY ORDERAB LES [facility] [place] [address] * (ABNORMAL) Differential, Automated (03/16/2023 9:00 AM EDT) Pathologist [facility] Neutrophil % 82.9 % [facility] Neutrophil Absolute 65.95(H) 1.70 - 6.10 x10(3)/mc L [facility] Lymph % 0.4 % [facility] Lymphocytes Abs 0.3(L) 0.9 - 3.2 x10(3)/mc L [facility] Monocyte % 6.0 % [facility] IT[facility] Monocyte Abs 4.8(H) 0.3 - 0.9 x10(3)/mc L [facility] Eos % 0.1 % [facility] Eosinophils Abs 0.1 0.0 - 0.4 x10(3)/mc L [facility] Basophil % 0.1 % [facility] Baso Absolute 0.1 0.0 - 0.1 x10(3)/mc L [facility] Immature Gran % 10.50 % [facility] Comment: Immature granulocytes(IG's)percentage and absolute count will include metamyelocytes, myelocytes, and promyelocytes. Blood smears from CBCs yielding IG's will be scanned manually for concordance. If this scan disagrees with the automated IG or if promyelocytes are noted, a manual differential will be performed. Immature Gran Absolute 8.34(H) 0.00 - 0.04 x10(3)/mc L [facility] Blood 03/16/2023 9:00 AM EDT 03/16/2023 9:44 AM EDT Narrative Resulting Agency Comment Spec In Lab Zandra Glasgow HUMAN RESOURCES MANAGER MANUFACTURING HEMATOLOGY ORDERAB LES [facility] [place] [address] * (ABNORMAL) Hemogram (03/16/2023 9:00 AM EDT) White Blood Cell 79.5(Crit ical) 4.0 - 9.5 x10(3)/mc L [facility] Comment: This result has been called to ZACHARY MOYER by Misty Pagan on 03 16 2023 at 0959, and has been read back. Red Blood Cell 3.79(L) 4.00 - 5.21 x10(6)/mc L [facility] Hemoglobin 10.6(L) 11.7 - 15.5 g/dL [facility] Hematocrit 31.4(L) 35.7 - 45.8 % [facility] Mean Cell Volume 82.8 82.6 - 94.4 fL [facility] Mean Cell Hemoglobin 28.0 27.1 - 32.0 pg [facility] Mean Cell Hemoglobin Concentration 33.8 31.7 - 35.0 g/dL [facility] Platelet 540(H) 145 - 357 x10(3)/mc L [facility] RDW Standard Deviation 44.7 37.0 - 46.0 fL [facility] RDW coefficient of variation 15.6(H) 11.5 - 14.1 % [facility] Mean Platelet Volume 8.4 7.6 - 12.9 fL [facility] NRBC% auto 0.0 % [facility] NRBC Absolute 0.000 0.000 - 0.000 x10(3)/ L [facility] Blood 03/16/2023 9:00 AM EDT 03/16/2023 9:44 AM EDT Narrative Resulting Agency Comment Spec In Lab Zandra Glasgow HUMAN RESOURCES MANAGER MANUFACTURING HEMATOLOGY ORDERAB LES [facility] [place] [address] documented in this encounter Visit Diagnoses Not [...] 951 (Given - Provid er: Bethany Schneider RN)1005 (Given - Provider: Bethany Schneider RN) [email or web address] [...] Routine documented in this encounter Care Teams Film Painter Relationship Specialty Start Date End Date Blanquita Pagan APRN [address] [place] [address] PCP - General Family Medicine 01/07/23 documented as of this encounter
--- OUTSIDE RECORDS SUMMARY | 2024-05-02 08:11 | XMS_ITS | Encounter Summary ---
Author Organization [facility] Address [facility] [place] [address] Care Team Providers Care Automobile Body Repair Chief Name Role Phone Blanquita Pagan APRN Primary Care Provider [phone] Encounter Details Date Type Department Care Team (Latest Contact Info) Description 03/11/2023 Travel Social History Tobacco Use Types Packs/Day [...] AM EST Office Visit Hematology/Oncology at [address] [phone] [facility] DR [place] [address] Kelli Zapata TIP LENGTH CHECKER [address] [place] [address] DR MEDICAL ONCOLOGY [place], [place] [address] 05/02/2024 9:00 AM EST Infusion Hematology Oncology at [address] [phone] 01/31/2025 8:30 AM EDT Office Visit Psychiatry [place] [address] Radha Negrete, PhD [facility] [place] [address] documented as of this encounter Visit Diagnoses Not on filedocumented in this encounter Care Teams Automobile Body Repair Chief Relationship Specialty Start Date End Date Blanquita Pagan APRN [address] [place] [address] PCP - General Family Medicine 01/07/23 documented as of this encounter
--- OUTSIDE RECORDS SUMMARY | 2024-05-02 08:11 | XMS_ITS | Encounter Summary ---
Author Organization [facility] [place] [address] Care Team Providers Care Water Truck Driver Name Role Phone Blanquita Pagan APRN Primary Care Provider [phone] Reason for Visit * Reason Comments Prior Authorization Neulasta OnPro 6mg/0 .6ml syringe Encounter Details Date Type Department Care Team (Late st Contact Info) Description 03/14/2023 Specialty [place] [phone] Amy Hoskins, [facility] Social History Tobacco Use Types Packs/Day [...] in a jail (including now)? No 02/16/2023 DH IPV Inpatient [...] this encounter Progress Notes * Amy Hoskins 03/14/2023 5:17 PM EDT [facility], Medication Prior Authorization Submission Patient: Ani Ridley Patient : 1950 Patient Address: [address] [place] [phone] (home) Medication Name: NEULASTA ONPRO 6 MG/0.6 ML WITH WEARABLE SUBCUTANEOUS INJECTOR Medication ID: [id number] Subscriber Insurance: [employer] Medicare Subscriber Insurance Comment: Fax: Physician: DEAN FAUSTIN Physician Comment: Sent Via: [facility] Linares: [id number] Ref/Case/PA#: [id number] Medication Strength Frequency Requested: Neulasta OnPro 6mg/0.6ml syringe, Qty/Day Supply: 06/27 New Start: New to Pharmacy Diagnosis & ICD-10 Code: Lymphoma, unspecified body region, unspecified lymphoma type (C85.90) Patient Notified: No Submission Notes: None Amy Hoskins 03/14/23 5:36 PM * Amy Hoskins - 03/14/2023 5:17 PM EDT [facility], Prior Authorization Approval Medication Name: NEULASTA ONPRO 6 MG/0.6 ML WITH WEARABLE SUBCUTANEOUS INJECTOR Medication ID: [id number] Approval Dates: 03/14/2023 to 07/14/2023 Insurance requirements/notes: None Other Notes: None Case/Reference #: [id number] Approval notification Received via: [facility] Copay: $2,095.56 Copay assistance: Other (Enter Comment) Copay Notes: The patient will be filling the medication through inpatient pharmacy to use her medical benefit Insurance mandated Pharmacy: [facility] at [facility] Specialty Pharmacy: Yes Patient Notified: No Pharmacy staff will be reaching out to the patient to inform them of their medication's [facility]. If applicable, a pharmacist will speak with the patient to offer our specialty pharmacy services and to arrange delivery of their medication. Amy Hoskins 03/15/23 9:52 AM documented in this encounter Plan of Treatment Upcoming Encounters Date Type Department Care Team (Late st Contact Info) Description 05/02/2024 8:30 AM EST Office Visit Hematology/Oncology at [address] [phone] Pardeep George MD [facility] DR HEMATOLOGY AND [place] [address] Kelli Zapata APRN [address] [place] [address] [place] [address] 05/02/2024 9:00 AM EST Infusion Hematology Oncology at [address] [phone] 01/31/2025 8:30 AM EDT Office Visit Psychiatry [place] [address] Radha Negrete, PhD [facility] OPHTHALMOLOG[place] [address] documented as of this encounter Visit Diagnoses Not on filedocumented in this encounter Care Teams Water Truck Driver Relationship Specialty Start Date End Date Blanquita Pagan APRN [address] [place] [address] PCP - General Family Medicine 01/07/23 documented as of this encounter
--- OUTSIDE RECORDS SUMMARY | 2024-05-02 08:11 | XMS_ITS | Encounter Summary ---
Author Organization [facility] Address [facility] [place] [address] Care Team Providers Care Plate Slitter And Inspector Name Role Phone Blanquita Pagan APRN Primary Care Provider [phone] Encounter Details Date Type Department Care Team (Late st Contact Info) Description 03/10/2023 Notes Only Hematology/Oncology at [address] [phone] Svitlana Allan, JOB TRACER OFFICE OF CARE MANAGEMENT Social History Tobacco [...] in a halfway (including now)? No 02/16/2023 Sex and Gender Information Value Date Recorded Sex Assigned at Not on file Gender Identity Not on file Sexual Orientation Not on file documented as of this encounter Progress Notes * Svitlana Allan MSW - 03/10/2023 11:36 AM EDT Reason for Referral: Brief assessment of social and emotional needs. Met with Ani during her first infusion visit to introduce myself and role of social services counselor to assess/address barriers to getting to and through treatments; address support needs and connect with community services and resourcesas needed. Family/Social Supports: Ani identified her Enrique as her primary support. They have 2 sons and a daughter. One child is in [place] and the others are in [facility]. They keep in touch. Ani indicated the community they live in is very supportive. Living Situation/Daily Activities/Transportation: Ani indicated she is able to manage her daily chores and activities as best she can. She does not expect any issues with transportation. 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 She has medicare and BCBS for insurance. She did not indicate any concerns re finances or insurance. Advance Directives: Ani indicated she has completed her advance directive but plans to pull it out and look it over as it was done some time ago. Utilization of Community Resources: None at this time. Adjustment to Illness/Mental Health Concerns: Ani indicated she is coping as best she can. All of this is a bit overwhelming. She is supported by her family, friends and community. Identified Needs: Ani did not identify any specific needs at this time. Referrals: None at this time. Social Work Interventions: Brief assessment Supportive Counseling Advance care planning Plan: Informed pt of JOB TRACER availability and contact information. Will follow to assess/address psychosocial needs. MICA Beltran, STUDENT MINISTRIES DIRECTOR, OSW-C Mail Clerk [facility] documented in this encounter Plan of Treatment Upcoming Encounters Date Type Department Care Team (Late st Contact Info) Description 05/02/2024 8:30 AM EST Office Visit Hematology/Oncology at [address] [phone] Pardeep George MD [facility] DR HEMATOLOGY [place] [address] Kelli Zapata INTERIOR SURFACE INSULATION WORKER [address] [place] [address] DR MEDICAL ONCOLOGY [place], [place] [address] 05/02/2024 9:00 AM EST Infusion Hematology Oncology at [address] [phone] 01/31/2025 8:30 AM EDT Office Visit Psychiatry [place] [address] Radha Negrete, PhD [facility] [place] [address] documented as of this encounter Visit Diagnoses Not on filedocumented in this encounter Care Teams Plate Slitter And Inspector Relationship Specialty Start Date End Date Blanquita Pagan APRN [address] [place] [address] PCP - General Family Medicine 01/07/23 documented as of this encounter
--- OUTSIDE RECORDS SUMMARY | 2024-05-02 08:11 | XMS_ITS | Encounter Summary ---
Author Organization [facility] [place] [address] Care Team Providers Care Fishery Division Chief Name Role Phone Blanquita Pagan APRN Primary Care Provider [phone] Reason for Referral * Diagnostic Test (Routine) - Closed Specialty Diagnoses / Procedures Referred By Contac t Referred To Contact Radiology Diagnoses Lymphoma, unspecified body region, unspecified lymphoma type Procedures IR Mediport Placement Zandra Glasgow CUSHION SPRING ASSEMBLER [facility] [place] [address] [facility] [place] [address] Referral ID Status Reason Start Date Expiration Date V isits Requested Visits Authorized [id number] Closed Specialty Service Requested 03/11/2023 09/08/2024 1 1 Encounter Details Date Type Department Care Team (Late st Contact Info) Description 03/11/2023 Orders Only Hematology [place] [phone] Zandra Glasgow CUSHION SPRING ASSEMBLER [facility] [place] [address] Lymphoma, unspecified body region, unspecified [...] AM EST Office Visit Hematology/Oncology at [address] [phone] Pardeep George MD [facility] DR [place] [address] Kelli Zapata APRN [address] [place] [address] [place] [address] 05/02/2024 9:00 AM EST Infusion Hematology Oncology at [address] [phone] 01/31/2025 8:30 AM EDT Office Visit Psychiatry and [place] [address] Radha Negrete, PhD [facility] [place] [address] documented as of this encounter Results * IR Mediport Placement [...] by the IR Nurse. ?? Zandra Glasgow APRN IMG IR ORDERABLES documented in this encounter Visit Diagnoses Diagnosis Lymphoma, unspecified body region, unspecified lymphoma type Lymphoma, unspecified body region, unspecified lymphoma type documented in this encounter Care Teams Fishery Division Chief Relationship Specialty Start Date End Date Blanquita Pagan APRN [address] [place] [address] PCP - General Family Medicine 01/07/23 documented as of this encounter
--- OUTSIDE RECORDS SUMMARY | 2024-05-02 08:11 | XMS_ITS | Encounter Summary ---
Author Organization [facility] Address [facility] [place] [address] Care Team Providers Care Choir Accompanist Name Role Phone Blanquita Pagan APRN Primary Care Provider Encounter Details Date Type Department Care Team (Late st Contact Info) Description 03/09/2023 10:00 AM EDT Office Visit Hematology [place] [address] Miguel Daugherty MD [facility] [address] [place] [address] Zandra Glasgow APRN [facility] [address] [place] [address] Lymphoma, unspecified body region, unspecified lymphoma type; Anemia, unspecified type Social History Tobacco Use Types [...] in a chcf (including now)? No 02/16/2023 Sex and Gender Information Value Date Recorded Sex Assigned at Not on file Gender Identity Not on file Sexual Orientation Not on file documented as of this encounter Progress Notes * Zandra Glasgow, PICK PULLING MACHINE TENDER - 03/09/2023 10:00 AM EDT Images from the original note were not included. Treatment Plan Diagnosis: Low grade lymphoma Regimen: Bendamustine and Rituxan Treatment intent: Control of disease Treatment schedule: Every 28 days Rituxan - # 1 long infusion. If no reaction, can give rapid Rituxan Bendamustine - Days 1 & 2 Pre-medications: Antinausea medications Anti-cancer medications: Bendamustine and Rituxan Supportive medications: Compazine OnPro ( place on day # 2 ) Switch from Tylenol to Tramadol Is currently taking Tylenol round the clock for abd pain Since she will be potentially neutropenic, asked that she stop the ATC Tylenol and switch to Tramadol Cautioned about constipation, fatigue Scripts sent in for Compazine and Tramadol Provider visits: Prior to each cycle. You may see your physician, a fellow, a nurse practitioner (SWIMMING POOL MAINTENANCE), and/or a physician assistant women's soccer coach (PA). Labs/diagnostics: Labs prior to the start of each cycle. Scan following cycle # 2 to assess response to therapy Will arrange to have labs checked locally mid-cycle in [facility] Possible side effects: Please refer to ???[facility]?? sheets It is very important that you call immediately for a temperature of 100.4 or greater, shaking chills or any symptoms of infection or any concerns. Please refer to phone numbers on the [employer] in the folder. Home medications: Tramadol 25-50 mg every 6 hours. Okay to take with a dose of Tylenol but take temperature first. Compazine 10 mg every 6 hours as needed for nausea Other instructions: [place] Advanced Directives given to Ani and her to fill out. Ani is holding off on yoga now due to mass on cervical spine. Encouraged daily walking with her . Arrangements made for IV iron to be in during infusions due to iron deficiency anemia. *We reviewed that Ani has had some cognitive decline. Her agrees with this and is very supportive. Asked them to call if they need any clarification regarding treatment. Phone numbers given. How to contact your care team: Tuesday - Tuesday 8am-5pm: [phone] Nights, weekends, and holidays: [phone] Please use [employer] messaging only for non-urgent questions/issues. Allow up to 3 business days for a reply. Zandra Glasgow APRN [facility] documented in this encounter Plan of Treatment Upcoming Encounters Date Type Department Care Team (Late st Contact Info) Description 05/02/2024 8:30 AM EST Office Visit Hematology/Oncology at [address] [phone] Pardeep George MD [facility] DR [place] [address] Kelli Zapata APRN [address] [place] [address] [place] [address] 05/02/2024 9:00 AM EST Infusion Hematology Oncology at [address] [phone] 01/31/2025 8:30 AM EDT Office Visit Psychiatry [place] [address] Radha Negrete, PhD [facility] [place] [address] documented as of this encounter Visit Diagnoses Diagnosis Lymphoma, unspecified body region, unspecified lymphoma type Anemia, unspecified type documented in this encounter Care Teams Choir Accompanist Relationship Specialty Start Date End Date Blanquita Pagan APRN [address] [place] [address] PCP - General Family Medicine 01/07/23 documented as of this encounter
--- OUTSIDE RECORDS SUMMARY | 2024-05-02 08:11 | XMS_ITS | Encounter Summary ---
Author Organization [facility] Address [facility] [place] [address] Care Team Providers Care Data Integrity Analyst Name Role Phone Blanquita Pagan APRN Primary Care Provider [phone] Reason for Visit * Treatment/Therapy Plan Authorization (Routine) - Closed Specialty Diagnoses / Procedures Referred By Contac t Referred To Contact Hematology and Oncology Diagnoses Lymphoma, unspecified body region, unspecified lymphoma type Lytic bone lesions on xray Procedures TC RITUXIMAB-PVVR, BIOSIMILAR, (RUXIENCE), 10 MG, INJ [id number] RUXIENCE Miguel Daugherty MD [facility] DR HEMATOLOGY [place] [address] Miguel Daugherty MD [facility] DR HEMATOLOGY [place] [address] Referral ID Status Reason Start Date Expiration Date Visits Re quested Visits Authorized [id number] Closed 02/25/2023 02/25/2024 1 106 Encounter Details Date Type Department Care Team (Late st Contact Info) Description 03/10/2023 9:30 AM EDT Infusion Hematology Oncology at [address] [phone] Lymphoma, unspecified body region, unspecified lymphoma type; Lytic bone lesions on xray Social History Tobacco Use Types Packs/Day Years Used Date Smoking Tobacco: Never Smokeless Tobacco: Never Overall Financial Resource Strain (CARDIA) Anna r [...] place to sleep or slept in a retirement (including now)? No 02/16/2023 Sex and Gender Information Value Date Recorded Sex Assigned at Not on file Gender Identity Not on file Sexual Orientation Not on file documented as of this encounter Last Filed Vital Signs Vital Sign Reading Time Taken Comments Blood Pressure 117/70 03/10/2023 9:57 AM EDT Pulse 79 03/10/2023 9:57 AM EDT Temperature 35.9 ??C (96.7 ??F) 03/10/2023 9:57 AM ED T Respiratory Rate 18 03/10/2023 9:57 AM EDT Oxygen Saturation 100% 03/10/2023 9:57 AM EDT Inhaled Oxygen Concentration - - Weight 53.8 kg (118 lb 9.6 oz) 03/10/2023 9:57 A M EDT Height 172.7 cm (5' 7.99) 03/10/2023 9:57 AM ED T Body Mass Index 18.04 03/10/2023 9:57 AM EDT documented in this encounter Progress Notes * Sommer Kidd RN - 03/10/2023 9:30 AM EDT INFUSION THERAPY ADMINISTRATION NOTES DIAGNOSIS: B-Cell Lymphoma CYCLE #:C1D1 REASON FOR VISIT: Rituximab, Bendamustine SUBJECTIVE Ani offers no complaints. OBJECTIVE LAB DATA: completed 03/09 at [facility] Pre administration: Chemotherapy orders independently verified for drug name, route, and dosage per patient's height, weight and BSA by Sommer Kidd, KENNETH and pharmacist onsite. REACTIONS (DESCRIPTION, TIME, INTERVENTION AND EFFECTIVENESS) none ASSESSMENT Ani was awake, alert and he tolerated treatment well. She preferred to leave her IV in place for treatment tomorrow. Pt. chemo teaching instructions included: During clinic hours (8am-5pm Tuesday-Tuesday): pt. can call [phone] with questions or concerns. After clinic hours (5pm-8am Tuesday-Tuesday and weekends) pt can call [phone] and ask for the lacrosse player/oncologist superintendent transmission. Ani Bhatty verbalized understanding of potential chemotherapy side effects and home care including but not limited to- handwashing to prevent infection, signs and symptoms of low blood counts (fever, fatigue, bleeding), to call with a fever of 100.4 or greater, any significant constipation/diarrhea, importance of nutrition and fluid intake (drinking at least 32-64 ounces of non-caffeinated beverages/day), mouth care. Anideepthi Ridley verbalized understanding of how to take prescription medications given for home use after chemotherapy. PLAN Return to clinic tomorrow for Day 2. documented in this encounter Plan of Treatment Upcoming Encounters Date Type Department Care Team (Late st Contact Info) Description 05/02/2024 8:30 AM EST Office Visit Hematology/Oncology at [address] [phone] Pardeep George MD [facility] DR HEMATOLOGY [place] [address] Kelli Zapata APRN [address] [place] [address] [place] [address] 05/02/2024 9:00 AM EST Infusion Hematology Oncology at [address] [phone] 01/31/2025 8:30 AM EDT Office Visit Psychiatry and Behavioral Health at [facility] [address] Radha Negrete, PhD [facility] [place] [address] documented as of this encounter Visit Diagnoses [...] mg, Oral, ONCE, 1 dose, On Alyce 03/10/23 at 1045, Administer prior to riTUXimab., Routine Given 03/10/2023 10:49 AM EDT 650 mg bendamustine (Bendeka/Belrapzo) 142 mg in sodium chloride 0.9% 55.68 mL infusion 142 mg (rounded from 142.2 mg = 90 mg/m2/dose ? 1.58 m2 Treatment Plan BSA from Recorded weight), Intravenous, ONCE, 1 dose, On Alyce 03/10/23 at 1145, Administer over 10 Minutes, The resulting final concentration of bendamustine in the infusion bag should be between 1.85 - 5.6 mg/mL. Warning Vesicant/Irritant Medication New Bag 03/10/2023 3:02 PM EDT 142 mg 334.1 mL/hr dexAMETHasone (Decadron) (10 mg/mL) injection 10 mg 10 mg, Intravenous, ONCE, 1 dose, On Alyce 03/10/23 at 1045, Administer prior to riTUXimab Given 03/10/2023 10:59 AM EDT 10 mg diphenhydrAMINE (Benadryl) (50 mg/mL) injection 25 mg 25 mg, Intravenous, ONCE, 1 dose, On Alyce 03/10/23 at 1045, Administer prior to riTUXimab, Routine Given 03/10/2023 11:02 AM EDT 25 mg palonosetron (Aloxi) (0.05 mg/mL) injection 0.25 mg 0.25 mg, Intravenous, ONCE, 1 dose, On Alyce 03/10/23 at 1045, Administer over 30 seconds., Routine Given 03/10/2023 11:03 AM EDT 0.25 mg riTUXimab-pvvr (Ruxience) 600 mg in sodium chloride 0.9% 300 mL infusion 600 mg, Intravenous, ONCE, 1 dose, On Alyce 03/10/23 at 1145, Dose Ordered = 592 mg (375 mg/m2). Pharmacist rounded dose per procedure. Administer Per Protocol, Is this product being used for treatment of malignant indication? Yes, Patient is a candidate for rapid infusion riTUXimab? No New Bag 03/10/2023 11:39 AM EDT 600 mg sodium chloride 0.9% infusion 125 mL/hr, Intravenous, CONTINUOUS, Starting on Alyce 03/10/23 at 1045, Until Alyce 03/10/23 at 1738, Pls run IV fluids during chemo for maximum volume of 750-1000cc. New Bag 03/10/2023 11:38 AM EDT 125 mL/hr 125 mL/hr documented in this encounter Care Teams Data Integrity Analyst Relationship Specialty Start Date End Date Blanquita Pagan APRN [address] [place] [address] PCP - General Family Medicine 01/07/23 documented as of this encounter
--- OUTSIDE RECORDS SUMMARY | 2024-05-02 08:11 | XMS_ITS | Encounter Summary ---
Author Organization [facility] [place] [address] Care Team Providers Care Cash Surrender Calculator Name Role Phone Blanquita Pagan APRN Primary Care Provider [phone] Reason for Visit * Diagnostic Test (Routine) - Closed Specialty Diagnoses / Procedures Referred By Contac t Referred To Contact Radiology Diagnoses Lymphoma, unspecified body region, unspecified lymphoma type Anemia, unspecified type Gastroesophageal reflux disease, unspecified whether esophagitis present Lytic bone lesions on xray Procedures NM PET CT Skull Base to Mid-thigh Miguel Daugherty MD [facility] DR H[place] [address] [place] [address] Referral ID Status Reason Start Date Expiration Date V isits Requested Visits Authorized [id number] Closed Specialty Service Requested 02/16/2023 08/19/2024 1 1 Encounter Details Date Type Department Care Team (Latest Contact Info) Description 03/16/2023 12:07 PM EDT - 03/16/2023 11:59 PM EDT Hospital Encounter [place] [address] Miguel Daugherty MD [facility] DR [place] [address] Discharge Disposition: Home Social History [...] 8:30 AM EST Office Visit Hematology/Oncology at [address] [phone] Pardeep George MD [facility] DR [place] [address] Kelli Zapata APRN [address] [place] [address] [place] [address] 05/02/2024 9:00 AM EST Infusion Hematology Oncology at [address] [phone] 01/31/2025 8:30 AM EDT Office Visit Psychiatry and [place] [address] Radha Negrete, PhD [facility] [place] [address] documented as of this encounter Procedures Procedure Name Priority Date/Time Associated Diagnosis Comments NM PET CT SKULL BASE TO MID-THIGH ([facility]) Routine 03/16/2023 1:35 PM EDT Lymphoma, unspecified body region, unspecified lymphoma type Anemia, unspecified type Gastroesophageal reflux disease, unspecified whether esophagitis present Lytic bone lesions on xray POCT GLUCOSE Routine 03/16/2023 12:15 PM EDT documented in this encounter Results * POCT Glucose (03/16/2023 12:15 PM EDT) Glucose, POC 66 65 - 199 mg/dL [facility] Comment: Supplemental ranges: <140 mg/dL before meals <180 mg/dL all other times of the day Blood 03/16/2023 12:1 5 PM EDT 03/16/2023 12:15 PM EDT Miguel Daugherty MD POINT OF CARE TEST O RDERABLES Performing Organization Address City/State/[facility] Co de Phone Number [facility] [place] [phone] documented in this encounter Visit Diagnoses Not on filedocumented in this encounter Care Teams Cash Surrender Calculator Relationship Specialty Start Date End Date Blanquita Pagan APRN [address] [place] [address] PCP - General Family Medicine 01/07/23 documented as of this encounter
--- OUTSIDE RECORDS SUMMARY | 2024-05-02 08:11 | XMS_ITS | Encounter Summary ---
Author Organization [facility] Address [facility] [place] [address] Care Team Providers Care Teacher Emotionally Impaired Name Role Phone Blanquita Pagan APRN Primary Care Provider [phone] Reason for Visit * Reason Comments Follow-up Encounter Details Date Type Department Care Team (Late st Contact Info) Description 03/09/2023 9:00 AM EDT Office Visit Hematology [place] [address] Miguel Daugherty MD [facility] [address] [place] [address] Zandra Glasgow APRN [facility] [address] [place] [address] Lymphoma, unspecified body region, unspecified lymphoma type; Anemia, unspecified type; Refractory anemia, unspecified Social History Tobacco Use Types Packs/Day Years [...] in a alf (including now)? No 02/16/2023 Sex and Gender Information Value Date Recorded Sex Assigned at Not on file Gender Identity Not on file Sexual Orientation Not on file documented as of this encounter Last Filed Vital Signs Vital Sign Reading Time Taken Comments Blood Pressure 123/81 03/09/2023 8:56 AM EDT Pulse 84 03/09/2023 8:56 AM EDT Temperature 36.1 ??C (97 ??F) 03/09/2023 8:56 AM EDT Respiratory Rate 18 03/09/2023 8:56 AM EDT Oxygen Saturation 97% 03/09/2023 8:56 AM EDT Inhaled Oxygen Concentration - - Weight 52.8 kg (116 lb 6.4 oz) 03/09/2023 8:56 A M EDT Height 172.7 cm (5' 8) 03/09/2023 8:56 AM EDT Body Mass Index 17.7 03/09/2023 8:56 AM EDT documented in this encounter Progress Notes * Miguel Daugherty MD - 03/09/2023 9:00 AM EDT HEMATOLOGY CLINIC [facility] [phone] I had the pleasure of seeing and [...] Social history 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 She does not smoke. She drinks [...] memory problems or sleep disturbances. Physical exam 02/16/2023 Oncology Vitals Weight (kg) 53.5 kg Weight (lb) 117 lb 15.1 oz Height 168.5 cm BSA (Calculated - sq m) 1.58 sq meters BMI (Calculated) 18.84 Temp 36.2 ??C (97.2 ??F) Temp src Temporal Heart Rate 77 Heart Rate Source Monitor Resp 16 BP 142/73 BP Location Right arm Patient Position Sitting SpO2 99 % Pain Level -- Patient is a very pleasant 72-year-old female. [...] bilat; normal gait. No [facility] findings Laboratory test Latest Reference Range & Units [...] Negative Negative Hepatitis C Ab Negative Negative ROMMEL Negative Methylmalonic Acid <=0.40 nmol/mL 0.23 (L): Data is abnormally low (H): Data is abnormally high Assessment and plan # new diagnosis of [...] We can monitor these at this time. A Tumor Board , Dr Stevens felt some [...] 4-6 cycles of therapy. Patient lives in [facility] would like to be treated in [place]. As result, we will start cycle 1 here and asked that she see Dr. Lawson locally for subsequent cycles. I called Ani [...] way we need to start therapy soon. Immediate Plans Start R-brady now due to concern of paraspinal mass progressing ; despite ordering PET and BM bx, these were delayed due to a waiting lsit. I want to start rx paola despite PET and marrow planned for next week due to above /belowreasons. I recommend a repeat PET after cycle #2 to assess response to therapy as well as to reevaluate the T1-T1 lesion to determine if radiation therapy might be needed. Await PET and BM results-both are scheduled for March 16, 2023. Since the patient is symptomatic and due to the T1-T2 paraspinal mass, I want to start therapy PAOLA. Limited w/u for her anemia unrevealing. I assume related to NHL. Await BM bx - check TSH, copper level today Prelim labs within eDH, including CBC, CMP, LDH, uric acid, serologies for hep B and hep C, and immunoglobulin levels. 6. Given her longstanding unsteadiness with her gait, I checked a B12 and methylmalonic acid level - both normal 7. We will continue to monitor mental status. If needed, we will referred for neurocognitive testing in the future. 8. I emphasized that Ani is somewhat immune compromised. As result, she will need the flu vaccine as well as COVID-vaccine, Once available 9. Patient and her will call me after the bone marrow biopsy and PET scans are done and I can review the results with them. I asked that they be certain to call and verify this. 10. The patient will be seen and evaluated at [facility] and cycle #2 on what will be done and sent today. I would like to thank Blanquita Pagan [facility] for asking me to see this very pleasant patient. I will keep her posted on results. Parts of this note were completed completed using voice recognition dictation. Miguel Daugherty MD carcass trimmer Director - Blood and Marrow Transplant Program * Zandra Glasgow APRN - 03/09/2023 9:00 AM EDT Images from the original note were not included. Treatment Plan Diagnosis: Low grade lymphoma Regimen: Bendamustine and Rituximab Treatment intent: Disease control Treatment schedule: (Cycle length/number of cycles) (Estimated length of infusion) Pre-medications: Anti-cancer medications: Supportive medications: Provider visits: You may see your physician, a fellow, a nurse practitioner ([facility] PHYSICIAN), and/or a physician clinical trial assistant (PA) prior to the start of each cycle. Labs/diagnostics: Labs prior to the start of each cycle Possible side effects: Please refer to [facility]oCare sheets Risk of infection. Please call immediately with a temperature Home medications: How to contact your care team: Tuesday - Tuesday 8am-5pm: Nights, weekends, and holidays: Please use [employer] messaging only for non-urgent questions/issues. Allow up to 3 business days for a reply.Answers submitted by the patient for this visit: (Submitted on 03/09/2023) Distress: 6 (Submitted on 03/09/2023) Distress - Practical Problems: None of the Above Distress - Emotional Problems: Worry or anxiety Distress - Physical Problems: Pain, Fatigue, Memory or concentration documented in this encounter Plan of Treatment Upcoming Encounters Date Type Department Care Team (Late st Contact Info) Description 05/02/2024 8:30 AM EST Office Visit Hematology/Oncology at [address] [phone] Pardeep George MD [facility] [address] [place] [address] Kelli Zapata, CONSTRUCTION INSPECTOR [address] [place] [address] DR MEDICAL ONCOLOGY [place], [place] [id number] 05/02/2024 9:00 AM EST Infusion Hematology Oncology at [address] [phone] 01/31/2025 8:30 AM EDT Office Visit Psychiatry [place] [phone] Radha Negrete, PhD [facility] [place] [address] documented as of this encounter Results * Copper, serum (03/09/2023 8:30 AM EDT) [facility] Copper (OCTOBER) 180 77 - 206 mcg/dL [facility] Comment: ADDITIONAL INFORMATION This test was developed and its performance characteristics determined by [facility] in a manner consistent with CLIA requirements. This test has not been cleared or approved by the U.S. Food and Drug Administration. Test Performed by: [facility] - [address] [address] Materials Coordinator: Melvin Alonso M.D. Ph.D.; CLIA# [id number] Blood 03/09/2023 8:30 AM EDT 03/09/2023 12:33 PM EDT Narrative Resulting Agency Comment Spec In Lab Miguel Daugherty MD LAB SEND OUT ORDERAB LES Performing Organization Address [facility] Co de Phone Number [facility] [place] [address] * (ABNORMAL) TSH (03/09/2023 8:30 AM EDT) Thyroid Stimulating Hormone 6.15(H) 0.27 - 4.20 mcIU/mL [facility] Comment: Reference Interval (mcIU/mL): Females: ??First Trimester: 0.23-3.88 ??Second Trimester: 0.22-3.90 ??Third Trimester: 0.44-4.66 Blood 03/09/2023 8:30 AM EDT 03/09/2023 8:52 AM EDT Narrative Resulting Agency Comment Spec In Lab Miguel Daugherty MD CHEMISTRY ORDERABLES Performing Organization Address [facility] de Phone Number [facility] [place] [address] * (ABNORMAL) Comprehensive metabolic panel (non-fasting) (03/09/2023 8:30 AM EDT) Glucose 94 65 - 199 mg/dL [facility] Comment:Diabetes: >=200 mg/d L plus symptoms Blood Urea Nitrogen 24(H) 8 - 18 mg/dL [facility] Creatinine 0.56(L) 0.70 - 1.20 mg/dL [facility] Sodium 129(L) 135 - 145 mmol/L [facility] Potassium 4.2 3.5 - 5.0 mmol/L [facility] Comment: Please note: ??Patients with WBC >100,000 may have falsely elevated Potassium levels. ??For accurate Potassium quantification in these patients send serum separator tube (gold top) for subsequent determinations. ??Contact the Clinical Chemistry Laboratory if there are any questions. Chloride 92(L) 98 - 107 mmol/L [facility] Carbon Dioxide 25 22 - 31 mmol/L [facility] Anion Gap 12 5 - 15 mmol/L [facility] Calcium 9.1 8.5 - 10.5 mg/dL [facility] Protein, Total 6.7 6.1 - 8.0 g/dL [facility] Albumin 3.6 3.2 - 5.2 g/dL [facility] Aspartate Aminotransferase 25 0 - 30 unit/L [facility] Alanine Aminotransferase 18 0 - 30 unit/L [facility] Alkaline Phosphatase 87 35 - 105 unit/L [facility] Bilirubin, Total <0.2(L) 0.2 - 1.3 mg/dL [facility] Est Glomerular Filtration Rate 96 >=60 mL/min/1. 73 m?? [facility] Comment: This patient's estimated GFR was [...] In Lab Miguel Daugherty MD CHEMISTRY ORDERABLES [facility] [place] [address] documented in this encounter Visit Diagnoses Diagnosis Lymphoma, unspecified body region, unspecified lymphoma type Anemia, unspecified type documented in this encounter Care Teams Teacher Emotionally Impaired Relationship Specialty Start Date End Date Blanquita Pagan APRN [address] [place] [address] PCP - General Family Medicine 01/07/23 documented as of this encounter
--- OUTSIDE RECORDS SUMMARY | 2024-05-02 08:11 | XMS_ITS | Encounter Summary ---
Author Organization [facility] Address [facility] [place] [address] Care Team Providers Care Circular Knife Machine Cutter Name Role Phone Ej Blanquita BLEVINS Primary Care Provider [phone] Reason for Referral * Diagnostic Test (Routine) - Closed Specialty Diagnoses / Procedures Referred By Contac t Referred To Contact Radiology Diagnoses Lymphoma, unspecified body region, unspecified lymphoma type Anemia, unspecified type Gastroesophageal reflux disease, unspecified whether esophagitis present Lytic bone lesions on xray Procedures NM PET CT Skull Base to Mid-thigh Miguel Daugherty MD [facility] [place] [address] [facility] [place] [address] Referral ID Status Reason Start Date Expiration Date V isits Requested Visits Authorized [id number] Closed Specialty Service Requested 02/16/2023 08/19/2024 1 1 Reason for Visit * Diagnostic Test (Routine) - Closed Specialty Diagnoses / Procedures Referred By Contac t Referred To Contact Radiology Diagnoses Lymphoma, unspecified body region, unspecified lymphoma type Anemia, unspecified type Gastroesophageal reflux disease, unspecified whether esophagitis present Lytic bone lesions on xray Procedures NM PET CT Skull Base to Mid-thigh Miguel Daugherty MD [facility] [address] [place] [address] [facility] [place] [address] Referral ID Status Reason Start Date Expiration Date V isits Requested Visits Authorized [id number] Closed Specialty Service Requested 02/16/2023 08/19/2024 1 1 Encounter Details Date Type Department Care Team (Latest Contact Info) Description 03/16/2023 12:07 PM EDT - 03/16/2023 11:59 PM EDT Hospital Encounter [place] [address] Miguel Daugherty MD [facility] DR HEMATOLOGY AND ONCOLOGY [place] [phone] Lymphoma, unspecified body region, unspecified lymphoma type; Anemia, unspecified type; Gastroesophageal reflux disease, [...] AM EST Office Visit Hematology/Oncology at [address] [phone] Pardeep George MD [facility] [place] [address] Kelli Zapata APRN [address] [place] [address] DR MEDICAL ONCOLOGY [place], [place] [address] 05/02/2024 9:00 AM EST Infusion Hematology Oncology at [address] [phone] 01/31/2025 8:30 AM EDT Office Visit Psychiatry [place] [address] Radha Negrete, PhD [facility] [place] [place] [address] documented as of this encounter Procedures Procedure Name Priority Date/Time Associated Diagnosis Comments NM PET CT SKULL BASE TO MID-THIGH (LCSR) Routine 03/16/2023 1:35 PM EDT Lymphoma, unspecified body region, unspecified lymphoma type Anemia, unspecified type Gastroesophageal reflux disease, unspecified whether esophagitis present Lytic bone lesions on xray documented in this encounter Results * NM [...] who have questions please contact the health career guidance technician that requested your imaging first. ? Narrative 03/18/2023 10:14 AM EDT EXAMINATION: NM PET CT STANDARD SKULL BASE TO MID-THIGH CLINICAL HISTORY: Non-Hodgkin lymphoma, staging TECHNIQUE: Following IV injection of 39-shmhne-4-deoxyglucose (FDG) a standard uptake of approximately 60 [...] Note Mariano Regan MD - 03/18/2023 EXAMINATION: [place] PET CT STANDARD SKULL BASE TO MID-THIGH CLINICAL HISTORY: Non-Hodgkin lymphoma, staging TECHNIQUE: Following IV injection of 21-yjbehx-1-deoxyglucose (FDG) astandard uptake of approximately 60 minutes, [...] patients who have questions please contactthe health career guidance technician that requested your imaging first. Miguel Daugherty MD IMG PET ORDERABLES documented in this encounter [...] Intravenous, ONCE PRN, 1 dose, Starting on Tue03/16/23 at 1252, Until Tue03/16/23 at 1219, Per Protocol, Radiology Contrast, Routine Given 03/16/2023 12:19 PM EDT 9.9 mCi Right Arm documented in this encounter Care Teams Circular Knife Machine Cutter Relationship Specialty Start Date End Date Blanquita Pagan APRN [address] [place] [address] PCP - General Family Medicine 01/07/23 documented as of this encounter
--- OUTSIDE RECORDS SUMMARY | 2024-05-02 08:11 | XMS_ITS | Encounter Summary ---
Author Organization [facility] Address [facility] [place] [address] Care Team Providers Care Set Key Driver Name Role Phone Blanquita Pagan APRN Primary Care Provider [phone] Encounter Details Date Type Department Care Team (Latest Contact Info) Description 03/09/2023 Travel Social History Tobacco Use Types Packs/Day [...] in a usp (including now)? No 02/16/2023 Sex and Gender Information Value Date Recorded Sex Assigned at Not on file Gender Identity Not on file Sexual Orientation Not on file documented as of this encounter Plan of Treatment Upcoming Encounters Date Type Department Care Team (Late st Contact Info) Description 05/02/2024 8:30 AM EST Office Visit Hematology/Oncology at [address] [phone] Pardeep George MD [facility] DR [place] [address] Kelli Zapata LEAD WEB APPLICATION DEVELOPER [address] [place] [address] DR MEDICAL ONCOLOGY [place], [place] [address] 05/02/2024 9:00 AM EST Infusion Hematology Oncology at [address] [phone] 01/31/2025 8:30 AM EDT Office Visit Psychiatry [place] [address] Radha Negrete, PhD [facility] [place] [address] documented as of this encounter Visit Diagnoses Not on filedocumented in this encounter Care Teams Set Key Driver Relationship Specialty Start Date End Date Blanquita Pagan APRN [address] [place] [address] PCP - General Family Medicine 01/07/23 documented as of this encounter
--- OUTSIDE RECORDS SUMMARY | 2024-05-02 08:11 | XMS_ITS | Encounter Summary ---
Author Organization [facility] Address [facility] [place] [address] Care Team Providers Care Corporate Executive Chef Name Role Phone EjBlanquita FELICITY Primary Care Provider [phone] Encounter Details Date Type Department Care Team (Latest Contact Info) Description 01/25/2023 Travel Social History Tobacco Use Types Packs/Day [...] AM EST Office Visit Hematology/Oncology at [address] [phone] Pardeep George MD [facility] HEMATOLOGY [place] [address] Kelli Zapata APRN [address] [place] [address] [place] [address] 05/02/2024 9:00 AM EST Infusion Hematology Oncology at [address] [phone] 01/31/2025 8:30 AM EDT Office Visit Psychiatry and [place] [address] Radha Negrete, PhD [facility] [place] [address] documented as of this encounter Visit Diagnoses Not on filedocumented in this encounter Care Teams Corporate Executive Chef Relationship Specialty Start Date End Date Blanquita Pagan APRN [address] [place] [address] PCP - General Family Medicine 01/07/23 documented as of this encounter
--- OUTSIDE RECORDS SUMMARY | 2024-05-02 08:11 | XMS_ITS | Encounter Summary ---
Author Organization [facility] Address [facility] [place] [address] Care Team Providers Care Treating Engineer Helper Name Role Phone Blanquita Pagan APRN Primary Care Provider [phone] Encounter Details Date Type Department Care Team (Late st Contact Info) Description 03/14/2023 Notes [place] [phone] Aliza Mccoy PA [facility] [place] [address] Social History Tobacco Use Types Packs/Day Years [...] in a correction (including now)? No 02/16/2023 Sex and Gender Information Value Date Recorded Sex Assigned at Not on file Gender Identity Not on file Sexual Orientation Not on file documented as of this encounter H&P Notes * Aliza Mccoy PA - 03/14/2023 9:05 AM [...] supraclavicular lymph node performed on 01/25/2023 at [facility] - local only Anticoagulation/Antiplatelet: None listed Labs: [...] IR the day of procedure) 03/14/2023 Aliza [place], PA-C documented in this encounter Plan of Treatment Upcoming Encounters Date Type Department Care Team (Late st Contact Info) Description 05/02/2024 8:30 AM EST Office Visit Hematology/Oncology at [address] [phone] Pardeep George MD [facility] DR [place] [address] Kelli Zapata [address] MEDICAL ONCOLOGY [place], [place] [address] 05/02/2024 9:00 AM EST Infusion Hematology Oncology at [address] [phone] 01/31/2025 8:30 AM EDT Office Visit Psychiatry and [place] [address] Radha Negrete, PhD [facility] [place] [address] documented as of this encounter Visit Diagnoses Not on filedocumented in this encounter Care Teams Treating Engineer Helper Relationship Specialty Start Date End Date Blanquita Pagan APRN [address] [place] [address] PCP - General Family Medicine 01/07/23 documented as of this encounter
--- OUTSIDE RECORDS SUMMARY | 2024-05-02 08:12 | XMS_ITS | Encounter Summary ---
Author Organization [facility] Address [facility] [place] [address] Care Team Providers Care Recruiting Associate Name Role Phone Ani Ruiz MD Primary Care Provider [phone] Encounter Details Date Type Department Care Team (Late st Contact Info) Description 01/06/2023 Ancillary Procedure Radiology Library at [facility] [place] [address] Blanquita Pagan APRN [address] [place] [address] Social History Tobacco Use Types Packs/Day Years [...] 8:30 AM EST Office Visit Hematology/Oncology at [address] [phone] Pardeep George MD [facility] HEMATOLOGY AND [place] [address] Kelli Zapata [address] MEDICAL ONCOLOGY [place], [place] [address] 05/02/2024 9:00 AM EST Infusion Hematology Oncology at [address] [phone] 01/31/2025 8:30 AM EDT Office Visit Psychiatry and [place] [address] Radha Negrete, PhD [facility] [place] [address] documented as of this encounter Procedures Procedure Name Priority Date/Time Associated Diagnosis Comments FILM LIBRARY STORAGE ONLY CT CHEST ABDOMEN PELVIS Routine 01/06/2023 12:00 AM EDT documented in this encounter Results * Film Library- Storage Only CT Chest Abdomen Pelvis (01/06/2023 12:00 AM EDT) Narrative [facility] - 01/07/2023 5:02 PM EDT This exam is auto-finalizing. It's purpose is for storage only. Blanquita Pagan APRN [employer] FILM LIBRARY ORD ERABLES Performing Organization Address City/State/[facility] Co de Phone Number [place], [place] documented in this encounter Visit Diagnoses Not on filedocumented in this encounter Care Teams Recruiting Associate Relationship Specialty Start Date End Date Ani Ruiz MD [address] [place] [address] PCP - General 05/19/10 01/06/23 documented as of this encounter
--- OUTSIDE RECORDS SUMMARY | 2024-05-02 08:12 | XMS_ITS | Encounter Summary ---
[place] [address] Care Team Providers Care Custodian Manager Name Role Phone Blanquita Pagan APRN Primary Care Provider [phone] Reason for Referral * Consultation (Urgent) - Closed Specialty Diagnoses / Procedures Referred By Contac t Referred To Contact Hematology and Oncology Diagnoses Lymphadenopathy Lymphocytopenia Malignant neoplasm of head, face and neck Blanquita Pagan APRN [address] [place] [address] [facility] Hem Onc [address] [place] [address] Referral ID Status Reason Start Date Expiration Date V isits Requested Visits Authorized [id number] Closed Consult, Test & Treat PCP Updated and/or Approved 01/07/2023 01/07/2024 12 12 Encounter Details Date Type Department Care Team (Late st Contact Info) Description 01/07/2023 Transcribe Orders eDH Incoming Referrals [phone] Blanquita Pagan APRN [address] [place] [address] Lymphadenopathy Social History Tobacco Use Types Packs/Day Years [...] 8:30 AM EST Office Visit Hematology/Oncology at [address] [phone] Pardeep George MD [facility] DR [place] [address] Kelli Zapata APRN [address] [place] [address] MEDICAL ONCOLOGY [place], [place] [address] 05/02/2024 9:00 AM EST Infusion Hematology Oncology at [address] [phone] 01/31/2025 8:30 AM EDT Office Visit Psychiatry and [place] [address] Radha Negrete, PhD [facility] [place] [address] Scheduled Referrals Name Type Priority Associated Diagnoses Order Schedule Referral to Hematology and Oncology Outpatient Referral Urgent Lymphadenopathy Ordered: 01/07/2023 documented as of this encounter Visit Diagnoses Diagnosis Lymphadenopathy Enlargement of lymph nodes documented in this encounter Care Teams Custodian Manager Relationship Specialty Start Date End Date Blanquita Pagan APRN [address] [place] [address] PCP - General Family Medicine 01/07/23 documented as of this encounter
--- OUTSIDE RECORDS SUMMARY | 2024-05-02 08:12 | XMS_ITS | Patient Health Record ---
Author Organization [facility] Address [address] [place] [id number] Support Name Relationship Address Phone CATHY CALLEJAS Guarantor Unknown [phone] REASON FOR REFERRAL No Information MEDICATIONS Medication SIG (Take, Route, Frequency, Duration) Notes Start Date End Date Status Ciprodex 0.3-0.1 % 4 drops into affecte d ear Otic Twice a day 01/18/2019 Active Levothyroxine Sodium Active Triamcinolone Acetonide 0.1 % 1 application to affected area Externally Twice a day 01/18/2019 Active PROBLEMS No Known Problems PLAN OF TREATMENT No Information Insurance Providers Payer Name Payer Address Payer Phone Subscriber Number Group Number Insured Name Patient Relationship to Insured Coverage Start Date Coverage End Date MEDICARE UB [address] [place], [place] [id number] [phone] [id number] CATHY CALLEJAS Self - patient is the insured [facility] [address] [place] [address] [id number] CATHY CALLEJAS Self - patient is the insured
[2024-05-02 08:23] LABS: ALT 34 U/L (14-59); AST 25 U/L (15-37); Albumin 3.8 g/dL (3.4-5.0); Alkaline Phosphatase 52 U/L (46-116); Anion Gap 5.9 mmol/L (3-11); BUN 13 mg/dL (7-18); Bilirubin, Total 0.51 mg/dL (0.2-1.0); CO2 31.1 mmol/L (21.0-32.0); CREATININE 0.7 mg/dL (0.55-1.02); Calcium 9.4 mg/dL (8.5-10.1); Chloride 101 mmol/L (98-107); Estimated GFR 90.14 (mL/min/1.73m2); Glucose 73 mg/dL (74-106); LDH 189 U/L (81-234); Potassium 4.4 mmol/L (3.5-5.1); Sodium 138 mmol/L (136-145); Total Protein 6.8 g/dL (6.4-8.2)
== END 2024-05-26 23:59 | disposition home or self-care (01) ==
LOC: INF 08:07
PROVIDERS: PCP Nurse Practitioner Family; Visit Provider Internal Medicine Hematology & Oncology
DX: C82.90 Follicular lymphoma, unspecified, unspecified site (principal); Z45.2 Encounter for adjustment and management of vascular access device
CPT/HCPCS: 36591; 80053; 83615; 85025

== ENCOUNTER 2024-05-10 01:01 | Outpatient (CLI) | payer MEDICARE, BC, SELFPAY ==
--- NOTE | 2024-05-10 | DI.DEXA_ITS ---
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 This is unchanged compared to the CT scan from 04/29/2023. Left hip: Total T-Score: -2.6. This compares to -2.4 on the prior examination. Total Z-Score: -0.8 T- and Z-scores: Findings are consistent with osteoporosis. Lumbar Spine: Total T-Score: -2.1. This compares to -2.0 on the prior examination. Total Z-Score: 0.3 T- and Z-scores: Findings are consistent with osteopenia. Left forearm: Total T-score:-3.4. Compares to -3.3 on the prior examination. Total Z-score: +1.0 T and Z-score is: Findings are consistent with osteoporosis. IMPRESSION: Osteoporosis in the left hip and left forearm.
== END 2024-05-10 01:21 ==
LOC: DI 01:01
PROVIDERS: PCP Nurse Practitioner Family; Visit Provider Nurse Practitioner Family
DX: M81.0 Age-related osteoporosis without current pathological fracture (principal)
CPT/HCPCS: 77080

== ENCOUNTER 2024-07-05 08:00 | Outpatient (RCR) | payer MEDICARE, BC, SELFPAY ==
[2024-07-04] MEDS: Normal Saline Flush 10 ML SYR IVP (08:07)
[2024-07-04 08:24] LABS: Abs Immature Grans 0.02 10^3/uL (0.0-0.06); Absolute Basophil Count 0.07 10^3/uL (0.0-0.2); Absolute Lymphocyte Count 0.46 10^3/uL (1.2-3.4); Absolute Monocyte Count 0.67 10^3/uL (0.1-0.8); Basophils % 1.1 %; Eosinophils % 1.6 %; HCT 35.7 % (36.0-46.0); HGB 12.1 g/dL (11.2-15.7); Immature Grans % 0.3 %; Lymphocytes % 7.5 %; MCH 32.1 pg (27.0-33.0); MCHC 33.9 % (32.0-36.0); MCV 95 fL (80-95); MPV 10.1 fL (8.0-11.0); Monocytes % 10.9 %; Neutrophils % 78.6 %; Platelet Count 246 10^3/uL (130-400); RBC 3.77 10^6/uL (3.93-5.22); RDW 13.5 % (11.7-14.6); RDW-SD 47.2 fL; WBC 6.12 10^3/uL (4.4-10.8)
[2024-07-04 08:55] LABS: ALT 35 U/L (14-59); AST 26 U/L (15-37); Albumin 3.8 g/dL (3.4-5.0); Alkaline Phosphatase 64 U/L (46-116); Anion Gap 7.8 mmol/L (3-11); BUN 22 mg/dL (7-18); Bilirubin, Total 0.44 mg/dL (0.2-1.0); CO2 30.2 mmol/L (21.0-32.0); CREATININE 0.7 mg/dL (0.55-1.02); Calcium 9.3 mg/dL (8.5-10.1); Chloride 101 mmol/L (98-107); Estimated GFR 90.14 (mL/min/1.73m2); Glucose 115 mg/dL (74-106); LDH 200 U/L (81-234); Sodium 139 mmol/L (136-145); Total Protein 6.8 g/dL (6.4-8.2)
[2024-07-04 09:30] LABS: TSH (W/Ref FT4) 6.01 uIU/mL (0.36-3.74); Vitamin D 25 Total 35.6 ng/mL (30-100)
[2024-07-04 09:46] LABS: FREE T4 1.06 ng/dL (0.76-1.46)
[2024-07-04 19:27] LABS: Parathyroid Hormone,Intact 84.5 pg/mL (19.0-88.0)
[2024-07-05] MEDS: Normal Saline Flush 10 ML SYR IVP (08:08)
== END 2024-07-27 23:59 | disposition home or self-care (01) ==
LOC: INF 08:00
PROVIDERS: PCP Nurse Practitioner Family; Visit Provider Internal Medicine Hematology & Oncology
DX: C82.90 Follicular lymphoma, unspecified, unspecified site (principal); M81.0 Age-related osteoporosis without current pathological fracture; R94.6 Abnormal results of thyroid function studies
CPT/HCPCS: 36591; 80053; 82306; 96523; 83615; 83970; 84439; 84443; 85025

== ENCOUNTER 2024-08-29 02:53 | Outpatient (RCR) | payer MEDICARE, BC, SELFPAY ==
[2024-08-29] MEDS: Normal Saline Flush 10 ML SYR IVP (09:51)
[2024-08-29 10:07] LABS: Abs Immature Grans 0.01 10^3/uL (0.0-0.06); Absolute Basophil Count 0.06 10^3/uL (0.0-0.2); Absolute Eosinophil Count 0.09 10^3/uL (0.0-0.7); Absolute Lymphocyte Count 0.45 10^3/uL (1.2-3.4); Absolute Monocyte Count 0.84 10^3/uL (0.1-0.8); Absolute Neutrophil Count 4.18 10^3/uL (1.2-6.7); Basophils % 1.1 %; Eosinophils % 1.6 %; HCT 34.7 % (36.0-46.0); HGB 11.5 g/dL (11.2-15.7); Immature Grans % 0.2 %; MCH 31.4 pg (27.0-33.0); MCHC 33.1 % (32.0-36.0); MCV 95 fL (80-95); Monocytes % 14.9 %; Neutrophils % 74.2 %; Platelet Count 215 10^3/uL (130-400); RBC 3.66 10^6/uL (3.93-5.22); RDW 13.4 % (11.7-14.6); RDW-SD 47.1 fL; WBC 5.63 10^3/uL (4.4-10.8)
[2024-08-29 10:23] LABS: ALT 40 U/L (14-59); AST 25 U/L (15-37); Albumin 3.7 g/dL (3.4-5.0); Alkaline Phosphatase 74 U/L (46-116); Anion Gap 7.2 mmol/L (3-11); BUN 26 mg/dL (7-18); Bilirubin, Total 0.48 mg/dL (0.2-1.0); CO2 29.8 mmol/L (21.0-32.0); CREATININE 0.8 mg/dL (0.55-1.02); Calcium 9.3 mg/dL (8.5-10.1); Chloride 101 mmol/L (98-107); Estimated GFR 76.79 (mL/min/1.73m2); Glucose 116 mg/dL (74-106); LDH 194 U/L (81-234); Potassium 4.6 mmol/L (3.5-5.1); Sodium 138 mmol/L (136-145); Total Protein 6.8 g/dL (6.4-8.2)
[2024-08-29 10:49] LABS: Vitamin B12 1043 pg/mL (193-986)
[2024-09-04 10:01] LABS: Methylmalonic Acid 0.28 nmol/mL (<=0.40)
== END 2024-09-24 23:59 | disposition home or self-care (01) ==
LOC: INF 02:53
PROVIDERS: Registered Nurse; PCP Nurse Practitioner Family; Visit Provider Internal Medicine Hematology & Oncology
DX: C82.90 Follicular lymphoma, unspecified, unspecified site (principal); R41.89 Other symptoms and signs involving cognitive functions and awareness; R79.89 Other specified abnormal findings of blood chemistry
CPT/HCPCS: 36591; 80053; 80186; 82607; 83615; 85025

== ENCOUNTER 2024-10-24 01:28 | Outpatient (RCR) | payer MEDICARE, BC, SELFPAY ==
[2024-10-24] MEDS: Normal Saline Flush 10 ML SYR IVP (10:10)
[2024-10-24 10:16] LABS: Absolute Basophil Count 0.05 10^3/uL (0.0-0.2); Absolute Eosinophil Count 0.08 10^3/uL (0.0-0.7); Absolute Lymphocyte Count 0.33 10^3/uL (1.2-3.4); Absolute Monocyte Count 0.62 10^3/uL (0.1-0.8); Absolute Neutrophil Count 3.04 10^3/uL (1.2-6.7); Basophils % 1.2 %; Eosinophils % 1.9 %; HCT 34.1 % (36.0-46.0); HGB 11.7 g/dL (11.2-15.7); MCH 31.7 pg (27.0-33.0); MCHC 34.3 % (32.0-36.0); MCV 92 fL (80-95); MPV 9.9 fL (8.0-11.0); Neutrophils % 73.9 %; Platelet Count 215 10^3/uL (130-400); RBC 3.69 10^6/uL (3.93-5.22); RDW 14.3 % (11.7-14.6); RDW-SD 48.7 fL; WBC 4.12 10^3/uL (4.4-10.8)
[2024-10-24 10:52] LABS: ALT 35 U/L (14-59); AST 26 U/L (15-37); Albumin 3.9 g/dL (3.4-5.0); Alkaline Phosphatase 57 U/L (46-116); Anion Gap 5.1 mmol/L (3-11); BUN 15 mg/dL (7-18); Bilirubin, Total 0.5 mg/dL (0.2-1.0); CO2 30.9 mmol/L (21.0-32.0); CREATININE 0.6 mg/dL (0.55-1.02); Calcium 9.2 mg/dL (8.5-10.1); Chloride 102 mmol/L (98-107); Estimated GFR 93.55 (mL/min/1.73m2); Ferritin 60 ng/mL (8-252); Glucose 118 mg/dL (74-106); Potassium 4.6 mmol/L (3.5-5.1); Sodium 138 mmol/L (136-145); Total Protein 6.7 g/dL (6.4-8.2)
[2024-10-24 11:03] LABS: LDH 223 U/L (81-234)
== END 2024-10-24 23:59 | disposition home or self-care (01) ==
LOC: INF 01:28
PROVIDERS: PCP Nurse Practitioner Family; Visit Provider Internal Medicine Hematology & Oncology
DX: C82.90 Follicular lymphoma, unspecified, unspecified site (principal); Z45.2 Encounter for adjustment and management of vascular access device
CPT/HCPCS: 36591; 80053; 82728; 83615; 85025

== ENCOUNTER 2024-12-03 15:25 | Observation (INO) | payer MEDICARE, BC, SELFPAY ==
[2024-12-03] VITALS (63 sets, daily range): BP systolic 120–190; BP diastolic 70–135; PULSE 57–80; RESP 9–28; TEMP 36.6; O2SAT 93–100
--- NOTE | 2024-12-03 15:30 | RT.EKG_ITS ---
APPROVED REPORT Exam: Resting ECG Reason for Exam: Fall-Dizzy Patient Location: E HR:72 bpm ECG Measurements Heart Rate 72 AXIS WY 160 P 17 QRSd 90 QRS 82 QT 384 T 49 QTc 419 Conclusion Sinus rhythm 72 normal axis no stemi
[2024-12-03] MEDS: ACETAMINOPHEN 1,000 MG/100 ML BAG 400 MG IVPB (17:09)
[2024-12-03] MEDS: Normal Saline 1,000 ML 1000 ML IV (17:10)
[2024-12-03] MEDS: diazePAM 10 MG/2 ML SYR 5 MG IVP ×2 (17:10→21:45)
[2024-12-03 17:11] LABS: Abs Immature Grans 0.01 10^3/uL (0.0-0.06); Absolute Basophil Count 0.04 10^3/uL (0.0-0.2); Absolute Eosinophil Count 0.06 10^3/uL (0.0-0.7); Absolute Lymphocyte Count 0.22 10^3/uL (1.2-3.4); Absolute Neutrophil Count 3.94 10^3/uL (1.2-6.7); Basophils % 0.8 %; Eosinophils % 1.3 %; HGB 10.9 g/dL (11.2-15.7); Immature Grans % 0.2 %; Lymphocytes % 4.6 %; MCH 31.3 pg (27.0-33.0); MCHC 34.1 % (32.0-36.0); MCV 92 fL (80-95); MPV 9.6 fL (8.0-11.0); Monocytes % 10.5 %; Neutrophils % 82.6 %; Platelet Count 169 10^3/uL (130-400); RBC 3.48 10^6/uL (3.93-5.22); RDW 13.9 % (11.7-14.6); RDW-SD 46.6 fL; WBC 4.77 10^3/uL (4.4-10.8)
[2024-12-03 17:33] LABS: ALT 75 U/L (14-59); AST 27 U/L (15-37); Albumin 3.6 g/dL (3.4-5.0); Alkaline Phosphatase 56 U/L (46-116); Anion Gap 3.6 mmol/L (3-11); BUN 13 mg/dL (7-18); Bilirubin, Total 0.4 mg/dL (0.2-1.0); CO2 31.4 mmol/L (21.0-32.0); CREATININE 0.5 mg/dL (0.55-1.02); Calcium 8.9 mg/dL (8.5-10.1); Chloride 100 mmol/L (98-107); Estimated GFR 97.75 (mL/min/1.73m2); Glucose 106 mg/dL (74-106); Potassium 3.7 mmol/L (3.5-5.1); Sodium 135 mmol/L (136-145); Total Protein 6.3 g/dL (6.4-8.2)
[2024-12-03] MEDS: Meclizine 25 MG TAB PO (18:53)
[2024-12-03] MEDS: Normal Saline - Diluent 50 ML VIAL IJ ×2 (19:05→19:59)
[2024-12-03] MEDS: Omnipaque 350 MG/ML 100 ML BTL 70 ML IJ ×2 (19:07→20:00)
--- NOTE | 2024-12-03 20:01 | DI.CT_ITS ---
Exam(s) CT BRAIN NECK CTA EXAM: CT BRAIN NECK CTA CLINICAL HISTORY: DIZZY. TECHNIQUE: Imaging Protocol: Axial CT angiography was performed with multi-slice acquisition and mu lti-planar and/or 3D reconstructions. CONTRAST MATERIAL: Intravenous: Omnipaque 350 Contrast volume:structured data in ml COMPARISON: CT CT BRAIN NECK CTA from 12/03/2024 FINDINGS: CTA Neck W: Aortic arch anatomy: The aortic arch anatomy is conventional and there is no significant stenosis at the origin of the great vessels off of the aortic arch. No intimal flap evident. Anterior circulation: Both common carotid arteries ascend with normal luminal diameters. At the level the carotid bulbs and proximal internal carotid arteries there is calcified plaque which is more prominent on the left side. This extends into the proximal left internal carotid artery. E stimated stenosis is approximately 50 percent. There is no dissection. On the opposite-right side t he estimated stenosis of approximately 20 percent. Also no dissection. The internal carotid arterie s in the upper neck are nicely patent as well as in the skull base-carotid canals. Posterior circulation: Both vertebral arteries originate in conventional fashion off of the subclavian arteries and there is no obvious stenosis at the origin of the vertebral arteries. Both vertebral arteries exhibit normal luminal diameters within the foramen transversarium. At the skull base both distal vertebral arteries are tortuous but both appear to contribute to the fo rmation of the basilar artery at the skull base. There is no calcified plaque in the vertebral arteries at the skull base. CTA Brain W: Anterior circulation: Both internal carotid arteries are patent in the skull base-carotid canals as well as within the cave rnous sinuses. The supraclinoid aspects of the ICAs are patent. Both A1 segments are patent as are the anterior cer ebral arteries and there is no evidence of aneurysm at the level of the anterior communicating artery . Both middle cerebral arteries are patent with no evidence of significant stenosis nor intraluminal th rombus. There also no aneurysms of these vessels. Posterior circulation: Basilar artery ascends without significant stenosis. Distally it gives off patent bilateral superior cerebellar arteries Above this level the basilar artery terminates as patent bilateral posterior cerebral arteries. There is a posterior communicating we also noted on the right side of the [id number]. There is no evidence of aneurysm at the tip of the basilar artery nor elsewhere in the rbecwg-[id number] is. CT BRAIN: There is an arachnoid cyst in the left the posterior fossa lateral to the left cerebellar hemisphere. This measures approximately 3.7 cm craniocaudal by 4.5 cm AP by 2.7 cm wide. No similar findings i n the supratentorial compartment. There is no evidence of intracranial hemorrhage nor shift of midline structures. Ventricles are not enlarged or shifted. No ring enhancing lesions in the brain. No abnormal meningeal enhancement. IMPRESSION: 1. There is calcified plaque at both carotid bulbs-proximal internal carotid arteries, more prominent on the left side where there is a moderate approximately 50 percent stenosis at this level. A lesse r amount of stenosis (approximately 20 percent) is seen at the same location on the opposite-right si de. There is no dissection of the carotid arteries. 2. Patent vertebral arteries. 3. Patent intracranial arteries. 4. There are no ring enhancing lesions in the brain nor abnormal meningeal enhancement. 5. There is a left posterior fossa arachnoid cyst lateral to the left cerebellar hemisphere which dmitri sures approximately 3.7 x 4.5 x 2.7 cm. Preliminary virtual Radiology report was reviewed. RADIATION DOSE DELIVERED: 306.71mGy.cm Total DLP DATA REPOSITORY: All CT scans at this facility are submitted to the National Radiology Data Registry (NRDR) Dose Index Registry (DIR) with the [employer] ([employer]). RADIATION OPTIMIZATION: All CT scans at this facility use at least one of these dose optimization te chniques: automated exposure control; mA and/or kV adjustment per patient size (includes targeted exa ms where dose is matched to clinical indication); or iterative reconstruction.
--- NOTE | 2024-12-03 20:03 | DI.CT_ITS ---
Exam(s) CT BRAIN NECK CTA EXAM: CT BRAIN NECK CTA CLINICAL HISTORY: DIZZY ACUTE VERTIGO. TECHNIQUE: Imaging Protocol: Axial CT angiography was performed with multi-slice acquisition and mu lti-planar and/or 3D reconstructions. CONTRAST MATERIAL: Intravenous: Omnipaque 350 Contrast volume:structured data in ml COMPARISON: No exams were available for comparison FINDINGS: The patient moved during this CTA study, rendering it non readable. It was thereafter repeated and reported on separate dictation. IMPRESSION: As above. There should be no charge generated for this study. RADIATION DOSE DELIVERED: 1,942.75mGy.cm Total DLP DATA REPOSITORY: All CT scans at this facility are submitted to the National Radiology Data Registry (NRDR) Dose Index Registry (DIR) with the [employer] (ACR). RADIATION OPTIMIZATION: All CT scans at this facility use at least one of these dose optimization te chniques: automated exposure control; mA and/or kV adjustment per patient size (includes targeted exa ms where dose is matched to clinical indication); or iterative reconstruction.
--- NOTE | 2024-12-03 20:35 | DI.VRAD_ITS ---
PROCEDURE INFORMATION: Exam: CTA Head Without And With Contrast, Arteriography Exam date and time: 12/03/2024 6:54 PM Age: 74 years old Clinical indication: Other: Dizzy acute vertigo; Additional info: Brain and neck cta portion of scan repeated per er provider due to motion TECHNIQUE: Imaging protocol: Computed tomographic angiography of the head without and with contrast. Exam focused on the arteries. 3D rendering (Not supervised by radiologist): MIP and/or 3D reconstructed images were created by the technologist. Contrast material: OMNIPAQUE 350; Contrast volume: 70 ml; Contrast route: INTRAVENOUS (IV); COMPARISON: No relevant prior studies available. FINDINGS: Limited secondary to motion artifact. ANTERIOR CIRCULATION: Right internal carotid artery: Intracranial segment is patent with no significant stenosis or occlusion. No aneurysm. Right middle cerebral artery: No occlusion or significant stenosis. No aneurysm. Right anterior cerebral artery: No occlusion or significant stenosis. No aneurysm. Left internal carotid artery: Intracranial segment is patent with no significant stenosis. No aneurysm. Left middle cerebral artery: No occlusion or significant stenosis. No aneurysm. Left anterior cerebral artery: No occlusion or significant stenosis. No aneurysm. POSTERIOR CIRCULATION: Right vertebral artery: No occlusion or significant stenosis. No aneurysm. Left vertebral artery: No occlusion or significant stenosis. No aneurysm. Basilar artery: No occlusion or significant stenosis. No aneurysm. Right posterior cerebral artery: No occlusion or significant stenosis. No aneurysm. Left posterior cerebral artery: No occlusion or significant stenosis. No aneurysm. HEAD: Brain: Mild volume loss No hemorrhage. Mild white matter disease. No mass effect. Cerebral ventricles: Normal. No ventriculomegaly. Bones: Unremarkable. No acute fracture. Paranasal sinuses: Visualized sinuses are normal. No fluid levels. Mastoid air cells: Visualized mastoids are normal. No mastoid effusion. Soft tissues: Unremarkable. IMPRESSION: 1. No large vessel occlusion. 2. No acute intracranial findings. PROCEDURE INFORMATION: Exam: CTA Neck Without And With Contrast Exam date and time: 12/03/2024 6:54 PM Age: 74 years old Clinical indication: Other: Dizzy acute vertigo; Additional info: Brain and neck cta portion of scan repeated per er provider due to motion TECHNIQUE: Imaging protocol: Computed tomographic angiography of the neck without and with contrast. Exam focused on the cervical segments of the vasculature. 3D rendering (Not supervised by radiologist): MIP and/or 3D reconstructed images were created by the technologist. Contrast material: OMNIPAQUE 350; Contrast volume: 70 ml; Contrast route: INTRAVENOUS (IV); COMPARISON: CT CHEST/ABD/PEL W 04/29/2023 10:19 AM FINDINGS: Limited due to motion artifact Right common carotid artery: No stenosis. No dissection or occlusion. Right internal carotid artery: No stenosis of the extracranial segment. No dissection or occlusion. Right external carotid artery: No occlusion or stenosis of the origin. Left common carotid artery: No stenosis. No dissection or occlusion. Left internal carotid artery: Moderate stenosis at the bulb. No dissection or occlusion. Left external carotid artery: No occlusion or stenosis of the origin. Right vertebral artery: No stenosis. No dissection or occlusion. Left vertebral artery: No stenosis. No dissection or occlusion. Soft tissues: No significant soft tissue swelling. Bones/joints: No acute fracture. IMPRESSION: Limited study as noted. Moderate left carotid stenosis No large vessel occlusion. REFERENCES: NASCET CRITERIA. The degree of stenosis in the cervical segment of the internal carotid artery is based on NASCET criteria. Normal is no stenosis. Mild is less than 50% stenosis. Moderate is 50-69% stenosis. Severe is 70% to 99% stenosis. Total occlusion is no detectable patent lumen. Dictated and Authenticated by: Mono Luna MD. Orderin Jacoby Cunningham MD
--- NOTE | 2024-12-03 20:36 | DI.VRAD_ITS ---
PROCEDURE INFORMATION: Exam: CTA Head Without And With Contrast, Arteriography Exam date and time: 12/03/2024 7:33 PM Age: 74 years old Clinical indication: Other: Dizzy; Additional info: Brain and neck cta portion of scan repeated per er provider due to motion TECHNIQUE: Imaging protocol: Computed tomographic angiography of the head without and with contrast. Exam focused on the arteries. 3D rendering (Not supervised by radiologist): MIP and/or 3D reconstructed images were created by the technologist. Contrast material: OMNIPAQUE 350; Contrast volume: 70 ml; Contrast route: INTRAVENOUS (IV); COMPARISON: CT BRAIN NECK CTA 12/03/2024 6:54 PM FINDINGS: ANTERIOR CIRCULATION: Right internal carotid artery: Intracranial segment is patent with no significant stenosis or occlusion. No aneurysm. Right middle cerebral artery: No occlusion or significant stenosis. No aneurysm. Right anterior cerebral artery: No occlusion or significant stenosis. No aneurysm. Left internal carotid artery: Intracranial segment is patent with no significant stenosis. No aneurysm. Left middle cerebral artery: No occlusion or significant stenosis. No aneurysm. Left anterior cerebral artery: No occlusion or significant stenosis. No aneurysm. POSTERIOR CIRCULATION: Right vertebral artery: No occlusion or significant stenosis. No aneurysm. Left vertebral artery: No occlusion or significant stenosis. No aneurysm. Basilar artery: No occlusion or significant stenosis. No aneurysm. Right posterior cerebral artery: No occlusion or significant stenosis. No aneurysm. Left posterior cerebral artery: No occlusion or significant stenosis. No aneurysm. HEAD: Brain: Prominence of the lateral left cerebellar extra-axial spaces versus arachnoid cyst measuring 4 cm No hemorrhage. Mild white matter disease. No mass effect. Cerebral ventricles: Normal. No ventriculomegaly. Bones: Unremarkable. No acute fracture. Paranasal sinuses: Visualized sinuses are normal. No fluid levels. Mastoid air cells: Visualized mastoids are normal. No mastoid effusion. Soft tissues: Unremarkable. IMPRESSION: 1. No large vessel occlusion. 2. Left lateral cerebellar arachnoid cyst measuring 4 cm versus prominence of the extra-axial spaces. Comparison with prior images would be helpful PROCEDURE INFORMATION: Exam: CTA Neck Without And With Contrast Exam date and time: 12/03/2024 7:33 PM Age: 74 years old Clinical indication: Other: Dizzy; Additional info: Brain and neck cta portion of scan repeated per er provider due to motion TECHNIQUE: Imaging protocol: Computed tomographic angiography of the neck without and with contrast. Exam focused on the cervical segments of the vasculature. 3D rendering (Not supervised by radiologist): MIP and/or 3D reconstructed images were created by the technologist. Contrast material: OMNIPAQUE 350; Contrast volume: 70 ml; Contrast route: INTRAVENOUS (IV); COMPARISON: CT BRAIN NECK CTA 12/03/2024 6:54 PM FINDINGS: Right common carotid artery: No stenosis. No dissection or occlusion. Right internal carotid artery: No stenosis of the extracranial segment. No dissection or occlusion. Right external carotid artery: No occlusion or stenosis of the origin. Left common carotid artery: No stenosis. No dissection or occlusion. Left internal carotid artery: Moderate stenosis at the bulb. No dissection or occlusion. Left external carotid artery: No occlusion or stenosis of the origin. Right vertebral artery: No stenosis. No dissection or occlusion. Left vertebral artery: No stenosis. No dissection or occlusion. Soft tissues: Normal. No significant soft tissue swelling. Bones/joints: No acute fracture. IMPRESSION: Moderate stenosis at the left carotid bulb No large vessel occlusion. REFERENCES: NASCET CRITERIA. The degree of stenosis in the cervical segment of the internal carotid artery is based on NASCET criteria. Normal is no stenosis. Mild is less than 50% stenosis. Moderate is 50-69% stenosis. Severe is 70% to 99% stenosis. Total occlusion is no detectable patent lumen. Dictated and Authenticated by: Mono Luna MD. Orderin Jacoby Cunningham MD
--- NOTE | 2024-12-03 21:52 | ED.GENADUL_ITS ---
Discharge Plan Disposition Patient Disposition: Admit to [facility] Condition: Stable Discharge Details Clinical Impression: Vertigo Primary Care Provider: Blanquita Pagan ED Provider: Nemo Dozier Home Meds and New Rx's Prescriptions: New meclizine 25 mg tablet 25 mg PO TID PRNQty: 20 0RF No Action levothyroxine 50 mcg capsule 62.5 mcg PO DAILY calcium carbonate 500 mg calcium (1,250 mg) tablet 500 mg PO BID alendronate 10 mg tablet 10 mg PO DAILY cholecalciferol (vitamin D3) 10 mcg (400 unit) capsule 20 mcg PO DAILY pantoprazole 40 mg tablet,delayed release (DR/EC) See Rx Instructions .ROUTE .COMPLEX Qty: 60 2RF Dose Instruction: TAKE ONE TABLET BY MOUTH EVERY DAY FOR GERD Rx Instructions: TAKE ONE TABLET BY MOUTH EVERY DAY FOR GERD albuterol sulfate 90 mcg/actuation HFA aerosol inhaler 2 puff INHALATION ONCE PRN Patient Comments: INHALE 2 PUFFS BY MOUTH EVERY 4 TO 6 HOURS NEEDED HPI General Date/Time Provider Initiated Documentation: 12/03/24 15:42 . Limitations to Documentation: physical limitation . Information obtained by: patient . HPI Narrative: 74-year-old female with past medical history of lymphoma in remission on rituximab for maintenance therapy presents for evaluation of acute onset dizziness. She reports that she was taking a walk feeling completely normal when she became acutely dizzy and nauseated, she was unable to continue walking and she fell to the ground. She was unable to get herself up from the ground because of the dizziness. She denies any pain or injury after falling. She reports that a bystander that drove by saw her on the ground and got help for her. She does not have any history of vertigo. She denies any headache or ear ringing. She denies any double vision. She does report that the dizziness is better with laying still and keeping her eyes closed but gets worse when she looks around. Related Data Home Medications ?Medication ?Instructions ?Recorded ?Confirmed alendronate 10 mg tablet 10 mg PO DAILY 04/01/21 12/03/24 calcium carbonate 500 mg PO BID 04/01/21 12/03/24 cholecalciferol (vitamin D3) 10 20 mcg PO DAILY 04/01/21 12/03/24 mcg (400 unit) capsule levothyroxine 50 mcg capsule 62.5 mcg PO DAILY 04/01/21 12/03/24 pantoprazole 40 mg tablet,delayed See Rx Instructions .Route 04/21/22 12/03/24 release .COMPLEX #60 tabs albuterol sulfate 90 mcg/actuation 2 puff inhalation ONCE PRN 12/03/24 12/03/24 aerosol inhaler meclizine 25 mg tablet 25 mg PO TID PRN #20 tabs 12/03/24 Previous Rx's ?Medication ?Instructions ?Recorded pantoprazole 40 mg tablet,delayed See Rx Instructions .Route 04/21/22 release .COMPLEX #60 tabs meclizine 25 mg tablet 25 mg PO TID PRN #20 tabs 12/03/24 Allergies Allergy/AdvReac Type Severity Reaction Status Date / Time No Known Allergies Allergy Unverified 12/03/24 15:36 General Stated Complaint: Dizzy/Sync GARETH: 3 Exam Narrative Exam Narrative: Review of Systems: All systems reviewed & are unremarkable except as noted in HPI and below Well-developed, no acute distress NCAT Nystagmus when looking to the left, vertical nystagmus that extinguishes RRR Port in right upper chest wall Unlabored respiratory effort, clear bilaterally Nondistended abdomen , soft nontender Extremities w/o deformity no focal neurologic deficits, normal sensation and strength throughout, unable to assess gait, no dysmetria Course Vital Signs Vital signs: Vital Signs Temperature 36.6 C 12/03/24 15:31 Pulse 76 12/03/24 15:31 Respiratory Rate 20 12/03/24 15:31 Blood Pressure 131/81 12/03/24 15:31 Pulse Oximetry 96 12/03/24 15:31 Temperature 36.6 C 12/03/24 15:31 Pulse 64 12/03/24 21:41 Pulse 68 12/03/24 21:10 Respiratory Rate 9 L 12/03/24 21:10 Respiratory Effort Normal, Non-Labored 12/03/24 17:15 Respiratory Depth Normal 12/03/24 17:15 Respiratory Pattern Normal 12/03/24 17:15 Blood Pressure 168/88 H 12/03/24 21:40 Blood Pressure Mean 115 12/03/24 21:40 Blood Pressure Position Sitting 12/03/24 15:31 Pulse Oximetry 100 12/03/24 21:41 Oxygen Delivery Method Room Air 12/03/24 15:31 Oxygen Flow Rate 0 12/03/24 15:31 Lab/Test Results Lab/Test Results: Laboratory Tests Range/Units 12/03/24 17:00 WBC (4.4-10.8) 10^3/uL 4.77 RBC (3.93-5.22) 10^6/uL 3.48 L Hgb (11.2-15.7) g/dL 10.9 L Hct (36.0-46.0) % 32.0 L MCV (80-95) fL 92 MCH (27.0-33.0) pg 31.3 MCHC (32.0-36.0) % 34.1 RDW (11.7-14.6) % 13.9 Plt Count (130-400) 10^3/uL 169 MPV (8.0-11.0) fL 9.6 Immature Gran % % 0.2 Neutrophils % % 82.6 Lymphocytes % % 4.6 Monocytes % % 10.5 Eosinophils % % 1.3 Basophils % % 0.8 Nucleated RBC % (0.0-0.3) % 0.0 Absolute Neutrophils (1.2-6.7) 10^3/uL 3.94 Absolute Lymphocytes (1.2-3.4) 10^3/uL 0.22 L Absolute Monocytes (0.1-0.8) 10^3/uL 0.50 Absolute Eosinophils (0.0-0.7) 10^3/uL 0.06 Absolute Basophils (0.0-0.2) 10^3/uL 0.04 Sodium (136-145) mmol/L 135 L Potassium (3.5-5.1) mmol/L 3.7 Chloride (98-107) mmol/L 100 Carbon Dioxide (21.0-32.0) mmol/L 31.4 Anion Gap (3-11) mmol/L 3.6 BUN (7-18) mg/dL 13 Creatinine (0.55-1.02) mg/dL 0.5 L Est GFR (CKD-EPI 2020) (mL/min/1.73m2) 97.75 Glucose (74-106) mg/dL 106 Calcium (8.5-10.1) mg/dL 8.9 Magnesium (1.8-2.4) mg/dL 2.0 Total Bilirubin (0.2-1.0) mg/dL 0.4 AST (15-37) U/L 27 ALT (14-59) U/L 75 H Alkaline Phosphatase (46-116) U/L 56 Total Protein (6.4-8.2) g/dL 6.3 L Albumin (3.4-5.0) g/dL 3.6 Medical Decision Making Emergent evaluation of acute onset vertigo symptoms. Patient does have significant history of lymphoma but no brain lesions. Has been does reports lesions in the spine. But now currently in remission. On examination she does have signs concerning for peripheral vertigo. She does not have any signs or symptoms concerning for central etiology but am unable to test for ataxia Romberg secondary to severe dizziness at this time. The patient was given IV Valium and some IV fluids and this did seem to improve her symptoms, she was able to sit up a little bit and open her eyes without vomiting. Lab work was obtained. No leukocytosis or leukopenia. Mild anemia at 10.9 which seems consistent with her prior values. No significant electrolyte derangement. Kidney and liver function within normal limits. Patient was sent for CTA imaging of head and neck to evaluate for an acute intracranial etiology or lesion given her history of lymphoma. This study did not reveal any acute process. Although the patient's symptoms have improved, she is still unable to walk secondary to the dizziness which seems to still be present. Given her high risk for brain lesion with lymphoma, I would like to admit her to the hospital for MRI imaging with and without contrast and continued therapy for vertigo. Quality:SDOH Health Related Social Needs: No Data to Display PFSH All Active Problems (Updated 12/03/24 @ 21:23 by Nemo Dozier MD) Vertigo (Acute) Sensorineural hearing loss (SNHL) of both ears (Acute) Impacted cerumen, right ear (Acute) Dysphagia (Acute ~04/2021) GERD (gastroesophageal reflux disease) (Acute ~04/2021) Barretts esophagus (Acute ~04/2021) Medical History Elevated TSH Foreign body granuloma of soft tissue of foot Hearing deficit Heart murmur Pt. states she was told it was benign and not an issue Hematuria Hyperlipidemia Hypertension Memory loss Osteoporosis Polyneuropathy Screening for breast cancer Toe anomaly Surgical History History of esophagogastroduodenoscopy (EGD) (~04/2021) 04/2021 - Barretts History of tonsillectomy Social History Smoking/Tobacco Use Status: Never Smoking risk assessment performed?: Yes Alcohol Intake: current Alcohol Intake frequency: a few times a week Alcohol type: beer and hard liquor Substance use type: does not use Do you feel safe at home: Yes Do you feel safe in your relationship?: Yes PAWSS Have you Been Recently Intoxicated or Drunk Within the Last 30 days?: No Have you Ever Experienced Previous Episodes of Alcohol Withdrawal?: No Have you ever Experienced Withdrawal Seizures?: No Have you ever Experienced Delirium Tremens(DT)s?: No Have you ever undergone Alcohol Rehabilitation Treatment (i.e, inpt ot outpatient treatment programs)?: No Have you ever Experienced Blackouts?: No Have you ever Combined Alcohol with other Downers within the last 90 days?: No Have you ever Combined Alcohol with any other Substance of Abuse during the last 90 days?: No Positive Blood Alcohol level on Presentation? [PCS.BAL]: No Evidence of Increased Autonomic Activity (i.e. HR>120, tremor, sweating, agitation, nausea)?: No Result: 0
[2024-12-03] MEDS: Normal Saline 1,000 ML 100 ML IV (21:58)
--- NOTE | 2024-12-03 22:51 | HPE_ITS ---
Date of service: 12/03/24 Time of Service: 22:51 Assessment and Plan Assessment and plan (1) Vertigo: Status: Acute Assessment and plan: Exam c/w peripheral vertigo but severity an persistence less c/w BPPV. No signs of infection to suggest vestibulitis With known lymphoma and vascular risk factors and somewhat abnormal cerebellar CT, I agree with MRI in am rest tonight after valium, try to mobilize with PT in am. (2) GERD (gastroesophageal reflux disease): Status: Acute Assessment and plan: continue PPI (3) Hypertension: Assessment and plan: BP high here, but I would not treat as cerebrovascular event in posterior circulation is still in DDx Follow (4) Non-Hodgkin lymphoma: Status: Acute Assessment and plan: has responded to rituximab. Mild anemia on presentation. Follow. (5) Heart murmur: Assessment and plan: not new, benign echo in 2022 (6) DVT prophylaxis: Status: Acute Assessment and plan: enoxaparin History of Present Illness History of Present Illness Chief Complaint: dizzy Narrative: 74-year-old female with past medical history of lymphoma in remission on rituximab for maintenance therapy presents for evaluation of acute onset dizziness. She reports that she was taking a walk feeling completely normal about the middle of the day when she became acutely dizzy and nauseated, was unable to continue walking and she fell to the ground. She felt like she completely lost her balance and tipped over. She had no chest pain, palpitaitons, focal numbness or weakness, headache, or sense she was going to pass out. No LOC. She did not move her head suddenly before this episode. She was unable to get herself up from the ground because of the dizziness so she was crawling back towards her home when her neighbor saw her and called her . She has never had this before. She has not had a recent cold/URI or ear pain. The patient was given meclezine and valium 5mg and felt some releif in the ED but was not able to walk safely. She feels a little cloudy headed now and still a constant dizziness. She had a small glass of beer last night, nothing today, no other substances. She had eaten this morning. Review of Systems All systems reviewed & are unremarkable except as noted in HPI and below Constitutional Constitutional: Denies chills, Denies fever(s), Denies night sweats and Reports weight loss (lost a few lbs in the past year with cancer, not a lot) Respiratory Respiratory: Reports cough (associates with GERD, chronic) Gastrointestinal Gastrointestinal: Denies vomiting (not accutely, but can get emesis with coughing fits) PFSH All Active Problems (Updated 12/04/24 @ 00:52 by Ishaan Wells) DVT prophylaxis (Acute) Non-Hodgkin lymphoma (Acute) Vertigo (Acute) Sensorineural hearing loss (SNHL) of both ears (Acute) Impacted cerumen, right ear (Acute) Dysphagia (Acute ~04/2021) GERD (gastroesophageal reflux disease) (Acute ~04/2021) Barretts esophagus (Acute ~04/2021) Medical History Hypertension Hearing deficit Hyperlipidemia Screening for breast cancer Osteoporosis Polyneuropathy Elevated TSH Foreign body granuloma of soft tissue of foot Toe anomaly Heart murmur Pt. states she was told it was benign and not an issue Hematuria Memory loss Surgical History History of esophagogastroduodenoscopy (EGD) (~04/2021) 04/2021 - Barretts History of tonsillectomy Social History (Updated 12/04/24 @ 00:37 by Ishaan Wells) Smoking/Tobacco Use Status: Never Smoking risk assessment performed?: Yes Alcohol Intake: current Alcohol Intake frequency: a few times a week Alcohol type: beer and hard liquor Substance use type: does not use Do you feel safe at home: Yes Do you feel safe in your relationship?: Yes Additional Social history: lives with Enrique in [facility]. 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 Allergies and Home Medications Allergies Allergy/AdvReac Type Severity Reaction Status Date / Time No Known Allergies Allergy Unverified 12/03/24 15:36 Home Medications ?Medication ?Instructions ?Recorded ?Confirmed ?Type alendronate 10 mg tablet 10 mg PO DAILY 04/01/21 12/03/24 History calcium carbonate 500 mg PO BID 04/01/21 12/03/24 History cholecalciferol (vitamin D3) 10 20 mcg PO DAILY 04/01/21 12/03/24 History mcg (400 unit) capsule levothyroxine 50 mcg capsule 62.5 mcg PO DAILY 04/01/21 12/03/24 History pantoprazole 40 mg tablet,delayed See Rx Instructions .Route 04/21/22 12/03/24 Rx release .COMPLEX #60 tabs albuterol sulfate 90 mcg/actuation 2 puff inhalation ONCE PRN 12/03/24 12/03/24 History aerosol inhaler meclizine 25 mg tablet 25 mg PO TID PRN #20 tabs 12/03/24 Rx Exam Narrative Exam Narrative: GEN: Alert and oriented x 4, pleasant and cooperative, gives linear history but a little slow to respond with details (s/p valium). No acute distress at rest. HEENT: Head atraumatic. Conjunctiva clear, no icterus. Lft canal with wax, right open and TM clear. PEERL, EOMI, persistent horizontal nystagmus beating to the right while looking left. no rhinorrhea. MMM, OP benign. Neck is supple with no masses or lymphadenopathy, trachea midline LUNGS: CTAB with normal effort CV: RRR with 3/6 systolic murmur throughout to the neck and axilla, no gallops or rubs. ABD: active bowel sounds, soft, nontender and nondistended. No masses. EXT: no cyanosis, clubbing. trace mak ankle edema MSK: No joint redness or swelling NEURO: CN 2-12 intact. No pronator drift. Visual greer intact to confrontation. Normal FNF and HTS mak. DTRs 1+ and symmetric in patella. Normal strength and sensation of 4 extremities. Normal speech. No tremor. Did not try to stand or do Danica with ongoing dizziness SKIN: No rashes or open wounds. PSYCH: normal mood and affect Results Imaging EKG: report reviewed and image reviewed (NSR, nl axis, intervals, no ST- T abnormalities) Imaging Studies: CTA head/neck: 1. No large vessel occlusion. 2. No acute intracranial findings. 2. Left lateral cerebellar arachnoid cyst measuring 4 cm versus prominence of the extra-axial spaces. Comparison with prior images would be helpful Labs 12/03/24 17:00 12/03/24 17:00 Labs: Laboratory Results - last 24 hr 12/03/24 17:00 WBC 4.77 RBC 3.48 L Hgb 10.9 L Hct 32.0 L MCV 92 MCH 31.3 MCHC 34.1 RDW 13.9 Plt Count 169 MPV 9.6 Immature Gran % 0.2 Neutrophils % 82.6 Lymphocytes % 4.6 Monocytes % 10.5 Eosinophils % 1.3 Basophils % 0.8 Nucleated RBC % 0.0 Absolute Neutrophils 3.94 Absolute Lymphocytes 0.22 L Absolute Monocytes 0.50 Absolute Eosinophils 0.06 Absolute Basophils 0.04 Sodium 135 L Potassium 3.7 Chloride 100 Carbon Dioxide 31.4 Anion Gap 3.6 BUN 13 Creatinine 0.5 L Est GFR (CKD-EPI 2020) 97.75 Glucose 106 Calcium 8.9 Magnesium 2.0 Total Bilirubin 0.4 AST 27 ALT 75 H Alkaline Phosphatase 56 Total Protein 6.3 L Albumin 3.6 Last Vital Signs Temp 36.6 C 12/03/24 15:31 Pulse 59 L 12/03/24 22:40 Resp 9 L 12/03/24 21:10 BP 159/88 H 12/03/24 22:30 Pulse Ox 100 12/03/24 22:40 PAWSS Have you Been Recently Intoxicated or Drunk Within the Last 30 days?: No Have you Ever Experienced Previous Episodes of Alcohol Withdrawal?: No Have you ever Experienced Withdrawal Seizures?: No Have you ever Experienced Delirium Tremens(DT)s?: No Have you ever undergone Alcohol Rehabilitation Treatment (i.e, inpt ot outpatient treatment programs)?: No Have you ever Experienced Blackouts?: No Have you ever Combined Alcohol with other Downers within the last 90 days?: No Have you ever Combined Alcohol with any other Substance of Abuse during the last 90 days?: No Positive Blood Alcohol level on Presentation? [PCS.BAL]: No Evidence of Increased Autonomic Activity (i.e. HR>120, tremor, sweating, agitation, nausea)?: No Result: 0 Time Spent Time spent with Patient: 55-74 minutes Time was spent: preparing to see the patient(eg.review tests), obtaining and/or reviewing separately otained hiistory, ordering medications,tests, procedures, referring, communicating with other health home child care provider, indepentently interpreting results, counseling the patient and care coordination
[2024-12-04] VITALS: BP 187/154; PULSE 71; O2SAT 98
[2024-12-04 00:01] VITALS: PULSE 65; O2SAT 100
[2024-12-04 00:05] VITALS: BP 187/91; PULSE 64; O2SAT 100
[2024-12-04 00:10] VITALS: PULSE 62; O2SAT 100
--- NOTE | 2024-12-04 00:14 | W.PC.ACHO ---
Registration Status: Primary Language: Preferred Language: ED Information & Data Chief Complaint Dizzy/Sync 12/03/24 21:54 Triage Note Sudden onset of vertigo/ 12/03/24 15:31 dizziness while on a walk today. Denies injury from fall. Notable edema in both ankles. denies chest pain/ shortness of breath. Medical / Surgical History (Last Reviewed 03/21/23 @ 05:02 by Jimmie Dumont DO) Hypertension Hearing deficit Hyperlipidemia Screening for breast cancer Osteoporosis Polyneuropathy Elevated TSH Foreign body granuloma of soft tissue of foot Toe anomaly Heart murmur Hematuria Memory loss (Last Reviewed 03/21/23 @ 05:02 by Jimmie Dumont DO) History of esophagogastroduodenoscopy (EGD) (~04/2021) History of tonsillectomy Most Recent Vital Signs Temperature 36.6 C 12/03/24 15:31 Pulse 59 L 12/03/24 22:40 Pulse 68 12/03/24 21:10 Respiratory Rate 9 L 12/03/24 21:10 Respiratory Effort Normal, Non-Labored 12/03/24 17:15 Respiratory Depth Normal 12/03/24 17:15 Respiratory Pattern Normal 12/03/24 17:15 Blood Pressure 159/88 H 12/03/24 22:30 Blood Pressure Mean 108 12/03/24 22:30 Blood Pressure Position Sitting 12/03/24 15:31 Pulse Oximetry 100 12/03/24 22:40 Oxygen Delivery Method Room Air 12/03/24 15:31 Oxygen Flow Rate 0 12/03/24 15:31 Allergies No Known Allergies Allergy (Unverified 12/03/24 15:36) Active Medications Generic Name Dose Route Start Last Admin Trade Name Geovannyq PRN Reason Stop Dose Admin Sodium Chloride 1,000 mls @ 100 mls/hr 12/03/24 21:30 12/03/24 21:58 Saline 1000ml Bag IV 100 mls/hr INFUSION ANY Administration Iohexol 70 ml 12/03/24 19:15 12/03/24 20:00 Omnipaque 350 Mg/Ml 100 Ml Btl IJ 01/02/25 23:59 70 ml DIRECTED ANY Administration Sodium Chloride 50 ml 12/03/24 19:15 12/03/24 19:59 Normal Saline - Diluent 50 Ml Vial IJ 50 ml .FOR DI USE ANY Administration IV IV Catheter Type [Right Peripheral IV Proximal Port] Diet Orders Category Date Time Status Regular/Normal [DIET] Nutrition 12/04/24 Breakfast Active Diagnostics 12/04/24 12/03/24 Range/Units 05:35 17:00 WBC Pending 4.77 (4.4-10.8) 10^3/uL RBC Pending 3.48 L (3.93-5.22) 10^6/uL Hgb Pending 10.9 L (11.2-15.7) g/dL Hct Pending 32.0 L (36.0-46.0) % MCV Pending 92 (80-95) fL MCH Pending 31.3 (27.0-33.0) pg MCHC Pending 34.1 (32.0-36.0) % RDW Pending 13.9 (11.7-14.6) % Plt Count Pending 169 (130-400) 10^3/uL MPV Pending 9.6 (8.0-11.0) fL Immature Gran % 0.2 % Neutrophils % 82.6 % Lymphocytes % 4.6 % Monocytes % 10.5 % Eosinophils % 1.3 % Basophils % 0.8 % Nucleated RBC % 0.0 (0.0-0.3) % Absolute Neutrophils 3.94 (1.2-6.7) 10^3/uL Absolute Lymphocytes 0.22 L (1.2-3.4) 10^3/uL Absolute Monocytes 0.50 (0.1-0.8) 10^3/uL Absolute Eosinophils 0.06 (0.0-0.7) 10^3/uL Absolute Basophils 0.04 (0.0-0.2) 10^3/uL Sodium Pending 135 L (136-145) mmol/L Potassium Pending 3.7 (3.5-5.1) mmol/L Chloride Pending 100 (98-107) mmol/L Carbon Dioxide Pending 31.4 (21.0-32.0) mmol/L Anion Gap Pending 3.6 (3-11) mmol/L BUN Pending 13 (7-18) mg/dL Creatinine Pending 0.5 L (0.55-1.02) mg/dL Est GFR (CKD-EPI 2020) Pending 97.75 (mL/min/1.73m2) Glucose Pending 106 (74-106) mg/dL Calcium Pending 8.9 (8.5-10.1) mg/dL Magnesium 2.0 (1.8-2.4) mg/dL Total Bilirubin Pending 0.4 (0.2-1.0) mg/dL AST Pending 27 (15-37) U/L ALT Pending 75 H (14-59) U/L Alkaline Phosphatase Pending 56 (46-116) U/L Total Protein Pending 6.3 L (6.4-8.2) g/dL Albumin Pending 3.6 (3.4-5.0) g/dL TSH Pending Intake and Output - 24 Hour Total 12/03/24 15:25 thru 12/03/24 19:07 Intake Total 1100 Balance 1100 Weight 52.617 kg Intake: IV 1100 Falls Risk Assessment History of Falls Admit Due to Fall 12/03/24 15:33 Contributing Factors Unstable,Impairments 12/03/24 15:33 Ambulatory Aids Uses ambulatory device 12/03/24 15:33 Tubes/Lines None 12/03/24 15:33 Gait Evaluation No gait disturbance 12/03/24 15:33 Cognition No cognitive impairment 12/03/24 15:33 Fall Total Score 46 12/03/24 15:33 Level of Risk Moderate Risk 12/03/24 15:33 v v v v v v v v v Sending and/or Receiving Nurses: Please use comment section below to note any information pertinent to the patient hand-off not included above. Information / Comments: Report received from: Booker AGGARWAL
[2024-12-04] MEDS: Levothyroxine 25 MCG TAB (01:17)
[2024-12-04] MEDS: Levothyroxine 50 MCG TAB (01:18)
[2024-12-04] MEDS: Normal Saline Flush 10 ML SYR IVP ×3 (03:55→20:39)
--- NOTE | 2024-12-04 03:59 | NUR.NOTE ---
Nursing Note: Pt resting comfortably when RN came on shift. IV fluids reattached a short time later and Pt used the bathroom. Walked to bathroom and back with walker very shaky. Sleepy, had to be physically guided and verbally cued.
--- NOTE | 2024-12-04 06:00 | DI.MRI_ITS ---
Exam(s) MR BRAIN WO/W EXAM: MR BRAIN WO/W CLINICAL HISTORY: acute/severe vertigo, abnormal CT TECHNIQUE: Multiplanar multisequence MRI of the brain was performed. Both noninfused and contrast i nfused sequences were performed. IV Contrast injected was cc Dotarem. COMPARISON: CT CT BRAIN NECK CTA from 12/03/[address] BRAIN NECK CTA from 12/03/2024 FINDINGS: CEREBRAL PARENCHYMA: There is an arachnoid cyst in the left side of the posterior fossa which measure s 4.7 cm AP by 2.7 cm wide by 3 cm craniocaudal. There is no edema nor abnormal enhancement in the a djacent left cerebellar hemisphere. There is a tiny focus of signal abnormality in both cerebellar h emispheres not associated with hemorrhage, surrounding edema nor enhancement. There is no abnormal s ignal in the clyde and midbrain and thalami but there are multiple foci of in signal abnormality in th e Ginger in supra ventricular white matter consistent with chronic small vessel disease and not exhibit ing no evidence of hemorrhage, enhancement, nor restricted diffusion. SWI: No microhemorrhages evident. There are no ring enhancing lesions in the brain. There is no abnormal meningeal enhancement. PITUITARY GLAND: No mass nor parasellar abnormality. No obvious abnormality in the cavernous sinuses. FLOW VOIDS: The expected flow void are noted. No evidence of obvious aneurysm nor obvious vascular ma lformation. PARANASAL SINUSES: The visualized paranasal sinuses appear unremarkable. ORBITS: No obvious abnormal findings. IMPRESSION: 1. There are multiple foci of ginger and supra ventricular signal abnormality consistent with chronic s mall-vessel white matter disease. Not associated with hemorrhage, surrounding edema, enhancement, no r restricted diffusion. 2. There is an arachnoid cyst in the left posterior fossa lateral to the left cerebellar hemisphere, this measuring 4.7 cm AP x 2.7 cm wide x 3 cm craniocaudal. 2. No abnormal enhancing intracranial findings. There are no ring enhancing lesions in the brain and there is no abnormal meningeal enhancement. DATA REPOSITORY:
[2024-12-04 07:53] VITALS: BP 108/79; PULSE 66; RESP 19; TEMP 36.7; O2SAT 99
[2024-12-04] MEDS: Pantoprazole 40 MG TABCR PO (08:01)
--- NOTE | 2024-12-04 09:34 | INITIAL_ITS ---
Date of service: 12/04/24 Time of Service: 12:07 Care Management Initial Assmt Initial Assessment Reason for Hospitalization: Vertigo Functional Status/Living Situation Patient Presentation: Ani was sitting up in her chair and Enrique () had just left, when CM arrived. She presented to the ED yesterday evening for evaluation of acute onset dizziness. Per report, she had fallen down while walking, and was unable to get herself up, due to being dizzy. Ani states she did not know how long she was down, but doesn't think it was very long. Ani is a pleasant lady, who is w illing to engage in conversation. She states that she is currently living in [place], with her , in their single family home; This home has 2 entrances with 2-3 steps, and secure hand rails which lead inside. Ani states that she has 2 children; Her son - Donald is living in [facility] and acts as a support for them and her daughter - Hina lives in [place], she states that she has an estranged relationship with Hina. 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 Ani states that she is not connected to any community organizations, but is actively involved in her local community. She reports that she is very active and walks 7,000 steps a day, and enjoys walking on the road near her home. Both Ani and Enrique drive as their primary form of transportation. CM will continue to follow. Town of Residence: [place] Resides with: Spouse (Enrique) Significant Other/Family: Out of area (Donald (Son) has home in [place] but lives in [place]. Hina (daughter)lives in [place] but minimal involvement at this time ) Natural Supports: Children/friends/neighbors Employment Status: Retired Instrumental Activities of Daily Living (ADLs): Independent Activities/Hobbies/SocialSupport: Spouse, family, friends Medications Medication Management: No Issues/Barriers identified (Enrique helps her set up her medication in weekly pill containers. ) Physical Functioning/Mobility Assistive Device: has a walking stick and access to a walker (she reports she does not use the walker, at this time) Advance Directives Advance Directives: Do you have an Advance Directive: [place] 01/02/13 11:36 AD On File at [facility]: N 01/02/13 11:36 Date Asked 12/03/24 12/03/24 15:26 AD Date Reviewed COLST On File at [facility] COLST Date Scanned Code Status Resuscitation Status Full Code Portal Pt does not currently have a portal and education provided: Yes Insurance Coverage/Financial Issues Insurance: Medicare Part A & B - [id number] /[facility] - [id number] Care Team Visit Care Team Role Provider Type Donald Mares MD MD [facility] STAFF PHYSICIAN Blanquita Pagan Primary Care Provider NURSE PRACTITIONER InPatient Gildardo Choi Other Providers OTHER Nemo Dozier MD Emergency Provider [facility] STAFF PHYSICIAN Ishaan Wells Admit Provider [facility] STAFF PHYSICIAN Attending Provider Discharge Potential Discharge Needs: PT Evaluation and PCP F/U Appt Anticipated Barriers to Discharge: Medical Status Patient/Family Education Needs: Review discharge instructions, discuss Ask Me Three Transportation: Private vehicle Plan: Anticipate Ani will be discharge home once medically ready, PT consult pending. She will follow up with her community providers and continue per her discharge plan of care. Ani will be discharged via private vehicle by her . CM will continue to follow. Social Determinants of Health Screening Social Determinants of health last assessed in clinic: 12/04/24 Will the Patient Participate in the Screening?: Yes Do you worry about having a steady place to live?: no Problems where you live: no known problems In the past 12 months, have you had to go without electric, gas, oil or water in your home?: no 1. Within the past 12 months, we worried whether our food would run out before we got money to buy more.: Never true 2. Within the past 12 months, the food we bought just didn't last and we didn't have money to get more.: Never true Has lack of transportation kept you from medical appointments or from doing things needed for daily living?: no Has anyone in your life made you feel unsafe or unsupported?: no How hard is it for you to pay for the very basics like food, housing, medical care, and heating? Would you say it is:: Not hard at all Do you want help finding or keeping work or a job?: I do not need or want help If for any reason you need help with day-to-day activities such as bathing, preparing meals, shopping, managing finances, etc., do you get the help you need?: I don?t need any help How often do you feel lonely or isolated from those around you?: Never Do you speak a language other than Amharic at home?: No Does the patient want assistance with any of the above?: No PFSH All Active Problems (Updated 12/04/24 @ 00:52 by Ishaan Wells) DVT prophylaxis (Acute) Non-Hodgkin lymphoma (Acute) Vertigo (Acute) Sensorineural hearing loss (SNHL) of both ears (Acute) Impacted cerumen, right ear (Acute) Dysphagia (Acute ~04/2021) GERD (gastroesophageal reflux disease) (Acute ~04/2021) Barretts esophagus (Acute ~04/2021) Medical History Hypertension Hearing deficit Hyperlipidemia Screening for breast cancer Osteoporosis Polyneuropathy Elevated TSH Foreign body granuloma of soft tissue of foot Toe anomaly Heart murmur Pt. states she was told it was benign and not an issue Hematuria Memory loss Surgical History History of esophagogastroduodenoscopy (EGD) (~04/2021) 04/2021 - Barretts History of tonsillectomy Social History (Updated 12/04/24 @ 00:37 by Ishaan Wells) Smoking/Tobacco Use Status: Never Smoking risk assessment performed?: Yes Alcohol Intake: current Alcohol Intake frequency: a few times a week Alcohol type: beer and hard liquor Substance use type: does not use Housing: house Do you feel safe at home: Yes Do you feel safe in your relationship?: Yes Additional Social history: lives with Enrique in [facility]. 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
--- NOTE | 2024-12-04 10:07 | NUR.NOTE ---
in chart to check status of ECGNursing Note:
[2024-12-04] MEDS: Normal Saline 1,000 ML 100 ML IV (10:10)
[2024-12-04] MEDS: Enoxaparin 40 MG/0.4 ML SYR SC (10:10)
[2024-12-04] MEDS: Cholecalciferol (Vitamin D3) 400 UNIT TAB 800 UNIT PO (10:11)
[2024-12-04] MEDS: Calcium Carbonate 1.25 GM TAB PO ×2 (10:11→20:39)
[2024-12-04 10:29] LABS: HCT 35.9 % (36.0-46.0); HGB 12.1 g/dL (11.2-15.7); MCHC 33.7 % (32.0-36.0); MCV 92 fL (80-95); MPV 10.4 fL (8.0-11.0); Platelet Count 202 10^3/uL (130-400); RDW 13.7 % (11.7-14.6); RDW-SD 46.4 fL; WBC 4.17 10^3/uL (4.4-10.8)
[2024-12-04 11:10] LABS: ALT 40 U/L (14-59); AST 29 U/L (15-37); Albumin 3.8 g/dL (3.4-5.0); Alkaline Phosphatase 59 U/L (46-116); Anion Gap 6.9 mmol/L (3-11); BUN 7 mg/dL (7-18); Bilirubin, Total 0.4 mg/dL (0.2-1.0); CO2 31.1 mmol/L (21.0-32.0); CREATININE 0.4 mg/dL (0.55-1.02); Chloride 104 mmol/L (98-107); Estimated GFR 103.15 (mL/min/1.73m2); Glucose 85 mg/dL (74-106); Potassium 3.4 mmol/L (3.5-5.1); Sodium 142 mmol/L (136-145); Total Protein 6.7 g/dL (6.4-8.2)
[2024-12-04 11:18] LABS: TSH (W/Ref FT4) 4.37 uIU/mL (0.36-3.74)
--- NOTE | 2024-12-04 11:26 | CHAPLAIN ---
Ani was sitting up in bed when I visited. The LIMITED RADIOLOGY TECHNICIAN let Ani know that she'd be going for an MRI in about 15 minutes. Ani said that she's had an MRI before and knows what to expect. She is also in remission from cancer, and said that was a difficult time for her. Her is with her. I will plan to visit again this afternoon.
[2024-12-04] MEDS: Gadoterate meglumine 20 ML VIAL 10 ML IVP (11:28)
[2024-12-04 11:53] LABS: FREE T4 1.27 ng/dL (0.76-1.46)
--- NOTE | 2024-12-04 12:40 | PGE_ITS ---
Date of Service Date of service: 12/04/24 Time of Service: 12:40 Assessment and Plan Assessment and plan (1) Vertigo: Status: Acute Assessment and plan: -Exam c/w peripheral vertigo but severity an persistence less c/w BPPV. -No signs of infection to suggest vestibulitis -MRI without acute findings - Continue meclizine and Valium - Appreciate PT consultation and recommendations (2) GERD (gastroesophageal reflux disease): Status: Acute Assessment and plan: -continue PPI (3) Hypertension: Assessment and plan: - BP was high on admission, but resolved - Continue to monitor blood pressure (4) Non-Hodgkin lymphoma: Status: Acute Assessment and plan: -has responded to rituximab. -Mild anemia on presentation (5) Heart murmur: Assessment and plan: -not new, benign echo in 2022 (6) DVT prophylaxis: Status: Acute Assessment and plan: enoxaparin Subjective Subjective Interval history since last seen: Patient states that she is feeling better as compared to admission though she still has some mild ongoing vertiginous symptoms including difficulty with ambulation. She understands the plan to work with physical therapy, and otherwise has no other complaints concerns at this time. Exam Narrative Exam Narrative: Well-appearing older female laying in bed in no acute distress, ANO x 4, heart regular rhythm with 3 out of 6 holosystolic murmur, lungs good auscultation bilaterally, abdomen soft, nontender, nondistended, normal sensation and strength in bilateral upper and lower extremities Objective Last Vital Signs Temp 98.1 F 12/04/24 07:53 Pulse 66 12/04/24 07:53 Resp 19 12/04/24 07:53 BP 108/79 12/04/24 07:53 Pulse Ox 99 12/04/24 07:53 Laboratory Results - last 24 hr 12/03/24 12/04/24 17:00 06:30 WBC 4.77 4.17 L RBC 3.48 L 3.90 L Hgb 10.9 L 12.1 Hct 32.0 L 35.9 L MCV 92 92 MCH 31.3 31.0 MCHC 34.1 33.7 RDW 13.9 13.7 Plt Count 169 202 MPV 9.6 10.4 Immature Gran % 0.2 Neutrophils % 82.6 Lymphocytes % 4.6 Monocytes % 10.5 Eosinophils % 1.3 Basophils % 0.8 Nucleated RBC % 0.0 Absolute Neutrophils 3.94 Absolute Lymphocytes 0.22 L Absolute Monocytes 0.50 Absolute Eosinophils 0.06 Absolute Basophils 0.04 Sodium 135 L 142 Potassium 3.7 3.4 L Chloride 100 104 Carbon Dioxide 31.4 31.1 Anion Gap 3.6 6.9 BUN 13 7 Creatinine 0.5 L 0.4 L Est GFR (CKD-EPI 2020) 97.75 103.15 Glucose 106 85 Calcium 8.9 9.0 Magnesium 2.0 Total Bilirubin 0.4 0.4 AST 27 29 ALT 75 H 40 Alkaline Phosphatase 56 59 Total Protein 6.3 L 6.7 Albumin 3.6 3.8 TSH 4.37 H Free T4 1.27 PAWSS Have you Been Recently Intoxicated or Drunk Within the Last 30 days?: No Have you Ever Experienced Previous Episodes of Alcohol Withdrawal?: No Have you ever Experienced Withdrawal Seizures?: No Have you ever Experienced Delirium Tremens(DT)s?: No Have you ever undergone Alcohol Rehabilitation Treatment (i.e, inpt ot outpatient treatment programs)?: No Have you ever Experienced Blackouts?: No Have you ever Combined Alcohol with other Downers within the last 90 days?: No Have you ever Combined Alcohol with any other Substance of Abuse during the last 90 days?: No Positive Blood Alcohol level on Presentation? [PCS.BAL]: No Evidence of Increased Autonomic Activity (i.e. HR>120, tremor, sweating, agitation, nausea)?: No Result: 0 Time Spent with Patient Time Spent with Patient: >50 minutes Time was spent: preparing to see the patient(eg.review tests), obtaining and/or reviewing separately otained hiistory, ordering medications,tests, procedures, referring, communicating with other health career development consultant, indepentently interpreting results, counseling the patient and care coordination
--- NOTE | 2024-12-04 13:44 | IN_ITS ---
PT Notes Visit Reasons: vertigo Physical Therapy Inpatient Initial Evaluation Date: 12/05/2024 Referring Doctor: Ishaan Wells MD PT Orders: PT CONSULT: Safety Consult for D/C. Persistent vertigo Precautions: Fall. Standard precautions. Activity as tolerated. Patient Profile/Admitting Diagnosis: Ani is a 74-year-old female with past medical history significant for lymphoma in remission and is on rituximab who presented to the ED on 12/03/2024 with chief complaints of acute onset dizziness that caused her to fall onto ground while navigating a cul-de-sac close to her house. She was admitted for testing to rule out posterior circulation CVA and cerebellar CVA. Referral was sent to assess for persistent vertigo. PMHX: All Active Problems (Updated 12/04/24 @ 00:52 by Ishaan Wells) DVT prophylaxis (Acute) Non-Hodgkin lymphoma (Acute) Vertigo (Acute) Sensorineural hearing loss (SNHL) of both ears (Acute) Impacted cerumen, right ear (Acute) Dysphagia (Acute ~04/2021) GERD (gastroesophageal reflux disease) (Acute ~04/2021) Barretts esophagus (Acute ~04/2021) Medical History Hypertension Hearing deficit Hyperlipidemia Screening for breast cancer Osteoporosis Polyneuropathy Elevated TSH Foreign body granuloma of soft tissue of foot Toe anomaly Heart murmur Pt. states she was told it was benign and not an issueHematuria Memory loss Surgical History History of esophagogastroduodenoscopy (EGD) (~04/2021) 04/2021 - Barretts History of tonsillectomy Social History/Home Situation: Lives with in a private home with 5 steps to enter with rail on the R side going up. Independent without AD indoors and outdoors. Uses a walking pole doing her routine short walk through a cul-de-sac close to her house. Equipment Owned/DME: FWW, walking poles Subjective: also contributed to this part. [place] room spinning when she tried to stand up from edge of bed for this session. Recalled that she was walking on her own in a cul-de-sac close to her house using her walking pole when all of a sudden she felt dizzy and nauseous. She felt her strength in the legs disappear which caused her to fall to the ground. She was unable to do ground recovery technique and attempted to crawl back to the house until a commuter passed by and called her who then came and picked up patient to bring her to the hospital. Onset: 12/03/2024 while she was walking Quality: sudden onset dizziness with spinning sensation since onset, intensity less during this evalaution Duration: continuos but with less intensity today compared to onset yesterday Previous Episodes: None Exacerbating Factors: Turning head to L, sitting up, standing up Relieivng factors: laying still, keeping eyes closed Headache: None Neck ache:Mild neck ache and stiffness Nausea/Vomitting: Associated nausea but no vomitting since onset Hearing Loss: None Tinnitus: None Fullness in Ear: None Imbalance: supine>sit and sit>stand, directional change Red Flags: Visual changes: Patient lost her eyeglasses too when she fell on Tuesday and she has been complaining of haziness and objects/letters in front of her drifting off Dysphagia or Dysarthria: None Facial Weakness: None Incoordination: None Prior Level of Function: Independent with all ADLs Current Level of Function: Need for assist of 1 and use of FWW with transfers and ambulation Previous Treatment: None OBJECTIVE: Posture: Increased lean to R while seated at edge of bed and in standing Observation: Movements very cautious, steps hesitant Mental Status: A and O as to person, place, and purpose. Short-term memory loss, mild confusion, instructions needed to be repeated Vital Signs: Closely monitored by nursing staff ROM: Cervical ROM: AROM limited to about 30-40 degrees to either side with firm end- feel Right Upper Extremity: Shoulder Flexion WFL. Shoulder abduction WFL. Elbow flexion WFL. Wrist flexion WFL. Functional opening and closing of hand WFL. Left Upper Extremity: Shoulder Flexion WFL. Shoulder abduction WFL. Elbow flexion WFL. Wrist flexion WFL. Functional opening and closing of hand WFL. Right Lower Extremity: Hip flexion WFL. Hip abduction WFL. Knee flexion WFL. Ankle dorsiflexion WFL. Ankle plantarflexion WFL. Left Lower Extremity: Hip flexion WFL. Hip abduction WFL. Knee flexion WFL. Ankle dorsiflexion WFL. Ankle plantarflexion WFL. Strength: Cervical muscle strength: 3-/5 for rotation on either side, extension 3/5 Right Upper Extremity: Shoulder flexors 5/5. Shoulder abductors 5/5. Elbow flexors 5/5. Elbow extensors 5/5. Folding Machine Feeder strong. Left Upper Extremity: Shoulder flexors 5/5. Shoulder abductors 5/5. Elbow flexors 5/5. Elbow extensors 5/5. Folding Machine Feeder strong. Right Lower Extremity: Hip flexors 4-/5. Hip abductors 4-/5. Knee flexors 4-/5. Knee extensors 4-/5. Ankle dorsiflexors 4-/5. Ankle plantarflexors 4-/5. Left Lower Extremity:Hip flexors 4/5. Hip abductors 4/5. Knee flexors 4/5. Knee extensors 4/5. Ankle dorsiflexors 4/5. Ankle plantarflexors 4/5. Bed Mobility/Transfers: Rolling minimal assist Supine to sit minimal assist Sit to supine minimal assist Sit to stand minimal assist Stand to sit minimal assist Gait: Covered a distance of 250 feet using a front-wheeled walker requiring contact guard assist and minimal verbal cueing for better obstacle negotiation as she tends to hit the front walker wheels against carts. Patient lost her eyeglasses that she uses to walk when she fell and have been unable to recover them. Steps were hesitant and patient felt shaky and was thankful that she was using the walker. Balance: Static Sitting: Fair Dynamic Sitting: Fair Static Standing: Fair Dynamic Standing: Poor Special Tests: Mobility Limitations Standardized Measure [facility] AM-PAC 6 clicks Basic Mobility Inpatient Short Form: Raw Score: 18 CMS Score: 47% deficit Neurologic Tests: [place]omberg: Positive Coordination: Intact Fine Motor: Intact Visual Tracking: Torsional nystagmus with L gaze, none with primary and R gaze Head Thrust: Not done due to stiff neck muscles [place]-Halpike: L upbeating torsional nystagmus with L [place]- Hallpike >2 minutes with patient verbalizing provider having three eyes Supine Roll Test: Negative Informed Consent/Education: Patient instructed in purpose of PT consult and plan of care. Agreeable to proceed with established PT POC to achieve personal goals. MANUAL THERAPY: -Gentle STM to B lev scapulae and upper traps with good response NEURO RE-ED: -Gaze stabilization exercises: VOR 1 -L Danica maneuver x 2 -Static standing with hand-held assist x 2 minutes for 2 reps ASSESSMENT: L posterior canal cupulolithiasis with L upbeating torsional nystagmus with the L [place]-Hallpike. L Danica maneuver x 2. Gaze stabilization exercises:VOR1. R trunk lean while seated at edge of bed. Walked 250 feet with FWW with contact guard assist after L Danica. Patient not at baseline mobility level, needed front-wheeled walker to navigate level surfaces. Patient presents with clinical signs and symptoms consistent with current/admitting diagnoses that have resulted to mobility limitations, gait instability, generalized weakness, and overall ADL decline as demonstrated by the following impairment level findings: 1. Impaired sitting/standing balance 2. Impaired activity tolerance 3. Limitation of joint range of motion in cervical ROM 4. Sensation of spinning with positional change Impairments are contributing to the following functional limitations: 1. Increased completion time for mobility ADL performance 2. Increased risk for falls Patient is assessed as a 51459 moderate complexity based on the following: History: 74-year-old male with past medical history as indicated above Examination: Demonstrable impairment above Presentation: Evolving Decision Makin moderate complexity Goals: Goals X1 week 1. Supine-Sit independent 2. Sit-Supine independent 3. Sit-Stand independent 4. Stand-Sit independent 5. Bed-Chair independent 6. Chair-Bed independent 7. Independent gait on level surface with use of FWW for at least 300 feet without report of pain nor dyspnea 8. Independent stair negotiation while holding onto R rail for at least 5 steps without report of pain nor dyspnea 9. Independent with home exercise program and Danica maneuver technique 10. Good static and dynamic standing balance/tolerance Plan of Care/Treatment Plan: 1-2x/day for 7 days for vestibular rehab and functional mobility training. DISCHARGE RECOMMENDATIONS: [] Home with no services [] [] Home with services [specify] [X] Home with outpatient PT for re-evaluation and continued vestibular rehab for L posterior canal BPPV. [] SNF for continued rehabilitation [] [] Theatrical Rigger Care [] [] SNF versus LTC based on ability to participate and progress [] TREATMENT CODE/TIME: 65800 x 30 minutes for 1 unit, 50114 x 46 minutes for 3 units (13:44-15:03). Thank you for the opportunity to participate in the care of this patient. Leeanne Arnold PT, DPT, CLT [facility], [place]
[2024-12-04 19:51] VITALS: BP 123/78; PULSE 68; RESP 16; TEMP 37; O2SAT 96
[2024-12-04] MEDS: Levothyroxine 125 MCG TAB 62.5 MCG PO (20:39)
[2024-12-05 07:28] VITALS: BP 147/77; PULSE 71; RESP 14; TEMP 36.3; O2SAT 98
[2024-12-05] MEDS: Pantoprazole 40 MG TABCR PO (08:25)
[2024-12-05] MEDS: Normal Saline Flush 10 ML SYR IVP (08:25)
[2024-12-05] MEDS: Calcium Carbonate 1.25 GM TAB PO (08:26)
[2024-12-05] MEDS: Cholecalciferol (Vitamin D3) 400 UNIT TAB 800 UNIT PO (08:26)
--- NOTE | 2024-12-05 09:28 | PDOC.CMDIS ---
Date of service: 12/05/24 Time of Service: 09:28 LACE Index Scoring Tool Questions: Length of Stay (in days): 2 Was the patient admitted via the E.D.?: Yes E.D. Visits: 1 Answers: Total Score: 6 Risk of Readmission: Low Risk Care Management Discharge Plan Reason for Hospitalization: vertigo Discharge Plan: Ani will be discharge home once medically ready, PT consult pending. She will follow up with her community providers and continue per her discharge plan of care. Ani will be discharged via private vehicle by her . Patient/Family Education Needs: Review of discharge instructions, activity, limitations and discharge plan of care. Discuss Ask Me Three. SDOH Health Related Social Needs: No Data to Display
[2024-12-05] MEDS: Enoxaparin 40 MG/0.4 ML SYR SC (09:57)
--- NOTE | 2024-12-05 09:58 | PT.INTREAT ---
PT Notes Visit Reasons: vertigo Physical Therapy Inpatient Treatment Note Date: 12/05/2024 Precautions: Fall. Standard precautions. Activity as tolerated. Subjective: Not a lot of spinning sensation until she stood up from chair back to bed with this PT. Symptom resolved with assumption of supine in bed. OBJECTIVE: Posture: Increased lean to R while seated at edge of bed and in standing Observation: Movements very cautious, steps hesitant Mental Status: A and O as to person, place, and purpose. Short-term memory loss, mild confusion, instructions needed to be repeated Vital Signs: Closely monitored by nursing staff Bed Mobility/Transfers: Rolling stand by assist Supine to sit stand by assist Sit to supine stand by assist Sit to stand contact guard assist with FWW Stand to sit contact guard assist with FWW Gait: Covered a distance of 250 feet using a front-wheeled walker requiring stand by assist and minimal verbal cueing for better obstacle negotiation as she tends to hit the front walker wheels against carts. Steps are more purposeful and speed incrased compared to yesterday. Patient continued to need the walker for more stability. Balance: Static Sitting: Fair Dynamic Sitting: Fair Static Standing: Fair Dynamic Standing: Poor NEURO RE-ED: -Gaze stabilization exercises: VOR 1 -L Danica maneuver x 3 -Static standing with hand-held assist x 2 minutes for 2 reps ASSESSMENT: Patient not at baseline mobility level, needed front-wheeled walker to navigate level surfaces again today. Required hand-held assist without the walker for walking around the foot of the bed. L posterior canal cupulolithiasis with L upbeating torsional nystagmus with the L [place]-Hallpike. R trunk lean not as much as it was yesterday while seated at edge of bed. Walked 250 feet with FWW with stand by assist after L Danica x 3 Plan of Care/Treatment Plan: 1-2x/day for 7 days for vestibular rehab and functional mobility training. DISCHARGE RECOMMENDATIONS: [] Home with no services [] [] Home with services [specify] [X] Home with outpatient PT for re-evaluation and continued vestibular rehab for L posterior canal BPPV. [] SNF for continued rehabilitation [] [] Long-Term Care [] [] SNF versus LTC based on ability to participate and progress [] TREATMENT CODE/TIME: 18079 x 57 minutes for 4 units (09:58-10:55).
--- NOTE | 2024-12-05 11:13 | W.PM.DS.N ---
Date of service: 12/05/24 Time of Service: 11:14 DS: Diagnosis Discharge Diagnosis (1) Vertigo: Status: Acute (2) GERD (gastroesophageal reflux disease): Status: Acute (3) Hypertension: (4) Non-Hodgkin lymphoma: Status: Acute (5) Heart murmur: (6) DVT prophylaxis: Status: Acute Discharge Plan Disposition Patient Disposition: Home Condition: Good Discharge Details Reason For Visit: vertigo Admit Date/Time: 12/03/24 22:45 Admit Provider: Ishaan Wells Attending Provider: Ishaan Wells Primary Care Provider: Blanquita Pagan Hospital Course Hospital Course: Patient initially presented with dizziness and gait instability concerning for vertigo. She did have an MRI that did not show any acute findings but did show a arachnoid cyst in the left cerebellar hemisphere. However, patient symptoms improved with meclizine and after PT manipulation with [place]Hall[place] and Danica maneuver to the point where patient very rapidly returned to her baseline functional status. Therefore, it was determined that the patient is stable for discharge home with prescription for meclizine and outpatient physical therapy. Home Meds and New Rx's Prescriptions: New meclizine 25 mg tablet 25 mg PO TID PRNQty: 20 0RF Continued levothyroxine 50 mcg capsule 62.5 mcg PO DAILY calcium carbonate 500 mg calcium (1,250 mg) tablet 500 mg PO BID alendronate 10 mg tablet 10 mg PO DAILY cholecalciferol (vitamin D3) 10 mcg (400 unit) capsule 20 mcg PO DAILY pantoprazole 40 mg tablet,delayed release (DR/EC) See Rx Instructions .ROUTE .COMPLEX Qty: 60 2RF Dose Instruction: TAKE ONE TABLET BY MOUTH EVERY DAY FOR GERD Rx Instructions: TAKE ONE TABLET BY MOUTH EVERY DAY FOR GERD albuterol sulfate 90 mcg/actuation HFA aerosol inhaler 2 puff INHALATION ONCE PRN Patient Comments: INHALE 2 PUFFS BY MOUTH EVERY 4 TO 6 HOURS NEEDED Discharge Instructions Instructions: Vertigo ED Additional Instructions: Symptoms today seem consistent with vertigo. There does not appear to be any evidence of a stroke on your CT imaging and you are feeling better. Please continue the meclizine at home and make sure you are drinking lots of fluids. Please ambulate with caution if you continue to still feel dizzy. If you are having persistent symptoms or not feeling better please return for reevaluation or follow-up with your primary care provider. Referrals: Leeanne Arnold [PHYSICAL THERAPIST] - (Vertigo) Activity:: Activity as Tolerated Equipment/Supplies:: No Equipment Needed Diet:: As Tolerated Discharge Orders Discharge Orders: Discharge Order (Routine); Ordered 12/05/24 Ordered By: Donald Mares DS: Summary Time Spent with Patient providing and/or coordinating discharge services: Greater than 30 minutes Status at Discharge Functional status at discharge: independent ambulation Overall status at discharge: patient is back to baseline Mental Status: mental status grossly normal Speech and Movement: speech and movement normal Mood: congruent mood Affect: normal affect Quality:SDOH Health Related Social Needs: No Data to Display Exam Narrative Exam Narrative: Well-appearing older female laying in bed in no acute distress, ANO x 4, heart regular rhythm with 3 out of 6 holosystolic murmur, lungs good auscultation bilaterally, abdomen soft, nontender, nondistended, normal sensation and strength in bilateral upper and lower extremities Psych Mental Status: mental status grossly normal Speech and Movement: speech and movement normal Mood: congruent mood Affect: normal affect DS: Data Vitals/I&O Vitals and I&O: Vital Signs Temperature 97.3 F L 12/05/24 07:28 Temperature Source Tympanic 12/05/24 07:28 Pulse 71 12/05/24 07:28 Pulse Rhythm Regular 12/04/24 00:48 Pulse 68 12/03/24 21:10 Respiratory Rate 14 12/05/24 07:28 Respiratory Effort Normal 12/04/24 00:48 Respiratory Depth Normal 12/04/24 00:48 Respiratory Pattern Normal 12/04/24 00:48 Blood Pressure 147/77 H 12/05/24 07:28 Blood Pressure Mean 100 12/05/24 07:28 Blood Pressure Position Sitting 12/03/24 15:31 Pulse Oximetry 98 12/05/24 07:28 Oxygen Delivery Method Room Air 12/05/24 07:28 Oxygen Flow Rate 0 12/05/24 07:28 Pain Level 0 12/05/24 07:28 Intake & Output 12/04/24 12/05/24 12/05/24 17:59 05:59 17:59 Intake Total 873.334 / 873.334 640 / 640 Output Total 1600 / 1600 100 / 100 Balance -726.666 / -726.666 540 / 540 Intake: IV 753.334 / 753.334 Oral 120 / 120 640 / 640 Output: Urine 1600 / 1600 100 / 100 Other: Urine Color Pale Pale Urine Appearance Clear Clear Urine Odor Normal Comment void x 1 in toilet Data Completed and Pending Labs on day of discharge: Labs from last 24 hours 12/04/24 06:30 TSH 4.37 H Free T4 1.27 PFSH All Active Problems (Updated 12/04/24 @ 00:52 by Ishaan Wells) DVT prophylaxis (Acute) Non-Hodgkin lymphoma (Acute) Vertigo (Acute) Sensorineural hearing loss (SNHL) of both ears (Acute) Impacted cerumen, right ear (Acute) Dysphagia (Acute ~04/2021) GERD (gastroesophageal reflux disease) (Acute ~04/2021) Barretts esophagus (Acute ~04/2021) Medical History Hypertension Hearing deficit Hyperlipidemia Screening for breast cancer Osteoporosis Polyneuropathy Elevated TSH Foreign body granuloma of soft tissue of foot Toe anomaly Heart murmur Pt. states she was told it was benign and not an issue Hematuria Memory loss Surgical History History of esophagogastroduodenoscopy (EGD) (~04/2021) 04/2021 - Barretts History of tonsillectomy Social History (Updated 12/04/24 @ 00:37 by Ishaan Wells) Smoking/Tobacco Use Status: Never Smoking risk assessment performed?: Yes Alcohol Intake: current Alcohol Intake frequency: a few times a week Alcohol type: beer and hard liquor Substance use type: does not use Housing: house Do you feel safe at home: Yes Do you feel safe in your relationship?: Yes Additional Social history: lives with Enrique in [facility]. 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
--- NOTE | 2024-12-10 10:03 | NUR.NOTE ---
Accessed chart to reconcile orders for EKG with EKG?s in [facility]. One order cancelled and one order completed. Nursing Note:
--- NOTE | 2024-12-10 10:04 | NUR.NOTE ---
Accessed chart to reconcile orders for EKG with EKG?s in [facility]. One order completed and one order cancelled. Nursing Note:
== END 2024-12-05 13:00 | disposition home or self-care (01) ==
LOC: ER 23:47 → MS 12-04 00:42
PROVIDERS: Admitting Provider Family Medicine; Emergency Provider Emergency Medicine; PCP Nurse Practitioner Family; Responsible Provider Family Medicine; Visit Provider Family Medicine
DX: R42 Dizziness and giddiness (principal); G93.0 Cerebral cysts; I10 Essential (primary) hypertension; K21.9 Gastro-esophageal reflux disease without esophagitis; R01.1 Cardiac murmur, unspecified; C85.9A Non-Hodgkin lymphoma, unspecified, in remission; Z79.899 Other long term (current) drug therapy; W19.XXXA Unspecified fall, initial encounter; R11.0 Nausea; D64.9 Anemia, unspecified; E78.5 Hyperlipidemia, unspecified; M81.0 Age-related osteoporosis without current pathological fracture; H90.3 Sensorineural hearing loss, bilateral; R41.3 Other amnesia
CPT/HCPCS: 00123; 36415; 70496; 70498; 70553; 80053; 85027; 93005; 96365; 96366; 96375; 96376; 97112; 97162; 99285; J1650; 83735; 84439; 84443; 85025; 93010; 99222; 99233; 99239; G0378; J0131; J3360; J3490

== ENCOUNTER 2024-12-19 00:46 | Outpatient (RCR) | payer MEDICARE, BC, SELFPAY ==
[2024-12-19] MEDS: Normal Saline Flush 10 ML SYR IVP (09:10)
[2024-12-19 09:41] LABS: Abs Immature Grans 0.01 10^3/uL (0.0-0.06); Absolute Basophil Count 0.06 10^3/uL (0.0-0.2); Absolute Eosinophil Count 0.09 10^3/uL (0.0-0.7); Absolute Lymphocyte Count 0.45 10^3/uL (1.2-3.4); Absolute Monocyte Count 0.55 10^3/uL (0.1-0.8); Absolute Neutrophil Count 3.86 10^3/uL (1.2-6.7); Basophils % 1.2 %; Eosinophils % 1.8 %; HCT 33.1 % (36.0-46.0); HGB 11.2 g/dL (11.2-15.7); Immature Grans % 0.2 %; MCH 31.3 pg (27.0-33.0); MCHC 33.8 % (32.0-36.0); MCV 93 fL (80-95); MPV 9.9 fL (8.0-11.0); Neutrophils % 76.8 %; Platelet Count 216 10^3/uL (130-400); RBC 3.58 10^6/uL (3.93-5.22); RDW 13.8 % (11.7-14.6); RDW-SD 46.9 fL; WBC 5.02 10^3/uL (4.4-10.8)
[2024-12-19 10:07] LABS: ALT 33 U/L (14-59); AST 23 U/L (15-37); Albumin 3.8 g/dL (3.4-5.0); Alkaline Phosphatase 64 U/L (46-116); Anion Gap 9.1 mmol/L (3-11); BUN 13 mg/dL (7-18); Bilirubin, Total 0.4 mg/dL (0.2-1.0); CO2 29.9 mmol/L (21.0-32.0); CREATININE 0.7 mg/dL (0.55-1.02); Calcium 8.9 mg/dL (8.5-10.1); Chloride 98 mmol/L (98-107); Estimated GFR 90.14 (mL/min/1.73m2); Glucose 119 mg/dL (74-106); LDH 174 U/L (81-234); Potassium 3.8 mmol/L (3.5-5.1); Sodium 137 mmol/L (136-145); Total Protein 6.5 g/dL (6.4-8.2)
[2024-12-19 12:59] LABS: Ferritin 39 ng/mL (8-252)
[2024-12-19 13:44] LABS: Vitamin B12 863 pg/mL (193-986)
== END 2024-12-24 23:59 | disposition home or self-care (01) ==
LOC: INF 00:46
PROVIDERS: Nurse Practitioner Family; PCP Nurse Practitioner Family; Visit Provider Internal Medicine Hematology & Oncology
DX: D64.9 Anemia, unspecified (principal); Z45.2 Encounter for adjustment and management of vascular access device
CPT/HCPCS: 36591; 80053; 96523; 82607; 82728; 83615; 85025

== ENCOUNTER 2025-01-04 00:16 | Outpatient (CLI) | payer MEDICARE, BC, SELFPAY ==
--- NOTE | 2025-01-04 09:00 | DI.MAMMO_ITS ---
Exam(s) MAMMO SCREENING EXAM: MAMMO SCREENING CLINICAL HISTORY: Screening, Z12.31. TECHNIQUE: Bilateral full field digital CC and MLO mammographic images were obtained with 3D tomosynthesis and utilizing computer aided detection (CAD). COMPARISON: Prior mammograms were reviewed. FINDINGS: Fibroglandular tissue pattern is again noted be moderately dense. There are no new spiculated masses nor malignant new appearing microcalcification groups. Benign micro and macro calcifications are again noted in both breasts. There is no significant architectural distortion nor skin thickening-retraction. IMPRESSION: No radiographic evidence of malignancy. BI-RADS Category 1 - Negative Breast Density - Category C - The breast are heterogeneously dense, which may obscure small masses. Breast density Category C or D implies that the patient has dense breast tissue. Dense breast tissue can make it harder to find cancer on a mammogram. Dense breast tissue is also associated with an increased risk of breast cancer. This information about the result of the mammogram report was provided to the patient to raise their awareness. Use this report when you speak with the patient about their risks for breast cancer, which includes their family history. At that time, you may recommend additional screening tests (Ultrasound or MRI) as these tests may add significant information. A negative radiographic report should not delay biopsy if a dominant or clinically suspicious mass is present. Up to ten percent of cancers are not identified on mammography. A negative report may reinforce clinical impression. Adenosis and dense breasts may obscure an underlying neoplasm. False positive reports average 6 to 10%. Patient will receive a letter notifying them of these results.
== END 2025-01-04 00:36 ==
LOC: DI 00:16
PROVIDERS: PCP Nurse Practitioner Family; Visit Provider Nurse Practitioner Family
DX: Z12.31 Encounter for screening mammogram for malignant neoplasm of breast (principal); R92.333 Mammographic heterogeneous density, bilateral breasts
CPT/HCPCS: 77063; 77067

== ENCOUNTER 2025-02-13 02:45 | Outpatient (RCR) | payer MEDICARE, BC, SELFPAY ==
[2025-02-13 09:25] LABS: Abs Immature Grans 0.02 10^3/uL (0.0-0.06); HCT 34.0 % (36.0-46.0); HGB 11.5 g/dL (11.2-15.7); Immature Grans % 0.4 %; MCH 31.2 pg (27.0-33.0); MCHC 33.8 % (32.0-36.0); MCV 92 fL (80-95); MPV 9.9 fL (8.0-11.0); Platelet Count 227 10^3/uL (130-400); RBC 3.69 10^6/uL (3.93-5.22); RDW 13.6 % (11.7-14.6); RDW-SD 46.5 fL; WBC 5.70 10^3/uL (4.4-10.8)
[2025-02-13 09:48] LABS: ALT 32 U/L (14-59); AST 24 U/L (15-37); Albumin 3.8 g/dL (3.4-5.0); Alkaline Phosphatase 56 U/L (46-116); Anion Gap 6.7 mmol/L (3-11); BUN 14 mg/dL (7-18); Bilirubin, Total 0.5 mg/dL (0.2-1.0); CO2 30.3 mmol/L (21.0-32.0); Calcium 9.0 mg/dL (8.5-10.1); Chloride 97 mmol/L (98-107); Estimated GFR 93.55 (mL/min/1.73m2); Glucose 143 mg/dL (74-106); LDH 218 U/L (81-234); Potassium 4.6 mmol/L (3.5-5.1); Sodium 134 mmol/L (136-145); Total Protein 6.6 g/dL (6.4-8.2)
[2025-02-13] MEDS: Normal Saline Flush 10 ML SYR IVP (09:54)
[2025-02-13 11:34] LABS: Ferritin 54 ng/mL (8-252)
== END 2025-02-24 23:59 | disposition home or self-care (01) ==
LOC: INF 02:45
PROVIDERS: Nurse Practitioner Family; PCP Nurse Practitioner Family; Visit Provider Internal Medicine Hematology & Oncology
DX: C82.90 Follicular lymphoma, unspecified, unspecified site (principal); D64.9 Anemia, unspecified; Z45.2 Encounter for adjustment and management of vascular access device
CPT/HCPCS: 36591; 80053; 82728; 83615; 85025

== ENCOUNTER 2025-04-10 01:53 | Outpatient (RCR) | payer MEDICARE, BC, SELFPAY ==
[2025-04-10] MEDS: Normal Saline Flush 10 ML SYR IVP (13:49)
[2025-04-10 14:19] LABS: Abs Immature Grans 0.01 10^3/uL (0.0-0.06); HCT 33.1 % (36.0-46.0); HGB 11.2 g/dL (11.2-15.7); Immature Grans % 0.2 %; MCH 31.9 pg (27.0-33.0); MCHC 33.8 % (32.0-36.0); MCV 94 fL (80-95); MPV 10.5 fL (8.0-11.0); Platelet Count 199 10^3/uL (130-400); RBC 3.51 10^6/uL (3.93-5.22); RDW 14.0 % (11.7-14.6); RDW-SD 48.3 fL; WBC 5.09 10^3/uL (4.4-10.8)
[2025-04-10 14:25] LABS: ALT 37 U/L (14-59); AST 25 U/L (15-37); Albumin 3.8 g/dL (3.4-5.0); Alkaline Phosphatase 58 U/L (46-116); Anion Gap 7.7 mmol/L (3-11); BUN 18 mg/dL (7-18); Bilirubin, Total 0.5 mg/dL (0.2-1.0); CO2 29.3 mmol/L (21.0-32.0); Calcium 9.2 mg/dL (8.5-10.1); Chloride 97 mmol/L (98-107); Glucose 153 mg/dL (74-106); LDH 193 U/L (81-234); Potassium 4.4 mmol/L (3.5-5.1); Sodium 134 mmol/L (136-145); Total Protein 6.5 g/dL (6.4-8.2)
== END 2025-04-26 23:59 | disposition home or self-care (01) ==
LOC: INF 01:53
PROVIDERS: PCP Nurse Practitioner Family; Visit Provider Internal Medicine Hematology & Oncology
DX: C82.90 Follicular lymphoma, unspecified, unspecified site (principal); Z45.2 Encounter for adjustment and management of vascular access device
CPT/HCPCS: 36591; 80053; 83615; 85025

== ENCOUNTER 2025-05-07 11:12 | Outpatient (REF) | payer MEDICARE, BC, SELFPAY ==
[2025-05-07 14:42] LABS: TSH (W/Ref FT4) 2.55 uIU/mL (0.55-4.78)
[2025-05-07 15:16] LABS: Cholesterol 221 mg/dL (<200); HDL Cholesterol 115 mg/dL (>40)
[2025-05-07 15:24] LABS: Hemoglobin A1C 4.9 % (<5.7)
== END 2025-05-07 11:13 | disposition home or self-care (01) ==
LOC: NCHCN 11:12
PROVIDERS: PCP Nurse Practitioner Family; Visit Provider Nurse Practitioner Family
DX: E78.5 Hyperlipidemia, unspecified (principal); E03.9 Hypothyroidism, unspecified
CPT/HCPCS: 80061; 83036; 84443